=== PATIENT | male | born 1955 | race Caucasian/White ===

== ENCOUNTER → 2016-12-06 | Outpatient (CLI) | payer OTHER ==
[~2016-12-06] MED LIST: ALBUAER2 INH; ATV/1 PO; CALC-20 PO; DIPH-416 PO; FLUD0.1T10 PO; FLUO40CA8 PO; FOLI1TAB7 PO; HYD10 PO; HYDR-5688 PO; HYDR2TAB48 PO; LBT/300 PO; LEFL10TA PO; LEFL20TA PO; LEVO300T2 PO; MELO15TA3 PO; MELO15TA4 PO; MTHI50 INJ; MULT-506 PO; OMEG-112 PO; ONDA4TAB46 PO; PANT40TA PO; TERA5CAP PO; TIZA4CAP PO; VNTHFA/IN INH; [UNRECOGNIZED DRUG - CODE] IM
--- NOTE | 2016-12-07 06:42 | PAP/PSG TECHNICIAN REPORT ---
[facility] Wash Plant Operator Polysomnogram Report Study name: None Report date: 12/07/2016 Study date: 12/06/2016 Referring Physician: Ozzy DOWNS M.D. Name: ANGEL EASON Interpreting Physician: Praful Downs M.D. Date of : 1955 Wash Plant Operator: Ayush Acosta RPSGT. Sex: Male Age: 61 StudyType: PSG Weight: 229 lbs 19.25 inches Height: 61 years, Height 5' 8" Neck Circum: BMI: 34.82 Medications: LABETALOL HCL 300 MG, ZANAFLEX 4 MG, FLUOXETINE HCL 40 MG, ATIVAN 1 MG, VENTOLIN HFA 108 (90 BASE), PROTONIX 40 MG, CORTEF 10 MG, HYTRIN 5 MG, LEVOTHYROXINE SODIUM 300 MCG, MELOXICAM 15 MG, FLORINEF 100 MCG, DEXAMETHASONE SODIUM PHOSPHATE Patient History PATIENT HAS HISTORY OF WITNESSED APNEAS, NOCTURIA, LOUD SNORING AND EXCESSIVE DAYTIME SLEEPINESS. HE GENERALLY FEELS TIRED UPON WAKING UP IN THE MORNING. HE IS HERE TODAY FOR AN EVALUATION OF THIERRY. ESS = 13 RM 3 Parameters Monitored NPSG: E1-M2, E2-M1, Fp1-M2, Fp2-M1, F3-M2, F4-M2, F4-M1, C3-M2, C4-M2, C4-M1, O1-M2, O2-M2, O2-M1, T3-M2, T4-M1, P3-M2, P4-M1, CHIN1, CHIN2, HR, EKG, Legs, PFLOW, SNOR, FLOW, CFLOW, Tidal Volume, THOR, ABDO, SpO2, PLTH, CPRESS, ETCO2 Wave, ETCO2, pH Sleep Architecture Sleep Stages Time at Lights Off 10:27:10 PM STAGES Time (min.) TST (%) Time at Lights On 5:43:40 AM Wake 68.5 -- Total Recording Time (TRT) 437.00 min. N1 31.0 8 Total Sleep Period (TSP) 393.5 min. N2 245.0 67 Total Sleep Time (TST) 368.0min. N3 52.0 14 Awake Time 68.5 min. REM 40.0 11 Wake after Sleep Onset 25.5 min. Sleep Efficiency (SE) 84 % Sleep Onset Latency (KARINA) 43.0 min. Number of Stage 1 Shifts None Awakenings 31 Stage Changes 118 Number of REM periods 2 REM 40.0 11 REM Latency 210.5 min. NREM 328.0 89 Body Position Analysis Supine Right Left Side Prone Vertical Total Sleep Time (min.) 296.4 0.0 135.3 135.31 0.0 0.0 Total Sleep Time (%) 63% 0% 37% 37 0% N/A% Total Sleep Time REM (min.) 0.0 0.0 40.0 None 0.0 0.0 Total Sleep Time NREM (min.) 232.7 0.0 95.3 None 0.0 0.0 Intermittent Wake (min.) 63.7 0.0 4.8 None 0.0 0.0 Total Sleep Period (%) 64% None None None None None Arousals Myoclonus (PLM) * Events Count Index Events Count Index Spontaneous 33 5 Events Awake (PLMW) 146 127.9 Respiratory 14 2.3 Events Asleep w/ Arousal (PLMA) 17 2.8 PLM 15 3 Events Asleep w/o Arousal (PLMS) 112 18.3 Snoring 12 2 Total Asleep 129 21.0 Total 74 12 Total 275 38 Respiratory Analysis * CA OA MA CH H RERA Total Count 0 0 0 0 90 3 90 Index 0.0 0.0 0.0 0 14.7 0 15.2 Mean Duration 0.0 0.0 0.0 0.00 19.6 16.6 19.5 Longest Duration 0.0 0.0 0.0 0.00 0.0 16.9 39.6 Respiratory Event Summary Total Supine ~Supine Right Left Prone REM NREM Apneas Count 0 0 0 N/A 0 N/A 0 0 Index 0.0 0 0 N/A 0.0 N/A 0 0 Hypopneas (4% Desat) Count 90 75 15 N/A 15 N/A 4 86 Index 14.7 19.3 7 N/A 6.7 N/A 6.0 15.7 Apneas & All Hypopneas Count 90 75 15 N/A 15 N/A 4 86 Index 14.7 19 7 N/A 7 N/A 6.0 15.7 Respiratory Events (Air Purifier Servicer+All Hyp+RERA) Count 90 77 16 N/A 16 N/A 4 86 Index 15.2 20 7 N/A 7.1 N/A 6.0 16.3 Respiratory Related Arousal Count 14 77 1 N/A 1 N/A 1 13 Index 2.3 3 0 N/A 0 N/A 2 2 Snoring Analysis Supine Right Left Prone REM NREM Total Snore duration 28.6 min Snores count 1,354 N/A 181 N/A 37 1,498 1,535 Snore mean duration 1.1 Sec Snores index 349 N/A 80 N/A 55.5 274.0 250.3 TST with snoring (%) 7.8% Desaturation Event Summary: Minimum %SpO2 Event Count Mean/Min/Max Duration(sec.) Desaturation Index % Time In Bed > 90 104 24.4 / 10.8 / 58.5 17.1 83.5 86 - 90 18 22.7 / 13.0 / 34.8 15.1 16.4 81 - 85 0 N/A 0.0 0.2 76 - 80 0 N/A 0.0 0.0 71 - 75 0 N/A 0.0 0.0 66 - 70 0 N/A 0.0 0.0 61 - 65 0 N/A 0.0 0.0 56 - 60 0 N/A 0.0 0.0 51 - 55 0 N/A 0.0 0.0 < 50 0 N/A 0.0 0.0 Total REM NREM Awake <50% 0.0 min. 0.0 min. 0.0 min. 0.0 min. 51 - 60% 0.0 min. 0.0 min. 0.0 min. 0.0 min. 61 - 70% 0.0 min. 0.0 min. 0.0 min. 0.0 min. 71 - 80% 0.0 min. 0.0 min. 0.0 min. 0.0 min. 81 - 90% 72.2 min. 1.4 min. 61.3 min. 9.5 min. 91 - 100% 364.3 min. 38.6 min. 266.7 min. 59.0 min. Average 92 92 92 92 Minimum SpO2 85 88 85 85 Desaturation Event Index 14.7 6.0 17.4 7.0 # Desat. Events below 89% 60 1 56 3 Time(%) with Saturation below 89% 4.6 0.0 4.1 0.5 Time(min.) with Saturation below 89% 20.1 0.1 17.8 2.2 Time (mins) REM (mins) NREM (mins) % of TST SpO2 Below 90% 95 3 N92 10.1 SpO2 Below 88% 21 0 0 2 Heart Rate Analysis Min (bpm) Max (bpm) Average (bpm) Awake 48 72 58 NREM 47 68 54 REM 47 71 58 Overall 47 71 54 Supplemental O2 Values Minimum O2 level: None Value Start Time End Time Wash Plant Operator Comments Mr. Eason slept in the supine and left positions. No cardiac arrhythmia noted. Leg movements noted. No bruxism noted. Snoring was noted and scored as a 4 on a scale of 1 through 5. (0=no snoring, 5=snoring loud enough to be heard through a closed door or down the conde way) Mr. Eason awoke to use the restroom 0 times during the night. Mr. Eason stated I slept as well as I do when I am in my own bed. The final report will be interpreted and signed by a sleep physician. The completed physician report will then be placed in the patient medical record. Therapy (cm H2O) 0 TIB (min.) 436.5 TST (min.) 368.0 Sleep Onset (min.) 43.0 REM Onset From Sleep (min.) 210.5 Sleep Efficiency % 84 Wakefulness (%) 16 Wakefulness (min.) 68.5 NREM 1 (%) 8 NREM 1 (min.) 31.0 NREM 2 (%) 67 NREM 2 (min.) 245.0 NREM 3 (%) 14 NREM 3 (min.) 52.0 REM (%) 11 REM (min.) 40.0 # Arousals 74 Arousal Index 12 # Snore 1,535 Snore Index 250.3 AHI 14.7 AHI Supine 19 AHI Non-Supine 7 NREM AHI 15.7 REM AHI 6.0 RDI 15.2 # Obstructive Apnea 0 # Central Apnea 0 # Mixed Apnea 0 # Hypopneas 90 RERAs 3 Total Respiratory Events 97 Time Below SpO2 89% (min.) 17.9 Mean NREM SpO2 (%) 92 Mean REM SpO2 (%) 92 Mean Sleep SpO2 (%) 92 Min NREM SpO2 (%) 85 Min REM SpO2 (%) 88 Position Supine (min.) 296.4 Position Non-supine (min.) 135.3 LM Index Sleep 21.0 LM Index NREM 20.1 LM Index REM 28.5 Mean Heart Rate (bpm) 54 Min Heart Rate (bpm) 47
--- NOTE | 2016-12-11 11:25 | POLYSOMNOGRAPH REPORT ---
REFERRING PERSON: Dr. Dianne Downs. LEGAL RESEARCHER: Ayush Acosta. Mr. Eason is a 61-year-old male sent for possible split night sleep study. He has witnessed apneas, nocturia, loud snoring and excessive daytime sleepiness. His [place] sleepiness scale score on the evening of this study is 13. BMI is 34.82. Following the technical and digital specifications of the [employer] (AASM) a standard diagnostic polysomnogram was performed monitoring EEG, EOG, EMG (chin and leg deviations), oxygen saturation, body position, digital video, respiratory effort and airflow. The sleep Stage and event scoring was based on the AASM Manual for the Scoring of Sleep and Associated Events 2007 edition. Apneas are defined as a drop in the peak thermal sensor excursion by >90% of baseline for at least 10 seconds. Hypopneas were scored using the 4% oxygen desaturation rule (4A-[employer]) and a decrease in the nasal pressure excursions by >30% of baseline for at least 10 seconds. Respiratory effort-related arousal (RERA's) is defined as a sequence of breaths lasting at least 10 seconds characterized by increasing respiratory effort or flattening of the nasal pressure waveform leading to an arousal from sleep when the sequence of breaths does not meet criteria for an apnea or hypopnea. Apnea Hypopnea index (AHI) is defined as the number of apneas and hypopneas occurring in an hour of sleep. Respiratory disturbance index (RDI) is defined as the number of apneas, hypopneas, and RERA's occurring in an hour of sleep. Mr. Eason's total sleep period time was 393.5 minutes. Total sleep time was 368 minutes. Sleep efficiency was 84%. Latency to sleep onset was 43 minutes with wake after sleep onset of 25.5 minutes. Total non-REM sleep time was 328 minutes. He spent 8% of that time in N1 sleep, 67% in N2 sleep and 14% in N3 sleep. REM latency was 210.5 minutes. Total REM sleep time was 40 minutes or 11% of total sleep time. There were 74 cortical arousals from sleep. 14 of these arousals were due to respiratory events, 15 due to periodic limb movements of sleep, and 12 were due to snoring. The remaining 33 arousals were spontaneous. There were 129 periodic limb movements. Limb movement index was 21. Limb movement with arousal index was 2.8. There were no obstructive, central or mixed apneas on this test. There were 90 hypopnea and 3 RERA. Apnea-hypopnea index was 14.7 with an RDI of 15.2. Supine AHI was 19, REM AHI 6, non-REM AHI 15.7. This is consistent with mild to moderate sleep apnea. 1535 snoring events were recorded. Total sleep time with snoring was 7.8%. Mean saturations 92% with desaturations to 85%. Saturations were less than 89% for 20.1 minutes of total sleep time. This is significant nocturnal hypoxemia. There was no cardiac ectopy noted on this test. Heart rates ranged from a low of 47 beats per minute to a high of 71 beats per minute during sleep. IMPRESSION AND PLAN: 61-year-old male with mild to moderate sleep apnea and significant nocturnal hypoxemia on this study. 1. This patient would likely benefit from positive airway pressure therapy. He should return to the sleep lab for a full night titration and then based on those results be started on equipment at home. A download from his machine should be reviewed in 1 month both to check compliance as well as AHI and further pressure adjustments can occur at that time. 2. Alternatively, this patient could be started on auto titrating CPAP at home. The device can be set to pressures of 5-15 cm. A download from his machine can be reviewed in 1 month and the patient will be set on optimal pressure at that time. 3. Should this patient be unwilling or unable to tolerate CPAP therapy, he should be referred to ear, nose and throat or oral surgery/dental medicine (if appropriate) to discuss alternative treatments for sleep disordered breathing.
== END | disposition home or self-care (01) ==
LOC: C.NEUR 21:00
PROVIDERS: ATTEND Family Medicine
DX: G47.33 Obstructive sleep apnea (adult) (pediatric) (principal)

== ENCOUNTER 2017-07-28 10:42 | Emergency (ER) | payer OTHER ==
[~2017-07-28] VITALS: Ht 175.3 cm; Wt 99.9 kg
[~2017-07-28 10:42] MED LIST changes: -HYDR2TAB48 PO; -LEFL10TA PO; -LEFL20TA PO; -MELO15TA4 PO; -VNTHFA/IN INH
[2017-07-28] MEDS ORDERED: SODIUM CHLORIDE 0.9% 1000ML 1,000 ML IV STA (11:02)
[2017-07-28] MEDS ORDERED: ONDANSETRON INJ 2 MG/ML 2 ML VIAL IV STA (11:04)
[2017-07-28] MEDS ORDERED: HYDROmorphone INJ 1 MG/ML SYR IV STA ×2 (11:04→13:23)
[2017-07-28] MEDS ORDERED: DiphenhydrAMINE HCL 50 MG/ML VIAL IV STA (11:07)
--- NOTE | 2017-07-28 11:09 | EMERGENCY ROOM VISIT NOTE ---
History Report prepared by Brenna: Gwendolyn Roe Under the Supervision of: Dr. Shorty Barillas M.D. First contact with patient: 10:59 Chief Complaint: FALL Stated Complaint: FELL OUT OF A TREE-12 FEET, RIB PAIN History of Present Illness The patient is a 62 year old male who presents to the Emergency Room with complaints of a fall that occurred prior to arrival. He reports he was in a tree cutting pines to make wreathes when it collapsed and he fell approximately 12 feet, landing on his ribs, and hitting the area with a rock during the fall. He did not hit his head or lose consciousness. He currently complains of pain in his rib area, rating his discomfort as a 10/10 in severity. Breathing worsens his discomfort. He denies any back pain or chest pain. 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 A total of 10 systems reviewed and were otherwise negative. Past Medical & Surgical Medical Problems: (1) Lehr's disease Social History Smoking Status: Never Smoker Alcohol Use: none Drug Use: none Marital Status: Housing Status: lives with family Occupation Status: employed Current/Historical Medications Scheduled Calcium Carbonate-Vitamin D (Calcium 600 + D), 1 TAB PO QAM Fludrocortisone Acetate (Florinef), 0.1 MG PO HS Fluoxetine (Prozac), 40 MG PO QAM Folic Acid (Folvite), 1 MG PO QAM Hydrocortisone (Cortef), 20 MG PO QAM Hydrocortisone (Cortef), 10 MG PO QPM Labetalol Hcl (Normodyne), 300 MG PO BID Leflunomide (Arava), 10 MG PO DAILY Levothyroxine Sodium (Synthroid), 300 MCG PO 4XWK Lorazepam (Ativan), 1 MG PO HS Meloxicam (Mobic), 15 MG PO DAILY Methotrexate (Methotrexate Sodium), 0.6 ML INJ WK Multivitamin (Multivitamin), 1 TAB PO QAM [id number] Ethyl Esters (Reno-3), 1 CAP PO BID Pantoprazole (Protonix), 40 MG PO QAM Terazosin (Hytrin), 5 MG PO HS Scheduled PRN Albuterol Hfa (Ventolin Hfa), 2 PUFFS INH Q6H PRN for Shortness of Breath Diphenoxylate/Atropine (Lomotil), 1 DOSE PO QID PRN for Diarrhea Hydrocodone/Acetaminophen 5MG/325MG (Metter 5MG/325MG), 2 TABLET PO HS PRN for Mild Pain Ondansetron Hcl (Zofran), 4 MG PO TID PRN for N Tizanidine (Zanaflex), 4-8 MG PO HS PRN for PRN Allergies Coded Allergies: Morphine (Verified Allergy, Unknown, ITCHING, N&V, 02/08/16) 05/25/09: FROM PHYSICIAN ORDER FORM: CLARIFICATION--PT DOESN'T HAVE ALLERGY TO APAP, OPIATE AGONIST, OR OXYCODONE. ALLEGY ONLY TO MORPHINE/PROTONIX VORB FROM DR CALDWELL Physical Exam Vital Signs Date Time Temp Pulse Resp B/P (MAP) Pulse Ox O2 Delivery O2 Flow Rate FiO2 07/28/17 14:31 180/106 07/28/17 14:21 58 13 95 07/28/17 14:20 169/104 07/28/17 14:01 176/108 07/28/17 13:51 59 19 07/28/17 13:46 163/98 07/28/17 13:42 61 18 97 07/28/17 13:31 152/99 07/28/17 13:16 156/93 07/28/17 13:12 63 13 07/28/17 13:11 60 20 156/93 97 Room Air 07/28/17 13:01 167/109 07/28/17 12:57 173/97 07/28/17 12:42 61 16 95 07/28/17 12:12 56 15 94 07/28/17 12:11 60 07/28/17 12:10 96 Room Air 07/28/17 12:10 96 Room Air 07/28/17 12:08 64 20 161/99 95 Room Air 07/28/17 12:07 161/99 07/28/17 10:47 36.7 74 18 131/77 96 Room Air Physical Exam GENERAL: Patient is a healthy-appearing well-nourished 62 year old male HEAD: Normocephalic atraumatic EYES: Ocular movements intact pupils equal and react to light OROPHARYNX mucous membranes are moist no exudates present no erythema or edema present NECK: Supple no nuchal rigidity CHEST: Good equal expansion. Patient is exquisitely tender in the right side of the chest wall. LUNGS: Clear and equal to auscultation CARDIAC: Normal S1 and S2 ABDOMEN: Soft nontender no guarding BACK: No CVA tenderness EXTREMITIES: No pain upon palpation normal muscle strength in all groups no clubbing cyanosis or edema NEURO: Patient is following commands and answering questions appropriately. Alert and oriented x3 Cranial Nerves 2-12 grossly intact Medical Decision & Procedures ER Provider Diagnostic Interpretation: FAST Exam at the bedside is negative for free fluid in the abdomen. Radiology results as stated below per my review and radiologist interpretation: CT OF THE CERVICAL SPINE WITHOUT CONTRAST CLINICAL HISTORY: Fall. COMPARISON STUDY: Cervical spine radiograph February 03, 2016. TECHNIQUE: Helical axial images of the cervical spine were obtained without IV contrast. Sagittal and coronal reconstructions were viewed. A dose lowering technique was utilized adhering to the principles of ALARA. FINDINGS: There are postsurgical findings consistent with a C6-C7 anterior discectomy and fusion. Craniocervical junction is intact. No acute cervical spine fracture is present. There is reversal of the normal cervical lordosis. Moderate multilevel degenerative disc disease and facet arthrosis is present. IMPRESSION: 1. No acute cervical spine fracture or subluxation. 2. Status post C6-C7 anterior discectomy and fusion. Hardware intact. Electronically signed by: Stan Gaspar M.D. 07/28/2017 12:24 PM ADDENDUM Addendum: A few locules of pleural gas are noted at the level of the right-sided rib fractures. No additional sites of pleural gas are noted. Electronically signed by: Stan Gaspar M.D. 07/28/2017 12:[address] OF THE CHEST WITH IV CONTRAST CLINICAL HISTORY: Fall. COMPARISON STUDY: Chest radiograph October 29, 2012 and July 28, 2017. TECHNIQUE: Following IV administration of 93 mL of Optiray-320, helical axial images of the chest were obtained. Sagittal and coronal reconstructions were viewed as well as maximal intensity projections on an independent 3-D workstation. A dose lowering technique was utilized adhering to the principles of ALARA. FINDINGS: There is no evidence of traumatic injury to the thoracic aorta. The size the heart is at the upper limits of normal. There is no thoracic lymphadenopathy. A small hiatal hernia is present. No pneumothorax is present. Scattered mild tree-in-bud nodules within the lungs are noted. Central airways are patent. Note is made of an acute nondisplaced fracture of the lateral right sixth rib. There are nondisplaced acute fractures of the anterior right third, fourth and fifth ribs with nondisplaced fractures of the lateral right fourth and seventh ribs. IMPRESSION: 1. Acute minimally displaced fracture of the lateral right sixth rib and acute nondisplaced fractures of the right third, fourth, fifth and seventh ribs. No pneumothorax. 2. No evidence of traumatic injury to the thoracic aorta. Electronically signed by: Stan Gaspar M.D. 07/28/2017 12:[address] OF THE HEAD WITHOUT CONTRAST CLINICAL HISTORY: Fall with head injury. COMPARISON STUDY: Head CT February 01, 2016. TECHNIQUE: Helical axial images of the head were obtained without IV contrast. Automated exposure control was utilized for the study. A dose lowering technique was utilized adhering to the principles of ALARA. FINDINGS: No acute intracranial hemorrhage, midline shift or mass effect is present. Ventricular system is normal. Basilar cisterns are patent. There are no extra-axial collections. Mild white matter hypodensity suggests small vessel disease. There is no calvarial fracture. IMPRESSION: 1. No acute intracranial findings. 2. No calvarial fracture. Electronically signed by: Stan Gaspar M.D. 07/28/2017 12:21 PM THORACIC SPINE WITHOUT CLINICAL HISTORY: Fall. COMPARISON STUDY: No previous studies for comparison. FINDINGS: Alignment of the thoracic spine is anatomic. No acute fracture is identified. There is moderate anterior osteophytosis. C6-C7 anterior cervical spine fusion is noted. Hardware is intact. The chest CT will be reported separately. Central canal and neural foramen are suboptimally assessed by CT. IMPRESSION: No acute thoracic spine fracture or subluxation. Electronically signed by: Stan Gaspar M.D. 07/28/2017 12:36 PM CHEST ONE VIEW PORTABLE CLINICAL HISTORY: Right-sided chest pain following fall. COMPARISON STUDY: Chest radiograph October 29, 2012. FINDINGS: There is no pneumothorax or pleural effusion. Lung volumes are diminished. Anterior cervical spine fusion is noted. Cardiomediastinal silhouette is unremarkable. There may be mild left basilar opacity. IMPRESSION: 1. No pneumothorax. 2. Mild left basilar opacity. Electronically signed by: Stan Gaspar M.D. 07/28/2017 11:[address] OF THE ABDOMEN AND PELVIS WITH CONTRAST CLINICAL HISTORY: Fall. COMPARISON STUDY: Renal ultrasound May 27, 2009. TECHNIQUE: Following IV administration of 93 mL of Optiray-320, axial images of the abdomen and pelvis were obtained from the lung bases to the proximal femurs. Images were reviewed in the axial, sagittal, and coronal planes. IV contrast was administered without complication. A dose lowering technique was utilized adhering to the principles of ALARA. CT DOSE: 3502.98 mGy.cm FINDINGS: There is no evidence of traumatic injury to the liver, spleen, adrenal glands, kidneys or pancreas. 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 There are multiple bilateral renal calculi. Note is made of a 3.5 cm cyst arising from the lower pole of the right kidney. Caliber and wall thickness of small and large bowel are normal. There is no biliary ductal dilatation status post cholecystectomy. No acute lumbar spine or pelvic fracture is identified. Images of the pelvis are degraded by streak artifact from bilateral hip hardware. IMPRESSION: 1. No acute traumatic finding within the abdomen or pelvis. 2. Bilateral nephrolithiasis. 3. Sigmoid diverticulosis without evidence for acute diverticulitis. Electronically signed by: Stan Gaspar M.D. 07/28/2017 12:[address] OF THE ABDOMEN AND PELVIS WITH CONTRAST CLINICAL HISTORY: Fall. COMPARISON STUDY: Renal ultrasound May 27, 2009. TECHNIQUE: Following IV administration of 93 mL of Optiray-320, axial images of the abdomen and pelvis were obtained from the lung bases to the proximal femurs. Images were reviewed in the axial, sagittal, and coronal planes. IV contrast was administered without complication. A dose lowering technique was utilized adhering to the principles of ALARA. CT DOSE: 3502.98 mGy.cm FINDINGS: There is no evidence of traumatic injury to the liver, spleen, adrenal glands, kidneys or pancreas. 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 There are multiple bilateral renal calculi. Note is made of a 3.5 cm cyst arising from the lower pole of the right kidney. Caliber and wall thickness of small and large bowel are normal. There is no biliary ductal dilatation status post cholecystectomy. No acute lumbar spine or pelvic fracture is identified. Images of the pelvis are degraded by streak artifact from bilateral hip hardware. IMPRESSION: 1. No acute traumatic finding within the abdomen or pelvis. 2. Bilateral nephrolithiasis. 3. Sigmoid diverticulosis without evidence for acute diverticulitis. Electronically signed by: Stan Gaspar M.D. 07/28/2017 12:46 PM Laboratory Results 07/28/17 11:23 Red Blood Count 3.82, Mean Corpuscular Volume 91.6, Mean Corpuscular Hemoglobin 32.2, Mean Corpuscular Hemoglobin Concent 35.1, Mean Platelet Volume 9.6, Neutrophils (%) (Auto) 76.9, Lymphocytes (%) (Auto) 15.8, Monocytes (%) (Auto) 5.7, Eosinophils (%) (Auto) 0.9, Basophils (%) (Auto) 0.2, Neutrophils # (Auto) 4.42, Lymphocytes # (Auto) 0.91, Monocytes # (Auto) 0.33, Eosinophils # (Auto) 0.05, Basophils # (Auto) 0.01 07/28/17 11:23 Test 07/28/17 11:23 07/28/17 11:31 07/28/17 12:12 07/28/17 12:41 White Blood Count 5.75 K/uL (4.8-10.8) Red Blood Count 3.82 M/uL (4.7-6.1) Hemoglobin 12.3 g/dL (14.0-18.0) Hematocrit 35.0 % (42-52) Mean Corpuscular Volume 91.6 fL (80-100) Mean Corpuscular Hemoglobin 32.2 pg (25-34) Mean Corpuscular Hemoglobin Concent 35.1 g/dl (32-36) Platelet Count 205 K/uL (130-400) Mean Platelet Volume 9.6 fL (7.4-10.4) Neutrophils (%) (Auto) 76.9 % Lymphocytes (%) (Auto) 15.8 % Monocytes (%) (Auto) 5.7 % Eosinophils (%) (Auto) 0.9 % Basophils (%) (Auto) 0.2 % Neutrophils # (Auto) 4.42 K/uL (1.4-6.5) Lymphocytes # (Auto) 0.91 K/uL (1.2-3.4) Monocytes # (Auto) 0.33 K/uL (0.11-0.59) Eosinophils # (Auto) 0.05 K/uL (0-0.5) Basophils # (Auto) 0.01 K/uL (0-0.2) RDW Standard Deviation 45.1 fL (36.4-46.3) RDW Coefficient of Variation 13.8 % (11.5-14.5) Immature Granulocyte % (Auto) 0.5 % Immature Granulocyte # (Auto) 0.03 K/uL (0.00-0.02) Est Creatinine Clear Calc Drug Dose 77.6 ml/min Estimated GFR () 78.6 Estimated GFR (Non- 67.8 BUN/Creatinine Ratio 23.0 (10-20) Calcium Level 8.8 mg/dl (8.5-10.1) Total Bilirubin 0.6 mg/dl (0.2-1) Direct Bilirubin 0.1 mg/dl (0-0.2) Aspartate Amino Transf (AST/SGOT) 34 U/L (15-37) Alanine Aminotransferase (ALT/SGPT) 37 U/L (12-78) Alkaline Phosphatase 64 U/L (45-117) Total Creatine Kinase 176 U/L (39-308) Creatine Kinase MB 2.4 ng/ml (0.5-3.6) Creatine Kinase MB Ratio 1.4 (0-3.0) Troponin I < 0.015 ng/ml (0-0.045) Total Protein 7.5 gm/dl (6.4-8.2) Albumin 3.9 gm/dl (3.4-5.0) Bedside Hemoglobin 12.2 g/dl (14.0-18.0) Bedside Hematocrit 36 % (42-52) Bedside Sodium 143 mEq/L (135-144) Bedside Potassium 4.4 mEq/L (3.3-5.0) Bedside Chloride 108 mEq/L (101-112) Bedside Total CO2 25 mEq/l (24-31) Anion Gap 15.0 mmol/L (16-25) Bedside Blood Urea Nitrogen 27 mg/dl (7-18) Bedside Creatinine 1.1 mg/dl (0.6-1.3) Bedside Glucose (other) 90 mg/dl (70-99) Bedside Ionized Calcium ([place]) 1.08 mmol/l (1.12-1.32) Bedside Glucose 88 mg/dl (70-99) Urine Color YELLOW Urine Appearance CLEAR (CLEAR) Urine pH 6.0 (4.5-7.5) Urine Specific [place] 1.040 (1.000-1.030) Urine Protein NEG (NEG) Urine Glucose (UA) NEG (NEG) Urine Ketones NEG (NEG) Urine Occult Blood NEG (NEG) Urine Nitrite NEG (NEG) Urine Bilirubin NEG (NEG) Urine Urobilinogen NEG (NEG) Urine Leukocyte Esterase NEG (NEG) Labs reviewed by ED physician. Medications Administered Medications (Trade) Dose Ordered Sig/Magda Route Start Time Stop Time Status Last Admin Dose Admin Sodium Chloride 1,000 ml @ 999 mls/hr Q1H1M STAT IV 07/28/17 11:02 07/28/17 12:02 DC 07/28/17 11:27 999 MLS/HR Hydromorphone HCl (Dilaudid Inj) 1 mg NOW STAT IV 07/28/17 11:04 07/28/17 11:05 DC 07/28/17 11:27 1 MG Ondansetron HCl (Zofran Inj) 4 mg NOW STAT IV 07/28/17 11:04 07/28/17 11:05 DC 07/28/17 11:27 4 MG Diphenhydramine HCl (Benadryl Inj) 25 mg NOW STAT IV 07/28/17 11:07 07/28/17 11:08 DC 07/28/17 11:27 25 MG Hydrocortisone Sodium Succinate (Solu-Cortef IV) 100 mg NOW STAT IV 07/28/17 12:06 07/28/17 12:08 DC 07/28/17 12:53 100 MG Lidocaine (Lidoderm Patch 5%) 1 patch NOW STAT TD 07/28/17 12:42 07/28/17 12:43 DC 07/28/17 13:01 1 PATCH Hydromorphone HCl (Dilaudid Inj) 1 mg NOW STAT IV 07/28/17 13:23 07/28/17 13:25 DC 07/28/17 13:29 1 MG Ketorolac Tromethamine (Toradol Inj) 30 mg NOW STAT IV 07/28/17 13:23 07/28/17 13:25 DC 07/28/17 13:29 30 MG ECG Indication: SOB/dyspnea Rate (beats per minute): 62 Rhythm: normal sinus Findings: no acute ischemic change, no ectopy ED Course 1100: Past medical records reviewed. The patient was evaluated in room C2. A complete history and physical examination was performed. 1102: NSS 1000 ml @ 999 mls/hr IV. 1104: Zofran 4 mg IV, Dilaudid 1 mg IV. 1107: Benadryl 25 mg IV. 1206: Solu-Cortef 100 mg IV. 1242: Lidocaine 5% 1 patch TD 1323: Toradol 30 mg IV, Dilaudid 1 mg IV. 1324: I discussed the patients case with Regla Soares. The patient will be further evaluated. Medical Decision Prior records/ancillary studies reviewed. Triage Nursing notes reviewed. The patient's history was concerning for traumatic injury Differential diagnosis: Etiologies such as fracture, dislocation, intra-abdominal, pneumothorax, intrathoracic , intracranial, neurologic, as well as other traumatic pathologies were entertained. This is a 62-year-old male who presents emergency department after 12 foot fall. The patient landed on his right side of his chest. He is complaining of pain with respiration. He was sent for a immediate x-ray to ensure that he does not have a pneumothorax. After the x-ray an IV was established, the patient was given Dilaudid to help control his pain. He was sent for CAT scan of the head chest abdomen and pelvis. This was concerning for multiple rib fractures however the patient does not appear to have a pulmonary contusion or effusion. The patient was given an incentive spirometer as well as pain medications to keep his pain under control. I did discuss the case with the hospitalist service who agreed to admit the patient. Medication Reconcilliation Current Medication List: was personally reviewed by me Blood Pressure Screening Patient's blood pressure: Elevated blood pressure Blood pressure disposition: Elevated BP felt to be situational Consults Time Called: 1320 Consulting Physician: Regla oSares Returned Call: 1324 I discussed the patients case with Regla Soares. The patient will be further evaluated. Impression Primary Impression: Fall Additional Impression: Rib fractures Scribe Attestation The scribe's documentation has been prepared under my direction and personally reviewed by me in its entirety. I confirm that the note above accurately reflects all work, treatment, procedures, and medical decision making performed by me. Departure Information Dispostion Being Evaluated By Hospitalist Referrals Ethan Bridges D.O. (PCP) Patient Instructions My [facility] Problem Qualifiers Primary Impression: Fall Encounter type: initial encounter Qualified Codes: W19.XXXA - Unspecified fall, initial encounter Additional Impression: Rib fractures Encounter type: initial encounter Rib fracture type: multiple ribs Fracture type: closed Laterality: right Qualified Codes: S22.41XA - Multiple fractures of ribs, right side, initial encounter for closed fracture
[2017-07-28] MEDS ORDERED: OPTIRAY 320 IV PRN (11:15)
[2017-07-28 11:41] LABS: BASO % 0.2 %; BASO ABS # 0.01 K/uL (0-0.2); COMPLETE YES; EOS % 0.9 %; IG% 0.5 %; LYMPH % 15.8 %; LYMPH ABS # 0.91 K/uL (1.2-3.4); MEAN CELL VOLUME 91.6 fL (80-100); MEAN CORPUSCULAR HEMOGLOBIN 32.2 pg (25-34); MEAN CORPUSCULAR HGB CONC 35.1 g/dl (32-36); MEAN PLATELET VOLUME 9.6 fL (7.4-10.4); MONO % 5.7 %; NEUT % 76.9 %; PLATELET COUNT 205 K/uL (130-400); RED BLOOD COUNT 3.82 M/uL (4.7-6.1); WHITE BLOOD COUNT 5.75 K/uL (4.8-10.8)
[2017-07-28 11:43] LABS: ISTAT CREATININE 1.1 mg/dl (0.6-1.3); ISTAT HEMOGLOBIN 12.2 g/dl (14.0-18.0); ISTAT IONIZED CALCIUM 1.08 mmol/l (1.12-1.32)
[2017-07-28] MEDS ORDERED: LEFL20TA PO (11:48)
[2017-07-28] MEDS ORDERED: VNTHFA/IN INH (11:48)
--- NOTE | 2017-07-28 11:56 | DIAGNOSTIC IMAGING REPORT ---
CHEST ONE VIEW PORTABLE CLINICAL HISTORY: Right-sided chest pain following fall. COMPARISON STUDY: Chest radiograph October 29, 2012. FINDINGS: There is no pneumothorax or pleural effusion. Lung volumes are diminished. Anterior cervical spine fusion is noted. Cardiomediastinal silhouette is unremarkable. There may be mild left basilar opacity. IMPRESSION: 1. No pneumothorax. 2. Mild left basilar opacity. Electronically signed by: Stan Gaspar M.D. 07/28/2017 11:55 AM Dictated Date/Time: 07/28/2017 11:53 AM
[2017-07-28] MEDS ORDERED: HYDROCORTISONE SOD SUCCINATE 100 MG/2 ML VIAL IV STA (12:06)
[2017-07-28 12:13] LABS: CALCIUM 8.8 mg/dl (8.5-10.1); CREATININE 1.15 mg/dl (0.60-1.40); POTASSIUM 4.2 mmol/L (3.5-5.1)
--- NOTE | 2017-07-28 12:22 | DIAGNOSTIC IMAGING REPORT ---
CT OF THE HEAD WITHOUT CONTRAST CLINICAL HISTORY: Fall with head injury. COMPARISON STUDY: Head CT February 01, 2016. TECHNIQUE: Helical axial images of the head were obtained without IV contrast. Automated exposure control was utilized for the study. A dose lowering technique was utilized adhering to the principles of ALARA. FINDINGS: No acute intracranial hemorrhage, midline shift or mass effect is present. Ventricular system is normal. Basilar cisterns are patent. There are no extra-axial collections. Mild white matter hypodensity suggests small vessel disease. There is no calvarial fracture. IMPRESSION: 1. No acute intracranial findings. 2. No calvarial fracture. Electronically signed by: Stan Gaspar M.D. 07/28/2017 12:21 PM Dictated Date/Time: 07/28/2017 12:18 PM
--- NOTE | 2017-07-28 12:25 | DIAGNOSTIC IMAGING REPORT ---
CT OF THE CERVICAL SPINE WITHOUT CONTRAST CLINICAL HISTORY: Fall. COMPARISON STUDY: Cervical spine radiograph February 03, 2016. TECHNIQUE: Helical axial images of the cervical spine were obtained without IV contrast. Sagittal and coronal reconstructions were viewed. A dose lowering technique was utilized adhering to the principles of ALARA. FINDINGS: There are postsurgical findings consistent with a C6-C7 anterior discectomy and fusion. Craniocervical junction is intact. No acute cervical spine fracture is present. There is reversal of the normal cervical lordosis. Moderate multilevel degenerative disc disease and facet arthrosis is present. IMPRESSION: 1. No acute cervical spine fracture or subluxation. 2. Status post C6-C7 anterior discectomy and fusion. Hardware intact. Electronically signed by: Stan Gaspar M.D. 07/28/2017 12:24 PM Dictated Date/Time: 07/28/2017 12:21 PM
--- NOTE | 2017-07-28 12:35 | DIAGNOSTIC IMAGING REPORT ---
ADDENDUM Addendum: A few locules of pleural gas are noted at the level of the right-sided rib fractures. No additional sites of pleural gas are noted. Electronically signed by: Stan Gaspar M.D. 07/28/2017 12:40 PM Dictated Date/Time: 07/28/2017 12:[address] OF THE CHEST WITH IV CONTRAST CLINICAL HISTORY: Fall. COMPARISON STUDY: Chest radiograph October 29, 2012 and July 28, 2017. TECHNIQUE: Following IV administration of 93 mL of Optiray-320, helical axial images of the chest were obtained. Sagittal and coronal reconstructions were viewed as well as maximal intensity projections on an independent 3-D workstation. A dose lowering technique was utilized adhering to the principles of ALARA. FINDINGS: There is no evidence of traumatic injury to the thoracic aorta. The size the heart is at the upper limits of normal. There is no thoracic lymphadenopathy. A small hiatal hernia is present. No pneumothorax is present. Scattered mild tree-in-bud nodules within the lungs are noted. Central airways are patent. Note is made of an acute nondisplaced fracture of the lateral right sixth rib. There are nondisplaced acute fractures of the anterior right third, fourth and fifth ribs with nondisplaced fractures of the lateral right fourth and seventh ribs. IMPRESSION: 1. Acute minimally displaced fracture of the lateral right sixth rib and acute nondisplaced fractures of the right third, fourth, fifth and seventh ribs. No pneumothorax. 2. No evidence of traumatic injury to the thoracic aorta. Electronically signed by: Stan Gaspar M.D. 07/28/2017 12:34 PM Dictated Date/Time: 07/28/2017 12:24 PM
--- NOTE | 2017-07-28 12:37 | DIAGNOSTIC IMAGING REPORT ---
THORACIC SPINE WITHOUT CLINICAL HISTORY: Fall. COMPARISON STUDY: No previous studies for comparison. FINDINGS: Alignment of the thoracic spine is anatomic. No acute fracture is identified. There is moderate anterior osteophytosis. C6-C7 anterior cervical spine fusion is noted. Hardware is intact. The chest CT will be reported separately. Central canal and neural foramen are suboptimally assessed by CT. IMPRESSION: No acute thoracic spine fracture or subluxation. Electronically signed by: Stan Gaspar M.D. 07/28/2017 12:36 PM Dictated Date/Time: 07/28/2017 12:34 PM
[2017-07-28] MEDS ORDERED: LIDODERM (LIDOCAINE) PATCH 5% TD STA (12:42)
--- NOTE | 2017-07-28 12:48 | DIAGNOSTIC IMAGING REPORT ---
CT OF THE ABDOMEN AND PELVIS WITH CONTRAST CLINICAL HISTORY: Fall. COMPARISON STUDY: Renal ultrasound May 27, 2009. TECHNIQUE: Following IV administration of 93 mL of Optiray-320, axial images of the abdomen and pelvis were obtained from the lung bases to the proximal femurs. Images were reviewed in the axial, sagittal, and coronal planes. IV contrast was administered without complication. A dose lowering technique was utilized adhering to the principles of ALARA. CT DOSE: 3502.98 mGy.cm FINDINGS: There is no evidence of traumatic injury to the liver, spleen, adrenal glands, kidneys or pancreas. 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 There are multiple bilateral renal calculi. Note is made of a 3.5 cm cyst arising from the lower pole of the right kidney. Caliber and wall thickness of small and large bowel are normal. There is no biliary ductal dilatation status post cholecystectomy. No acute lumbar spine or pelvic fracture is identified. Images of the pelvis are degraded by streak artifact from bilateral hip hardware. IMPRESSION: 1. No acute traumatic finding within the abdomen or pelvis. 2. Bilateral nephrolithiasis. 3. Sigmoid diverticulosis without evidence for acute diverticulitis. Electronically signed by: Stan Gaspar M.D. 07/28/2017 12:46 PM Dictated Date/Time: 07/28/2017 12:37 PM
--- NOTE | 2017-07-28 12:50 | DIAGNOSTIC IMAGING REPORT ---
LUMBAR SPINE CT CLINICAL HISTORY: Fall. COMPARISON STUDY: Lumbar spine MRI February 26, 2008. FINDINGS: Alignment of the lumbar spine is anatomic. Vertebral body heights are maintained. There is no acute lumbar spine fracture. There is mild disc space narrowing with moderate osteophytosis and vacuum disc phenomenon at T12-L1 and L5-S1. There is moderate multilevel facet arthrosis. Central canal and neural foramen are suboptimally assessed by CT. The abdomen and pelvis will be reported separately. Sacroiliac joints are intact. IMPRESSION: No acute lumbar spine fracture or subluxation. Electronically signed by: Stan Gaspar M.D. 07/28/2017 12:49 PM Dictated Date/Time: 07/28/2017 12:46 PM
[2017-07-28 12:57] LABS: URINE APPEARANCE CLEAR (CLEAR); URINE BILIRUBIN NEG (NEG); URINE COLOR YELLOW; URINE NITRITE NEG (NEG); UROBILINOGEN NEG (NEG)
[2017-07-28 13:03] LABS: MANUAL MICROSCOPIC REQUIRED? NO; REVIEW REQ? NO
[2017-07-28] MEDS ORDERED: KETOROLAC TROMETHAMINE 30 MG/ML VIAL IV STA (13:23)
[2017-07-28 13:53] LABS: CKMB/CK RATIO 1.4 (0-3.0)
[2017-07-28] MEDS ORDERED: ONDANSETRON INJ 2 MG/ML 2 ML VIAL IV PRN (14:30)
[2017-07-28] MEDS ORDERED: IV FLUIDS COMPLETED PRN (14:30)
[2017-07-28] MEDS ORDERED: HYDROmorphone HCL 0.5MG/ML 50 ML CASSETTE IV PRN (14:30)
[2017-07-28] MEDS ORDERED: NALOXONE HCL 0.4 MG/1 ML VIAL/CARP IV PRN (14:30)
[2017-07-28] MEDS ORDERED: TRAMADOL HCL 50 MG TAB PO PRN (14:30)
[2017-07-28] MEDS ORDERED: MELO15TA4 PO (14:40)
[2017-07-28] MEDS ORDERED: LEFL10TA PO (14:40)
[2017-07-28 14:55] VITALS: O2SAT 95; Ht 175.3 cm; Wt 99.9 kg
[2017-07-28] MEDS ORDERED: ALBUTEROL HFA 8 GM INHALER INH PRN (15:00)
[2017-07-28] MEDS ORDERED: DIPHENOXYLATE/ATROPINE 2.5/0.025MG TAB PO PRN (15:00)
[2017-07-28 15:13] VITALS: O2SAT 95
--- NOTE | 2017-07-28 15:35 | History and Physical ---
History & Physical Date & Time of Service: Jul 28, 2017 at ~ 13:45 . Chief Complaint: fall, rib pain . Primary Care Physician: Ethan Bridges D.O. . History of Present Illness Source: patient, family, clinic records, hospital records 62 [address]O male followed by Dr. Bridges for Internal Medicine. History of hypertension, RA, Haris's disease, and other problems as noted below. Fell from tree that he was working on this morning around 10:30. No associated loss of consciousness, lightheadedness, palpitations before the fall. Fell about 12 feet and landed on his right chest. Also struck his head. No loss of consciousness. Severe right chest wall pain and dyspnea after the fall. . Past Medical/Surgical History Chronic and Resolved Medical Problems: (1) Albia's disease Status: Chronic (2) Antiphospholipid syndrome Status: Chronic (3) Depression Status: Chronic (4) GERD (gastroesophageal reflux disease) Status: Chronic (5) History of DVT of lower extremity Permanent Comment: provoked, associated with hip replacement Status: Chronic (6) Hypertension Status: Chronic (7) Hypogonadism Status: Chronic (8) Hypothyroidism Status: Chronic (9) Rheumatoid arthritis Status: Chronic (10) Sleep apnea Permanent Comment: intolerant of CPAP Status: Chronic Surgical Problems: (1) Status post carpal tunnel release Status: Chronic (2) Status post cholecystectomy Status: Chronic (3) Status post hip replacement Permanent Comment: bilat Status: Chronic . Family History FATHER Aortic aneurysm BROTHER Brain cancer SISTER Breast cancer Diabetes mellitus Social History Smoking Status: Former Smoker Alcohol Use: occasionally Drug Use: none Marital Status: Housing status: lives with family Occupational Status: employed Immunizations History of Influenza Vaccine: Yes Influenza Vaccine Date: May 15, 2017 History of Tetanus Vaccine?: Yes History of Pneumococcal: Yes Pneumococcal Date: Aug 17, 2000 History of Hepatitis B Vaccine: No Multi-Drug Resistant Organisms History of MDRO: No Allergies Coded Allergies: Morphine (Verified Allergy, Unknown, ITCHING, N&V, 02/08/16) 05/25/09: FROM PHYSICIAN ORDER FORM: CLARIFICATION--PT DOESN'T HAVE ALLERGY TO APAP, OPIATE AGONIST, OR OXYCODONE. ALLEGY ONLY TO MORPHINE/PROTONIX VORB FROM DR CALDWELL Home Medications Scheduled Calcium Carbonate-Vitamin D (Calcium 600 + D), 1 TAB PO QAM Fludrocortisone Acetate (Florinef), 0.1 MG PO HS Fluoxetine (Prozac), 40 MG PO QAM Folic Acid (Folvite), 1 MG PO QAM Hydrocortisone (Cortef), 20 MG PO QAM Hydrocortisone (Cortef), 10 MG PO QPM Labetalol Hcl (Normodyne), 300 MG PO BID Leflunomide (Arava), 10 MG PO DAILY Levothyroxine Sodium (Synthroid), 300 MCG PO 4XWK Lorazepam (Ativan), 1 MG PO HS Meloxicam (Mobic), 15 MG PO DAILY Methotrexate (Methotrexate Sodium), 0.6 ML INJ WK Multivitamin (Multivitamin), 1 TAB PO QAM Fquwq-0-Greg Ethyl Esters (Zearing-3), 1 CAP PO BID Pantoprazole (Protonix), 40 MG PO QAM Terazosin (Hytrin), 5 MG PO HS Scheduled PRN Albuterol Hfa (Ventolin Hfa), 2 PUFFS INH Q6H PRN for Shortness of Breath Diphenoxylate/Atropine (Lomotil), 1 DOSE PO QID PRN for Diarrhea Hydrocodone/Acetaminophen 5MG/325MG ([place] 5MG/325MG), 2 TABLET PO HS PRN for Mild Pain Ondansetron Hcl (Zofran), 4 MG PO TID PRN for N Tizanidine (Zanaflex), 4-8 MG PO HS PRN for PRN Review of Systems Constitutional: + weight loss (intentional 20 lb loss), No fever Eyes: No worsening of vision, No diplopia ENT: No hearing loss, No nasal symptoms, No sore throat Respiratory: + shortness of breath, No cough Cardiovascular: No chest pain, No edema, No palpitations Abdomen: + diarrhea (chronic), No pain, No nausea, No vomiting, No GI bleeding Musculoskeletal: + joint pain (RA, neck pain) Genitourinary - Male: No hematuria, No dysuria Neurologic: + problem reported (occasional headaches) Endocrine: No excessive thirst, No excessive urination Hematologic / Lymphatic: No abnormal bleeding/bruising Integumentary: No rash, No itch, No new/changing skin lesions Physical Exam Vital Signs Date Time Temp Pulse Resp B/P (MAP) Pulse Ox O2 Delivery O2 Flow Rate FiO2 07/28/17 15:06 63 21 95 07/28/17 15:01 169/104 07/28/17 14:46 185/117 07/28/17 14:36 72 29 93 07/28/17 14:31 180/106 07/28/17 14:21 58 13 95 07/28/17 14:20 169/104 07/28/17 14:01 176/108 07/28/17 13:51 59 19 07/28/17 13:46 163/98 07/28/17 13:42 61 18 97 07/28/17 13:31 152/99 07/28/17 13:16 156/93 07/28/17 13:12 63 13 07/28/17 13:11 60 20 156/93 97 Room Air 07/28/17 13:01 167/109 07/28/17 12:57 173/97 07/28/17 12:42 61 16 95 07/28/17 12:12 56 15 94 07/28/17 12:11 60 07/28/17 12:10 96 Room Air 07/28/17 12:10 96 Room Air 07/28/17 12:08 64 20 161/99 95 Room Air 07/28/17 12:07 161/99 07/28/17 10:47 36.7 74 18 131/77 96 Room Air General Appearance: WD/WN, + moderate distress Head: normocephalic, + pertinent finding (abrasion forehead) Eyes: normal inspection, PERRL, EOMI, sclerae normal ENT: normal ENT inspection, pharynx normal Neck: supple, no adenopathy, thyroid normal, no JVD, trachea midline Respiratory/Chest: lungs clear, no respiratory distress, + pertinent finding ( right chest wall tenderness; no crepitus) Cardiovascular: regular rate, rhythm, no edema, no gallop, no JVD, no murmur, normal peripheral pulses Abdomen/GI: normal bowel sounds, non tender, soft, no organomegaly Extremities/Musculoskelatal: normal inspection, no calf tenderness Neurologic/Psych: brake lining maker II-XII nml as tested (PERRL, EOMI, no facial palsy, no dysarthria), no motor/sensory deficits, alert, normal mood/affect, oriented x 3 Skin: normal color, warm/dry, no rash Lymphatic: no adenopathy (cervical) Diagnostics Laboratory Results Results Past 24 Hours Test 07/28/17 11:23 07/28/17 11:31 07/28/17 12:12 07/28/17 12:41 Range/Units White Blood Count 5.75 4.8-10.8 K/uL Red Blood Count 3.82 4.7-6.1 M/uL Hemoglobin 12.3 14.0-18.0 g/dL Hematocrit 35.0 42-52 % Mean Corpuscular Volume 91.6 80-100 fL Mean Corpuscular Hemoglobin 32.2 25-34 pg Mean Corpuscular Hemoglobin Concent 35.1 32-36 g/dl Platelet Count 205 130-400 K/uL Mean Platelet Volume 9.6 7.4-10.4 fL Neutrophils (%) (Auto) 76.9 % Lymphocytes (%) (Auto) 15.8 % Monocytes (%) (Auto) 5.7 % Eosinophils (%) (Auto) 0.9 % Basophils (%) (Auto) 0.2 % Neutrophils # (Auto) 4.42 1.4-6.5 K/uL Lymphocytes # (Auto) 0.91 1.2-3.4 K/uL Monocytes # (Auto) 0.33 0.11-0.59 K/uL Eosinophils # (Auto) 0.05 0-0.5 K/uL Basophils # (Auto) 0.01 0-0.2 K/uL RDW Standard Deviation 45.1 36.4-46.3 fL RDW Coefficient of Variation 13.8 11.5-14.5 % Immature Granulocyte % (Auto) 0.5 % Immature Granulocyte # (Auto) 0.03 0.00-0.02 K/uL Sodium Level 142 136-145 mmol/L Potassium Level 4.2 3.5-5.1 mmol/L Chloride Level 109 98-107 mmol/L Carbon Dioxide Level 27 21-32 mmol/L Anion Gap 6.0 15.0 16-25 mmol/L Blood Urea Nitrogen 26 7-18 mg/dl Creatinine 1.15 0.60-1.40 mg/dl Est Creatinine Clear Calc Drug Dose 77.6 ml/min Estimated GFR () 78.6 Estimated GFR (Non- 67.8 BUN/Creatinine Ratio 23.0 10-20 Random Glucose 90 70-99 mg/dl Calcium Level 8.8 8.5-10.1 mg/dl Total Bilirubin 0.6 0.2-1 mg/dl Direct Bilirubin 0.1 0-0.2 mg/dl Aspartate Amino Transf (AST/SGOT) 34 15-37 U/L Alanine Aminotransferase (ALT/SGPT) 37 12-78 U/L Alkaline Phosphatase 64 45-117 U/L Total Creatine Kinase 176 39-308 U/L Creatine Kinase MB 2.4 0.5-3.6 ng/ml Creatine Kinase MB Ratio 1.4 0-3.0 Troponin I < 0.015 0-0.045 ng/ml Total Protein 7.5 6.4-8.2 gm/dl Albumin 3.9 3.4-5.0 gm/dl Bedside Hemoglobin 12.2 14.0-18.0 g/dl Bedside Hematocrit 36 42-52 % Bedside Sodium 143 135-144 mEq/L Bedside Potassium 4.4 3.3-5.0 mEq/L Bedside Chloride 108 101-112 mEq/L Bedside Total CO2 25 24-31 mEq/l Bedside Blood Urea Nitrogen 27 7-18 mg/dl Bedside Creatinine 1.1 0.6-1.3 mg/dl Bedside Glucose (other) 90 70-99 mg/dl Bedside Ionized Calcium ([place]) 1.08 1.12-1.32 mmol/l Bedside Glucose 88 70-99 mg/dl Urine Color YELLOW Urine Appearance CLEAR CLEAR Urine pH 6.0 4.5-7.5 Urine Specific [place] 1.040 1.000-1.030 Urine Protein NEG NEG Urine Glucose (UA) NEG NEG Urine Ketones NEG NEG Urine Occult Blood NEG NEG Urine Nitrite NEG NEG Urine Bilirubin NEG NEG Urine Urobilinogen NEG NEG Urine Leukocyte Esterase NEG NEG Diagnostic Radiology CHEST ONE VIEW PORTABLE FINDINGS: There is no pneumothorax or pleural effusion. Lung volumes are diminished. Anterior cervical spine fusion is noted. Cardiomediastinal silhouette is unremarkable. There may be mild left basilar opacity. IMPRESSION: 1. No pneumothorax. 2. Mild left basilar opacity. Electronically signed by: Stan Gaspar M.D. 07/28/2017 11:55 AM Dictated Date/Time: 07/28/2017 11:[address] OF THE HEAD WITHOUT CONTRAST FINDINGS: No acute intracranial hemorrhage, midline shift or mass effect is present. Ventricular system is normal. Basilar cisterns are patent. There are no extra-axial collections. Mild white matter hypodensity suggests small vessel disease. There is no calvarial fracture. IMPRESSION: 1. No acute intracranial findings. 2. No calvarial fracture. Electronically signed by: Stan Gaspar M.D. 07/28/2017 12:21 PM Dictated Date/Time: 07/28/2017 12:[address] OF THE CERVICAL SPINE WITHOUT CONTRAST FINDINGS: here are postsurgical findings consistent with a C6-C7 anterior discectomy and fusion. Craniocervical junction is intact. No acute cervical spine fracture is present. There is reversal of the normal cervical lordosis. Moderate multilevel degenerative disc disease and facet arthrosis is present. IMPRESSION: 1. No acute cervical spine fracture or subluxation. 2. Status post C6-C7 anterior discectomy and fusion. Hardware intact. Electronically signed by: Stan Gaspar M.D. 07/28/2017 12:24 PM Dictated Date/Time: 07/28/2017 12:21 PM THORACIC SPINE WITHOUT FINDINGS: Alignment of the thoracic spine is anatomic. No acute fracture is identified. There is moderate anterior osteophytosis. C6-C7 anterior cervical spine fusion is noted. Hardware is intact. The chest CT will be reported separately. Central canal and neural foramen are suboptimally assessed by CT. IMPRESSION: No acute thoracic spine fracture or subluxation. Electronically signed by: Satn Gaspar M.D. 07/28/2017 12:36 PM Dictated Date/Time: 07/28/2017 12:[address] FINDINGS: Alignment of the lumbar spine is anatomic. Vertebral body heights are maintained. There is no acute lumbar spine fracture. There is mild disc space narrowing with moderate osteophytosis and vacuum disc phenomenon at T12-L1 and L5-S1. There is moderate multilevel facet arthrosis. Central canal and neural foramen are suboptimally assessed by CT. The abdomen and pelvis will be reported separately. Sacroiliac joints are intact. IMPRESSION: No acute lumbar spine fracture or subluxation. Electronically signed by: Stan Gaspar M.D. 07/28/2017 12:49 PM Dictated Date/Time: 07/28/2017 12:[address] OF THE CHEST WITH IV CONTRAST Addendum: A few locules of pleural gas are noted at the level of the right-sided rib fractures. No additional sites of pleural gas are noted. Electronically signed by: Stan Gaspar M.D. 07/28/2017 12:40 PM Dictated Date/Time: 07/28/2017 12:39 PM ORIGINAL REPORT FINDINGS: There is no evidence of traumatic injury to the thoracic aorta. The size the heart is at the upper limits of normal. There is no thoracic lymphadenopathy. A small hiatal hernia is present. No pneumothorax is present. Scattered mild tree-in-bud nodules within the lungs are noted. Central airways are patent. Note is made of an acute nondisplaced fracture of the lateral right sixth rib. There are nondisplaced acute fractures of the anterior right third, fourth and fifth ribs with nondisplaced fractures of the lateral right fourth and seventh ribs. IMPRESSION: 1. Acute minimally displaced fracture of the lateral right sixth rib and acute nondisplaced fractures of the right third, fourth, fifth and seventh ribs. No pneumothorax. 2. No evidence of traumatic injury to the thoracic aorta. Electronically signed by: Stan Gaspar M.D. 07/28/2017 12:34 PM Dictated Date/Time: 07/28/2017 12:[address] OF THE ABDOMEN AND PELVIS WITH CONTRAST FINDINGS: There is no evidence of traumatic injury to the liver, spleen, adrenal glands, kidneys or pancreas. 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 There are multiple bilateral renal calculi. Note is made of a 3.5 cm cyst arising from the lower pole of the right kidney. Caliber and wall thickness of small and large bowel are normal. There is no biliary ductal dilatation status post cholecystectomy. No acute lumbar spine or pelvic fracture is identified. Images of the pelvis are degraded by streak artifact from bilateral hip hardware. IMPRESSION: 1. No acute traumatic finding within the abdomen or pelvis. 2. Bilateral nephrolithiasis. 3. Sigmoid diverticulosis without evidence for acute diverticulitis. Electronically signed by: Stan Gaspar M.D. 07/28/2017 12:46 PM Dictated Date/Time: 07/28/2017 12:37 PM . EKG EKG performed at 13:15 reviewed and demonstrated NSR at 62 / minute, no acute ST or T-wave abnormalities. . Impression Assessment and Plan MULTIPLE TRAUMATIC RIGHT RIB FRACTURES 5 right rib fractures after 12 ft fall from tree. 1 fracture slightly displaced, others nondisplaced. No pneumothorax (although "few locules of pleural gas" noted). Experiencing severe pain. Utilize hydromorphone WINDING DEPARTMENT SUPERVISOR for initial pain control. Incentive spirometry. Check f/u chest x-ray in a.m. HYPERTENSION Continue labetalol. SLEEP APNEA Intolerant of CPAP. O2 as necessary when sleeping. ADRENAL INSUFFICIENCY Continue hydrocortisone and fludrocortisone. HYPOTHYROIDISM Continue levothyroxine. RHEUMATOID ARTHRITIS Continue meloxicam, leflunomide, methotrexate. VTE PROPHYLAXIS No anticoagulants due to fall with head injury. SCD's. Ambulate. RESUSCITATION STATUS Discussed with patient and his spouse. He has a living will. He would like resuscitation attempted in the event of a cardiopulmonary arrest if there is a reasonable chance of a meaningful recovery, but does not want prolonged extraordinary measures if prognosis is poor. Therefore, code status = "Level 1" (full resuscitation). DISPOSITION Observation status per Case Management. Monitor on Telemetry Unit. Expected discharge to home. Internal Medicine follow-up with Dr. Bridegs. . VTE Prophylaxis VTE Risk Assessment Done? Y/N: Yes Risk Level: Moderate Given or contraindicated: SCD's
[2017-07-28 16:15] VITALS: BP 167/93; PULSE 58; TEMP 36.8; O2SAT 93
[2017-07-28] MEDS: SODIUM CHLORIDE 0.9% 1000ML 1,000 ML IV SCH (17:44)
[2017-07-28 19:09] VITALS: BP 147/84; PULSE 75; TEMP 37; O2SAT 92
[2017-07-28] MEDS ORDERED: HYDROCORTISONE 10 MG TAB PO SCH (21:00)
[2017-07-28] MEDS ORDERED: FLUDROCORTISONE ACETATE 0.1 MG TAB PO SCH (21:00)
[2017-07-28] MEDS: LORAZEPAM 1 MG TAB PO SCH (21:05)
[2017-07-28] MEDS: ACETAMINOPHEN 500 MG TAB PO SCH (21:06)
[2017-07-28] MEDS: LABETALOL HCL 300 MG TAB PO SCH (21:06)
[2017-07-28 23:50] VITALS: BP 141/84; PULSE 67; TEMP 36.7; O2SAT 92
[2017-07-29] VITALS (10 sets, daily range): BP systolic 159–225; BP diastolic 72–130; PULSE 59–70; TEMP 36.4–37; O2SAT 92–96
[2017-07-29] MEDS: ACETAMINOPHEN 500 MG TAB PO SCH ×3 (06:04→21:10)
[2017-07-29] MEDS ORDERED: LEVOTHYROXINE 150 MCG TAB PO SCH (07:00)
[2017-07-29] MEDS: HYDROCORTISONE 10 MG TAB PO SCH (08:01)
[2017-07-29] MEDS: MELOXICAM 7.5 MG TAB PO SCH (08:01)
[2017-07-29] MEDS: FLUOXETINE HCL 20 MG CAP PO SCH (08:02)
[2017-07-29] MEDS: LABETALOL HCL 300 MG TAB PO SCH ×2 (08:02→21:08)
[2017-07-29] MEDS: MULTIVITAMIN TAB PO SCH (08:02)
[2017-07-29] MEDS: PANTOprazole SOD 40 MG TAB PO SCH (08:02)
--- NOTE | 2017-07-29 09:50 | DIAGNOSTIC IMAGING REPORT ---
CHEST 2 VIEWS ROUTINE HISTORY: fall, right rib fractures COMPARISON: Chest CT 07/28/2017. FINDINGS: Nondisplaced right lateral rib fractures are again noted. No pneumothorax. No pleural effusions. Cervical spinal fusion hardware. The lungs are clear. The heart is normal in size. IMPRESSION: Nondisplaced right lateral rib fractures are again noted. No pneumothorax. Electronically signed by: Harpreet Schaefer M.D. 07/29/2017 9:49 AM Dictated Date/Time: 07/29/2017 9:47 AM
[2017-07-29] MEDS ORDERED: FLUDROCORTISONE ACETATE 0.1 MG TAB PO SCH (15:00)
[2017-07-29] MEDS ORDERED: HYDROCORTISONE 10 MG TAB PO SCH (15:00)
[2017-07-29] MEDS ORDERED: HYDROmorphone HCL 2 MG TAB PO STA (16:07)
[2017-07-29] MEDS: LORAZEPAM 1 MG TAB PO SCH (21:07)
[2017-07-29] MEDS: HYDROmorphone HCL 2 MG TAB PO PRN (21:13)
[2017-07-29] MEDS ORDERED: HydrALAZINE HCL 20 MG/ML VIAL IV. PRN (21:15)
[2017-07-29] MEDS ORDERED: CLONIDINE HCL 0.1 MG TAB PO PRN ×2 (21:15→22:45)
--- NOTE | 2017-07-29 21:24 | Progress Note ---
Medicine Progress Note Date & Time of Visit: Jul 29, 2017 at 16:00 . Subjective Severe right chest wall pain with movement. Hydromorphone TESTER VIBRATOR EQUIPMENT offer some relief. No cough or shortness of breath. No anginal symptoms. No nausea or vomiting. . Objective Last 8 Hrs Date Time Temp Pulse Resp B/P (MAP) Pulse Ox O2 Delivery O2 Flow Rate FiO2 07/29/17 21:05 66 225/130 (161) 07/29/17 20:41 204/113 (143) 07/29/17 20:15 36.5 59 20 206/109 (141) 96 Room Air 07/29/17 17:40 36.7 70 18 94 07/29/17 17:30 36.7 70 18 178/96 (123) 94 Room Air 07/29/17 16:00 Room Air 07/29/17 15:56 36.5 59 20 165/93 (117) 96 Room Air Physical Exam: General- lying in bed, severe pain when he tries to sit up Neck- no JVD; trachea midline Lungs- clear to auscultation Heart- regular, no murmur or gallop appreciated Thorax- no crepitus Abdomen- normal bowel sounds, soft, nontender Extremities- no pretibial edema or calf tenderness Neuro- alert, oriented Skin- warm and dry . Diagnostic Imaging: CHEST 2 VIEWS ROUTINE FINDINGS: Nondisplaced right lateral rib fractures are again noted. No pneumothorax. No pleural effusions. Cervical spinal fusion hardware. The lungs are clear. The heart is normal in size. IMPRESSION: Nondisplaced right lateral rib fractures are again noted. No pneumothorax. Electronically signed by: Harpreet Schaefer M.D. 07/29/2017 9:49 AM Dictated Date/Time: 07/29/2017 9:47 AM . Assessment & Plan MULTIPLE TRAUMATIC RIGHT RIB FRACTURES 5 right rib fractures after 12 ft fall from tree. 1 fracture slightly displaced, others nondisplaced. No pneumothorax per CT in ED (although "few locules of pleural gas" noted) or f/ u chest x-ray today. Still experiencing severe pain. Continue hydromorphone TESTER VIBRATOR EQUIPMENT for pain control. Add oral hydromorphone, then wean TESTER VIBRATOR EQUIPMENT. Incentive spirometry. Check f/u chest x-ray in a.m. HYPERTENSION Continue labetalol. SLEEP APNEA Intolerant of CPAP. O2 as necessary when sleeping. ADRENAL INSUFFICIENCY Continue hydrocortisone and fludrocortisone. HYPOTHYROIDISM Continue levothyroxine. RHEUMATOID ARTHRITIS Continue meloxicam, leflunomide, methotrexate. VTE PROPHYLAXIS No anticoagulants due to fall with head injury. SCD's. Ambulate. DISPOSITION Observation status per Case Management. Expected discharge to home. Internal Medicine follow-up with Dr. Bridges. . Current Inpatient Medications: Current Inpatient Medications Medications (Trade) Dose Ordered Sig/Magda Route Start Time Stop Time Status Last Admin Dose Admin Ioversol (Optiray 320) 111 ml UD PRN IV 07/28/17 11:15 08/01/17 11:14 Ondansetron HCl (Zofran Inj) 4 mg Q6H PRN IV 07/28/17 14:30 08/27/17 14:29 Miscellaneous (Iv Fluids Completed) 1 ea PRN PRN N/A 07/28/17 14:30 07/28/18 14:29 Naloxone HCl (Narcan Inj) 0.1 mg Q5M PRN IV 07/28/17 14:30 08/27/17 14:29 Hydromorphone HCl (Dilaudid Cable Reeler) 25 mg PRN PRN IV 07/28/17 14:30 08/11/17 14:29 07/28/17 17:44 25 MG Sodium Chloride 1,000 ml @ 15 mls/hr Q24H IV 07/28/17 14:26 08/27/17 14:25 07/28/17 17:44 15 MLS/HR Acetaminophen (Tylenol Tab) 1,000 mg Q8 PO 07/28/17 22:00 08/27/17 21:59 07/29/17 21:10 1,000 MG Tramadol HCl (Ultram Tab) 50 mg Q6H PRN PO 07/28/17 14:30 08/27/17 14:29 Albuterol (Ventolin Hfa Inhaler) 2 puffs Q6H PRN INH 07/28/17 15:00 08/27/17 14:59 Diphenoxylate HCl/ Atropine (Lomotil Tab) 1 tab QID PRN PO 07/28/17 15:00 08/27/17 14:59 Fluoxetine HCl (Prozac Cap) 40 mg QAM PO 07/29/17 09:00 08/28/17 08:59 07/29/17 08:02 40 MG Folic Acid (Folvite Tab) 1 mg QAM PO 07/29/17 09:00 08/28/17 08:59 07/29/17 08:02 1 MG Hydrocortisone (Cortef Tab) 20 mg QAM PO 07/29/17 09:00 08/28/17 08:59 07/29/17 08:01 20 MG Labetalol HCl (Normodyne Tab) 300 mg BID PO 07/28/17 21:00 08/27/17 20:59 07/29/17 21:08 300 MG Levothyroxine Sodium (Synthroid Tab) 300 mcg SuTuThSa@0700 PO 07/29/17 07:00 08/28/17 06:59 07/29/17 06:04 300 MCG Lorazepam (Ativan Tab) 1 mg HS PO 07/28/17 21:00 08/27/17 20:59 07/29/17 21:07 1 MG Meloxicam (Mobic Tab) 15 mg DAILY PO 07/29/17 09:00 08/28/17 08:59 07/29/17 08:01 15 MG Multivitamins (Multivitamin Tab) 1 tab QAM PO 07/29/17 09:00 08/28/17 08:59 07/29/17 08:02 1 TAB Pantoprazole Sodium (Protonix Tab) 40 mg QAM PO 07/29/17 09:00 08/28/17 08:59 07/29/17 08:02 40 MG Terazosin HCl (Hytrin Cap) 5 mg HS PO 07/28/17 21:00 08/27/17 20:59 07/29/17 21:08 5 MG Miscellaneous Information (Order Awaiting Action) 1 ea QS N/A 07/29/17 17:30 08/28/17 17:29 Tizanidine HCl (Zanaflex Tab) 4 mg HS PRN PO 07/28/17 15:00 08/27/17 14:59 Fludrocortisone Acetate (Florinef Tab) 0.1 mg DAILY@1500 PO 07/29/17 15:00 08/28/17 14:59 07/29/17 16:16 0.1 MG Hydrocortisone (Cortef Tab) 10 mg DAILY@1500 PO 07/29/17 15:00 08/28/17 14:59 07/29/17 16:15 10 MG Hydromorphone HCl (Dilaudid Tab) 2 mg Q4H PRN PO 07/29/17 16:15 08/12/17 16:14 07/29/17 21:13 2 MG Diphenhydramine HCl (Benadryl Cap) 25 mg Q6H PRN PO 07/29/17 19:30 08/28/17 19:29 07/29/17 21:13 25 MG Clonidine HCl (Catapres Tab) 0.1 mg Q4H PRN PO 07/29/17 21:15 08/28/17 21:14 UNV Hydralazine HCl (HydrALAZINE INJ) 10 mg Q6H PRN IV. 07/29/17 21:15 08/28/17 21:14 UNV
[2017-07-29] MEDS: SODIUM CHLORIDE 0.9% 1000ML 1,000 ML IV SCH (23:34)
[2017-07-30] MEDS: HYDROmorphone HCL 2 MG TAB PO PRN ×3 (01:06→11:39)
[2017-07-30 03:05] VITALS: BP 169/90; PULSE 66; TEMP 36.8; O2SAT 96
[2017-07-30] MEDS: ACETAMINOPHEN 500 MG TAB PO SCH (06:16)
[2017-07-30 06:51] LABS: HEMATOCRIT 34.6 % (42-52); MEAN CELL VOLUME 91.5 fL (80-100); MEAN CORPUSCULAR HEMOGLOBIN 31.7 pg (25-34); MEAN CORPUSCULAR HGB CONC 34.7 g/dl (32-36); MEAN PLATELET VOLUME 9.4 fL (7.4-10.4); PLATELET COUNT 189 K/uL (130-400); RED BLOOD COUNT 3.78 M/uL (4.7-6.1); WHITE BLOOD COUNT 6.59 K/uL (4.8-10.8)
[2017-07-30 07:30] LABS: BUN/CREATININE RATIO 17.4 (10-20); CALCIUM 8.8 mg/dl (8.5-10.1); CREATININE 0.96 mg/dl (0.60-1.40); POTASSIUM 3.6 mmol/L (3.5-5.1)
[2017-07-30 08:14] VITALS: BP 96/60; PULSE 56; TEMP 36.4; O2SAT 94
[2017-07-30] MEDS: PANTOprazole SOD 40 MG TAB PO SCH (08:20)
[2017-07-30] MEDS: LABETALOL HCL 300 MG TAB PO SCH (08:20)
[2017-07-30] MEDS: HYDROCORTISONE 10 MG TAB PO SCH (08:20)
[2017-07-30] MEDS: MELOXICAM 7.5 MG TAB PO SCH (08:20)
[2017-07-30] MEDS: MULTIVITAMIN TAB PO SCH (08:20)
[2017-07-30] MEDS: FLUOXETINE HCL 20 MG CAP PO SCH (08:21)
[2017-07-30 08:23] VITALS: BP 119/72; PULSE 60
--- NOTE | 2017-07-30 10:33 | Progress Note ---
Medicine Progress Note Date & Time of Visit: Jul 30, 2017 at 10:32 . Subjective Right chest wall pain under better control since starting oral hydromorphone. No SOB. Performing incentive spirometry. Ambulating. . Objective Last 8 Hrs Date Time Temp Pulse Resp B/P (MAP) Pulse Ox O2 Delivery O2 Flow Rate FiO2 07/30/17 08:23 60 119/72 (88) 07/30/17 08:14 36.4 56 16 96/60 (72) 94 07/30/17 03:05 36.8 66 169/90 (116) 96 Room Air Physical Exam: General- no acute distress Neck- no JVD; trachea midline Lungs- clear to auscultation Heart- regular, no murmur or gallop appreciated Thorax- no crepitus Abdomen- normal bowel sounds, soft, nontender Extremities- no pretibial edema or calf tenderness Neuro- alert, oriented Skin- warm and dry . Laboratory Results: Last 24 Hours Test 07/30/17 06:09 White Blood Count 6.59 K/uL Red Blood Count 3.78 M/uL Hemoglobin 12.0 g/dL Hematocrit 34.6 % Mean Corpuscular Volume 91.5 fL Mean Corpuscular Hemoglobin 31.7 pg Mean Corpuscular Hemoglobin Concent 34.7 g/dl RDW Standard Deviation 45.2 fL RDW Coefficient of Variation 13.7 % Platelet Count 189 K/uL Mean Platelet Volume 9.4 fL Sodium Level 138 mmol/L Potassium Level 3.6 mmol/L Chloride Level 103 mmol/L Carbon Dioxide Level 25 mmol/L Anion Gap 10.0 mmol/L Blood Urea Nitrogen 17 mg/dl Creatinine 0.96 mg/dl Est Creatinine Clear Calc Drug Dose 93.0 ml/min Estimated GFR () 97.8 Estimated GFR (Non- 84.4 BUN/Creatinine Ratio 17.4 Random Glucose 93 mg/dl Calcium Level 8.8 mg/dl Assessment & Plan MULTIPLE TRAUMATIC RIGHT RIB FRACTURES 5 right rib fractures after 12 ft fall from tree. 1 fracture slightly displaced, others nondisplaced. No pneumothorax per CT in ED (although "few locules of pleural gas" noted) or f/ u chest x-ray today. Initially utilized hydromorphone FELT HAT MELLOWING MACHINE OPERATOR for pain control. Transitioned to oral hydromorphone, then weaned off FELT HAT MELLOWING MACHINE OPERATOR. Continue incentive spirometry. HYPERTENSION Continue labetalol. SLEEP APNEA Intolerant of CPAP. O2 as necessary when sleeping. ADRENAL INSUFFICIENCY Continue hydrocortisone and fludrocortisone. HYPOTHYROIDISM Continue levothyroxine. RHEUMATOID ARTHRITIS Continue meloxicam, leflunomide, methotrexate. VTE PROPHYLAXIS No anticoagulants due to fall with head injury. SCD's. Ambulating. DISPOSITION Discharge to home. Internal Medicine follow-up with Dr. Bridges. . Current Inpatient Medications: Current Inpatient Medications Medications (Trade) Dose Ordered Sig/Magda Route Start Time Stop Time Status Last Admin Dose Admin Ioversol (Optiray 320) 111 ml UD PRN IV 07/28/17 11:15 08/01/17 11:14 Ondansetron HCl (Zofran Inj) 4 mg Q6H PRN IV 07/28/17 14:30 08/27/17 14:29 07/30/17 06:21 4 MG Miscellaneous (Iv Fluids Completed) 1 ea PRN PRN N/A 07/28/17 14:30 07/28/18 14:29 Naloxone HCl (Narcan Inj) 0.1 mg Q5M PRN IV 07/28/17 14:30 08/27/17 14:29 Hydromorphone HCl (Dilaudid Cable Hooker) 25 mg PRN PRN IV 07/28/17 14:30 08/11/17 14:29 07/28/17 17:44 25 MG Sodium Chloride 1,000 ml @ 15 mls/hr Q24H IV 07/28/17 14:26 08/27/17 14:25 07/29/17 23:34 15 MLS/HR Acetaminophen (Tylenol Tab) 1,000 mg Q8 PO 07/28/17 22:00 08/27/17 21:59 07/30/17 06:16 1,000 MG Tramadol HCl (Ultram Tab) 50 mg Q6H PRN PO 07/28/17 14:30 08/27/17 14:29 07/30/17 03:03 50 MG Albuterol (Ventolin Hfa Inhaler) 2 puffs Q6H PRN INH 07/28/17 15:00 08/27/17 14:59 Diphenoxylate HCl/ Atropine (Lomotil Tab) 1 tab QID PRN PO 07/28/17 15:00 08/27/17 14:59 Fluoxetine HCl (Prozac Cap) 40 mg QAM PO 07/29/17 09:00 08/28/17 08:59 07/30/17 08:21 40 MG Folic Acid (Folvite Tab) 1 mg QAM PO 07/29/17 09:00 08/28/17 08:59 07/30/17 08:21 1 MG Hydrocortisone (Cortef Tab) 20 mg QAM PO 07/29/17 09:00 08/28/17 08:59 07/30/17 08:20 20 MG Labetalol HCl (Normodyne Tab) 300 mg BID PO 07/28/17 21:00 08/27/17 20:59 07/30/17 08:20 300 MG Levothyroxine Sodium (Synthroid Tab) 300 mcg SuTuThSa@0700 PO 07/29/17 07:00 08/28/17 06:59 07/29/17 06:04 300 MCG Lorazepam (Ativan Tab) 1 mg HS PO 07/28/17 21:00 08/27/17 20:59 07/29/17 21:07 1 MG Meloxicam (Mobic Tab) 15 mg DAILY PO 07/29/17 09:00 08/28/17 08:59 07/30/17 08:20 15 MG Multivitamins (Multivitamin Tab) 1 tab QAM PO 07/29/17 09:00 08/28/17 08:59 07/30/17 08:20 1 TAB Pantoprazole Sodium (Protonix Tab) 40 mg QAM PO 07/29/17 09:00 08/28/17 08:59 07/30/17 08:20 40 MG Terazosin HCl (Hytrin Cap) 5 mg HS PO 07/28/17 21:00 08/27/17 20:59 07/29/17 21:08 5 MG Miscellaneous Information (Order Awaiting Action) 1 ea QS N/A 07/29/17 17:30 08/28/17 17:29 Tizanidine HCl (Zanaflex Tab) 4 mg HS PRN PO 07/28/17 15:00 08/27/17 14:59 Fludrocortisone Acetate (Florinef Tab) 0.1 mg DAILY@1500 PO 07/29/17 15:00 08/28/17 14:59 07/29/17 16:16 0.1 MG Hydrocortisone (Cortef Tab) 10 mg DAILY@1500 PO 07/29/17 15:00 08/28/17 14:59 07/29/17 16:15 10 MG Hydromorphone HCl (Dilaudid Tab) 2 mg Q4H PRN PO 07/29/17 16:15 08/12/17 16:14 07/30/17 06:18 2 MG Diphenhydramine HCl (Benadryl Cap) 25 mg Q6H PRN PO 07/29/17 19:30 08/28/17 19:29 07/29/17 21:13 25 MG Hydralazine HCl (HydrALAZINE INJ) 10 mg Q6H PRN IV. 07/29/17 21:15 08/28/17 21:14 07/30/17 01:14 10 MG Clonidine HCl (Catapres Tab) 0.1 mg Q4H PRN PO 07/29/17 22:45 08/28/17 21:14 07/30/17 01:06 0.1 MG
[2017-07-30] MEDS ORDERED: HYDR2TAB48 PO (10:44)
--- NOTE | 2017-07-30 10:52 | Discharge Instructions ---
Discharge Instructions Date of Service Jul 30, 2017. Admission Reason for Admission: chest pain . Discharge Discharge Diagnosis / Problem: 5 rib fractures on right side Discharge Goals Goal(s): Decrease discomfort, Improve disease control Activity Recommendations Activity Limitations: as noted below Lifting Limitations: no more than 10 pounds, gradually increase as tolerated Driving or Machine Use: don't drive until pain better and no longer requiring hydromorphone (Dilaudid) . Instructions / Follow-Up Instructions / Follow-Up APPOINTMENTS: INTERNAL MEDICINE 08/03/2017 11:40 AM Rand Arellano MD (covering for Dr. Bridges) OTHER INSTRUCTIONS: You broke 5 ribs on your right side. Do breathing exercises (incentive spirometry) every 2 hours while awake. Take deep breaths to expand your lungs in between incentive spirometry reps. Take hydromorphone (Dilaudid) 2 mg every 3 hours as needed for severe pain. Seek medical attention if you have: * temperature above 101 * worsening chest pain or trouble breathing * abdominal pain, nausea, vomiting * diarrhea, dark stools or bloody stools * any unanswered questions or concerns Call 911 if symptoms are severe. Call if you have any questions or problems. My cell # is [phone]. You can also reach a [facility] hospitalist on duty at [facility] 24 hours a day by calling [phone]. Please take good care of yourself. Zacarias Yates . Current Hospital Diet Patient's current hospital diet: AHA Diet (Heart Healthy) Discharge Diet Recommended Diet: AHA Diet (Heart Healthy) Pending Studies Studies pending at discharge: no Medical Emergencies . Who to Call and When: Medical Emergencies: If at any time you feel your situation is an emergency, please call 911 immediately. . Non-Emergent Contact Non-Emergency issues call your: Primary Care Provider, Hospital Doctor . . "Provider Documentation" section prepared by Zacarias Yates. . VTE Core Measure Inpt VTE Proph given/why not?: SCD's
[2017-07-30 11:11] VITALS: BP 119/72; PULSE 60; TEMP 36.4; O2SAT 94
--- NOTE | 2017-07-31 19:25 | Discharge Summary ---
Discharge Summary Date of Service Jul 31, 2017. Discharge Summary Admission Date: Jul 28, 2017 at 14:25 Discharge Date: Jul 30, 2017 Discharge Disposition: Home Principal Diagnosis: traumatic right rib fractures (5 rib fractures, 1 slightly displaced) . Secondary Diagnoses/Problems: Chronic and Medical Problems: (1) Natrona's disease Status: Chronic (2) Antiphospholipid syndrome Status: Chronic (3) Depression Status: Chronic (4) GERD (gastroesophageal reflux disease) Status: Chronic (5) History of DVT of lower extremity Permanent Comment: provoked, associated with hip replacement Status: Chronic (6) Hypertension Status: Chronic (7) Hypogonadism Status: Chronic (8) Hypothyroidism Status: Chronic (9) Rheumatoid arthritis Status: Chronic (10) Sleep apnea Permanent Comment: intolerant of CPAP Status: Chronic Surgical Problems: (1) Status post carpal tunnel release Status: Chronic (2) Status post cholecystectomy Status: Chronic (3) Status post hip replacement Permanent Comment: bilat Status: Chronic . Procedures: CT head CT cervical spine, thoracic spine, lumbar spine CT chest CT abdomen and pelvis cardiac monitoring IV meds . Medication Reconciliation New Medications: Hydromorphone Hcl (Dilaudid) 2 Mg Tab 2 MG PO every 3 hours PRN for severe pain, #40 TAB Continued Medications: Albuterol Hfa (Ventolin Hfa) 200 Puffs/50014 Mcg Aers 2 PUFFS INH Q6H PRN for Shortness of Breath Calcium Carbonate-Vitamin D (Calcium 600 + D) 1 Tab Tab 1 TAB PO QAM Diphenoxylate/Atropine (Lomotil) Tab 1 DOSE PO QID PRN for Diarrhea Fludrocortisone Acetate (Florinef) 0.1 Mg Tab 0.1 MG PO HS, TAB Fluoxetine (Prozac) 40 Mg Cap 40 MG PO QAM Folic Acid (Folvite) 1 Mg Tab 1 MG PO QAM, TAB Hydrocodone/Acetaminophen 5MG/325MG (Lottie 5MG/325MG) Tab 2 TABLET PO HS PRN for Mild Pain, TAB Hydrocortisone (Cortef) 10 Mg Tab 20 MG PO QAM, TAB Hydrocortisone (Cortef) 10 Mg Tab 10 MG PO QPM, TAB ADDITIONAL 10 MG NEEDED FOR STRESS Labetalol Hcl (Normodyne) 300 Mg Tab 300 MG PO BID, TAB Leflunomide (Arava) 10 Mg Tab 10 MG PO DAILY Levothyroxine Sodium (Synthroid) 300 Mcg Tab 300 MCG PO 4XWK, TAB Sun, Tue, Perla, Sat Lorazepam (Ativan) 1 Mg Tab 1 MG PO HS, TAB Meloxicam (Mobic) 15 Mg Tab 15 MG PO DAILY, TAB Methotrexate (Methotrexate Sodium) 50 Mg/2 Ml Inj 0.6 ML INJ WK INJECT UNDER THE SKIN ONCE WEEKLY ON SUNDAY Multivitamin (Multivitamin) Tab 1 TAB PO QAM [id number] Ethyl Esters ([place]-3) 1 Cap Cap 1 CAP PO BID, CAP Ondansetron Hcl (Zofran) 4 Mg Tab 4 MG PO TID PRN for N, TAB Pantoprazole (Protonix) 40 Mg Tab 40 MG PO QAM, TAB TAKE THIS MEDICATION ONCE DAILY 30 MINUTES BEFORE FIRST MEAL OF THE DAY. Terazosin (Hytrin) 5 Mg Cap 5 MG PO HS Tizanidine (Zanaflex) 4 Mg Cap 4-8 MG PO HS PRN for PRN, CAP Admission Information HPI (per Admitting provider): 62 YO male followed by Dr. Bridges for Internal Medicine. History of hypertension, RA, Haris's disease, and other problems as noted below. Fell from tree that he was working on this morning around 10:30. No associated loss of consciousness, lightheadedness, palpitations before the fall. Fell about 12 feet and landed on his right chest. Also struck his head. No loss of consciousness. Severe right chest wall pain and dyspnea after the fall. . Physical Exam (per Admitting): General Appearance: WD/WN, + moderate distress Head: normocephalic, + pertinent finding (abrasion forehead) Eyes: normal inspection, PERRL, EOMI, sclerae normal ENT: normal ENT inspection, pharynx normal Neck: supple, no adenopathy, thyroid normal, no JVD, trachea midline Respiratory/Chest: lungs clear, no respiratory distress, + pertinent finding (right chest wall tenderness; no crepitus) Cardiovascular: regular rate, rhythm, no edema, no gallop, no JVD, no murmur , normal peripheral pulses Abdomen/GI: normal bowel sounds, non tender, soft, no organomegaly Extremities/Musculoskelatal: normal inspection, no calf tenderness Neurologic/Psych: timber setter II-XII nml as tested (PERRL, EOMI, no facial palsy, no dysarthria), no motor/sensory deficits, alert, normal mood/affect, oriented x 3 Skin: normal color, warm/dry, no rash Lymphatic: no adenopathy (cervical) Hospital Course MULTIPLE TRAUMATIC RIGHT RIB FRACTURES 5 right rib fractures after 12 ft fall from tree. 1 fracture slightly displaced, others nondisplaced. No pneumothorax per CT in ED (although "few locules of pleural gas" noted) or f/ u chest x-ray today. Initially utilized hydromorphone RUBBER AND POUNDER for pain control. Transitioned to oral hydromorphone, then weaned off RUBBER AND POUNDER. Continue incentive spirometry. HYPERTENSION Continue labetalol. SLEEP APNEA Intolerant of CPAP. O2 as necessary when sleeping. ADRENAL INSUFFICIENCY Continue hydrocortisone and fludrocortisone. HYPOTHYROIDISM Continue levothyroxine. RHEUMATOID ARTHRITIS Continue meloxicam, leflunomide, methotrexate. VTE PROPHYLAXIS No anticoagulants due to fall with head injury. SCD's. Ambulating. DISPOSITION Discharge to home. Internal Medicine follow-up with Dr. Bridges. . Discharge Instructions Date of Service Jul 30, 2017. Admission Reason for Admission: chest pain . Discharge Discharge Diagnosis / Problem: 5 rib fractures on right side Discharge Goals Goal(s): Decrease discomfort, Improve disease control Activity Recommendations Activity Limitations: as noted below Lifting Limitations: no more than 10 pounds, gradually increase as tolerated Driving or Machine Use: don't drive until pain better and no longer requiring hydromorphone (Dilaudid) . Instructions / Follow-Up Instructions / Follow-Up APPOINTMENTS: INTERNAL MEDICINE 08/03/2017 11:40 AM Rand Arellano MD (covering for Dr. Bridges) OTHER INSTRUCTIONS: You broke 5 ribs on your right side. Do breathing exercises (incentive spirometry) every 2 hours while awake. Take deep breaths to expand your lungs in between incentive spirometry reps. Take hydromorphone (Dilaudid) 2 mg every 3 hours as needed for severe pain. Seek medical attention if you have: * temperature above 101 * worsening chest pain or trouble breathing * abdominal pain, nausea, vomiting * diarrhea, dark stools or bloody stools * any unanswered questions or concerns Call 911 if symptoms are severe. Call if you have any questions or problems. My cell # is [phone]. You can also reach a [facility] hospitalist on duty at [facility] 24 hours a day by calling [phone]. Please take good care of yourself. Zacarias Yates . Current Hospital Diet Patient's current hospital diet: AHA Diet (Heart Healthy) Discharge Diet Recommended Diet: AHA Diet (Heart Healthy) Pending Studies Studies pending at discharge: no Medical Emergencies . Who to Call and When: Medical Emergencies: If at any time you feel your situation is an emergency, please call 911 immediately. . Non-Emergent Contact Non-Emergency issues call your: Primary Care Provider, Hospital Doctor . . "Provider Documentation" section prepared by Zacarias Yates. . VTE Core Measure Inpt VTE Proph given/why not?: SCD's . Additional Copies To Ethan Bridges D.O.
[2017-08-13] MEDS ORDERED: FEXO1TAB58 PO (09:20)
[2017-08-13] MEDS ORDERED: CALC600T9 PO (09:20)
[2017-08-13] MEDS ORDERED: PSEU12TA PO (09:21)
[2017-08-13] MEDS ORDERED: VICODIN PO (09:26)
[2017-08-13] MEDS ORDERED: FEXO1TAB49 PO (09:50)
[2017-08-13] MEDS ORDERED: PRVHFAIN INH (12:14)
== END 2017-07-30 11:50 | disposition home or self-care (01) ==
LOC: C.EDB 10:43 → C.2T 14:25 → ENRESERV 14:48 → C.4E 07-29 17:27
PROVIDERS: ADMIT Hospitalist; ATTEND Hospitalist
DX: S22.41XA Multiple fractures of ribs, right side, initial encounter for closed fracture (principal); E27.1 Primary adrenocortical insufficiency; D68.61 Antiphospholipid syndrome; F32.9 Major depressive disorder, single episode, unspecified; K21.9 Gastro-esophageal reflux disease without esophagitis; I10 Essential (primary) hypertension; E03.9 Hypothyroidism, unspecified; G47.30 Sleep apnea, unspecified; Z98.890 Other specified postprocedural states; Z86.718 Personal history of other venous thrombosis and embolism; Z90.49 Acquired absence of other specified parts of digestive tract; Z79.899 Other long term (current) drug therapy; Z88.5 Allergy status to narcotic agent; Z83.3 Family history of diabetes mellitus

== ENCOUNTER 2017-08-31 05:59 | Inpatient (IN) | payer OTHER ==
[2017-08-13 09:28] VITALS: BMI 31.0
--- NOTE | 2017-08-13 10:09 | PAT Medication Instructions ---
Service Date Aug 13, 2017. Current Home Medication List Albuterol Hfa (Ventolin Hfa), 2 PUFFS INH Q6H PRN for Shortness of Breath Calcium Carbonate-Vitamin D (Calcium + D), 1 TAB PO QPM Diphenoxylate/Atropine (Lomotil), 1 DOSE PO QID PRN for Diarrhea Fexofenadine Hcl (Kenisha Allergy), 1 TAB PO QAM Fludrocortisone Acetate (Florinef), 0.5 TAB PO HS Fluoxetine (Prozac), 40 MG PO QAM Folic Acid (Folvite), 1 MG PO QAM Hydrocortisone (Cortef), 20 MG PO QAM Hydrocortisone (Cortef), 10 MG PO QPM Labetalol Hcl (Normodyne), 300 MG PO BID Leflunomide (Arava), 10 MG PO QAM Levothyroxine Sodium (Synthroid), 300 MCG PO 4XWK Lorazepam (Ativan), 1 MG PO HS Meloxicam (Mobic), 15 MG PO QAM Methotrexate (Methotrexate Sodium), 0.6 ML INJ WK Multivitamin (Multivitamin), 1 TAB PO QPM Aqxlu-3-Uymv Ethyl Esters ([place]-3), 1 CAP PO HS Ondansetron Hcl (Zofran), 4 MG PO TID PRN for N Pantoprazole (Protonix), 40 MG PO QAM Pseudoephedrine Hcl (Decongestant 12HOUR Maxim), 1 TAB PO QAM Terazosin (Hytrin), 5 MG PO HS Tizanidine (Zanaflex), 4 MG PO HS [Vicodin], 1 TAB PO BID PRN for technical recruiter Instructions For Your Scheduled Surgery - Check with information resource consultant for instructions: Methotrexate (Methotrexate Sodium), 0.6 ML INJ WK Leflunomide (Arava), 10 MG PO QAM - Check with surgeon for instructions: Meloxicam (Mobic), 15 MG PO QAM - Hold the following medications 2 weeks prior to surgery: [id number]-[id number] Ethyl Esters ([place]-3), 1 CAP PO HS - Continue as directed: Levothyroxine Sodium (Synthroid), 300 MCG PO 4XWK - Hold the following medications the morning of surgery: Diphenoxylate/Atropine (Lomotil), 1 DOSE PO QID PRN for Diarrhea Fexofenadine Hcl (Kenisha Allergy), 1 TAB PO QAM Folic Acid (Folvite), 1 MG PO QAM Pseudoephedrine Hcl (Decongestant 12HOUR Maxim), 1 TAB PO QAM - Take the following medications the morning of surgery with a sip of water: [Vicodin], 1 TAB PO BID PRN for RN (okay to take up to 4 hours prior to surgery if needed) Pantoprazole (Protonix), 40 MG PO QAM Ondansetron Hcl (Zofran), 4 MG PO TID PRN for N Fluoxetine (Prozac), 40 MG PO QAM Albuterol Hfa (Ventolin Hfa), 2 PUFFS INH Q6H PRN for Shortness of Breath ( if needed) Labetalol Hcl (Normodyne), 300 MG PO BID Hydrocortisone (Cortef), 20 MG PO QAM - Take the following medications as scheduled the night before surgery: [Vicodin], 1 TAB PO BID PRN for RN(if needed) Tizanidine (Zanaflex), 4 MG PO HS Terazosin (Hytrin), 5 MG PO HS Ondansetron Hcl (Zofran), 4 MG PO TID PRN for N (if needed) Multivitamin (Multivitamin), 1 TAB PO QPM Lorazepam (Ativan), 1 MG PO HS Fludrocortisone Acetate (Florinef), 0.5 TAB PO HS Diphenoxylate/Atropine (Lomotil), 1 DOSE PO QID PRN for Diarrhea (if needed) Calcium Carbonate-Vitamin D (Calcium + D), 1 TAB PO QPM Albuterol Hfa (Ventolin Hfa), 2 PUFFS INH Q6H PRN for Shortness of Breath ( if needed) Labetalol Hcl (Normodyne), 300 MG PO BID Hydrocortisone (Cortef), 10 MG PO QPM If you have any questions please call us at [phone] or [phone] or [phone]
[~2017-08-31] VITALS: Ht 175.3 cm; Wt 96.4 kg
[2017-08-31] VITALS (16 sets, daily range): BP systolic 133–186; BP diastolic 85–109; PULSE 58–92; TEMP 36.5–37.1; O2SAT 94–99; Ht 175.3 cm; Wt 96.4 kg
[~2017-08-31 05:59] MED LIST changes: -ALBUAER2 INH; -CALC-20 PO; +CALC600T9 PO; +FEXO1TAB49 PO; -FOLI1TAB7 PO; +FOLI1TAB8 PO; -HYDR-5688 PO; +LEFL10TA PO; +MELO-84 PO; -MELO15TA3 PO; +PSEU12TA PO; +VICODIN PO; +VNTHFA/IN INH; -[UNRECOGNIZED DRUG - CODE] IM
[2017-08-31] MEDS ORDERED: CEFAZOLIN IV 2,000 MG in SYRINGE 0 ML IV SCH (06:00)
[2017-08-31] MEDS ORDERED: LACTATED RINGER'S 1000ML 1,000 ML IV SCH (06:00)
[2017-08-31] MEDS ORDERED: CEFAZOLIN 2000MG IV PUSH 10 ML IV SCH (06:00)
[2017-08-31] MEDS ORDERED: FENTANYL CITRATE INJ 50 MCG/1 ML 2 ML VIAL ONE ×2 (06:30→08:04)
[2017-08-31] MEDS ORDERED: MIDAZOLAM HCL 1 MG/ML 2ML VIAL ONE (06:30)
[2017-08-31] MEDS ORDERED: HYDROCORTISONE SOD SUCCINATE 100 MG/2 ML VIAL ONE (07:05)
[2017-08-31] MEDS ORDERED: BACITRACIN 50000 UNIT VIAL ONE (07:18)
--- NOTE | 2017-08-31 07:37 | History & Physical Bridge Note ---
H&P Re-Evaluation Bridge Note: I have examined the patient, reviewed the History & Physical and in the interval since the performance of the History & Physical I have noted the following changes of clinical significance: No changes noted
--- NOTE | 2017-08-31 07:40 | History and Physical ---
History & Physical Date Aug 31, 2017. Chief Complaint Neck and arm pain History of Present Illness The patient is a 62 year old male with complaints of Past Medical/Surgical History Medical Problems: (1) Denali's disease (2) Antiphospholipid syndrome (3) Depression (4) GERD (gastroesophageal reflux disease) (5) History of DVT of lower extremity (6) Hypertension (7) Hypogonadism (8) Hypothyroidism (9) Rheumatoid arthritis (10) Sleep apnea Surgical Problems: (1) Status post carpal tunnel release (2) Status post cholecystectomy (3) Status post hip replacement Additional History Hepatic Disease: No Endocrine Disorder: No Kidney Disease: No Hypertension: No Heart Disease: No Bleeding Tendencies: No Infectious Diseases: No Allergies Coded Allergies: Morphine (Verified Allergy, Unknown, ITCHING,HIVES,SOB, 08/31/17) 05/25/09: FROM PHYSICIAN ORDER FORM: CLARIFICATION--PT DOESN'T HAVE ALLERGY TO APAP, OPIATE AGONIST, OR OXYCODONE. ALLEGY ONLY TO MORPHINE/PROTONIX VORB FROM DR CALDWELL Home Medications Scheduled Calcium Carbonate-Vitamin D (Calcium + D), 1 TAB PO QPM Fexofenadine Hcl (Kenisha Allergy), 1 TAB PO QAM Fludrocortisone Acetate (Florinef), 0.5 TAB PO HS Fluoxetine (Prozac), 40 MG PO QAM Folic Acid (Folvite), 1 MG PO QAM Hydrocortisone (Cortef), 20 MG PO QAM Hydrocortisone (Cortef), 10 MG PO QPM Labetalol Hcl (Normodyne), 300 MG PO BID Leflunomide (Arava), 10 MG PO QAM Levothyroxine Sodium (Synthroid), 300 MCG PO 4XWK Lorazepam (Ativan), 1 MG PO HS Meloxicam (Mobic), 15 MG PO QAM Methotrexate (Methotrexate Sodium), 0.6 ML INJ WK Multivitamin (Multivitamin), 1 TAB PO QPM Hxlqe-8-Oien Ethyl Esters ([place]-3), 1 CAP PO HS Pantoprazole (Protonix), 40 MG PO QAM Pseudoephedrine Hcl (Decongestant 12HOUR Maxim), 1 TAB PO QAM Terazosin (Hytrin), 5 MG PO HS Tizanidine (Zanaflex), 4 MG PO HS Scheduled PRN Albuterol Hfa (Ventolin Hfa), 2 PUFFS INH Q6H PRN for Shortness of Breath Diphenoxylate/Atropine (Lomotil), 1 DOSE PO QID PRN for Diarrhea Ondansetron Hcl (Zofran), 4 MG PO TID PRN for N [Vicodin], 1 TAB PO BID PRN for RN Diagnosis Cervical spinal stenosis Plan of Treatment C5 corpectomy removal of plate and screws C6 7
[2017-08-31] MEDS ORDERED: HYDROmorphone INJ 2 MG/ML SYR/VIAL ONE ×2 (08:14→09:20)
[2017-08-31] MEDS ORDERED: ONDANSETRON INJ 2 MG/ML 2 ML VIAL IV PRN ×2 (09:00→09:30)
[2017-08-31] MEDS ORDERED: HYDROmorphone INJ 1 MG/ML SYR IV PRN ×3 (09:00→11:45)
[2017-08-31] MEDS ORDERED: ATROPINE SULFATE 0.1 MG/ML 5ML SYR IV PRN (09:00)
[2017-08-31] MEDS ORDERED: EpHEDrine SULFATE INJ 50 MG/ML AMP IV PRN (09:00)
[2017-08-31] MEDS ORDERED: FLOSEAL HEMOSTATIC MATRIX 5ML TOP ONE (09:16)
[2017-08-31] MEDS ORDERED: LIDOCAINE HCL 2% 2 ML VIAL (20MG/ML) ONE (09:21)
[2017-08-31] MEDS ORDERED: EpHEDrine SULFATE 50MG/5ML SYR ONE (09:21)
[2017-08-31] MEDS ORDERED: NEOSTIGMINE METHYLSULFATE 1 MG/ML 10ML VIAL ONE (09:21)
[2017-08-31] MEDS ORDERED: ROCURONIUM BROMIDE 10 MG/ML 5 ML VIAL IV ONE (09:21)
[2017-08-31] MEDS ORDERED: DEXAMETHASONE SOD INJ 4 MG/ML VIAL ONE (09:21)
[2017-08-31] MEDS ORDERED: ONDANSETRON INJ 2 MG/ML 2 ML VIAL ONE (09:21)
[2017-08-31] MEDS ORDERED: PROPOFOL IV EMULSION 10 MG/ML 20 ML VIAL IV ONE (09:21)
[2017-08-31] MEDS ORDERED: GLYCOPYRROLATE INJ 0.2 MG/ML VIAL ONE (09:21)
[2017-08-31] MEDS ORDERED: DiphenhydrAMINE HCL 50 MG/ML VIAL IV PRN (09:30)
[2017-08-31] MEDS ORDERED: DIPHENOXYLATE/ATROPINE 2.5/0.025MG TAB PO PRN (09:30)
[2017-08-31] MEDS ORDERED: RACEPINEPHRINE 2.25% NEBU SOLN 0.5 ML VIAL INH PRN (09:30)
[2017-08-31] MEDS ORDERED: ACETAMINOPHEN IV 1,000 MG in EMPTY BAG 0 ML IV PRN (09:30)
[2017-08-31] MEDS ORDERED: LORAZEPAM 0.5 MG TAB PO PRN (09:30)
[2017-08-31] MEDS ORDERED: LORAZEPAM INJ 0.5 MG in SYRINGE 0.75 ML IV PRN (09:30)
[2017-08-31] MEDS ORDERED: HYDROmorphone INJ 0.5 MG/0.5 ML SYR IV PRN (09:30)
[2017-08-31] MEDS ORDERED: NALOXONE HCL 0.4 MG/1 ML VIAL/CARP IV PRN (09:30)
[2017-08-31] MEDS ORDERED: ALBUTEROL HFA 8 GM INHALER INH PRN (09:30)
[2017-08-31] MEDS ORDERED: DO NOT ADMINISTER FLU VACCINE PRN (09:30)
[2017-08-31] MEDS ORDERED: MAGNESIUM HYDROXIDE SUSP 30 ML UDC PO PRN (09:30)
[2017-08-31] MEDS ORDERED: DO NOT ADMINISTER PNEUMOCOCCAL VACCINE PRN (09:30)
[2017-08-31] MEDS ORDERED: DEXAMETHASONE INJ 8 MG in SYRINGE 0 ML IV PRN (09:30)
--- NOTE | 2017-08-31 09:34 | [facility] Operative Report ---
Operative Report Operative Date Aug 31, 2017. Pre-Operative Diagnosis Cervical Spine Stenosis Post-Operative Diagnosis Cervical Spine Stenosis Procedure(s) Performed #1 removal of instrumentation see 67. #2 expiration of fusion C6 7. #3 anterior cervical corpectomy C5. #4 cervical arthrodesis C4 to C6. #5 placement peek cage 25 mm in height C4 to C6. #6 placement locally harvested morcellized autograft combined with ostial amp bone graft in the interbody cage. #7 application of gordon plate and screws from C4 to C6. Surgeon Dr. Jazz Mota Marine Mammal Trainer Surgeon(s) Vivek Hoskins PA-C Estimated Blood Loss 10 mL Findings Cervical spinal stenosis Specimens A: Explanted Hardware Description of Procedure Patient was met with preoperatively case discussed all questions addressed. After informed consent was obtained patient was taken to the operative suite underwent intubation placed in a supine position the Zack table head in Ira headholder. All bony prominences well-padded eyes inspected to ensure no external pressure placed upon them. This point the anterior cervical spine was prepped draped nostril fashion. The assistance of fluoroscopy verified the C5 6 disc space and a longitudinal incision was placed on the right anterior aspect of the cervical spine. Sharp dissection with the assistance of bipolar cautery was performed onto an exposing the anterior cervical spine from C4 to C7. Then proceeded to remove the anterior cervical plate at C6 7. Explored the fusion mass noting it to be intact. Then performed a complete discectomy of C45 out to the uncovertebral joints bilaterally followed by C6 7. [place] distracting pins were placed in C3 4 and C6 to distract across the C5 vertebral body. A complete C5 corpectomy was performed including removal of all posterior annular fibers and longitudinal ligament and bony spurs including bilateral foraminotomies. After complete decompression endplates were burred to subcortical bleeding bone and a 25 mm peek cage filled with locally harvested morcellized autograft and ostial amp bone graft tapped in position. Distracting apparatus was removed and a gordon plate and screws applied with the assistance of fluoroscopy. Incision was in copious irrigated explored to ensure there is no damage turning structures remaining bleeding 10 round JACOB drain inserted. Incision then closed with 2 Vicryl fascia for Monocryl for final skin closure Steri-Strips sterile dressings placed. Patient we can take PACU stable condition. Please note Ken santos was present throughout the entire procedure involved in patient positioning complex portions of the surgery and final skin closure. I attest to the content of the Intraoperative Record and any orders documented therein. Any exceptions are noted below.
[2017-08-31] MEDS: FENTANYL CITRATE INJ 50 MCG/1 ML 2 ML VIAL IV PRN ×3 (10:00→10:10)
--- NOTE | 2017-08-31 10:02 | DIAGNOSTIC IMAGING REPORT ---
Cervical SPINE, INTRAOPERATIVE FLUOROSCOPY HISTORY: C5 corpectomy.. FLUOROSCOPY TIME: 9.8 seconds.. FINDINGS: Intraoperative fluoroscopy was provided for the cervical spine. 2 fluoroscopic spot images were obtained. Anterior cervical discectomy and fusion from C4 through C6 with C5 corpectomy. Endotracheal tube and surgical drain are noted. The hardware is intact. IMPRESSION: Fluoroscopy provided for a C4-C6 ACDF with C5 corpectomy.. Electronically signed by: Harpreet Schaefer M.D. 08/31/2017 10:01 AM Dictated Date/Time: 08/31/2017 9:52 AM
--- NOTE | 2017-08-31 10:51 | Anesthesiology Progress Note ---
Anesthesia Post Op Note Date & Time Aug 31, 2017 at 10:43 Vital Signs Pain Intensity: 4 Vital Signs Past 12 Hours Date Time Temp Pulse Resp B/P (MAP) Pulse Ox O2 Delivery O2 Flow Rate FiO2 08/31/17 10:30 63 16 172/85 99 Nasal Cannula 3 08/31/17 10:20 63 16 146/91 96 Nasal Cannula 3 08/31/17 10:10 76 16 142/85 98 Nasal Cannula 3 08/31/17 10:00 74 16 163/86 100 Oxymask 3 08/31/17 09:50 75 16 156/84 100 Oxymask 3 08/31/17 09:40 36.2 84 16 132/65 98 Oxymask 5 08/31/17 06:45 36.7 73 18 133/99 (110) 94 Room Air Notes Mental Status: alert / awake / arousable, participated in evaluation Pt Amnestic to Procedure: Yes Nausea / Vomiting: adequately controlled Pain: adequately controlled Airway Patency, RR, SpO2: stable & adequate BP & HR: stable & adequate Hydration State: stable & adequate Anesthetic Complications: no major complications apparent The patient is doing well with no complaints. He has a history of Coffee's disease and received hydrocortisone 100mg IV preoperatively. The medicine team was consulted to manage the patient's steroid on the floor. I have informed the Regla BREAUX of the patient's PCPs recommendations regarding perioperative steroid management of his Coffee's disease. She will ensure all necessary orders are placed.
[2017-08-31] MEDS ORDERED: COUGH DROP (SUGAR FREE) LOZ 24 LOZ/1 BOX ONE (11:44)
[2017-08-31] MEDS: OXYCODONE HCL IR 5 MG TAB (IMMEDIATE RELEASE) PO PRN ×3 (11:45→23:17)
[2017-08-31] MEDS ORDERED: SCOPOLAMINE 1.5 MG TDSY TD SCH (12:00)
[2017-08-31] MEDS ORDERED: NURSING DECISION MEDICATION ORDER SCH (12:00)
[2017-08-31] MEDS ORDERED: HYDR-5688 PO (12:06)
[2017-08-31] MEDS ORDERED: COUGH DROP (SUGAR FREE) LOZ 24 LOZ/1 BOX PO PRN (12:30)
[2017-08-31] MEDS: SODIUM CHLORIDE 0.9% 1000ML 1,000 ML IV SCH ×2 (12:49→23:17)
--- NOTE | 2017-08-31 13:49 | NUR ---
Case Management: Met with pt and his and son at bedside. Pt gave me permission to speak with family present. Pt states he lives with his . His son is in town visiting. He lives in a one story home with basement and four steps with railing to enter. Pt reports being independent with ADLs and ambulation. He has a walker, cane, and raised toilet seat. Pt plans to return home and denies needs. Case Management to follow.
--- NOTE | 2017-08-31 14:46 | Medical Consult ---
Consultation Date of Consultation: Aug 31, 2017. Attending Physician: Tristan Mota D.O. Reason for Consultation: Post Op Medical Management History of Present Illness 62 year old male who is s/p C5 corpectomy and removal of plate and screws C6/7. Patient reports increasing neck pain with right > left arm numbness. He failed outpatient conservative measures and therefore presented for the planned procedure today. Post operatively the patient is doing well. He reports his pain is well controlled. He denies chest pain, shortness of breath, and difficulty swallowing. He denies abdominal pain and nausea. No lightheadedness or dizziness. He has not voided since surgery. Past Medical/Surgical History Medical Problems: (1) Chouteau's disease Status: Chronic (2) Antiphospholipid syndrome Status: Chronic (3) BPH (benign prostatic hyperplasia) Status: Chronic (4) Depression Status: Chronic (5) GERD (gastroesophageal reflux disease) Status: Chronic (6) History of DVT of lower extremity Permanent Comment: provoked, associated with hip replacement Status: Chronic (7) Hypertension Status: Chronic (8) Hypogonadism Status: Chronic (9) Hypothyroidism Status: Chronic (10) Rheumatoid arthritis Status: Chronic (11) Sleep apnea Permanent Comment: intolerant of CPAP Status: Chronic (12) 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 Status: Chronic Surgical Problems: (1) History of repair of right rotator cuff Status: Chronic (2) S/P cervical spinal fusion Status: Chronic (3) Status post carpal tunnel release Status: Chronic (4) Status post cholecystectomy Status: Chronic (5) Status post hip replacement Permanent Comment: bilat Status: Chronic Family History Aortic aneurysm FATHER Brain cancer BROTHER Breast cancer SISTER Diabetes mellitus SISTER Social History Smoking Status: Former Smoker Alcohol Use: occasionally Allergies Coded Allergies: Morphine (Verified Allergy, Unknown, ITCHING,HIVES,SOB, 08/31/17) 05/25/09: FROM PHYSICIAN ORDER FORM: CLARIFICATION--PT DOESN'T HAVE ALLERGY TO APAP, OPIATE AGONIST, OR OXYCODONE. ALLEGY ONLY TO MORPHINE/PROTONIX VORB FROM DR CALDWELL Home Medications [place] 5MG/325MG (Acetaminophen/Hydrocodone Bitart) Tab 1 Tablet PO BID PRN Kenisha Allergy (Fexofenadine Hcl) 180 Mg Tab 1 Tab PO QAM 14 Days Decongestant 12HOUR Maxim (Pseudoephedrine Hcl) 120 Mg Tab 1 Tab PO QAM Calcium + D (Calcium Carbonate-Vitamin D) 1 Tab Tab 1 Tab PO QPM Mobic (Meloxicam) 15 Mg Tab 15 Mg PO QAM Arava (Leflunomide) 10 Mg Tab 10 Mg PO QAM Ventolin Hfa (Albuterol) 200 Puffs/31395 Mcg Aers 2 Puffs INH Q6H PRN Cortef (Hydrocortisone) 10 Mg Tab 10 Mg PO QPM Zofran (Ondansetron HCl) 4 Mg Tab 4 Mg PO TID PRN Zanaflex (Tizanidine HCl) 4 Mg Cap 4 Mg PO HS Florinef (Fludrocortisone Acetate) 0.1 Mg Tab 0.5 Tab PO HS Protonix (Pantoprazole Sodium) 40 Mg Tab 40 Mg PO QAM TAKE THIS MEDICATION ONCE DAILY 30 MINUTES BEFORE FIRST MEAL OF THE DAY. Ativan (Lorazepam) 1 Mg Tab 1 Mg PO BID PRN Methotrexate Sodium (Methotrexate) 50 Mg/2 Ml Inj 0.6 Ml INJ WK INJECT UNDER THE SKIN ONCE WEEKLY ON SUNDAY Folvite (Folic Acid) 1 Mg Tab 1 Mg PO QAM [place]-3 (Xaexx-3-Cvst Ethyl Esters) 1 Cap Cap 1 Cap PO HS Synthroid (Levothyroxine Sodium) 300 Mcg Tab 300 Mcg PO 4XWK Sun, Tue, Perla, Sat Normodyne (Labetalol Hcl) 300 Mg Tab 300 Mg PO BID Cortef (Hydrocortisone) 10 Mg Tab 20 Mg PO QAM Multivitamin (Multivitamins) Tab 1 Tab PO QPM Lomotil (Diphenoxylate HCl/Atropine) Tab 1 Dose PO QID PRN Prozac (Fluoxetine HCl) 40 Mg Cap 40 Mg PO QAM Hytrin (Terazosin HCl) 5 Mg Cap 5 Mg PO HS Current Inpatient Medications Current Inpatient Medications Medications (Trade) Dose Ordered Sig/Magda Route Start Time Stop Time Status Last Admin Dose Admin Lactated Ringer's 1,000 ml @ 15 mls/hr Q24H IV 08/31/17 06:00 09/01/17 05:59 08/31/17 06:46 15 MLS/HR Cefazolin Sodium 10 ml @ 2.5 mls/min PREOP IV 08/31/17 06:00 09/01/17 05:59 08/31/17 07:45 2.5 MLS/MIN Racepinephrine (Raccemic Epinephrine 2.25% 0.5ML Neb) 0.5 ml ONE PRN INH 08/31/17 09:30 Acetaminophen 1000 mg/Empty Bag 100 ml @ 400 mls/hr Q8H PRN IV 08/31/17 09:30 09/30/17 09:29 Hydromorphone HCl (Dilaudid Inj) 0.5 mg Q3H PRN IV 08/31/17 09:30 09/14/17 09:29 Magnesium Hydroxide (Milk Of Magnesia Susp) 30 ml DAILY PRN PO 08/31/17 09:30 09/30/17 09:29 Docusate Sodium (coLACE CAP) 100 mg BID PO 08/31/17 21:00 09/30/17 20:59 Ondansetron HCl (Zofran Inj) 4 mg Q6 PRN IV 08/31/17 09:30 09/30/17 09:29 Scopolamine (Transderm-Scop Patch) 1.5 mg Q72H TD 08/31/17 12:00 09/30/17 11:59 08/31/17 12:48 1.5 MG Cefazolin Sodium 2000 mg/Syringe 10 ml @ 2.5 mls/min Q8H IV 08/31/17 16:00 09/01/17 15:59 Lorazepam (Ativan Tab) 0.5 mg Q8H PRN PO 08/31/17 09:30 09/30/17 09:29 Lorazepam 0.5 mg/ Syringe 1 ml @ 1 mls/min Q8H PRN IV 08/31/17 09:30 09/30/17 09:29 Diphenhydramine HCl (Benadryl Inj) 25 mg Q6H PRN IV 08/31/17 09:30 09/30/17 09:29 Pneumococcal Polysaccharide Vaccine 1 ea PRN PRN N/A 08/31/17 09:30 09/30/17 09:29 Influenza Virus Vacc Triv Types A&B 1 ea PRN PRN N/A 08/31/17 09:30 09/30/17 09:29 Sodium Chloride 1,000 ml @ 80 mls/hr [id number] IV 08/31/17 12:00 09/01/17 11:59 08/31/17 12:49 80 MLS/HR Oxycodone HCl (Roxicodone Immediate Rel Tab) 5mg for pain scale 4-6 1... Q4H PRN PO 08/31/17 09:30 09/14/17 09:29 08/31/17 11:45 10 MG Polyethylene (Miralax Powder Packet) 17 gm DAILY PO 09/02/17 09:00 10/02/17 08:59 Bisacodyl (Dulcolax Tab) 5 mg DAILY PRN PO 09/02/17 06:00 10/02/17 05:59 Bisacodyl (Dulcolax Supp) 10 mg DAILY PRN NE 09/02/17 06:00 10/02/17 05:59 Dexamethasone Sodium Phosphate 8 mg/Syringe 2 ml @ 1 mls/min ONE PRN IV 08/31/17 09:30 Naloxone HCl (Narcan Inj) 0.1 mg Q5M PRN IV 08/31/17 09:30 09/30/17 09:29 Miscellaneous (Remove Transderm-Scop Patch) 1 ea Q72H N/A 09/03/17 11:59 10/03/17 11:58 Miscellaneous Information (Check Scopolamine Patch Placement) 1 ea QS N/A 08/31/17 16:00 09/30/17 15:59 Albuterol (Ventolin Hfa Inhaler) 2 puffs Q6H PRN INH 08/31/17 09:30 09/30/17 09:29 Diphenoxylate HCl/ Atropine (Lomotil Tab) 1 tab QID PRN PO 08/31/17 09:30 09/30/17 09:29 Fexofenadine HCl (Kenisha Tab) 180 mg QAM PO 09/01/17 09:00 10/01/17 08:59 Fludrocortisone Acetate (Florinef Tab) 0.05 mg HS PO 08/31/17 21:00 09/30/17 20:59 Fluoxetine HCl (Prozac Cap) 40 mg QAM PO 09/01/17 09:00 10/01/17 08:59 Labetalol HCl (Normodyne Tab) 300 mg BID PO 08/31/17 21:00 09/30/17 20:59 Levothyroxine Sodium (Synthroid Tab) 300 mcg [id number] PO 09/02/17 06:45 10/02/17 06:44 Pantoprazole Sodium (Protonix Tab) 40 mg QAM PO 09/01/17 09:00 10/01/17 08:59 Terazosin HCl (Hytrin Cap) 5 mg HS PO 08/31/17 21:00 09/30/17 20:59 Hydromorphone HCl (Dilaudid Inj) 1 mg Q3H PRN IV 08/31/17 11:45 09/14/17 11:44 Folic Acid (Folvite Tab) 1 mg QAM PO 09/01/17 09:00 10/01/17 08:59 Menthol (Nice Ramo) 1 ramo PRN PRN PO 08/31/17 12:30 09/30/17 12:29 Hydrocortisone Sodium Succinate 50 mg/Syringe 1 ml @ 4 mls/min Q8H IV 08/31/17 15:00 09/01/17 07:01 Review of Systems ROS per HPI, all other systems reviewed and negative Physical Exam Date Time Temp Pulse Resp B/P (MAP) Pulse Ox O2 Delivery O2 Flow Rate FiO2 08/31/17 14:00 36.8 85 16 170/85 97 Nasal Cannula 2.0 Humidified Oxygen 08/31/17 12:54 37.1 86 16 165/90 99 Nasal Cannula 2.0 Humidified Oxygen 08/31/17 12:06 36.8 75 16 186/92 98 Nasal Cannula 2.0 Humidified Oxygen 08/31/17 11:34 85 12 98 Nasal Cannula 2.0 08/31/17 11:30 36.5 69 16 160/92 97 Nasal Cannula 2.0 Humidified Oxygen 08/31/17 11:00 36.7 78 16 162/90 99 Nasal Cannula 2.0 08/31/17 11:00 99 Nasal Cannula 2.0 Humidified Oxygen 08/31/17 11:00 99 Nasal Cannula 2.0 08/31/17 10:50 63 16 141/88 99 Nasal Cannula 3 08/31/17 10:40 36.4 64 16 168/89 99 Nasal Cannula 3 08/31/17 10:30 63 16 172/85 99 Nasal Cannula 3 08/31/17 10:20 63 16 146/91 96 Nasal Cannula 3 08/31/17 10:10 76 16 142/85 98 Nasal Cannula 3 08/31/17 10:00 74 16 163/86 100 Oxymask 3 08/31/17 09:50 75 16 156/84 100 Oxymask 3 08/31/17 09:40 36.2 84 16 132/65 98 Oxymask 5 08/31/17 06:45 36.7 73 18 133/99 (110) 94 Room Air General Appearance: WD/WN, no apparent distress Head: normocephalic, atraumatic Eyes: normal inspection, EOMI, sclerae normal ENT: hearing grossly normal, + pertinent finding (mucous membranes moist) Neck: + pertinent finding (s/p cervical surgery, cervical collar in place, drain in place draining bloody drainage) Respiratory/Chest: lungs clear, normal breath sounds, no respiratory distress Cardiovascular: regular rate, rhythm, no edema, normal peripheral pulses Abdomen/GI: normal bowel sounds, non tender, soft, no organomegaly Extremities/Musculoskelatal: normal inspection, no calf tenderness, normal capillary refill Neurologic/Psych: no motor/sensory deficits, alert, normal mood/affect, oriented x 3 Skin: normal color, warm/dry Assessment & Plan S/P C5 CORPECTOMY AND HARDWARE REMOVAL - POD#0 - activity and wound care orders as per ortho - pain control with bowel regimen - PT/OT - monitor H/H for acute blood loss anemia and transfuse blood products PRN HEATH'S DISEASE - patient managed on hydrocortisone 20mg in the AM and 10mg in the evening plus fludrocortisone 50mcg HS at home - patient received 100mg hydrocortisone IV pre op; will give hydrocortisone 50mg IV q8h x 3 doses, then patient can resume home oral dosing of hydrocortisone - continue fludrocortisone HX RA - per outpatient rheumatology recommendations - hold leflunomide 2 weeks post op - ok to continue methotrexate HTN - BPs intermittently elevated, possibly due to pain - continue labetalol, make adjustments as needed BPH - continue terazosin HYPOTHYROIDISM - continue levothyroxine DVT PROPHYLAXIS - TEDs/SCSs per surgery - noted history of antiphospholipid syndrome and DVT in the setting of hip replacement Attending Addendum: The patient was seen and examined S/P C5 Corpectomy with significant PMH of RA-on immunodepressant,Adrenal insufficiency and others Denies any symptoms following surgery O/E No distress at rest NECK-in collar Chest-clear to ausucltate bilaterally Heart-regular Abdomen-benign Labs and imaging studies were reviewed Agree with the assessment and plan Dr Keny garcia Thank you for this consultation. We will follow the patient with you during their hospital stay. You can reach a [facility] via pager @ [phone].
[2017-08-31] MEDS: HYDROCORTISONE IV 50 MG in SYRINGE 0 ML IV SCH ×2 (15:16→23:00)
[2017-08-31] MEDS: CHECK SCOPOLAMINE PATCH PLACEMENT SCH ×2 (16:09→23:16)
[2017-08-31] MEDS: CEFAZOLIN IV 2,000 MG in SYRINGE 0 ML IV SCH ×2 (16:09→23:16)
[2017-08-31] MEDS ORDERED: DEXAMETHASONE INJ 6 MG in SYRINGE 0 ML IV SCH (18:00)
[2017-08-31] MEDS: LABETALOL HCL 300 MG TAB PO SCH (18:23)
[2017-08-31] MEDS ORDERED: LORAZEPAM 1 MG TAB PO SCH (21:00)
[2017-08-31] MEDS ORDERED: FLUDROCORTISONE ACETATE 0.1 MG TAB PO SCH (21:00)
[2017-08-31] MEDS: DOCUSATE SODIUM 100 MG CAP PO SCH (21:13)
[2017-09-01] VITALS (12 sets, daily range): BP systolic 137–183; BP diastolic 82–105; PULSE 55–78; TEMP 36.5–36.9; O2SAT 91–96
--- NOTE | 2017-09-01 01:19 | NUR ---
ID: Patient alert and oriented x4. IVF infusing per MD orders. Pain managed with PO medications. Tolerating a clear liquid diet. Voiding without difficulty. OOB with supervision. Discharge plans to return home when stable.
[2017-09-01] MEDS: OXYCODONE HCL IR 5 MG TAB (IMMEDIATE RELEASE) PO PRN ×2 (05:40→11:55)
[2017-09-01] MEDS: LABETALOL HCL 300 MG TAB PO SCH (05:41)
[2017-09-01] MEDS: HYDROCORTISONE IV 50 MG in SYRINGE 0 ML IV SCH (06:28)
[2017-09-01 06:31] LABS: HEMOGLOBIN 10.6 g/dL (14.0-18.0); MEAN CELL VOLUME 89.3 fL (80-100); MEAN CORPUSCULAR HEMOGLOBIN 31.5 pg (25-34); MEAN CORPUSCULAR HGB CONC 35.3 g/dl (32-36); PLATELET COUNT 181 K/uL (130-400); RED CELL DISTRIBUTION WIDTH CV 13.5 % (11.5-14.5); WHITE BLOOD COUNT 8.34 K/uL (4.8-10.8)
[2017-09-01] MEDS ORDERED: LEVOTHYROXINE 100 MCG TAB PO SCH (06:45)
[2017-09-01] MEDS ORDERED: CLONIDINE HCL 0.1 MG TAB PO PRN (06:45)
[2017-09-01 07:00] LABS: CALCIUM 8.6 mg/dl (8.5-10.1); CREATININE 0.86 mg/dl (0.60-1.40); POTASSIUM 3.4 mmol/L (3.5-5.1)
[2017-09-01] MEDS: CEFAZOLIN IV 2,000 MG in SYRINGE 0 ML IV SCH (08:27)
[2017-09-01] MEDS: DOCUSATE SODIUM 100 MG CAP PO SCH (08:28)
[2017-09-01] MEDS: CHECK SCOPOLAMINE PATCH PLACEMENT SCH (08:28)
[2017-09-01] MEDS ORDERED: FEXOFENADINE HCL 180 MG TAB PO SCH (09:00)
[2017-09-01] MEDS ORDERED: PANTOprazole SOD 40 MG TAB PO SCH (09:00)
[2017-09-01] MEDS ORDERED: FLUOXETINE HCL 20 MG CAP PO SCH (09:00)
[2017-09-01] MEDS ORDERED: RXC5 PO (09:58)
--- NOTE | 2017-09-01 09:58 | Discharge Instructions ---
Discharge Instructions Date of Service Sep 01, 2017. Admission Reason for Admission: Cervical Spine Pain Discharge Discharge Diagnosis / Problem: cervical stenosis Discharge Goals Goal(s): Improve function Activity Recommendations Activity Limitations: per Instructions/Follow-up section . Instructions / Follow-Up Instructions / Follow-Up ACTIVITY RECOMMENDATIONS: SELF CARE INSTRUCTIONS AFTER CERVICAL FUSIONS 1. No smoking. Smoking drastically decreases the chance of a solid fusion. 2. No bending, lifting more than 5 pounds, or twisting (roll like a log when turning in bed). 3. You may shower 3 days after surgery. Thoroughly dry wound. Do not soak in the tub. 4. Cervical collar: Must be worn at all times including sleeping. You may remove the brace only to bath, eat and if you are sitting in a recliner. 5. Please walk as much as you can for exercise. Gradually increase the distance that you walk as your endurance increases. SPECIAL CARE INSTRUCTIONS: VERY IMPORTANT TO READ AND REVIEW A. Do not take any anti-inflammatory medications (i.e. Indocin, Advil, Aspirin, Naprosyn, Aleve, Motrin, etc.) as these may inhibit the chance of a solid fusion. Tylenol is okay to take. B. Your surgical incision has been closed with a cosmetic suture under the skin that will dissolve in about 6 weeks. In 14 days, you can use a pair of clean scissors and cut the suture that is left outside of the skin at the ends of your incision. C. Complications are uncommon, but please contact us if you have any signs or symptoms of: 1. wound infection (fever higher than 102.5 degrees F, redness, separation of wound, drainage, or increasing pain from the incision) 2. blood clots in legs (pain, swelling, redness and warmth in legs) 3. urinary tract infection (fever higher than 102.5 degrees, burning upon urination or increased frequency of urination) 4. nerve problems (inability to walk on your toes or heels, numbness, loss of bowel or bladder control) 5. any other symptoms that concern you. D. Please call the office at if you have any concerns or questions about your operation or recovery. MANAGING PAIN AFTER SPINAL SURGERY 1. Narcotic medication is intended for short-term use and will be provided for surgical pain. Surgical pain usually lasts for a period of 4-6 weeks. Narcotic medication includes Percocet, Vicodin, Darvocet, Tylenol #3 or Lortab. 2. Longer-term pain is more appropriately treated with non-narcotic medication such as Tylenol ES. 3. Muscle spasm is not appropriately treated with narcotics. Muscle relaxers such as Soma, Flexeril or Skelaxin can be used along with Tylenol ES. 4. Remember that we all live with some "aches and pains". This is not unusual or uncommon after an injury or as we get older. 5. We will provide appropriate medication within the normal guidelines of their prescribed use. We will also be very cautious and aware of potential abuse and extended duration of patients' medication needs. 6. Please allow 2-3 days to process refills. Prescriptions will not be mailed but must be picked up at the office. FOLLOW UP VISIT: Keep your scheduled follow-up appointment. Any questions, please call the office at . Current Hospital Diet Patient's current hospital diet: Clear Liquid Diet Discharge Diet Recommended Diet: Regular Diet Procedures Procedures Performed: #1 removal of instrumentation see 67. #2 expiration of fusion C6 7. #3 anterior cervical corpectomy C5. #4 cervical arthrodesis C4 to C6. #5 placement peek cage 25 mm in height C4 to C6. #6 placement locally harvested morcellized autograft combined with ostial amp bone graft in the interbody cage. #7 application of gordon plate and screws from C4 to C6. Pending Studies Studies pending at discharge: no Medical Emergencies . Who to Call and When: Medical Emergencies: If at any time you feel your situation is an emergency, please call 911 immediately. . Non-Emergent Contact Non-Emergency issues call your: Primary Care Provider . "Provider Documentation" section prepared by Tristan Mota. . VTE Core Measure Inpt VTE Proph given/why not?: Myra Garcia, SCD's
--- NOTE | 2017-09-01 10:15 | Discharge Summary ---
Orthopedic Discharge Summary Admission Date/Reason Aug 31, 2017 at 11:24 Cervical Spine Pain. Discharge Date/Disposition Sep 01, 2017 Home Diagnosis Principal Diagnosis: Cervical spinal stenosis Admission Physical Exam As per Admitting History & Physical. Hospital Course Patient underwent anterior cervical corpectomy tolerated as well as taken to the orthopedic floor postoperatively. Postoperative day #1 he was up and ambulatory, swallowing well no hoarseness. He feels his arm symptoms are markedly improved. JACOB drain decreased improperly. Substernally was discharged home. Discharge orders and instructions found on the chart for further review. Discharge Instructions Please refer to the electronic Patient Visit Report (Discharge Instructions) for additional information.
[2017-09-02] MEDS ORDERED: BISACODYL 5 MG TABEC PO PRN (06:00)
[2017-09-02] MEDS ORDERED: BISACODYL 10 MG SUPP PR PRN (06:00)
[2017-09-02] MEDS ORDERED: LEVOTHYROXINE 100 MCG TAB PO SCH (06:45)
[2017-09-02] MEDS ORDERED: POLYETHYLENE (MIRALAX) 17 GM PACK PO SCH (09:00)
== END 2017-09-01 12:35 | disposition home or self-care (01) | DRG 472 ==
LOC: C.ACU 05:59 → ENRESERV 10:36 → C.3E 11:24
PROVIDERS: ADMIT Orthopaedic Surgery Orthopaedic Surgery of the Spine; ATTEND Orthopaedic Surgery Orthopaedic Surgery of the Spine
PROC: 0RP104Z Removal of Internal Fixation Device from Cervical Vertebral Joint, Open Approach (ICD-10-PCS; principal; 2017-08-31 07:45)
PROC: 0RG20Z0 (ICD-10-PCS; principal; 2017-08-31 07:45)
PROC: 0RG10A0 Fusion of Cervical Vertebral Joint with Interbody Fusion Device, Anterior Approach, Anterior Column, Open Approach (ICD-10-PCS; principal; 2017-08-31 07:45)
PROC: 0RT30ZZ Resection of Cervical Vertebral Disc, Open Approach (ICD-10-PCS; principal; 2017-08-31 07:45)
DX: M48.02 Spinal stenosis, cervical region (principal); E27.1 Primary adrenocortical insufficiency; I10 Essential (primary) hypertension; K21.9 Gastro-esophageal reflux disease without esophagitis; M06.9 Rheumatoid arthritis, unspecified; E03.9 Hypothyroidism, unspecified; F32.9 Major depressive disorder, single episode, unspecified; Z79.899 Other long term (current) drug therapy; Z79.52 Long term (current) use of systemic steroids; Z86.718 Personal history of other venous thrombosis and embolism; Z87.891 Personal history of nicotine dependence; Z83.3 Family history of diabetes mellitus; Z82.49 Family history of ischemic heart disease and other diseases of the circulatory system; Z80.3 Family history of malignant neoplasm of breast; Z80.8 Family history of malignant neoplasm of other organs or systems

== ENCOUNTER 2020-02-04 09:53 | Inpatient (IN) ==
[2020-02-04] MEDS ORDERED: ACETAMINOPHEN 325 MG TAB PO PRN (09:54)
[2020-02-04] MEDS ORDERED: NITROGLYCERIN SL 0.4 MG/TAB TAB SL PRN (09:54)
[2020-02-04] MEDS ORDERED: PATIENT'S HEIGHT AND/OR WEIGHT NEEDED SCH (10:15)
--- NOTE | 2020-02-04 10:27 | XRay Report ---
XR chest 1V portable CLINICAL HISTORY: Atypical chest pain COMPARISON STUDY: 07/28/2017 FINDINGS: The cardiac and mediastinal contours are normal. There is no evidence of focal pulmonary co nsolidation. There is no evidence of failure. No pleural effusions are visualized.[Postsurgical martinez es are present within the cervical spine. A small hiatal hernia is suspected. IMPRESSION: No active disease in the chest. ACT 112: Negative or not required by law. Electronically signed by: Jese Dozier M.D. 02/04/2020 10:25 AM
--- NOTE | 2020-02-04 11:03 | History & Physical Report ---
Date of Service February 04, 2020 Assessment & Plan (1) Angina pectoris: Pt is 64 y/o M with PMH HTN, RA, antiphospholipid antibody syndrome, h/o DVT after ortho surgery, adrenal insufficiency, THIERRY, depression, anxiety, GERD, hypothyroidism presented as direct admission from cardiology office for angina symptoms and abnormal EKG and echo. Outpatient EKG with T wave inversions V1-V6 which is new compared to EKG from 07/2019. Today outpatient resting echo with moderate to large size wall motion abnormality with severe hypokinesis to akinesis of anteroseptal, anterior, atpical inferior field. Pt without any current CP, SOB, N/V, diaphoresis, palpitations. Vitals stable Risk factors: HTN, obesity, prior tobacco use -Obtain EKG now -Troponin negative -Continue aspirin, atorvastatin, labetalol -Lipid panel in am -Nitro prn CP and repeat EKG for CP -NPO for now in case of cardiac cath -Cardiology consult, Dr Estrada aware (2) Rheumatoid arthritis: -Hold Humira, methotrexate -Continue hydrocodone -Hold meloxicam for now in case of cardiac cath (3) Ponderay's disease: -Continue Florinef, hydrocortisone (4) Hypertension: BP Stable -Continue labetalol, terazosin (5) Antiphospholipid syndrome: H/O DVT after hip replacement in 1999. No further DVT (6) Hypothyroidism: TSH: 0.84 on 01/28/2020 -Continue levothyroxine (7) Depression: Stable -Continue fluoxetine, lorazepam prn (8) GERD (gastroesophageal reflux disease): -Continue PPI, H2 yamile (9) Sleep apnea: Intolerant to CPAP DVT Prophylaxis -SCDs for now Full Code as per discussion with pt Follows with Dr Bridges for routine care Pt was seen and care coordinated with Dr Luna. See addendum Admission and Anticipated Discharge Date Admission Date: February 04, 2020 History of Present Illness Chief Complaint: CP Primary Care Provider: Ethan Bridges, Pt is 64 y/o M with PMH HTN, RA, antiphospholipid antibody syndrome, h/o DVT after ortho surgery, adrenal insufficiency, THIERRY, depression, anxiety, GERD, hypothyroidism presented as direct admission from cardiology office for angina symptoms and abnormal EKG and echo. Pt reports several weeks ago was moving furniture and developed CP with radiation to bilateral arms with vomiting with resolution of symptoms with rest. Pt was seen in cardiology clinic on 02/02/[address] Pitt and was noted to have EKG with T wave inversions V1-V6 which is new compared to EKG from 07/2019. He was started on aspirin 81mg daily and atorvastatin 10mg daily. He was originally going to be scheduled for outpatient cath however today 02/04/2020 he had outpatient resting echo with moderate to large size wall motion abnormality with severe hypokinesis to akinesis of anteroseptal, anterior, atpical inferior field. Is referred for further inpatient evaluation. Pt denies any CP currently. Reports feels tired. Reports that has been having SOB with walking approx 1/2 mile for past 4 months. History intermittent diarrhea and uses Lomotil as needed, no diarrhea for past 1-2 weeks. Last ate around 6pm on 02/03/2020. Denies fever/chills, diaphoresis, other N/V/C, MERINO, dizziness, syncope, vision changes, neck pain, orthopnea, palpitations, cough, sore throat, choking, otalgia, rhinorrhea, abdominal pain, paresthesias, weakness, extremity weakness, extremity edema, rashes, urinary symptoms. Former smoker for 26 years, quit in 1995. Reported cardiac cath approx. 20 years ago. Normal stress test in 2003. Allergies Allergy/AdvReac Type Severity Reaction Status Date / Time morphine Allergy Unknown ITCHING,HIV Verified 08/31/17 06:38 ES,SOB sulfasalazine AdvReac abdominal Verified 02/04/20 10:23 pain, fever Home Medications Home Medications Medication Instructions Recorded Confirmed Type adalimumab [Humira Pen] 40 mg SUBCUT UD 02/04/20 02/04/20 History albuterol sulfate 2 puff INHALATION QID PRN 02/04/20 02/04/20 History aspirin 81 mg PO DAILY 02/04/20 02/04/20 History atorvastatin 10 mg PO PM 02/04/20 02/04/20 History calcium carbonate-vitamin D3 1 tab PO PM 02/04/20 02/04/20 History [Caltrate 600 plus D] diphenoxylate-atropine [Lomotil] 1 tab PO QID PRN 02/04/20 02/04/20 History famotidine [Pepcid] 20 mg PO DAILY 02/04/20 02/04/20 History fludrocortisone 0.05 mg PO DAILY 02/04/20 02/04/20 History fluoxetine 40 mg PO DAILY 02/04/20 02/04/20 History folic acid 1 mg PO DAILY 02/04/20 02/04/20 History hydrocodone-acetaminophen 1 tab PO BID PRN 02/04/20 02/04/20 History hydrocortisone [Cortef] 10 mg PO QPM 02/04/20 02/04/20 History hydrocortisone [Cortef] 10 mg PO UD PRN 02/04/20 02/04/20 History hydrocortisone [Cortef] 20 mg PO QAM 02/04/20 02/04/20 History labetalol 300 mg PO BID 02/04/20 02/04/20 History levothyroxine 300 mcg PO UD 02/04/20 02/04/20 History lorazepam 1 mg PO BID PRN 02/04/20 02/04/20 History meloxicam 15 mg PO DAILY 02/04/20 02/04/20 History methotrexate sodium 25 mg SUBCUT WK 02/04/20 02/04/20 History nitroglycerin 0.4 mg SUBLINGUAL UD 02/04/20 02/04/20 History pantoprazole 40 mg PO DAILY 02/04/20 02/04/20 History terazosin 5 mg PO PM 02/04/20 02/04/20 History Past Med/Surg History Medical History Ponderay's disease (Chronic) Antiphospholipid syndrome (Chronic) BPH (benign prostatic hyperplasia) (Chronic) Depression (Chronic) GERD (gastroesophageal reflux disease) (Chronic) History of DVT of lower extremity (Chronic) "provoked, associated with hip replacement" Hypertension (Chronic) Hypothyroidism (Chronic) Rheumatoid arthritis (Chronic) Sleep apnea (Chronic) "intolerant of CPAP" Surgical History History of repair of right rotator cuff (Chronic) S/P cervical spinal fusion (Chronic) Status post carpal tunnel release (Chronic) Status post cholecystectomy (Chronic) Status post hip replacement (Chronic) "bilat" Family History Sister Diabetes Thyroid disease Graves Son Thyroid disease hypothyroidism Brother Cancer brain CA Father FH: abdominal aortic aneurysm Social History Preferred Language: Setswana Communication Ability: Effective Communication Ability Comment: Deaf right ear Armed Security Professional Required: No Beliefs That Will Affect Care: None Current Living Situation: Spouse Other Information That Helps Us Care for You: No Feels Safe at Home: Yes Safety Concerns: Feels Safe At This Time Smoking Status: Former smoker Tobacco Type: cigarettes ; Smoking End Date: 1995 ; Hx Alcohol Use: Yes Alcohol Intake Frequency: Rarely Hx Substance Use: No Review of Systems Review of Systems: All systems reviewed & are unremarkable except as noted in HPI & below Physical Exam Physical Exam: General: no distress, obese Head: normocephalic, atraumatic Eyes: PERRL, EOM's intact, conjunctiva non-injected, anicteric ENT: normal inspection external ears, nose, mucous membranes moist Neck: supple, trachea midline Lungs: clear, no respiratory distress, no wheezing/rhonchi/rales CV: RRR, no murmur, no pretibial edema Abd: healed surgical scars, normal BS, soft, protuberant, non-tender Ext: no cyanosis, no calf tenderness Neuro: A&O x 3, no focal deficits noted, normal affect Skin: warm, dry Results & Data Results & Data ([facility]) Vital Signs (Past 12 Hours) Vital Signs Temp Pulse Resp BP Pulse Ox 02/04/20 10:26 37 C 61 16 134/74 99 Laboratory Results Short CBC 02/04/20 Range/Units 10:32 WBC 6.02 (4.8-10.8) K/uL Hgb 12.6 L (14.0-18.0) g/dL Hct 35.8 L (42-52) % Plt Count 265 (130-400) K/uL BMP 02/04/20 10:32 Sodium 140 Potassium 3.8 Chloride 110 H Carbon Dioxide 25 BUN 25 H Creatinine 1.21 Glucose 88 Calcium 9.2 Cardiac Enzymes 02/04/20 Range/Units 10:32 Troponin I < 0.015 (0-0.045) ng/ml Liver Function 02/04/20 Range/Units 10:32 Total Bilirubin 0.6 (0.2-1) mg/dl AST 17 (15-37) U/L ALT 25 (12-78) U/L Alkaline Phosphatase 81 (45-117) U/L Albumin 4.1 (3.4-5.0) gm/dl Diagnostic Findings CXR: IMPRESSION: No active disease in the chest. Code Status & VTE Plan VTE Prophylaxis Plan VTE Prophylaxis will be ordered: Yes Supervising Physician Co-Signing Physician Notes Attending Addendum: care coordinated with SAEID Rodriguez please refer to her notes for full details, I agree with her notes patient seen and examined, records reviewed by myself as well on exam, patient resting in bed, comfortable, not in distress Denies active chest pain, shortness of breath, palpitations, dizziness Ports chest pain occurs with heavy exertion no other symptoms VS noted and reviewed oriented x 3 , not in distress, speaks in sentences with no effort nor accessory muscle use normal rate, regular rhythm, no murmurs clear breath sounds bilaterally non distended, soft, nontender no bipedal edema, erythema, warmth no neuro deficits WBC 6.02 Hg 12.6 Crea 1.21 Troponin less than 0.015 ASSESSMENT AND PLAN Chest pain possible unstable angina No active chest pain or cardiac symptoms on my exam Troponins negative EKG pending Plan for cardiac cath Rheumatoid arthritis Quiescent Continue usual Humira, methotrexate Ponderay's disease Continue usual Melba Aguila other diagnoses and plan of care as per SAEID Rodriguez. notes Feliciano Luna MD
[2020-02-04 11:04] LABS: Basophils # (auto) 0.03 K/uL (0-0.2); Basophils % (auto) 0.5 %; Eosinophils # (auto) 0.08 K/uL (0-0.5); Eosinophils % (auto) 1.3 %; Hematocrit (blood only) 35.8 % (42-52); Hemoglobin 12.6 g/dL (14.0-18.0); Immature Granulocytes # (auto) 0.02 K/uL (0.00-0.02); Immature Granulocytes % (auto) 0.3 %; Lymphocytes # (auto) 1.38 K/uL (1.2-3.4); Lymphocytes % (auto) 22.9 %; Mean Corpuscular Hemoglobin 32.4 pg (25-34); Mean Corpuscular Hgb Conc 35.2 g/dL (32-36); Mean Platelet Volume 9.5 fL (7.4-10.4); Monocytes # (auto) 0.54 K/uL (0.11-0.59); Neutrophils # (auto) 3.97 K/uL (1.4-6.5); Platelet Count 265 K/uL (130-400); RDW Coefficient of Variation 13.9 % (11.5-14.5); RDW Standard Deviation 46.2 fL (36.4-46.3); Red Blood Count 3.89 M/uL (4.7-6.1); White Blood Count 6.02 K/uL (4.8-10.8)
[2020-02-04] MEDS ORDERED: ALBUTEROL HFA 8 GM INHALER INH PRN (11:16)
[2020-02-04 11:20] LABS: INR 1.1 (0.9-1.1); Partial Thromboplastin Ratio 1.2; Partial Thromboplastin Time 32.2 Seconds (21.0-31.0); Prothrombin Time 11.3 Seconds (9.0-12.0)
[2020-02-04 11:22] LABS: Alanine Aminotransferase 25 U/L (12-78); Albumin Level 4.1 gm/dl (3.4-5.0); Aspartate Aminotransferase 17 U/L (15-37); BUN Creatinine Ratio 20.3 (10-20); Blood Urea Nitrogen 25 mg/dl (7-18); Calcium 9.2 mg/dl (8.5-10.1); Carbon Dioxide 25 mmol/L (21-32); Chloride 110 mmol/L (98-107); Est GFR (African American) 72.9; Est GFR (Non-African American) 62.9; Glucose 88 mg/dl (70-99); Magnesium 1.9 mg/dl (1.8-2.4); Potassium 3.8 mmol/L (3.5-5.1); Sodium 140 mmol/L (136-145)
[2020-02-04 11:27] LABS: Albumin Globulin Ratio 1.2 (0.9-2); Alkaline Phosphatase 81 U/L (45-117); Bilirubin,Total 0.6 mg/dl (0.2-1); Globulin 3.4 gm/dl (2.5-4.0); Total Protein 7.5 gm/dl (6.4-8.2); Troponin I < 0.015 ng/ml (0-0.045)
[2020-02-04] MEDS ORDERED: LORazepam 1 MG TAB PO PRN (11:37)
[2020-02-04] MEDS ORDERED: HYDROCODONE/ACETAMOPHEN 5/325MG TAB PO PRN (11:39)
[2020-02-04] MEDS ORDERED: D5W AND NSS 1,000 ML IV SCH (12:00)
--- NOTE | 2020-02-04 12:38 | Cardiology Consultation ---
Date of Consultation February 04, 2020 Assessment & Plan (1) Angina pectoris: (2) Ischemic cardiomyopathy: Recommend further ischemic evaluation. Risks, benefits, alternatives to cardiac catheterization discussed at length. Patient agreeable. He will remain n.p.o. at this time. Continue aspirin and statin therapy as previously ordered. Consider titration of atorvastatin pending review of coronary angiography. Usual host of Plavix screening questions were addressed. Patient is a drug- eluting stent candidate. History of Present Illness Reason for Consultation: Abnormal echocardiogram suggesting ischemic cardi omyopathy, chest pain Requesting Physician: Dr. Brumfield Attending Physician: Leander Brumfield MD History of Present Illness 64-year-old patient initially evaluated by cardiology 02/02/2020 due to chest discomfort. At that time patient reported chest pain, shortness of breath, and associated nausea with vomiting on nearly a weekly basis since October 2019. Most recent episode occurred during mid January. He presented to the cardiology clinic today for resting 2D transthoracic echocardiogram. Echo demonstrates apical wall motion abnormality with mildly reduced LV systolic function. Patient denies active chest discomfort today. Due to risk factors, echocardiogram results, and recent anginal symptoms, inpatient evaluation recommended. Complex medical history listed below including antiphospholipid syndrome, rheumatoid arthritis, Finney's disease requiring chronic steroid supplementation. Patient reports dyspnea on exertion over the past few weeks. No recent chest discomfort, however, he has been avoiding strenuous activity. Repeat ECG today demonstrates resolution of previously noted T wave inversions. Cardiac enzymes are undetectable. Denies any lightheadedness, dizziness, syncope, or near syncope. No orthopnea, PND, or lower extremity edema. Denies palpitations Allergies Allergy/AdvReac Type Severity Reaction Status Date / Time morphine Allergy Unknown ITCHING,HIV Verified 08/31/17 06:38 ES,SOB sulfasalazine AdvReac abdominal Verified 02/04/20 10:23 pain, fever Home Medications Home Medications Medication Instructions Recorded Confirmed Type adalimumab [Humira Pen] 40 mg SUBCUT UD 02/04/20 02/04/20 History albuterol sulfate 2 puff INHALATION QID PRN 02/04/20 02/04/20 History aspirin 81 mg PO DAILY 02/04/20 02/04/20 History atorvastatin 10 mg PO PM 02/04/20 02/04/20 History calcium carbonate-vitamin D3 1 tab PO PM 02/04/20 02/04/20 History [Caltrate 600 plus D] diphenoxylate-atropine [Lomotil] 1 tab PO QID PRN 02/04/20 02/04/20 History famotidine [Pepcid] 20 mg PO DAILY 02/04/20 02/04/20 History fludrocortisone 0.05 mg PO DAILY 02/04/20 02/04/20 History fluoxetine 40 mg PO DAILY 02/04/20 02/04/20 History folic acid 1 mg PO DAILY 02/04/20 02/04/20 History hydrocodone-acetaminophen 1 tab PO BID PRN 02/04/20 02/04/20 History hydrocortisone [Cortef] 10 mg PO QPM 02/04/20 02/04/20 History hydrocortisone [Cortef] 10 mg PO UD PRN 02/04/20 02/04/20 History hydrocortisone [Cortef] 20 mg PO QAM 02/04/20 02/04/20 History labetalol 300 mg PO BID 02/04/20 02/04/20 History levothyroxine 300 mcg PO UD 02/04/20 02/04/20 History lorazepam 1 mg PO BID PRN 02/04/20 02/04/20 History meloxicam 15 mg PO DAILY 02/04/20 02/04/20 History methotrexate sodium 25 mg SUBCUT WK 02/04/20 02/04/20 History nitroglycerin 0.4 mg SUBLINGUAL UD 02/04/20 02/04/20 History pantoprazole 40 mg PO DAILY 02/04/20 02/04/20 History terazosin 5 mg PO PM 02/04/20 02/04/20 History Patient History Medical History Finney's disease (Chronic) Antiphospholipid syndrome (Chronic) BPH (benign prostatic hyperplasia) (Chronic) Depression (Chronic) GERD (gastroesophageal reflux disease) (Chronic) History of DVT of lower extremity (Chronic) "provoked, associated with hip replacement" Hypertension (Chronic) Hypothyroidism (Chronic) Rheumatoid arthritis (Chronic) Sleep apnea (Chronic) "intolerant of CPAP" Surgical History History of repair of right rotator cuff (Chronic) S/P cervical spinal fusion (Chronic) Status post carpal tunnel release (Chronic) Status post cholecystectomy (Chronic) Status post hip replacement (Chronic) "bilat" Family History Sister Diabetes Thyroid disease Graves Son Thyroid disease hypothyroidism Brother Cancer brain CA Father FH: abdominal aortic aneurysm Social History Preferred Language: Citizen Of [place] Communication Ability: Effective Communication Ability Comment: Deaf right ear Payroll Accountant Required: No Beliefs That Will Affect Care: None Current Living Situation: Spouse Other Information That Helps Us Care for You: No Feels Safe at Home: Yes Safety Concerns: Feels Safe At This Time Smoking Status: Former smoker Tobacco Type: cigarettes ; Smoking End Date: 1995 ; Hx Alcohol Use: Yes Alcohol Intake Frequency: Rarely Hx Substance Use: No Review of Systems Review of Systems: All systems reviewed & are unremarkable except as noted in HPI & below Physical Exam Constitutional: well developed, well nourished and + obese; no acute distress Respiratory: normal respiratory effort, lungs clear to auscultation Auscultation: no crackles, no rales, no rhonchi and no wheezes Cardiovascular: Rate/Rhythm: regular rate and regular rhythm Heart Sounds: normal S1 and normal S2; no gallop, no murmur and no cardiac rub Palpation: normal PMI Vessels: no JVD and no carotid bruit Extremities: no edema Gastrointestinal (Abdomen): Inspection/Auscultation: abdomen normal to inspection and normal bowel sounds; abdomen not distended Percussion/Palpation: abdomen soft; abdomen nontender, no guarding and abdomen not rigid Musculoskeletal: Extremities: strength 5/5 throughout Skin: no rashes, warm and dry Neurologic: moves all extremities; no focal motor deficits Speech / Cognition: normal speech Motor/Sensory: no tremor Psychiatric: A+Ox3, euthymic affect Results & Data ([facility]) Vital Signs (Past 12 Hours) Vital Signs Temp Pulse Resp BP Pulse Ox 02/04/20 10:26 37 C 61 16 134/74 99
[2020-02-04] MEDS ORDERED: NiCARDipine HCL INJ 2.5 MG/ML 10 ML AMP ONE (13:41)
[2020-02-04] MEDS ORDERED: fentaNYL citrate 100 MCG/2 ML VIAL ONE (13:41)
[2020-02-04] MEDS ORDERED: HEPARIN (PORCINE) 1000 UNIT/ML 10 ML (CATH LAB USE ONLY) ONE ×2 (13:41→15:57)
[2020-02-04] MEDS ORDERED: NITROGLYCERIN/D5W 100MCG/ML 20ML SYR ONE (13:42)
[2020-02-04] MEDS ORDERED: MIDAZOLAM HCL 1 MG/ML 2ML VIAL ONE ×3 (13:42→16:13)
--- NOTE | 2020-02-04 14:03 | Pre Anesthesia Assessment ---
Date of Service February 04, 2020 Pre Sedation Assessment Vital Signs Temp Pulse Resp BP BP Pulse Ox 02/05/20 07:45 36.4 C L 60 18 147/78 H 96 02/05/20 03:56 36.3 C L 60 18 163/83 H 97 02/04/20 23:42 36.4 C L 59 L 16 143/78 H 96 02/04/20 21:20 64 149/89 H 02/04/20 19:45 36.5 C 64 20 157/86 H 98 02/04/20 19:14 37.0 C 66 20 162/99 H 99 02/04/20 18:30 60 154/78 H 02/04/20 18:00 62 16 162/88 H 97 02/04/20 17:45 61 16 161/94 H 96 02/04/20 17:30 60 16 162/104 H 99 02/04/20 17:15 36.9 C 63 16 165/104 H 96 Cardiovascular RRR, no murmur, no edema Respiratory normal respiratory effort, lungs clear to auscultation Pre-Sedation Airway Assessment Smoking Status: Former smoker Hx Sleep Apnea: Yes Mallampati Class: III ASA: ASA3 NPO Status Date of Last Intake of Fluids: 02/03/20 Time of Last Intake of Fluids: 19:02 Date of Last Intake of Solid Food: 02/03/20 Time of Last Intake of Solid Foods: 19:03 Procedure Planning Contraindications for Sedation: none Current Medications Reviewed: Yes Notes The planned sedation has been discussed with the patient. Informed Consent was obtained. I have identified the patient, determined the appropriateness of sedation and have assessed the patient immediately prior to the procedure. All medicine(s) and interventions are by my order.
--- NOTE | 2020-02-04 15:19 | Post Anesthesia Assessment ---
Date of Service February 04, 2020 Post Sedation Assessment Vital Signs Temp Pulse Resp BP BP Pulse Ox 02/05/20 07:45 36.4 C L 60 18 147/78 H 96 02/05/20 03:56 36.3 C L 60 18 163/83 H 97 02/04/20 23:42 36.4 C L 59 L 16 143/78 H 96 02/04/20 21:20 64 149/89 H 02/04/20 19:45 36.5 C 64 20 157/86 H 98 02/04/20 19:14 37.0 C 66 20 162/99 H 99 02/04/20 18:30 60 154/78 H 02/04/20 18:00 62 16 162/88 H 97 02/04/20 17:45 61 16 161/94 H 96 02/04/20 17:30 60 16 162/104 H 99 02/04/20 17:15 36.9 C 63 16 165/104 H 96 Recovery Score Activity: Moves 4 extremities Respiration: Deep Breath/Cough Circulation: +/-20% PreAnes Value Consciousness: Fully Awake Oxygen Saturation: > 92% On Room Air Discharge Sedation Level of Care: Phase I Post Sedation Plan On clinical assessment, the patient appears to have tolerated the sedation without complications. Patient is recovering as anticipated. Patient will continue to be monitored by nursing and may be discharged when sedation discharge criteria are met per below protocol. Upon Completions of procedure up to 15 minutes continue every 5 minute vital signs and the P.A.R. score; then discharge to a Phase I or Fast Track to Phase II per the following guidelines: * Discharge Patient to appropriate Phase II area if PAR is 8 or greater or return to pre- procedure baseline. The post - procedure orders will be as directed. * If PAR score is less than 8 or not return to pre-procedure baseline then patient will follow Phase I monitoring till PAR is reached for Phase II. The Phase I may be done in procedure room or may call to secure a Phase I area. * If naloxone or flumazenil are used for reversal, hold in Phase I for continued monitoring from when last reversal dose was given for a minimum of 60 minutes or longer pending the nurse and/or physician discretion of patient condition before discharge to Phase II. Please call the Sedation Physician to re-evaluate and complete post-note for discharge to Phase II area. Do NOT discharge from procedure sedation or Phase 1 until post- sedation evaluation note is complete by procedure /sedation MD Sedation Discharge Instructions to be given to the patient at discharge to home.
--- NOTE | 2020-02-04 15:28 | Cardiac Catheterization ---
Cardiac Cath Procedure Full Procedure Date February 04, 2020 Pre-Procedure Diagnosis Pre-Procedure Diagnosis: Angina, CAD and Cardiomyopathy AUC Score AUC Score: 7 Post-Procedure Diagnosis Post-Procedure Diagnosis: Severe CAD Procedure(s) Performed Procedure(s) Performed: Coronary Angiography Overedger Zoltan Estrada DO Telecommunications Field Technician(s) Ja JOB ESTIMATOR Estimated Blood Loss Estimated Blood Loss: 10cc Medication(s) Medication(s): Fentanyl, Heparin, Lidocaine 1%, Nicardipine, Nitroglycerin and Versed Summary of Findings The left main is a large vessel which demonstrates a mild, 20% ostial/proximal taper. Left main bifurcates into left anterior descending, and left circumflex arteries. The LAD is a large vessel giving rise to 2 visible diagonal branch vessels. The LAD demonstrates a 40% ostial stenosis followed by 100% occlusion proximally. The first diagonal branch vessel is moderate caliber free of significant obstructive disease. The second diagonal branch vessel appears to be of small caliber with mild luminal irregularities. The left circumflex is a large nondominant vessel giving rise to 1obtuse marginal and 2 large posterior lateral branch vessels. The left circumflex demonstrates mild luminal irregularities without significant obstructive disease. The obtuse marginal br anch vessel is of moderate caliber demonstrating mild luminal irregularities. The first posterior lateral artery is is a large vessel bifurcating in its midsegment. Mild luminal irregularities are noted. The second posterior lateral branch vessel is small demonstrating mild luminal irregularities. Left to left collaterals filling the apical LAD visualized. The right coronary artery is a large vessel free of obstructive disease. It gives rise to an acute marginal, posterior lateral and posterior descending artery who are also free of significant obstructive disease. Hemodynamics Rest Ao:: 119/72/93 Final Ao: 156/70/107 LV: N/A Recommendations Recommendations: Medical Therapy and/or Counseling and PCI without planned CABG Specimens Specimens: None Radiation Exposure (mGy) 1905 Contrast (mls) 80 Fluids (cc crystalloids) Fluids (cc crystalloids): 120 Nss Drains Drains: N/a Anesthesia Moderate sedation. Start 1411. End 1503. Sedation monitor: Roxann FREITAS Procedural Complication(s) None Disposition Patient remained in Clothing Consultant for LAD intervention I attest to the content of the Intraoperative Record and any orders documented therein. Any exceptions are noted below. ACC Data: Clothing Consultant Cardiac Status Clinical evaluation leading to the procedure CAD Presenation: Unstable angina Anginal Classification: CCS II Heart Failure: No Cardiogenic Shock within 24 Hours: No Cardiac Arrest within 24 Hours: No Imaging Studies Past 6 Months: Yes Stress Studies Past 6 Months: No Coronary Anatomy Dominant: Right Left Main (% Stenosis): Normal LAD (% Stenosis): Ostial (40%) and Proximal (100%) D1 (% Stenosis): Mid (10%) D2 (% Stenosis): Mid (10%) Circumflex (% Stenosis): Proximal (10%) and Mid (10%) OM1 (% Stenosis): Mid (10%) L PL1 (% Stenosis): Proximal (10%) and Mid (10%) L PL2 (% Stenosis): Mid (10%) RCA (% Stenosis): Normal R PDA (% Stenosis): Normal R PL1 (% Stenosis): Normal AM (% Stenosis): Normal Diagnostic Physicians Name: Zoltan Estrada DO Status: Urgent Closure Device Percutaneous Entry Location: Radial Closure Device: Radial Band Recommendations: Medical Therapy and/or Counseling and PCI without planned CABG Intraprocedure Events Significant Disection: No Perforation: No
[2020-02-04] MEDS ORDERED: EPTIFIBATIDE 2 MG/ML 10 ML VIAL (CATH LAB USE ONLY) IV ONE (16:42)
[2020-02-04] MEDS ORDERED: TICAGRELOR 90 MG TAB PO ONE (16:45)
--- NOTE | 2020-02-04 16:52 | Post Anesthesia Assessment ---
Date of Service February 04, 2020 Post Sedation Assessment Vital Signs Temp Pulse Resp BP Pulse Ox 02/04/20 10:26 98.6 F 61 16 134/74 99 Recovery Score Activity: Moves 4 extremities Respiration: Deep Breath/Cough Circulation: +/-20% PreAnes Value Consciousness: Fully Awake Oxygen Saturation: > 92% On Room Air Discharge Sedation Level of Care: Fast Track Phase II Post Sedation Plan On clinical assessment, the patient appears to have tolerated the sedation without complications. Patient is recovering as anticipated. Patient will continue to be monitored by nursing and may be discharged when sedation discharge criteria are met per below protocol. Upon Completions of procedure up to 15 minutes continue every 5 minute vital signs and the P.A.R. score; then discharge to a Phase I or Fast Track to Phase II per the following guidelines: * Discharge Patient to appropriate Phase II area if PAR is 8 or greater or return to pre- procedure baseline. The post - procedure orders will be as directed. * If PAR score is less than 8 or not return to pre-procedure baseline then patient will follow Phase I monitoring till PAR is reached for Phase II. The Phase I may be done in procedure room or may call to secure a Phase I area. * If naloxone or flumazenil are used for reversal, hold in Phase I for continued monitoring from when last reversal dose was given for a minimum of 60 minutes or longer pending the nurse and/or physician discretion of patient condition before discharge to Phase II. Please call the Sedation Physician to re-evaluate and complete post-note for discharge to Phase II area. Do NOT discharge from procedure sedation or Phase 1 until post- sedation evaluation note is complete by procedure /sedation MD Sedation Discharge Instructions to be given to the patient at discharge to home.
--- NOTE | 2020-02-04 16:54 | Cardiac Catheterization ---
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 Cardiac Status Clinical evaluation leading to the procedure CAD Presenation: Unstable angina Anginal Classification: CCS III Heart Failure: No Cardiogenic Shock within 24 Hours: No Cardiac Arrest within 24 Hours: No Imaging Studies Past 6 Months: Yes Stress Studies Past 6 Months: No Diagnostic Physicians Name: Yair Tom MD Status: Elective Closure Device Percutaneous Entry Location: Radial Closure Device: Radial Band Recommendations: PCI without planned CABG PCI Indication: Unstable Angina Lesion Segment Name: mid LAD Culprit Artery: Yes Stenosis Prior to Rx (%): 100 Chronic Total Occlusion: Yes IVUS: Yes FFR: No Pre-Procedure TIMMY Flow: 0 Previously Treated Lesion: No Lesion Complexity: High/C Lesion Length (mm): 60 Thrombus Present: Yes Bifurcation Lesion: Yes Guidewire Across Lesion: Stenosis Post-Procedure (%): 0 Post-Procedure TIMMY Flow: 3 Devices(s) Deployed: Yes Yes Intraprocedure Events Significant Disection: No Perforation: No Cardiac Cath Procedure Full Procedure Date February 04, 2020 Pre-Procedure Diagnosis Pre-Procedure Diagnosis: Angina, CAD and Cardiomyopathy AUC Score AUC Score: 7 Post-Procedure Diagnosis Post-Procedure Diagnosis: Severe CAD, Successful PCI and Normal Intracardiac Pressures Procedure(s) Performed Procedure(s) Performed: Coronary Angiography, Left Heart Cath and Drug Eluting Stent Huc Yair Tom MD Production Director(s) Ja RYAN Estimated Blood Loss Estimated Blood Loss: 20 Medication(s) Medication(s): Fentanyl, Heparin, Integrilin, Nicardipine, Nitroglycerin and Versed Medication(s): Ticagrelor Summary of Findings Indication: Angina, new cardiomyopathy Access: 6 Fr right radial artery Catheters: EBU 3.5 guide Findings: For full details of patient's coronary angiography please see cath report dictated by Dr. Estrada. Briefly, patient found to have severe single vessel disease involving a acute on chronic chronic totally occluded mid LAD. LVEDP 11 Decision to attempt PCI. -- PCI -- Antithrombotic therapy: Heparin, IC Integrilin, ticagrelor Procedure: Left main cannulated with EBU 3.5 guide Long whisper wire passed across lesion into distal vessel Injection through [id number] balloon confirmed intraluminal position Long mid LAD lesion predilated with 2.0 and 2.5 compliant balloons IVUS used to assess length of disease segment, extent of calcification and for vessel sizing. Latemid LAD stented with 2.5 x 30 mm Nahid GEOVANNI Proximal to mid LAD stented with 4.0 x 30 mm [place] GEOVANNI overlapping with proximal aspect of initial Stent post-dilated with 4.5 noncompliant balloon IC vasodilators administered for spasm Post procedure TIMMY 3 flow, stent well expanded with minimal residual stenosis. No apparent edge dissection. Small distal first diagonal with apparent occlusive thrombus. IC, IV Integrilin bolus administered. Arterial Closure: TR band Summary: 1. Successful PCI of proximal to mid acute on chronic LAD occlusion with 2 overlapping drug-eluting stents (4.0 x 30, 2.5 x 30 Nahid). 2. Normal intracardiac filling pressure Recommendations: To PCU for continued monitoring Loaded with ticagrelor 180 mg in minilab operator Continue dual-antiplatelet therapy for at least 1 year Continue statin, and ASCVD risk factor modification Consult cardiac Rehab Hemodynamics Rest Ao:: 158/73/99 Final Ao: 161/88/114 LV: 138/11 Recommendations Recommendations: PCI without planned CABG Specimens Specimens: None Radiation Exposure (mGy) 6191 Contrast (mls) 170 Fluids (cc crystalloids) Fluids (cc crystalloids): 170 Drains Drains: N/a Anesthesia Moderate sedation Procedural Complication(s) None Disposition PCU I attest to the content of the Intraoperative Record and any orders documented therein. Any exceptions are noted below. [facility] Card Cath Procedure Codes Cardiac Catheterization Procedure 1: Cardiovascular Cath Procedures: 45753 Left Heart Cath (+/-LV) Therapeutic Services & Ancillary Proc Procedure 1: Cardiovascular Tx and Anc Procedures: 18842 IV Ultrasound (Coronary or Graft) Moderate Sedation Procedure 1: Sedation/Anesthesia: 13083 Mod Sedation by a different physician ;Init15 Min Child Age 5&Up Procedure 2: Sedation/Anesthesia: 14022 Mod Sedation by a different physician;Ea Additional 15 Minutes Stenting Procedure 1: Cardiovascular Stent Procedures: 59375 Perc transluminal revascularization of chronic total occlusion, PG Care Time/CCT Total # of Minutes Spent Total Time Spent with Patient: Total time spent is greater than 50% in coordination of care (as documented) at patient's floor/unit and/or counseling patient:
[2020-02-04] MEDS: FLUDROCORTISONE ACETATE 0.1 MG TAB PO SCH (17:57)
[2020-02-04] MEDS: LABETALOL HCL 300 MG TAB PO SCH (19:22)
[2020-02-04] MEDS ORDERED: HYDROCORTISONE 10 MG TAB PO SCH (21:00)
[2020-02-04] MEDS ORDERED: TERAZOSIN HCL 5 MG CAP PO SCH (21:00)
[2020-02-04] MEDS ORDERED: CALCIUM 600MG + VIT D 400 IU TAB PO SCH (21:00)
[2020-02-04] MEDS ORDERED: ATORVASTATIN 10 MG TAB PO SCH (21:00)
[2020-02-05] MEDS ORDERED: LEVOTHYROXINE SODIUM 150 MCG TABLET PO SCH (06:30)
[2020-02-05] MEDS ORDERED: TICAGRELOR 90 MG TAB PO SCH (07:00)
[2020-02-05 07:06] LABS: Hematocrit (blood only) 35.5 % (42-52); Hemoglobin 12.4 g/dL (14.0-18.0); Mean Corpuscular Hemoglobin 31.6 pg (25-34); Mean Corpuscular Hgb Conc 34.9 g/dL (32-36); Mean Corpuscular Volume 90.6 fL (80-100); Mean Platelet Volume 9.7 fL (7.4-10.4); Platelet Count 245 K/uL (130-400); RDW Coefficient of Variation 13.9 % (11.5-14.5); RDW Standard Deviation 45.2 fL (36.4-46.3); Red Blood Count 3.92 M/uL (4.7-6.1); White Blood Count 8.91 K/uL (4.8-10.8)
[2020-02-05 07:46] LABS: BUN Creatinine Ratio 18.8 (10-20); Calcium 9.3 mg/dl (8.5-10.1); Creatinine Clr Calc Pharmacy 87.3 ml/min; Est GFR (African American) 91.8; Est GFR (Non-African American) 79.2; Potassium 3.3 mmol/L (3.5-5.1)
[2020-02-05] MEDS ORDERED: POTASSIUM CHLORIDE 20 MEQ TABCR PO ONE ×2 (08:30→11:45)
[2020-02-05] MEDS: LABETALOL HCL 300 MG TAB PO SCH (08:56)
[2020-02-05] MEDS ORDERED: ASPIRIN 81 MG ECTAB PO SCH (09:00)
[2020-02-05] MEDS ORDERED: HYDROCORTISONE 10 MG TAB PO SCH (09:00)
[2020-02-05] MEDS ORDERED: FLUOXETINE HCL 20 MG CAP PO SCH (09:00)
[2020-02-05] MEDS ORDERED: PANTOprazole 40 MG TAB PO SCH (09:00)
[2020-02-05] MEDS ORDERED: FOLIC ACID 1 MG TAB PO SCH (09:00)
[2020-02-05] MEDS ORDERED: FAMOTIDINE 20 MG TAB PO SCH (09:00)
[2020-02-05] MEDS ORDERED: Nursing to Pharmacy Communication ONE ×2 (09:42→11:35)
--- NOTE | 2020-02-05 11:16 | Cardiology Progress Note ---
Date of Service February 05, 2020 Assessment & Plan (1) Status post insertion of drug-eluting stent into left anterior descending (LAD) artery: (2) Angina pectoris: (3) Dyslipidemia, goal LDL below 70: (4) Hypokalemia: (5) Ischemic cardiomyopathy: Discussed importance of continuing dual antiplatelet therapy for a minimum of 6 months post drug-eluting stent implantation. Titrate atorvastatin to 40 mg daily. Continue labetalol as previously ordered. Add lisinopril 5 mg daily. Repeat basic metabolic panel in 1 week. Supplement potassium today. 40 mEq KCl ordered. Post cardiac catheterization/intervention restrictions listed below: ACTIVITY RECOMMENDATIONS: It is common to feel weak and fatigue for a few days. * Do not drive or operate any motorized equipment for the next three days. * Limit stair usage (2 or 3 trips a day only) for the next three days. * Do not lift anything heavier than 10 pounds for the next three days. * Do not engage in vigorous exercise or any sports for the next five days. * You may shower the day after your procedure, but do not immerse the area for three days. Cleanse the site gently with soap and water. SPECIAL CARE INSTRUCTIONS: * You may replace the pressure dressing or band-aid the morning after the procedure. * After your procedure, it is normal to have a small bruise or small lump at the site. Examine your site daily for any change in the bruise or lump, redness, swelling, drainage or numbness. Notify your doctor if any change. BLEEDING: * If there is a small amount of bleeding at the site, lie down and apply firm pressure with a clean cloth for ten minutes. When the bleeding stops, lie quietly keeping the procedure limb straight for six hours. Notify your doctor as soon as possible. * If the bleeding does not stop after ten minutes or if there is a large amount of bleeding or spurting, call 911 immediately. Continue to lie down and hold firm pressure until help arrives. SKIN IRRITATION: * You may experience some redness and/or swelling in the area where radiation was administered. If any skin irritation occurs, please contact your family physician. Subjective Patient seen and examined at the bedside. Denies chest pain or shortness of breath overnight. No sustained dysrhythmias on telemetry. Tolerating current medications. Mild anterior wrist discomfort noticed. There is mild ecchymosis without hematoma. Chronic pain controlled. Anxious for discharge. Review of Systems Review of Systems: All systems reviewed & are unremarkable except as noted in HPI & below Physical Exam Constitutional: well developed, well nourished and + obese; no acute distress ENMT: Mallampati Class: III Respiratory: normal respiratory effort, lungs clear to auscultation Auscultation: no crackles, no rales, no rhonchi and no wheezes Cardiovascular: RRR, no murmur, no edema Rate/Rhythm: regular rate and regular rhythm Heart Sounds: normal S1 and normal S2; no gallop, no murmur and no cardiac rub Palpation: normal PMI Vessels: no JVD and no carotid bruit Extremities: no edema Gastrointestinal (Abdomen): Inspection/Auscultation: abdomen normal to inspection and normal bowel sounds; abdomen not distended Percussion/Palpation: abdomen soft; abdomen nontender, no guarding and abdomen not rigid Musculoskeletal: Extremities: strength 5/5 throughout Right anterior wrist ecchymosis without hematoma. Right radial artery pulse palpable. Skin: no rashes, warm and dry Neurologic: moves all extremities; no focal motor deficits Speech / Cognition: normal speech Motor/Sensory: no tremor Psychiatric: A+Ox3, euthymic affect Results & Data Vital Signs (Past 12 Hours) Vital Signs Temp Pulse Resp BP BP Pulse Ox 02/05/20 07:45 36.4 C L 60 18 147/78 H 96 02/05/20 03:56 36.3 C L 60 18 163/83 H 97 02/04/20 23:42 36.4 C L 59 L 16 143/78 H 96
[2020-02-05] MEDS ORDERED: lisinopriL 5 MG TAB PO SCH (11:45)
[2020-02-05] MEDS: FLUDROCORTISONE ACETATE 0.1 MG TAB PO SCH (12:04)
--- NOTE | 2020-02-05 13:07 | Hospitalist Progress Note ---
Date of Service February 05, 2020 Assessment & Plan (1) Angina pectoris: Angina Pectoris S/P PCI--GEOVANNI to LAD Negative Troponin ECHO: Done as outpatient. Moderate to large size wall motion abnormality -Troponin negative --Continue aspirin, Brilinta, lisinopril --Lipitor increased to 40 mg daily --Needs follow-up with cardiology upon discharge (2) Rheumatoid arthritis: Hold Humira, methotrexate while hospitalized Continue hydrocodone (3) Haris's disease: Continue Florinef, hydrocortisone (4) Hypertension: Continue labetalol, terazosin, Lisinopril (5) Antiphospholipid syndrome: H/O DVT after hip replacement in 1999. No further DVT (6) Hypothyroidism: TSH: 0.84 on 01/28/2020 Continue levothyroxine (7) Depression: Continue fluoxetine, lorazepam prn (8) GERD (gastroesophageal reflux disease): Continue PPI, H2 yamile (9) Sleep apnea: Intolerant to CPAP DVT Px SCDs Code Status Full Code Disposition Plan to discharge home today Admission and Anticipated Discharge Date Admission Date: February 04, 2020 Subjective Patient is seen and examined at bedside Denies any chest pain, shortness of breath, dizziness, nausea, abdominal pain Eager to get discharged Discussed with cardiology today Review of Systems Review of Systems: All systems reviewed & are unremarkable except as noted in HPI & below Physical Exam Physical Exam: Physical Exam: Vitals signs as noted above General Appearance:Obese, no apparent distress Head: normocephalic, Atraumatic Eyes: normal inspection, EOMI Neck: supple, Trachea midline Respiratory/Chest: Normal breath sounds, CTA, No accessory muscle use Cardiovascular: S1, S2, No murmur Abdomen/GI:Soft, Non tender, Bowel sounds present Extremities/Musculoskelatal:normal inspection, no edema Neurologic/Psych:AAOX3, grossly no focal neurological deficits Skin: normal color, warm Results & Data Results & Data ([facility]) Vital Signs (Past 12 Hours) Vital Signs Temp Pulse Resp BP BP Pulse Ox 02/05/20 11:12 36.8 C 61 18 145/79 H 97 02/05/20 07:45 36.4 C L 60 18 147/78 H 96 02/05/20 03:56 36.3 C L 60 18 163/83 H 97 Laboratory Results Short CBC 02/05/20 Range/Units 06:35 WBC 8.91 (4.8-10.8) K/uL Hgb 12.4 L (14.0-18.0) g/dL Hct 35.5 L (42-52) % Plt Count 245 (130-400) K/uL [facility] 02/05/20 06:35 Sodium 136 Potassium 3.3 L Chloride 106 Carbon Dioxide 22 BUN 19 H Creatinine 1.00 Glucose 90 Calcium 9.3
--- NOTE | 2020-02-05 13:16 | Discharge Summary ---
Date of Service February 05, 2020 Admission HPI Per Admitting Provider Pt is 64 y/o M with PMH HTN, RA, antiphospholipid antibody syndrome, h/o DVT after ortho surgery, adrenal insufficiency, THIERRY, depression, anxiety, GERD, hypothyroidism presented as direct admission from cardiology office for angina symptoms and abnormal EKG and echo. Pt reports several weeks ago was moving furniture and developed CP with radiation to bilateral arms with vomiting with resolution of symptoms with rest. Pt was seen in cardiology clinic on 02/02/[address] Pitt and was noted to have EKG with T wave inversions V1-V6 which is new compared to EKG from 07/2019. He was started on aspirin 81mg daily and a torvastatin 10mg daily. He was originally going to be scheduled for outpatient cath however today 02/04/2020 he had outpatient resting echo with moderate to large size wall motion abnormality with severe hypokinesis to akinesis of anteroseptal, anterior, atpical inferior field. Is referred for further inpatient evaluation. Pt denies any CP currently. Reports feels tired. Reports that has been having SOB with walking approx 1/2 mile for past 4 months. History intermittent diarrhea and uses Lomotil as needed, no diarrhea for past 1-2 weeks. Last ate around 6pm on 02/03/2020. Denies fever/chills, diaphoresis, other N/V/C, MERINO, dizziness, syncope, vision changes, neck pain, orthopnea, palpitations, cough, sore throat, choking, otalgia, rhinorrhea, abdominal pain, paresthesias, weakness, extremity weakness, extremity edema, rashes, urinary symptoms. Former smoker for 26 years, quit in 1995. Reported cardiac cath approx. 20 years ago. Normal stress test in 2003. Admission Exam Per Admitting Provider Physical Exam Physical Exam: General: no distress, obese Head: normocephalic, atraumatic Eyes: PERRL, EOM's intact, conjunctiva non-injected, anicteric ENT: normal inspection external ears, nose, mucous membranes moist Neck: supple, trachea midline Lungs: clear, no respiratory distress, no wheezing/rhonchi/rales CV: RRR, no murmur, no pretibial edema Abd: healed surgical scars, normal BS, soft, protuberant, non-tender Ext: no cyanosis, no calf tenderness Neuro: A&O x 3, no focal deficits noted, normal affect Skin: warm, dry Principal Diagnosis Angina Discharge Data Allergies Allergy/AdvReac Type Severity Reaction Status Date / Time morphine Allergy Unknown ITCHING,HIV Verified 08/31/17 06:38 ES,SOB sulfasalazine AdvReac abdominal Verified 02/04/20 10:23 pain, fever Consultations 02/04/20 09:54 Consult Cardiology Routine 02/04/20 17:09 Consult Cardiac Rehabilitation Routine Procedures Performed Operation Date: 02/04/20 13:30 Actual Procedures p Cath, Left with Cors and Vent - Ruddy Tom MD s Cineradiography w/Routine Exam - DO emigdio Rand IVUS Coronary Single Vessel - Ruddy Tom MD s Drug Eluting Stent SGl Vessel - Ruddy Tom MD Cardiac Cath: -- PCI -- Antithrombotic therapy: Heparin, IC Integrilin, ticagrelor Procedure: Left main cannulated with EBU 3.5 guide Long whisper wire passed across lesion into distal vessel Injection through [id number] balloon confirmed intraluminal position Long mid LAD lesion predilated with 2.0 and 2.5 compliant balloons IVUS used to assess length of disease segment, extent of calcification and for vessel sizing. Latemid LAD stented with 2.5 x 30 mm Foster GEOVANNI Proximal to mid LAD stented with 4.0 x 30 mm Foster GEOVANNI overlapping with proximal aspect of initial Stent post-dilated with 4.5 noncompliant balloon IC vasodilators administered for spasm Post procedure TIMMY 3 flow, stent well expanded with minimal residual stenosis. No apparent edge dissection. Small distal first diagonal with apparent occlusive thrombus. IC, IV Integrilin bolus administered. Arterial Closure: TR band Summary: 1. Successful PCI of proximal to mid acute on chronic LAD occlusion with 2 overl apping drug-eluting stents (4.0 x 30, 2.5 x 30 Foster). 2. Normal intracardiac filling pressure Recommendations: To PCU for continued monitoring Loaded with ticagrelor 180 mg in engineer geophysical laboratory Continue dual-antiplatelet therapy for at least 1 year Continue statin, and ASCVD risk factor modification Consult cardiac Rehab Ordered Studies 02/04/20 13:33 CL Cath Imgs for PACS use only Routine 02/04/20 16:50 CL IVUS Coronary Single Vessel Routine Hospital Course (1) Angina pectoris: Angina Pectoris S/P PCI--GEOVANNI to LAD Negative Troponin ECHO: Done as outpatient. Moderate to large size wall motion abnormality -Troponin negative --Continue aspirin, Brilinta, lisinopril --Lipitor increased to 40 mg daily --Needs follow-up with cardiology upon discharge (2) Rheumatoid arthritis: Hold Humira, methotrexate while hospitalized Continue hydrocodone (3) [place]'s disease: Continue Florinef, hydrocortisone (4) Hypertension: Continue labetalol, terazosin, Lisinopril (5) Antiphospholipid syndrome: H/O DVT after hip replacement in 1999. No further DVT (6) Hypothyroidism: TSH: 0.84 on 01/28/2020 Continue levothyroxine (7) Depression: Continue fluoxetine, lorazepam prn (8) GERD (gastroesophageal reflux disease): Continue PPI, H2 yamile (9) Sleep apnea: Intolerant to CPAP DVT Px SCDs Code Status Full Code Disposition Plan to discharge home today Total Time Total Time Spent Total Time Spent (In Minutes): 42 minutes Total Time Includes: Examination of the Patient, Discharge Planning, Medication Reconciliation, Communication With Other Providers and Other Discharge Plan Discharge Items Patient Disposition: Home - Self-Care Reason For Visit: ANGINA Discharge Diagnosis: Angina Activity: Per Instructions section Non-emergency contact: Primary Care Provider and Import Manager Call non-emergency contact if: you have any medication questions, your symptoms worsen, your pain is not controlled, your pain is worsening, your pain is unusual for you, your pain is concerning for you, you have a fever, your wound h as increased redness, your wound has increased drainage and your wound pain has increased Follow-up/Referrals: Ethan Bridges, [Primary Care Provider] - 02/09/20 12:00 pm (02/09/2020 12:00 PM Provider Yuliet Jara MD Department General Internal Medicine [facility] ) Diet: Heart Healthy Addtl Attending Provider Instructions: Follow-up with your primary care physician Dr. Ethan Bridges on February 09, 2020 at 12 PM Follow-up with your billet shearer Dr. Estrada in 2-3 weeks as advised Take medications regularly as advised. Seek immediate medical attention if your symptoms reoccur or worsen Home Care: * Take your medications exactly as directed. Don't skip doses. * Remember that recovery after a heart attack takes time. Plan to rest for at lease 4-8 weeks while you recover. Then return to normal activity when your doctor says it's okay. * Ask your doctor about joining a heart rehabilitation program. * Tell your doctor if you are feeling depressed. Feelings of sadness are common after a heart attack, but it is important that you speak to someone if you are feeling overwhelmed by these feelings. * If you are having chest pain, call 911 for an ambulance. Do NOT drive yourself to the hospital. * Ask your family members to learn CPR. * Learn to take your own blood pressure and pulse. Keep a record of your results. Ask your doctor when you should seek emergency medical attention. He or she will tell you which blood pressure reading is dangerous. Lifestyle Changes: * Maintain a healthy weight. Get help to lose any extra pounds. * Cut back on salt. * Limit canned, dried, packaged, and fast foods. * Don't add salt to your food. * Season foods with herbs instead of salt when you cook. * Break the smoking habit. Enroll in a stop-smoking program to improve your chances of success. * Limit fatty foods. * Ask your doctor about having your lipid levels checked regularly. * Build up your activity according to your doctor's recommendation. * Ask your doctor when it's okay to resume sexual activity. * Tell your doctor about any erectile dysfunction (ED) medication you are taking. Some ED medications are not safe if you take certain heart medications. * Try to manage stress. Follow Up: It is important for you to keep your follow up appointments with your medical provider. Addtl Multimedia Manager Provider Instructions: ACTIVITY RECOMMENDATIONS: It is common to feel weak and fatigue for a few days. * Do not drive or operate any motorized equipment for the next three days. * Limit stair usage (2 or 3 trips a day only) for the next three days. * Do not lift anything heavier than 10 pounds for the next three days. * Do not engage in vigorous exercise or any sports for the next five days. * You may shower the day after your procedure, but do not immerse the area for three days. Cleanse the site gently with soap and water. SPECIAL CARE INSTRUCTIONS: * You may replace the pressure dressing or band-aid the morning after the procedure. * After your procedure, it is normal to have a small bruise or small lump at the site. Examine your site daily for any change in the bruise or lump, redness, swelling, drainage or numbness. Notify your doctor if any change. BLEEDING: * If there is a small amount of bleeding at the site, lie down and apply firm pressure with a clean cloth for ten minutes. When the bleeding stops, lie quietly keeping the procedure limb straight for six hours. Notify your doctor as soon as possible. * If the bleeding does not stop after ten minutes or if there is a large amount of bleeding or spurting, call 911 immediately. Continue to lie down and hold firm pressure until help arrives. SKIN IRRITATION: * You may experience some redness and/or swelling in the area where radiation was administered. If any skin irritation occurs, please contact your family physician. Pending Studies at Discharge: No Stand-Alone Forms: My [facility] [employer], Smoking Cessation Medications and DC Order Prescriptions: New atorvastatin 40 mg Tablet 40 mg PO PM 30 Days Qty: 30 RF: 1 lisinopril [Zestril] 5 mg Tablet 5 mg PO QAM 30 Days Qty: 30 RF: 1 Brilinta 90 mg Tablet 90 mg PO BID 30 Days Qty: 60 RF: 1 Continued Humira Pen 40 mg/0.8 mL Pen Injector Kit 40 mg SUBCUT UD RF: 0 fluoxetine 40 mg Capsule 40 mg PO DAILY RF: 0 levothyroxine 300 mcg tablet 300 mcg PO UD RF: 0 hydrocodone-acetaminophen 5-325 mg Tablet 1 tab PO BID PRN (Reason: Pain) RF: 0 meloxicam 15 mg tablet 15 mg PO DAILY RF: 0 diphenoxylate-atropine [Lomotil] 2.5-0.025 mg Tablet 1 tab PO QID PRN (Reason: Diarrhea) RF: 0 aspirin 81 mg Tablet,Delayed Release (Dr/Ec) 81 mg PO DAILY RF: 0 famotidine [Pepcid] 20 mg Tablet 20 mg PO DAILY RF: 0 folic acid 1 mg Tablet 1 mg PO DAILY RF: 0 hydrocortisone [Cortef] 10 mg Tablet 20 mg PO QAM RF: 0 hydrocortisone [Cortef] 10 mg Tablet 10 mg PO QPM RF: 0 hydrocortisone [Cortef] 10 mg Tablet 10 mg PO UD PRN (Reason: illness) RF: 0 lorazepam 1 mg tablet 1 mg PO BID PRN (Reason: Anxiety) RF: 0 labetalol 300 mg tablet 300 mg PO BID RF: 0 albuterol sulfate 90 mcg/actuation Hfa Aerosol Inhaler 2 puff INHALATION QID PRN (Reason: Shortness Of Breath Or Wheezing) RF: 0 fludrocortisone 0.1 mg Tablet 0.05 mg PO DAILY RF: 0 Caltrate 600 plus D 600 mg (1,500 mg)-800 unit Tablet,Chewable 1 tab PO PM RF: 0 terazosin 5 mg capsule 5 mg PO PM RF: 0 methotrexate sodium 25 mg/mL solution 25 mg subcut WK RF: 0 pantoprazole 40 mg tablet,delayed release (DR/EC) 40 mg PO DAILY RF: 0 nitroglycerin 0.4 mg tablet, sublingual 0.4 mg sublingual UD RF: 0 Discontinued atorvastatin 10 mg Tablet 10 mg PO PM RF: 0 Discharge Orders: Discharge Order (Routine); Ordered 02/05/20 Ordered By: Leander Correa/Other Patient Handouts: Ticagrelor oral tablet, Lisinopril tablets Admission Data Admit Date/Time: 02/04/20 10:04 Attending Provider: Leander Brumfield Admit Provider: Leander Brumfield Primary Care Provider: Ethan Bridges Other Providers: Zoltan Estrada Other Interventions: Discharge Summary Assessment (RN) Last Done: 02/05/20 15:27 DC Date/Time DO NOT enter until pt leaves facility: 02/05/20 16:36
[2020-02-05] MEDS ORDERED: ATORVASTATIN 40 MG TAB PO SCH (21:00)
--- NOTE | 2020-02-07 06:42 | Electrocardiogram Report ---
Test Reason : Blood Pressure : / mmHG Vent. Rate : 057 BPM Atrial Rate : 057 BPM P-R Int : 184 ms QRS Dur : 102 ms QT Int : 508 ms P-R-T Axes : 026 -34 066 degrees QTc Int : 494 ms Sinus bradycardia with occasional Premature ventricular complexes Left axis deviation Anteroseptal infarct , age undetermined T wave abnormality, consider lateral ischemia Abnormal ECG When compared with ECG of 11-JUL-2019 13:34, Premature ventricular complexes are now Present QRS axis Shifted left Anteroseptal infarct is now Present T wave inversion now evident in Anterolateral leads Confirmed by Jagjit Potter ([id number]) on 02/07/2020 6:42:17 AM Referred By: Zoltan Estrada Confirmed By:Jagjit Potter
== END 2020-02-05 16:36 | disposition home or self-care (01) | DRG 247 ==
LOC: 2S 10:04

== ENCOUNTER 2020-03-22 19:09 | Inpatient (IN) ==
[2020-03-22] MEDS ORDERED: ACETAMINOPHEN 500 MG TAB PO STA (19:28)
[2020-03-22] MEDS ORDERED: SODIUM CHLORIDE 0.9% 1000ML 1,000 ML IV SCH (19:30)
[2020-03-22] MEDS ORDERED: HYDROCORTISONE SOD SUCCINATE 100 MG/2 ML VIAL IV STA (19:30)
--- NOTE | 2020-03-22 19:51 | Emergency Department Note ---
History of Present Illness General Chief Complaint: Cough Stated Complaint: CHILLS,COUGH,ACHES-WAS HERE SUNDAY FOR SAME THING Time Seen by Provider: 03/22/20 19:25 Source: patient Mode of arrival: ambulatory Limitations: physical limitation History of Present Illness Provider complaint: fever, malaise and weakness Maximum Pain Intensity: 8 This is a 65-year-old male who presents to the ED with a chief complaint of fever, headache, diarrhea, loss of taste as well as generalized weakness. The patient was seen here 3 days ago for the same symptoms. His symptoms continue. He did feel a little better for a couple of days and then got worse yesterday. He had severe watery diarrhea yesterday and today but it seem to be lessening today. Today he had some Tylenol around 2:30 PM. About 30 minutes prior to that he had Reiger's and body aches. The patient denies any recent antibiotics or camping. He states that he has not been around anyone ill as far as he knows. The , who lives with him has no symptoms. He did have Lyme test and COVID test 3 days ago that were negative. Blood cultures were also negative. The patient denies any chest pains or shortness of breath. He does have a slight dry cough. Denies abdominal pains. No rashes. 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 The patient was so weak today that he was unable to get into the car himself. Home Medications Home Medications Medication Instructions Recorded Confirmed Type Caltrate 600 plus D 1 tab PO PM 02/04/20 03/22/20 History Humira Pen 40 mg SUBCUT UD 02/04/20 03/22/20 History albuterol sulfate 2 puff INHALATION QID PRN 02/04/20 03/22/20 History aspirin 81 mg PO DAILY 02/04/20 03/22/20 History diphenoxylate-atropine [Lomotil] 1 tab PO QID PRN 02/04/20 03/22/20 History fludrocortisone 0.05 mg PO DAILY 02/04/20 03/22/20 History fluoxetine 40 mg PO DAILY 02/04/20 03/22/20 History folic acid 1 mg PO DAILY 02/04/20 03/22/20 History hydrocodone-acetaminophen 1 tab PO BID PRN 02/04/20 03/22/20 History hydrocortisone [Cortef] 10 mg PO QPM 02/04/20 03/22/20 History hydrocortisone [Cortef] 10 mg PO UD PRN 02/04/20 03/22/20 History hydrocortisone [Cortef] 20 mg PO QAM 02/04/20 03/22/20 History labetalol 300 mg PO BID 02/04/20 03/22/20 History levothyroxine 300 mcg PO UD 02/04/20 03/22/20 History methotrexate sodium 0 mg SUBCUT WK 02/04/20 03/22/20 History nitroglycerin 0.4 mg SUBLINGUAL UD 02/04/20 03/22/20 History terazosin 5 mg PO PM 02/04/20 03/22/20 History atorvastatin 40 mg PO PM 30 Days #30 tab 02/05/20 03/22/20 Rx lisinopril [Zestril] 5 mg PO QAM 30 Days #30 tab 02/05/20 03/22/20 Rx fluticasone propionate [Flonase 2 spray INTRANASAL DAILY 03/22/20 03/22/20 History Allergy Relief] lorazepam 1 mg PO BID PRN 03/22/20 03/22/20 History methylprednisolone sod suc(PF) 125 mg IM UD PRN 03/22/20 03/22/20 History [Solu-Medrol (PF)] metoprolol succinate [Toprol XL] 25 mg PO DAILY 03/22/20 03/22/20 History pantoprazole [Protonix] 40 mg PO DAILY 03/22/20 03/22/20 History ticagrelor [Brilinta] 90 mg PO BID 03/22/20 03/22/20 History Allergies Allergy/AdvReac Type Severity Reaction Status Date / Time morphine Allergy Unknown ITCHING,HIV Verified 03/19/20 20:55 ES,SOB sulfasalazine AdvReac abdominal Verified 03/19/20 20:55 pain, fever Past Med/Surg History Medical History Haris's disease (Chronic) Antiphospholipid syndrome (Chronic) BPH (benign prostatic hyperplasia) (Chronic) Depression (Chronic) GERD (gastroesophageal reflux disease) (Chronic) History of DVT of lower extremity (Chronic) "provoked, associated with hip replacement" Hypertension (Chronic) Hypothyroidism (Chronic) Rheumatoid arthritis (Chronic) Sleep apnea (Chronic) "intolerant of CPAP" Surgical History History of repair of right rotator cuff (Chronic) S/P cervical spinal fusion (Chronic) Status post carpal tunnel release (Chronic) Status post cholecystectomy (Chronic) Status post hip replacement (Chronic) "bilat" Family History Sister Diabetes Thyroid disease Graves Son Thyroid disease hypothyroidism Brother Cancer brain CA Father FH: abdominal aortic aneurysm Social History Smoking Status: Former smoker Hx Alcohol Use: Yes Hx Substance Use: No Preferred Language: Northern Irish Communication Ability: Effective Veneer Sander Required: No Beliefs That Will Affect Care: None Current Living Situation: Spouse Feels Safe at Home: Yes Review of Systems A total of 10 systems reviewed and were otherwise negative Physical Exam Vital Signs Vital Signs - 24 hr 03/22/20 19:15 03/22/20 19:36 03/22/20 20:44 Temperature 39.3 C H 38.2 C H Temperature Source Oral Oral Pulse Rate 95 H Pulse Rate [Apical] 88 87 Pulse Rhythm Regular Pulse Strength Normal Respiratory Rate 20 18 20 Respiratory Effort / Characteristics Non-Labored Spontaneous Respiratory Depth Normal Respiratory Pattern Regular Blood Pressure 154/90 H Blood Pressure [Right Arm] 170/98 H 148/94 H Blood Pressure Mean 111 Blood Pressure Mean [Right Arm] 122 112 Pulse Oximetry 97 98 98 Oxygen Delivery Method Room Air Room Air Room Air Sepsis Recent Fever Within 48 Hours Yes Sepsis New/Unexplained Change in Mental Status No Sepsis Action Taken by Nursing No Action Required CONSTITUTIONAL/VITAL SIGNS: Reviewed / noted above. GENERAL: Non-toxic in appearance. The patient does have some rigors on exam. INTEGUMENTARY: Warm, dry, and [place]. HEAD: Normocephalic. EYES: without scleral icterus or trauma. ENT/OROPHARYNX: clear and moist. LYMPHADENOPATHY/NECK: Is supple without lymphadenopathy or meningismus. RESPIRATORY: Lungs clear and equal. CARDIOVASCULAR: Regular rate and rhythm. GI/ABDOMEN: Soft and nontender. No organomegaly or pulsatile mass. No rebound or guarding. Normal bowel sounds. EXTREMITIES: Warm and well perfused. BACK: No CVA tenderness. NEUROLOGICAL: Intact without focal deficits. PSYCHIATRIC: normal affect. MUSCULOSKELETAL: Normally developed with good muscle tone. Generalized weakness. TRIAGE NURSING DOCUMENTATION REVIEWED. Course Administered Medications Levofloxacin/Dextrose (Levaquin/D5w) 750 mg in 150 mls @ 100 mls/hr IV Q24H MORE Stop: 03/24/20 20:59 Last Admin: 03/22/20 21:00 Dose: 100 mls/hr Documented by: [id number] Discontinued Medications Acetaminophen (Tylenol) 500 mg PO NOW STA Stop: 03/22/20 19:29 Last Admin: 03/22/20 19:38 Dose: 500 mg Documented by: [id number] Hydrocortisone Sodium Succinate (Solu-Cortef) 100 mg IV NOW STA Stop: 03/22/20 19:31 Last Admin: 03/22/20 20:15 Dose: 100 mg Documented by: [id number] Sodium Chloride (Nss 1000ml) 1,000 mls @ 999 mls/hr IV .Q1H1M MORE Stop: 03/22/20 20:30 Last Infusion: 03/22/20 20:42 Dose: 0 mls/hr Documented by: [id number] Admin: 03/22/20 19:38 Dose: 999 mls/hr Documented by: [id number] Ketorolac Tromethamine (Toradol) 30 mg IV NOW STA Stop: 03/22/20 20:58 Last Admin: 03/22/20 21:00 Dose: 30 mg Documented by: [id number] Medical Decision Making Differential Diagnosis Differential includes viral illness, influenza, streptococcal pharyngitis, meningitis, pneumonia, sinusitis, UTI, pyelonephritis, otitis media, adrenal insufficiency. Medical Records Attestation: I reviewed the patient's medical records. Home Medications Current Medication List: was personally reviewed by me Laboratory Data Attestation: I reviewed the patient's lab results. Result diagrams: 03/22/20 20:00 03/22/20 20:00 Lab Results 03/22/20 03/22/20 03/22/20 Range/Units 19:41 19:41 20:00 WBC 9.60 (4.8-10.8) K/uL RBC 3.18 L (4.7-6.1) M/uL Hgb 9.9 L (14.0-18.0) g/dL Hct 28.1 L (42-52) % MCV 88.4 (80-100) fL MCH 31.1 (25-34) pg MCHC 35.2 (32-36) g/dL RDW Std Deviation 44.4 (36.4-46.3) fL RDW Coeff of Deven 13.6 (11.5-14.5) % Plt Count 211 (130-400) K/uL MPV 9.0 (7.4-10.4) fL Immature Gran % (Auto) 0.3 % Neut % (Auto) 82.6 % Lymph % (Auto) 6.0 % [place] % (Auto) 10.9 % Eos % (Auto) 0.1 % Baso % (Auto) 0.1 % Neut # (Auto) 7.92 H (1.4-6.5) K/uL Lymph # (Auto) 0.58 L (1.2-3.4) K/uL Bremer # (Auto) 1.05 H (0.11-0.59) K/uL Eos # (Auto) 0.01 (0-0.5) K/uL Baso # (Auto) 0.01 (0-0.2) K/uL Immature Gran # (Auto) 0.03 H (0.00-0.02) K/uL Sodium (136-145) mmol/L Potassium (3.5-5.1) mmol/L Chloride (98-107) mmol/L Carbon Dioxide (21-32) mmol/L Anion Gap (3-11) BUN (7-18) mg/dl Creatinine (0.6-1.4) mg/dl Est Cr Clr Drug Dosing Est GFR ( Amer) Est GFR (Non-Af Amer) BUN/Creatinine Ratio (10-20) Glucose (70-99) mg/dl Lactate (0.4-2.0) mmol/L Calcium (8.5-10.1) mg/dl Total Bilirubin (0.2-1) mg/dl AST (15-37) U/L ALT (12-78) U/L Alkaline Phosphatase (45-117) U/L Troponin I (0-0.045) ng/ml Total Protein (6.4-8.2) gm/dl Albumin (3.4-5.0) gm/dl Globulin (2.5-4.0) gm/dl Albumin/Globulin Ratio (0.9-2) Urine Color Dark Yellow Urine Appearance Clear (Clear) Urine pH 5.0 (4.5-7.5) Ur Specific [place] 1.023 (1.000-1.030) Urine Protein Trace H (Negative) Urine Glucose (UA) Negative (Negative) Urine Ketones Trace H (Negative) Urine Blood 1+ H (Negative) Urine Nitrite Negative (Negative) Urine Bilirubin Negative (Negative) Urine Urobilinogen Negative (Negative) Ur Leukocyte Esterase Negative (Negative) Urine WBC (Auto) 1-5 (0-5) /hpf Urine RBC (Auto) 5-10 H (0-4) /hpf U Hyaline Cast (Auto) 1-5 (0-5) /lpf U Epithel Cells (Auto) 5-10 H (0-5) /lpf Urine Bacteria (Auto) Negative (Negative) Anaplasma Smear See Comment Influenza Type A (PCR) Neg for Influ A (Neg) Influenza Type B (PCR) Neg for Influ B (Neg) 03/22/20 03/22/20 Range/Units 20:00 20:00 WBC (4.8-10.8) K/uL RBC (4.7-6.1) M/uL Hgb (14.0-18.0) g/dL Hct (42-52) % MCV (80-100) fL MCH (25-34) pg MCHC (32-36) g/dL RDW Std Deviation (36.4-46.3) fL RDW Coeff of Deven (11.5-14.5) % Plt Count (130-400) K/uL MPV (7.4-10.4) fL Immature Gran % (Auto) % Neut % (Auto) % Lymph % (Auto) % Bre[place] % (Auto) % Eos % (Auto) % Baso % (Auto) % Neut # (Auto) (1.4-6.5) K/uL Lymph # (Auto) (1.2-3.4) K/uL [place] # (Auto) (0.11-0.59) K/uL Eos # (Auto) (0-0.5) K/uL Baso # (Auto) (0-0.2) K/uL Immature Gran # (Auto) (0.00-0.02) K/uL Sodium 138 (136-145) mmol/L Potassium 3.0 L (3.5-5.1) mmol/L Chloride 105 (98-107) mmol/L Carbon Dioxide 23 (21-32) mmol/L Anion Gap 10.0 (3-11) BUN 18 (7-18) mg/dl Creatinine 1.27 (0.6-1.4) mg/dl Est Cr Clr Drug Dosing Not Reportable Est GFR ( Amer) 68.3 Est GFR (Non-Af Amer) 58.9 BUN/Creatinine Ratio 14.3 (10-20) Glucose 86 (70-99) mg/dl Lactate 1.9 (0.4-2.0) mmol/L Calcium 8.4 L (8.5-10.1) mg/dl Total Bilirubin 0.5 (0.2-1) mg/dl AST 18 (15-37) U/L ALT 27 (12-78) U/L Alkaline Phosphatase 75 (45-117) U/L Troponin I < 0.015 (0-0.045) ng/ml Total Protein 7.1 (6.4-8.2) gm/dl Albumin 3.3 L (3.4-5.0) gm/dl Globulin 3.8 (2.5-4.0) gm/dl Albumin/Globulin Ratio 0.9 (0.9-2) Urine Color Urine Appearance (Clear) Urine pH (4.5-7.5) Ur Specific [place] (1.000-1.030) Urine Protein (Negative) Urine Glucose (UA) (Negative) Urine Ketones (Negative) Urine Blood (Negative) Urine Nitrite (Negative) Urine Bilirubin (Negative) Urine Urobilinogen (Negative) Ur Leukocyte Esterase (Negative) Urine WBC (Auto) (0-5) /hpf Urine RBC (Auto) (0-4) /hpf U Hyaline Cast (Auto) (0-5) /lpf U Epithel Cells (Auto) (0-5) /lpf Urine Bacteria (Auto) (Negative) Anaplasma Smear Influenza Type A (PCR) (Neg) Influenza Type B (PCR) (Neg) Imaging Data Radiologist's Impression: SINGLE VIEW CHEST CLINICAL HISTORY: Fever. FINDINGS: An AP, portable, upright chest radiograph is compared to study dated 03/19/2020 and correlated with chest CT dated 07/28/2017. The heart is enlarged. The pulmonary vasculature is noncongested. Chronic interstitial thickening is similar to previous. Patchy airspace consolidation is seen in the right lower lobe. No large pleural effusion or pneumothorax is seen. The skeletal structures are osteopenic. The bony thorax is grossly intact. Fusion hardware is noted in the lower cervical spine. IMPRESSION: 1. There is patchy airspace consolidation in the right lower lobe typical in appearance for pneumonia. Clinical correlation will be required and radiographic follow-up to resolution is recommended. 2. Cardiomegaly without radiographic evidence of congestive failure. ECG Data Attestation: I personally reviewed and interpreted this ECG as follows: Indication: chest pain Rate (beats per minute): 90 Rhythm: normal sinus Findings: no PVC, no ST elevation and no prolonged QT MDM Narrative This is a 65-year-old male who presents to the ED with a chief complaint of fever, headache, diarrhea, loss of taste as well as generalized weakness. The patient was seen here 3 days ago for the same symptoms. His symptoms continue. He did feel a little better for a couple of days and then got worse yesterday. He had severe watery diarrhea yesterday and today but it seem to be lessening today. Today he had some Tylenol around 2:30 PM. About 30 minutes prior to that he had Reiger's and body aches. The patient denies any recent antibiotics or camping. He states that he has not been around anyone ill as far as he knows. The , who lives with him has no symptoms. He did have Lyme test and COVID test 3 days ago that were negative. Blood cultures were also negative. The patient denies any chest pains or shortness of breath. He does have a slight dry cough. Denies abdominal pains. No rashes. 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 The patient was so weak today that he was unable to get into the car himself. The patient's vital signs reveal a fever of 39.3. His blood pressure is elevated at 170/98. Pulse ox is 98% on room air. The patient's exam reveals that he is weak. He is having rigors during the exam. The patient's chest x-ray shows a right lower lobe pneumonia. CBC is unremarkable. Troponin was negative. Complete metabolic panel was unremarkable. EKG showed a normal sinus rhythm at a rate of 90 without ischemic changes. A second EKG was performed as the patient was having right-sided chest pain. This did not show any concerning changes. The patient was treated with IV fluids, p.o. Tylenol, IV hydrocortisone 100 mg, IV Levaquin as well as some IV Toradol and IV Dilaudid for his chest pain which seems pleuritic in nature. He will be seen by the hospitalist for further evaluation and care. Impression & Plan RLL pneumonia, Fever Discharge Plan Visit Data Chief Complaint: Cough Stated Complaint: CHILLS,COUGH,ACHES-WAS HERE SUNDAY FOR SAME THING ED Provider: Shorty Elias Discharge Problem: RLL pneumonia, Fever Patient Disposition: Being Evaluated by Hospitalist Forms Stand Alone Forms: [facility] Prescriptions Prescriptions: No Action Humira Pen 40 mg/0.8 mL Pen Injector Kit 40 mg SUBCUT UD RF: 0 fluoxetine 40 mg Capsule 40 mg PO DAILY RF: 0 levothyroxine 300 mcg tablet 300 mcg PO UD RF: 0 hydrocodone-acetaminophen 5-325 mg Tablet 1 tab PO BID PRN (Reason: Pain) RF: 0 diphenoxylate-atropine [Lomotil] 2.5-0.025 mg Tablet 1 tab PO QID PRN (Reason: Diarrhea) RF: 0 aspirin 81 mg Tablet,Delayed Release (Dr/Ec) 81 mg PO DAILY RF: 0 folic acid 1 mg Tablet 1 mg PO DAILY RF: 0 hydrocortisone [Cortef] 10 mg Tablet 20 mg PO QAM RF: 0 hydrocortisone [Cortef] 10 mg Tablet 10 mg PO QPM RF: 0 hydrocortisone [Cortef] 10 mg Tablet 10 mg PO UD PRN (Reason: illness) RF: 0 labetalol 300 mg tablet 300 mg PO BID RF: 0 albuterol sulfate 90 mcg/actuation Hfa Aerosol Inhaler 2 puff INHALATION QID PRN (Reason: Shortness Of Breath Or Wheezing) RF: 0 fludrocortisone 0.1 mg Tablet 0.05 mg PO DAILY RF: 0 Caltrate 600 plus D 600 mg (1,500 mg)-800 unit Tablet,Chewable 1 tab PO PM RF: 0 terazosin 5 mg capsule 5 mg PO PM RF: 0 methotrexate sodium 25 mg/mL solution 0 mg subcut WK RF: 0 nitroglycerin 0.4 mg tablet, sublingual 0.4 mg sublingual UD RF: 0 atorvastatin 40 mg Tablet 40 mg PO PM 30 Days Qty: 30 RF: 1 lisinopril [Zestril] 5 mg Tablet 5 mg PO QAM 30 Days Qty: 30 RF: 1 pantoprazole [Protonix] 40 mg tablet,delayed release (DR/EC) 40 mg PO DAILY RF: 0 metoprolol succinate [Toprol XL] 25 mg tablet extended release 24 hr 25 mg PO DAILY RF: 0 lorazepam 1 mg Tablet 1 mg PO BID PRN (Reason: Anxiety) RF: 0 fluticasone propionate [Flonase Allergy Relief] 50 mcg/actuation [place],Suspension 2 spray INTRANASAL DAILY RF: 0 Solu-Medrol (PF) 125 mg/2 mL recon soln 125 mg IM UD PRN (Reason: ADRENAL INSUFFICENCY) RF: 0 Brilinta 90 mg tablet 90 mg PO BID RF: 0 Referrals Referrals: Ethan Bridges DO [Primary Care Provider] - Discharge Problem: RLL pneumonia Qualifiers: Pneumonia type: due to unspecified organism Qualified Code(s): J18.9 - Pneumonia, unspecified organism Fever Qualifiers: Fever type: unspecified Qualified Code(s): R50.9 - Fever, unspecified
[2020-03-22 20:17] LABS: Basophils # (auto) 0.01 K/uL (0-0.2); Basophils % (auto) 0.1 %; Eosinophils # (auto) 0.01 K/uL (0-0.5); Eosinophils % (auto) 0.1 %; Hematocrit (blood only) 28.1 % (42-52); Hemoglobin 9.9 g/dL (14.0-18.0); Immature Granulocytes # (auto) 0.03 K/uL (0.00-0.02); Immature Granulocytes % (auto) 0.3 %; Lymphocytes # (auto) 0.58 K/uL (1.2-3.4); Mean Corpuscular Hemoglobin 31.1 pg (25-34); Mean Corpuscular Hgb Conc 35.2 g/dL (32-36); Mean Corpuscular Volume 88.4 fL (80-100); Monocytes # (auto) 1.05 K/uL (0.11-0.59); Monocytes % (auto) 10.9 %; Neutrophils # (auto) 7.92 K/uL (1.4-6.5); Neutrophils % (auto) 82.6 %; Platelet Count 211 K/uL (130-400); RDW Coefficient of Variation 13.6 % (11.5-14.5); RDW Standard Deviation 44.4 fL (36.4-46.3); Red Blood Count 3.18 M/uL (4.7-6.1)
[2020-03-22 20:30] LABS: Appearance Urine Clear (Clear); Bacteria Urine Automated Negative (Negative); Bilirubin Urine Negative (Negative); Blood Urine 1+ (Negative); Color Urine Dark Yellow; Glucose Urine UA Negative (Negative); Ketones Urine Trace (Negative); Leukocyte Esterase Urine Negative (Negative); Nitrite Urine Negative (Negative); Protein Urine Trace (Negative); Specific Gravity Urine 1.023 (1.000-1.030); Urobilinogen Urine Negative (Negative)
[2020-03-22 20:42] LABS: Alanine Aminotransferase 27 U/L (12-78); Albumin Level 3.3 gm/dl (3.4-5.0); Aspartate Aminotransferase 18 U/L (15-37); BUN Creatinine Ratio 14.3 (10-20); Blood Urea Nitrogen 18 mg/dl (7-18); Calcium 8.4 mg/dl (8.5-10.1); Carbon Dioxide 23 mmol/L (21-32); Chloride 105 mmol/L (98-107); Est GFR (African American) 68.3; Est GFR (Non-African American) 58.9; Glucose 86 mg/dl (70-99); Sodium 138 mmol/L (136-145)
[2020-03-22 20:46] LABS: Albumin Globulin Ratio 0.9 (0.9-2); Alkaline Phosphatase 75 U/L (45-117); Bilirubin,Total 0.5 mg/dl (0.2-1); Globulin 3.8 gm/dl (2.5-4.0); Total Protein 7.1 gm/dl (6.4-8.2); Troponin I < 0.015 ng/ml (0-0.045)
--- NOTE | 2020-03-22 20:47 | XRay Report ---
SINGLE VIEW CHEST CLINICAL HISTORY: Fever. FINDINGS: An AP, portable, upright chest radiograph is compared to study dated 03/19/2020 and correlat ed with chest CT dated 07/28/2017. The heart is enlarged. The pulmonary vasculature is noncongested. Chronic interstitial thickening is similar to previous. Patchy airspace consolidation is seen in the right lower lobe. No large pleural effusion or pneumothorax is seen. The skeletal structures are oste openic. The bony thorax is grossly intact. Fusion hardware is noted in the lower cervical spine. IMPRESSION: 1. There is patchy airspace consolidation in the right lower lobe typical in appearance for pneumonia . Clinical correlation will be required and radiographic follow-up to resolution is recommended. 2. Cardiomegaly without radiographic evidence of congestive failure. ACT 112: Negative or not required by law. Electronically signed by: Olman Sumner M.D. 03/22/2020 8:45 PM
[2020-03-22] MEDS ORDERED: KETOROLAC 30 MG/ML VIAL IV STA (20:57)
[2020-03-22 20:58] LABS: Influenza A virus by PCR Neg for Influ A (Neg); Influenza B virus by PCR Neg for Influ B (Neg)
[2020-03-22] MEDS ORDERED: LEVOFLOXACIN/D5W 750 MG/150 ML BAG IV SCH (21:00)
[2020-03-22] MEDS ORDERED: HYDROmorphone INJ 1 MG/ML SYRINGE IV STA (21:03)
[2020-03-22] MEDS ORDERED: HYDROmorphone INJ 1 MG/ML SYRINGE ONE (21:03)
[2020-03-22] MEDS ORDERED: POTASSIUM CHLORIDE 20 MEQ TABCR PO STA (21:24)
--- NOTE | 2020-03-22 21:39 | History & Physical Report ---
Date of Service March 22, 2020 Assessment & Plan (1) RLL pneumonia: (2) Person under investigation for COVID-19: (3) Fever: Possible Sepsis Community Acquired Pneumonia Pt is 64 y/o M with PMH HTN, RA, antiphospholipid antibody syndrome, h/o DVT after ortho surgery, adrenal insufficiency, THIERRY, depression, anxiety, GERD, hypothyroidism, CAD s/p GEOVANNI to LAD in 02/2020 C/O fever, chill, loss of smell, myalgias, lethargy, cough, diarrhea Negative Covid-19 and negative CXR on 03/19/2020 ER visit Today in ER T: 39.3C, P: 95, R: 20, BP: 154/90, Pulse ox: 97% on RA. WBC: 9.6, Lactate: 1.9, negative influenza PCR -In ER given Levothyroxine, 1L NSS -pending blood cultures -Pending procalcitonin, MRSA swab -Pending Covid 19 -Isolation precautions for now -Zosyn and vancomycin -IVF -Obtain stool studies -IVF -Albuterol inhaler -Supplemental oxygen prn -CBC, BMP in am (4) Chest pain: Right sided CP Initial troponin negative May be secondary to pneumonia -Pending D-Dimer -Trend troponin -Dilaudid prn pain (5) Hypokalemia: Hypomagnesemia K: 3.0. 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 No further DVT (12) Depression: Anxiety -Continue fluoxetine, lorazepam prn (13) GERD (gastroesophageal reflux disease): -Continue PPI (14) Sleep apnea: Intolerant to CPAP (15) BPH (benign prostatic hyperplasia): -Continue terazosin DVT Prophylaxis -Lovenox SQ Full Code Follows with Dr Bridges for routine care Pt was seen and examined by Dr Brumfield and HPI, ROS, PE per Dr Brumfield. Care coordinated with Dr Brumfield. Chart review, [facility] rec reviewed with pt and pt's , PMH and chart dictated by Audra Elias PA-C. See addendum for further assessment and plan. History of Present Illness Chief Complaint: Fever, SOB Primary Care Provider: Ethan Bridges, DO Patient is a 64-year-old male with history of antiphospholipid antibody syndrome, rheumatoid arthritis, optic neuritis, DVT, hypothyroidism, adrenal insufficiency, migraine, GERD, obstructive sleep apnea, generalized anxiety disorder, CAD S/P stent, HLP, HTN and other medical problems presents with history of fever, diarrhea, dry cough, right-sided pleuritic chest pain, headache, nasal congestion, loss of taste and smell, generalized body ache since 3 to 4 days duration. His chest pain is right-sided, nonradiating,6/10, worsens with deep breathing. He admits to having right-sided rib fractures in the past from trauma which he believes is contributing to the pain. He states having diffuse multiple episodes of loose watery diarrhea which is nonbloody. Reports nausea but no vomiting or abdominal pain. Denies any recent antibiotic use, sick contact, travel. Cough is dry and is associated with minimal dyspnea on exertion. He visited ED 3 days ago with similar complaints and chest x-ray at that time showed no acute process. Chest x-ray today showed patchy airspace consolidation in the right lower lobe. He developed fever today which did not improve with Tylenol. He received stress dose of hydrocortisone while in ED. He was noted to be febrile, hypokalemic, hypomagnesemia, elevated d-dimer and with normal lactate and procalcitonin levels noted. CT for PE is ordered. Denies any history of dizziness, pedal edema, wheezing, hemoptysis, recent fall, head trauma, LOC, numbness, change in vision, double/blurry vision, slurred speech, facial deformity, bowel/bladder incontinence, vomiting, abdominal pain, blood in stools, dysuria, hematuria, recent travel, sick contact, recent change in medications. Allergies Allergy/AdvReac Type Severity Reaction Status Date / Time morphine Allergy Unknown ITCHING,HIV Verified 03/19/20 20:55 ES,SOB sulfasalazine AdvReac abdominal Verified 03/19/20 20:55 pain, fever Home Medications Home Medications Medication Instructions Recorded Confirmed Type Caltrate 600 plus D 1 tab PO PM 02/04/20 03/22/20 History Humira Pen 40 mg SUBCUT UD 02/04/20 03/22/20 History albuterol sulfate 2 puff INHALATION QID PRN 02/04/20 03/22/20 History aspirin 81 mg PO DAILY 02/04/20 03/22/20 History diphenoxylate-atropine [Lomotil] 1 tab PO QID PRN 02/04/20 03/22/20 History fludrocortisone 0.05 mg PO DAILY 02/04/20 03/22/20 History fluoxetine 40 mg PO DAILY 02/04/20 03/22/20 History folic acid 1 mg PO DAILY 02/04/20 03/22/20 History hydrocodone-acetaminophen 1 tab PO BID PRN 02/04/20 03/22/20 History hydrocortisone [Cortef] 10 mg PO QPM 02/04/20 03/22/20 History hydrocortisone [Cortef] 10 mg PO UD PRN 02/04/20 03/22/20 History hydrocortisone [Cortef] 20 mg PO QAM 02/04/20 03/22/20 History levothyroxine 300 mcg PO UD 02/04/20 03/22/20 History methotrexate sodium 0 mg SUBCUT WK 02/04/20 03/22/20 History nitroglycerin 0.4 mg SUBLINGUAL UD 02/04/20 03/22/20 History terazosin 5 mg PO PM 02/04/20 03/22/20 History atorvastatin 40 mg PO PM 30 Days #30 tab 02/05/20 03/22/20 Rx lisinopril [Zestril] 5 mg PO QAM 30 Days #30 tab 02/05/20 03/22/20 Rx fluticasone propionate [Flonase 2 spray INTRANASAL DAILY 03/22/20 03/22/20 History Allergy Relief] lorazepam 1 mg PO BID PRN 03/22/20 03/22/20 History methylprednisolone sod suc(PF) 125 mg IM UD PRN 03/22/20 03/22/20 History [Solu-Medrol (PF)] metoprolol succinate [Toprol XL] 25 mg PO DAILY 03/22/20 03/22/20 History pantoprazole [Protonix] 40 mg PO DAILY 03/22/20 03/22/20 History ticagrelor [Brilinta] 90 mg PO BID 03/22/20 03/22/20 History Past Med/Surg History Medical History Haris's disease (Chronic) Antiphospholipid syndrome (Chronic) BPH (benign prostatic hyperplasia) (Chronic) Depression (Chronic) GERD (gastroesophageal reflux disease) (Chronic) History of DVT of lower extremity (Chronic) "provoked, associated with hip replacement" Hypertension (Chronic) Hypothyroidism (Chronic) Rheumatoid arthritis (Chronic) Sleep apnea (Chronic) "intolerant of CPAP" Surgical History History of repair of right rotator cuff (Chronic) S/P cervical spinal fusion (Chronic) Status post carpal tunnel release (Chronic) Status post cholecystectomy (Chronic) Status post hip replacement (Chronic) "bilat" Family History Sister Diabetes Thyroid disease Graves Son Thyroid disease hypothyroidism Brother Cancer brain CA Father FH: abdominal aortic aneurysm Social History Smoking Status: Former smoker Hx Alcohol Use: Yes Hx Substance Use: No Preferred Language: Belgian Communication Ability: Effective Manager Stone Required: No Beliefs That Will Affect Care: None Current Living Situation: Spouse Feels Safe at Home: Yes Review of Systems Review of Systems: All systems reviewed & are unremarkable except as noted in HPI & below Physical Exam Physical Exam: Physical Exam: Vitals signs as noted above General Appearance:Moderately built and nourished, mild distress, diaphoresis Head: normocephalic, Atraumatic, no neck stiffness Eyes: normal inspection, EOMI, PERRL Neck: supple, Trachea midline Respiratory/Chest: Normal breath sounds, CTA, No accessory muscle use, +Right sided chest tenderness Cardiovascular: S1, S2, No murmur Abdomen/GI:Soft, Non tender, distended(unchanged as per patient) Bowel sounds present Extremities/Musculoskelatal:normal inspection, no edema Neurologic/Psych:AAOX3, grossly no focal neurological deficits Skin: normal color, warm Results & Data Results & Data ([facility]) Vital Signs (Past 12 Hours) Vital Signs Temp Pulse Pulse Resp BP BP Pulse Ox 03/22/20 21:04 83 22 134/82 98 03/22/20 20:44 38.2 C H 87 20 148/94 H 98 03/22/20 19:36 88 18 170/98 H 98 03/22/20 19:15 39.3 C H 95 H 20 154/90 H 97 Laboratory Results Short CBC 03/22/20 Range/Units 20:00 WBC 9.60 (4.8-10.8) K/uL Hgb 9.9 L (14.0-18.0) g/dL Hct 28.1 L (42-52) % Plt Count 211 (130-400) K/uL BMP 03/22/20 20:00 Sodium 138 Potassium 3.0 L Chloride 105 Carbon Dioxide 23 BUN 18 Creatinine 1.27 Glucose 86 Calcium 8.4 L Cardiac Enzymes 03/22/20 Range/Units 20:00 Troponin I < 0.015 (0-0.045) ng/ml Liver Function 03/22/20 Range/Units 20:00 Total Bilirubin 0.5 (0.2-1) mg/dl AST 18 (15-37) U/L ALT 27 (12-78) U/L Alkaline Phosphatase 75 (45-117) U/L Albumin 3.3 L (3.4-5.0) gm/dl Urine 03/22/20 Range/Units 19:41 Urine Color Dark Yellow Urine Appearance Clear (Clear) Urine pH 5.0 (4.5-7.5) Ur Specific [place] 1.023 (1.000-1.030) Urine Protein Trace H (Negative) Urine Glucose (UA) Negative (Negative) Diagnostic Findings CXR: IMPRESSION: 1. There is patchy airspace consolidation in the right lower lobe typical in appearance for pneumonia. Clinical correlation will be required and radiographic follow-up to resolution is recommended. 2. Cardiomegaly without radiographic evidence of congestive failure. Code Status & VTE Plan VTE Prophylaxis Plan VTE Prophylaxis will be ordered: Yes Supervising Physician Co-Signing Physician Notes Patient is a 64-year-old male with multiple medical problems as above presents with history of fever, diarrhea, dry cough, right-sided pleuritic chest pain, headache, nasal congestion, loss of taste and smell, generalized body ache since 3 to 4 days duration. He visited ED 3 days ago with similar complaints and chest x-ray at that time showed no acute process. Chest x-ray today showed patchy airspace consolidation in the right lower lobe. He received stress dose of hydrocortisone while in ED. He was noted to be febrile, hypokalemic, hypomagnesemia, elevated d-dimer and with normal lactate and procalcitonin levels noted. CT for PE is ordered. Examination as documented. Patient is admitted for management of Possible sepsis secondary to community-acquired pneumonia; chest pain, Ongoing diarrhea, hypokalemia, hypomagnesemia. Agree with broad-spectrum antibiotics Vanco, Zosyn, IV fluids, blood and sputum cultures. Stool studies including culture to rule out C. difficile. Replete electrolytes as needed. Will trend cardiac enzymes, check resting echo, repeat EKG in the morning. D-dimer is elevated. Will get CT for PE to rule out. Also to rule out COVID. Given history of adrenal insufficiency, patient received stress dose of hydrocortisone and while in ED, will check a.m. cortisol. Continue home Florinef, hydrocortisone. Consider IV hydrocortisone if needed. I personally reviewed the record. Patient is interviewed and examined at bedside. Patient's care is coordinated with Audra Elias PA-C. Edited the H&P as needed. Please refer to the documentation above for details of patient's presentation and for discussion of other issues. (1) Fever Fever type: unspecified Qualified Code(s): R50.9 - Fever, unspecified (2) RLL pneumonia Pneumonia type: due to unspecified organism Qualified Code(s): J18.9 - Pneumonia, unspecified organism
[2020-03-22] MEDS ORDERED: HYDROmorphone INJ 0.5 MG/0.5 ML SYR IV PRN ×2 (21:45→22:24)
[2020-03-22 22:17] LABS: D Dimer 1130 ug/L FEU (0-500)
[2020-03-22] MEDS ORDERED: OPTIRAY 320 125ml IV PRN (23:07)
[2020-03-22] MEDS: MAGNESIUM SULFATE / D5W 1 GM/100 ML BAG IV SCH (23:22)
[2020-03-23] MEDS ORDERED: ONDANSETRON INJ 2 MG/ML 2 ML VIAL IV PRN (00:24)
[2020-03-23] MEDS ORDERED: NSS + 20MEQ KCL 20 MEQ/1,000 ML BAG IV SCH (00:24)
[2020-03-23] MEDS ORDERED: ACETAMINOPHEN 1000 MG/100 ML IV IV PRN (00:24)
[2020-03-23] MEDS ORDERED: POLYETHYLENE (MIRALAX) 17 GM PACK PO PRN (00:24)
[2020-03-23] MEDS ORDERED: DIPHENOXYLATE/ATROPINE 2.5/0.025MG TAB PO PRN (00:24)
[2020-03-23] MEDS ORDERED: NITROGLYCERIN SL 0.4 MG/TAB TAB SL SCH (00:24)
[2020-03-23] MEDS ORDERED: ALBUTEROL HFA 8 GM INHALER INH PRN (00:24)
[2020-03-23] MEDS ORDERED: PATIENT'S HEIGHT AND/OR WEIGHT NEEDED SCH (00:45)
[2020-03-23] MEDS ORDERED: LORazepam 1 MG TAB PO PRN (00:52)
[2020-03-23] MEDS ORDERED: HYDROCODONE/ACETAMOPHEN 5/325MG TAB PO PRN (00:53)
[2020-03-23] MEDS ORDERED: VANCOMYCIN CONSULT ACTIVE PRN (01:00)
[2020-03-23] MEDS ORDERED: PIPERACILL/TAZOBAC CONSULT ACTIVE PRN (02:06)
[2020-03-23] MEDS ORDERED: PIPERACILLIN/TAZOBACTAM 3.375 GM in DEXTROSE 5% 100 ML IV ONE (02:15)
[2020-03-23] MEDS ORDERED: VANCOMYCIN HCL 2,500 MG in SODIUM CHLORIDE 0.9% 500 ML IV SCH (02:15)
[2020-03-23] MEDS: MAGNESIUM SULFATE / D5W 1 GM/100 ML BAG IV SCH ×3 (02:37→12:00)
[2020-03-23 03:27] LABS: Hematocrit (blood only) 28.1 % (42-52); Hemoglobin 9.9 g/dL (14.0-18.0); Immature Granulocytes # (auto) 0.03 K/uL (0.00-0.02); Immature Granulocytes % (auto) 0.3 %; Lymphocytes # (auto) 0.37 K/uL (1.2-3.4); Lymphocytes % (auto) 3.6 %; Mean Corpuscular Hgb Conc 35.2 g/dL (32-36); Mean Corpuscular Volume 88.1 fL (80-100); Mean Platelet Volume 8.9 fL (7.4-10.4); Monocytes % (auto) 12.6 %; Neutrophils # (auto) 8.59 K/uL (1.4-6.5); Neutrophils % (auto) 83.5 %; Platelet Count 198 K/uL (130-400); RDW Coefficient of Variation 13.8 % (11.5-14.5); RDW Standard Deviation 44.7 fL (36.4-46.3); Red Blood Count 3.19 M/uL (4.7-6.1); White Blood Count 10.29 K/uL (4.8-10.8)
[2020-03-23 03:51] LABS: BUN Creatinine Ratio 14.4 (10-20); Calcium 7.9 mg/dl (8.5-10.1); Creatinine Clr Calc Pharmacy 63.7 ml/min; Est GFR (African American) 62.3; Est GFR (Non-African American) 53.7; Magnesium 1.5 mg/dl (1.8-2.4); Potassium 3.9 mmol/L (3.5-5.1)
[2020-03-23] MEDS ORDERED: OXYCODONE HCL IR 5 MG TAB (IMMEDIATE RELEASE) PO PRN (05:12)
[2020-03-23] MEDS ORDERED: XOPENEX/ATROVENT 1.25mg/0.5MG NEB COMBO NEB STA (05:13)
[2020-03-23] MEDS ORDERED: XOPENEX/ATROVENT 1.25mg/0.5MG NEB COMBO NEB PRN (05:16)
[2020-03-23] MEDS ORDERED: OXYCODONE HCL IR 5 MG TAB (IMMEDIATE RELEASE) ONE (05:19)
[2020-03-23] MEDS ORDERED: IPRATROPIUM BROMIDE NEB SOLN 0.02% 2.5 ML VIAL INH STA (05:24)
[2020-03-23] MEDS ORDERED: LEVALBUTEROL 1.25MG/0.5ML NEB INH STA (05:25)
[2020-03-23] MEDS ORDERED: HYDROCORTISONE 10 MG TAB PO SCH ×3 (05:30→21:00)
[2020-03-23] MEDS ORDERED: IPRATROPIUM BROMIDE NEB SOLN 0.02% 2.5 ML VIAL INH PRN (05:30)
[2020-03-23] MEDS ORDERED: LEVALBUTEROL 1.25MG/0.5ML NEB INH PRN (05:30)
[2020-03-23] MEDS ORDERED: NSS + 20MEQ KCL 20 MEQ/1,000 ML BAG IV ONE (05:46)
[2020-03-23] MEDS: HYDROmorphone INJ 0.5 MG/0.5 ML SYR IV PRN (05:52)
[2020-03-23] MEDS: METOPROLOL SUCC 25MG EXT REL TAB PO SCH (05:56)
[2020-03-23] MEDS: LEVOTHYROXINE SODIUM 150 MCG TABLET PO SCH (05:56)
[2020-03-23] MEDS: LIDOCAINE 5% 1 PATCH TD SCH (06:16)
[2020-03-23] MEDS ORDERED: lisinopriL 5 MG TAB PO SCH ×2 (06:45→09:00)
--- NOTE | 2020-03-23 06:45 | XRay Report ---
XR chest 1V portable CLINICAL HISTORY: tachypnea COMPARISON STUDY: Chest radiograph and chest CT March 22, 2020. FINDINGS: Incidental note is made of an anterior cervical spine fusion. No pneumothorax or pleural ef fusion is noted. Mild right lower lung airspace opacity is unchanged since prior exam. Left lung is c lear. Cardiac size is normal. There is no evidence for pulmonary edema. IMPRESSION: No change in mild right lower lung opacity which favors pneumonia. ACT 112: Negative or not required by law. Electronically signed by: Stan Gaspar M.D. 03/23/2020 6:44 AM
--- NOTE | 2020-03-23 07:24 | CT Scan Report ---
CT angio chest PE protocol CT DOSE: 559.76 mGycm HISTORY: 65 years-old Male with PE. Acute cough TECHNIQUE: Multiple CTA images of the chest were obtained after the intravenous administration of 115 ml Optiray 320. Coronal and sagittal MIPS were obtained from the axial data set and were submitted for review. All measurements were obtained according to NASCET criteria. A dose lowering technique w as utilized adhering to the principles of ALARA. COMPARISON: Chest radiograph of same day, chest CT 07/28/2017 FINDINGS: CTA: Mild cardiomegaly. Trace pericardial effusion. Coronary artery calcifications. No thoracic aortic ane urysm or dissection. The opacified pulmonary artery is unremarkable without evidence of thromboemboli c disease. CT CHEST: Unremarkable thyroid. No adenopathy. Trace right pleural effusion. No pneumothorax. Consolidative and groundglass opacities of the right middle lobe, probably within the lateral segment. 3 mm subpleural nodule of the lingula, image 134 series 4 is unchanged and likely benign. 4 mm solid nodule of the b more left lower lobe on image 79 series 4 is also unchanged and likely benign. The central airways ar e patent. Small hiatal hernia. Probable mild hepatic steatosis. Colonic diverticulosis. Unremarkable soft tissu es. Degenerative changes of the shoulders and spine. IMPRESSION: 1. Cardiomegaly without acute aortic pathology or evidence of pulmonary thromboembolic disease. 2. Right middle lobe pneumonia. 3. Trace right parapneumonic effusion. 4. No adenopathy. ACT 112: Negative or not required by law. The above report was generated using voice recognition software. It may contain grammatical, syntax o r spelling errors. Electronically signed by: Eliazar Lr M.D. 03/23/2020 7:22 AM
[2020-03-23] MEDS: ASPIRIN 81 MG ECTAB PO SCH (07:43)
[2020-03-23] MEDS: TICAGRELOR 90 MG TAB PO SCH ×2 (07:43→21:12)
[2020-03-23] MEDS: PIPERACILLIN/TAZOBACTAM 3.375 GM in DEXTROSE 5% 100 ML IV SCH ×2 (07:43→18:17)
[2020-03-23] MEDS: ENOXAPARIN INJ 40 MG/0.4 ML SYR SQ SCH (07:44)
[2020-03-23] MEDS: PANTOprazole 40 MG TAB PO SCH (07:44)
[2020-03-23] MEDS: FLUOXETINE HCL 20 MG CAP PO SCH (07:44)
[2020-03-23] MEDS: ACETAMINOPHEN 325 MG TAB PO PRN ×2 (07:44→16:01)
[2020-03-23] MEDS: FOLIC ACID 1 MG TAB PO SCH (07:44)
[2020-03-23] MEDS ORDERED: Nursing to Pharmacy Communication SCH (07:45)
[2020-03-23] MEDS ORDERED: FLUTICASONE PROPIONATE NA SPR 16 GM BTL NAE SCH (09:00)
[2020-03-23] MEDS ORDERED: FLUDROCORTISONE ACETATE 0.1 MG TAB PO SCH ×2 (09:00→13:00)
[2020-03-23] MEDS ORDERED: METOPROLOL SUCC 25MG EXT REL TAB PO SCH (09:00)
[2020-03-23] MEDS ORDERED: LOPERAMIDE HCL 2 MG CAP PO STA (12:51)
--- NOTE | 2020-03-23 12:52 | Hospitalist Progress Note ---
Date of Service March 23, 2020 Assessment & Plan (1) Adrenal crisis syndrome: He has been ill for one week with excessive diarrhea and a pneumonia. Likely in adrenal crisis causing fever, weakness, malaise. Cont stress dose hydrocortisone and monitor for improvement. (2) RLL pneumonia: Cont broad spectrum Zosyn for now pending clinical improvement and blood cultures. Vanc can be stopped with normal LP and negative MRSA screening. Oxygenating well on room air. (3) Pleurisy: Cont supportive care with narcotics as needed. (4) Hypomagnesemia: 2/2 excessive diarrhea. replace and repeat in AM. Stool studies pending. C-diff negative. Lomotil or Imodium PRN. (5) Fever: Etiology likely but not limited to adrenal insufficiency vs pneumonia vs gastroenteric process (feel this is less likely). Cont stress dose steroids and broad spectrum antibiotics for now. If persistent diarrhea, would consider CT abd/pel with IV contrast in am to screen for GI process that may be contributing. Currently watery diarrhea and no h/o ?food-borne illness. LFTs and bili are WNL. Cont supportive care for now. This would also allow time for prior IV contrast to run through system without giving another back to back dose. (6) Hypokalemia: 2/2 excessive diarrhea. replace and repeat in AM. Stool studies pending. C-diff negative. Lomotil or Imodium PRN. (7) CAD (coronary artery disease): S/P GEOVANNI to LAD on 02/04/2020 -Continue aspirin, Brilinta, atorvastatin, metoprolol Echo and EKG are WNL. Chest pain likely related to pleurisy. Cont medical management of CAD. (8) Rheumatoid arthritis: -Hold Humira, hold methotrexate as Zosyn interacts with this, also. 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 (10) Hypertension: held lisinopril out of concern for rising creatine, possible developing critical illness, and dehydration. Cont metop and terazosin per home regimen. (11) Hypothyroidism: TSH: 0.84 on 01/28/2020 -Continue levothyroxine (12) Antiphospholipid syndrome: H/O DVT after hip replacement in 1999. No further DVT (13) Depression: Anxiety -Continue fluoxetine, lorazepam prn per home regimen. Avoid Lorazepam with narcotics. (14) Sleep apnea: Intolerant to CPAP (15) DVT prophylaxis: Lovenox Full Transfer to PCU for closer monitoring DO [facility] Admission and Anticipated Discharge Date Admission Date: March 22, 2020 Subjective 65 yo M on chronic steroids for Haris's disease presents with excessive diarrhea (3x more than normal) and multiple concerning symptoms. He reports feeling fevers, headache, myalgias, neck stiffness on Thurs pm (6 days ago). This progressed into a nonproductive cough, persistent fevers and myalgias, and severe right sided chest pain that developed later and was worth with deep inspiration (pleurisy). He reports generalized weakness and no stroke symptoms are apparent. He reports the dilaudid and [place] have helped the pain in his chest somewhat but he still feels it. He has had multiple BMs today, and last temp was 38C at 0700. He denies abdominal pain, and epipgastric tenderness elicited on exam was connected to his right sided chest pain per his report. He does have chest wall tenderness to palpation. He reports vomiting once in the last couple of days but denies aspiration. His does report some shortness of breath. No recent travel, no sick contacts. Hasn't eaten any concerning foods. COVID-19 is negative. C-diff is negative. Review of Systems Review of Systems: All systems reviewed & are unremarkable except as noted in Subjective Physical Exam Physical Exam: CONSTITUTIONAL: WNWD, vitals as above, generally ill- appearing. Appears to be uncomfortable and restless. EYES: EOMI bilaterally, pupils are equal and round bilaterally, normal conjunctivae, no scleral icterus ENT: external ear and nose normal, oropharynx clear, mucous membranes are dry NECK: trachea midline, no lymphadenopathy RESPIRATORY: coarse rhonchi on right posterior lung field, otherwise clear without crackles wheezes or rales. normal respiratory effort CARDIOVASCULAR: regular rate and rhythm, S1 and 2 heard without murmurs, gallops or rubs, no JVD, no peripheral edema GASTROINTESTINAL: soft, slight TTP in epigastric area. No guarding. MUSCULOSKELETAL: TTP in R anterior chest wall. strength 5/5 throughout, head is normocephalic and atraumatic, neck supple SKIN: warm and dry NEUROLOGIC: patellar DTRs 3+ bilat. BR reflex 2+ bilaterally. No facial palsy, no dysarthria. CN 2-12 grossly intact, normal cognition, normal speech, no tremor PSYCHIATRIC: alert cooperative and oriented to person, place and time. Results & Data Results & Data ([facility]) Vital Signs (Past 12 Hours) Vital Signs Temp Pulse Pulse Resp BP Pulse Ox 03/23/20 11:42 36.6 C 77 18 115/68 93 03/23/20 09:23 36.9 C 03/23/20 07:25 106 H 03/23/20 07:07 38 C H 108 H 20 153/88 H 91 03/23/20 05:33 94 H 24 95 03/23/20 05:07 37.2 C 99 H 30 H 174/70 H 94 03/23/20 00:56 67 Laboratory Results Short CBC 03/22/20 03/23/20 Range/Units 20:00 03:00 WBC 9.60 10.29 (4.8-10.8) K/uL Hgb 9.9 L 9.9 L (14.0-18.0) g/dL Hct 28.1 L 28.1 L (42-52) % Plt Count 211 198 (130-400) K/uL BMP 03/22/20 03/23/20 20:00 03:00 Sodium 138 141 Potassium 3.0 L 3.9 D Chloride 105 110 H Carbon Dioxide 23 21 BUN 18 20 H Creatinine 1.27 1.37 Glucose 86 117 H Calcium 8.4 L 7.9 L Cardiac Enzymes 03/22/20 03/23/20 03/23/20 Range/Units 20:00 03:00 07:59 Troponin I < 0.015 0.017 0.090 H* (0-0.045) ng/ml Liver Function 03/22/20 Range/Units 20:00 Total Bilirubin 0.5 (0.2-1) mg/dl AST 18 (15-37) U/L ALT 27 (12-78) U/L Alkaline Phosphatase 75 (45-117) U/L Albumin 3.3 L (3.4-5.0) gm/dl Urine 03/22/20 Range/Units 19:41 Urine Color Dark Yellow Urine Appearance Clear (Clear) Urine pH 5.0 (4.5-7.5) Ur Specific [place] 1.023 (1.000-1.030) Urine Protein Trace H (Negative) Urine Glucose (UA) Negative (Negative) (1) Fever Fever type: unspecified Qualified Code(s): R50.9 - Fever, unspecified (2) RLL pneumonia Pneumonia type: due to unspecified organism Qualified Code(s): J18.9 - Pneumonia, unspecified organism
--- NOTE | 2020-03-23 13:31 | Electrocardiogram Report ---
Test Reason : Blood Pressure : / mmHG Vent. Rate : 090 BPM Atrial Rate : 090 BPM P-R Int : 138 ms QRS Dur : 092 ms QT Int : 392 ms P-R-T Axes : 034 -28 041 degrees QTc Int : 479 ms Normal sinus rhythm Nonspecific ST abnormality Abnormal ECG When compared with ECG of 05-FEB-2020 06:20, Premature ventricular complexes are no longer Present Vent. rate has increased BY 33 BPM Criteria for Anteroseptal infarct are no longer Present T wave inversion no longer evident in Anterolateral leads Confirmed by Bijan Maddox ([id number]) on 03/23/2020 1:31:07 PM Referred By: REFERRED SELF Confirmed By:Bijan Maddox
--- NOTE | 2020-03-23 13:32 | Electrocardiogram Report ---
Test Reason : Blood Pressure : / mmHG Vent. Rate : 082 BPM Atrial Rate : 082 BPM P-R Int : 156 ms QRS Dur : 092 ms QT Int : 384 ms P-R-T Axes : 036 -33 048 degrees QTc Int : 448 ms Normal sinus rhythm Left axis deviation Nonspecific ST and T wave abnormality Abnormal ECG When compared with ECG of 22-MAR-2020 19:45, (unconfirmed) No significant change was found Confirmed by Bijan Maddox ([id number]) on 03/23/2020 1:32:16 PM Referred By: REFERRED SELF Confirmed By:Bijan Maddox
--- NOTE | 2020-03-23 13:38 | Electrocardiogram Report ---
Test Reason : Blood Pressure : / mmHG Vent. Rate : 108 BPM Atrial Rate : 108 BPM P-R Int : 120 ms QRS Dur : 094 ms QT Int : 320 ms P-R-T Axes : 025 -39 047 degrees QTc Int : 428 ms Sinus tachycardia Left axis deviation Abnormal ECG When compared with ECG of 22-MAR-2020 21:08, (unconfirmed) No significant change was found Confirmed by Bijan Maddox ([id number]) on 03/23/2020 1:37:36 PM Referred By: REFERRED SELF Confirmed By:Bijan Maddox
[2020-03-23] MEDS ORDERED: SODIUM CHLORIDE 0.9% 1000ML 1,000 ML IV ONE (14:09)
[2020-03-23] MEDS ORDERED: HYDROmorphone INJ 0.5 MG/0.5 ML SYR IV STA (14:12)
--- NOTE | 2020-03-23 14:26 | Pharmacy Report ---
Pharmacy Abx Dose Short Note - Date of Service March 23, 2020 - Assessment & Plan Assessment 65 year old M receiving vancomycin/Zosyn for treatment of pneumonia and possible meningitis Day # 1 of antimicrobial therapy. Plan Vancomycin * vancomycin loading dose of vancomycin 2500 mg IV x 1 given (25 mg/kg) * population kinetics suggest half-life of 12.1 hours with elimination constant of 0.057 hr-1...patient's kidney function is slightly elevated so baseline kid carmenza function suggests half-life of 9.9 hours with elimination constant of 0.07 hr-1 * start vancomycin 1500 mg (15 mg/kg) IV q12 hours * Trough for pneumonia or meningitis is 15-20 mcg/mL * Trough ordered for 03/24 @1430 Pharmacy will continue to follow and will adjust dose/frequency as necessary. Thank you.
[2020-03-23] MEDS: HYDROCORTISONE SOD 50 MG in SYRINGE 0 ML IV SCH (14:30)
[2020-03-23] MEDS ORDERED: VANCOMYCIN HCL 1,500 MG in SODIUM CHLORIDE 0.9% 500 ML IV SCH (15:00)
--- NOTE | 2020-03-23 16:02 | Fluoroscopy Report ---
FL lumbar puncture diagnostic CLINICAL HISTORY: 65 years-old Male with rule out meningitis. Acute headache with fever PROCEDURE: The risks, benefits, and alternatives to the procedure is discussed with the patient who v oiced understanding. Written informed consent was obtained. The patient was placed prone on the fluor oscopy table. The lower back was prepped and draped in the usual sterile fashion. 1% lidocaine was us ed for local anesthesia. A 20-gauge spinal needle was inserted into the L2-L3 interlaminar space, and approximately 6 mL of clear colorless cerebrospinal fluid was removed and sent to lab for analysis. The patient did experience difficulty breathing with tachypnea and restlessness prior to and during t he procedure. CSF flow through the needle into the collection vials took a longer time interval then usual. The patient was restless, therefore collection of the samples was terminated after approximate ly 10 minutes of collection. There were no immediate complications. The patient was then transported back to the floor for further observation. Fluoroscopy time: 0.7 minutes. IMPRESSION: Successful fluoroscopic guided lumbar puncture. There were no immediate complications. ACT 112: Negative or not required by law. The above report was generated using voice recognition software. It may contain grammatical, syntax o r spelling errors. Electronically signed by: Eliazar Lr M.D. 03/23/2020 4:00 PM
[2020-03-23 16:05] LABS: Appearance CSF Clear; CSF Count Tube # 3; CSF Xanthrochromic No xanthochromia; Color CSF Colorless; Red Blood Cell CSF (A) 7 /uL (0-); Red Blood Cell CSF (B) 9 /uL (0-); White Blood Cell CSF (A) 1 /uL (0-5); White Blood Cell CSF (B) 1 /uL (0-5)
[2020-03-23 16:09] LABS: Total Protein CSF 32.9 mg/dl (15-45)
[2020-03-23] MEDS: TERAZOSIN HCL 5 MG CAP PO SCH (21:13)
[2020-03-23] MEDS: ATORVASTATIN 40 MG TAB PO SCH (21:13)
[2020-03-23] MEDS: CALCIUM 600MG + VIT D 400 IU TAB PO SCH (21:13)
[2020-03-23] MEDS: PATIENT'S HEIGHT AND/OR WEIGHT NEEDED SCH ×3 (23:54→23:57)
[2020-03-24] MEDS: HYDROCORTISONE SOD 50 MG in SYRINGE 0 ML IV SCH ×5 (00:57→23:57)
[2020-03-24] MEDS: PIPERACILLIN/TAZOBACTAM 3.375 GM in DEXTROSE 5% 100 ML IV SCH ×4 (00:58→23:57)
[2020-03-24] MEDS: HYDROmorphone INJ 0.5 MG/0.5 ML SYR IV PRN (03:54)
[2020-03-24 07:00] LABS: Hematocrit (blood only) 24.4 % (42-52); Hemoglobin 8.8 g/dL (14.0-18.0); Mean Corpuscular Hemoglobin 31.7 pg (25-34); Mean Corpuscular Hgb Conc 36.1 g/dL (32-36); Mean Corpuscular Volume 87.8 fL (80-100); Mean Platelet Volume 8.6 fL (7.4-10.4); Platelet Count 180 K/uL (130-400); RDW Coefficient of Variation 13.9 % (11.5-14.5); RDW Standard Deviation 44.6 fL (36.4-46.3); Red Blood Count 2.78 M/uL (4.7-6.1); White Blood Count 7.82 K/uL (4.8-10.8)
[2020-03-24 07:37] LABS: BUN Creatinine Ratio 11.1 (10-20); Calcium 7.8 mg/dl (8.5-10.1); Creatinine Clr Calc Pharmacy 79.9 ml/min; Est GFR (African American) 82.1; Est GFR (Non-African American) 70.9; Potassium 3.6 mmol/L (3.5-5.1)
[2020-03-24] MEDS: FOLIC ACID 1 MG TAB PO SCH (08:21)
[2020-03-24] MEDS: LIDOCAINE 5% 1 PATCH TD SCH (08:22)
[2020-03-24] MEDS: TICAGRELOR 90 MG TAB PO SCH ×2 (08:22→20:30)
[2020-03-24] MEDS: FLUOXETINE HCL 20 MG CAP PO SCH (08:22)
[2020-03-24] MEDS: ASPIRIN 81 MG ECTAB PO SCH (08:22)
[2020-03-24] MEDS: METOPROLOL SUCC 25MG EXT REL TAB PO SCH (08:22)
[2020-03-24] MEDS: ENOXAPARIN INJ 40 MG/0.4 ML SYR SQ SCH (08:23)
[2020-03-24] MEDS: PANTOprazole 40 MG TAB PO SCH (08:23)
--- NOTE | 2020-03-24 09:01 | Hospitalist Progress Note ---
Date of Service March 24, 2020 Assessment & Plan (1) Adrenal crisis syndrome: He has been ill for one week with excessive diarrhea and a pneumonia. Likely in adrenal crisis causing fever, weakness, malaise. Cont stress dose hydrocortisone and monitor for improvement. (2) RLL pneumonia: Cont broad spectrum Zosyn for now pending clinical improvement and blood cultures. Vanc can be stopped with normal LP and negative MRSA screening. Oxygenating well on room air. (3) Pleurisy: Cont supportive care with narcotics as needed. (4) Hypomagnesemia: 2/2 excessive diarrhea. Stool studies pending. C-diff negative. Lomotil or Imodium PRN. (5) Fever: Etiology likely but not limited to adrenal insufficiency vs pneumonia. Cont stress dose steroids and broad spectrum antibiotics for now. (6) Hypokalemia: 2/2 excessive diarrhea. Stool studies pending. C-diff negative. Lomotil or Imodium PRN. Cholestyramine, possibly 2/2 abx (7) CAD (coronary artery disease): S/P GEOAVNNI to LAD on 02/04/2020 -Continue aspirin, Brilinta, atorvastatin, metoprolol Echo and EKG are WNL. Chest pain related to pleurisy. Cont medical management of CAD. (8) Rheumatoid arthritis: -Hold Humira, hold methotrexate as Zosyn interacts with this, also. 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 (10) Hypertension: Held lisinopril out of concern for rising Cr, possible developing critical illness, and dehydration. Cont metop and terazosin per home regimen. (11) Hypothyroidism: TSH: 0.84 on 01/28/2020 -Continue levothyroxine (12) Antiphospholipid syndrome: H/O DVT after hip replacement in 1999. No further DVT (13) Depression: Anxiety -Continue fluoxetine, lorazepam prn per home regimen. Avoid Lorazepam with narcotics. (14) Sleep apnea: Intolerant to CPAP (15) DVT prophylaxis: Lovenox Full In PCU ROS-No Headache, No Visual Changes, No Nausea, No Vomiting, No Fever, No Chills, No Neck Pain or Stiffness, No Chest Pain, No Palpitations, No SOB, No COLE, No Cough, No Sputum, No Wheezing, No Abdominal Pain, + Diarrhea, No Hematemesis, No Hemoptysis, No Unexpected Weight Loss, No Flank pain, No Melena, No Hematochezia, No Frequency, No Urgency, No Burning, No Hematuria, No Rashes, No Diaphoresis. Appetite is Normal Physical Exam Gen-AAO x 3, NAD, Afebrile Head-NCAT, EOMI, PERRLA, Anicteric Sclera, No Posterior Pharyngeal Erythema Neck-Supple, No JVD, No Thyromegaly, No Masses, No LAD, No Bruits Lungs-Clear to Auscultation Bilaterally, No Rales, No Rhonchi, No Wheezing, No Crepitus Chest-No S4, +S1, +S2, No S3, No Murmurs, No Rubs, No Gallops, No Ectopy Abdomen-Soft, Bowel Sounds Present, Non Tender, Non Distended, No Hepatomegaly, No Splenomegaly, No Palpable Masses, No Rebound, No Rigidity, No Guarding Musculoskeletal-Full Range of Motion Bilaterally, No CVAT Extremities-No Cyanosis, No Clubbing, No Edema Nuero-Cranial Nerves II-XII grossly intact, Motor WNL, DTRs WNL, Strength WNL, Non Focal Psych-Normal Mood Admission and Anticipated Discharge Date Admission Date: March 22, 2020 Results & Data Results & Data ([facility]) Vital Signs (Past 12 Hours) Vital Signs Temp Pulse Resp BP Pulse Ox Pulse Ox 03/24/20 07:25 37.2 C 72 20 134/85 94 03/24/20 04:29 36.8 C 81 22 122/68 92 03/24/20 00:09 37.4 C 93 H 24 156/85 H 96 03/24/20 00:00 98 (1) RLL pneumonia Pneumonia type: due to unspecified organism Qualified Code(s): J18.9 - Pneumonia, unspecified organism (2) Fever Fever type: unspecified Qualified Code(s): R50.9 - Fever, unspecified
--- NOTE | 2020-03-24 09:32 | Ultrasound Report ---
BILATERAL LOWER EXTREMITY VENOUS DOPPLER HISTORY: elevated D-dimer, +fever, +h/o DVT COMPARISON STUDY: None. FINDINGS: There is normal compressibility, flow, and augmentation within the bilateral lower extremit y deep venous systems. Slow venous flow is noted bilaterally. IMPRESSION: No DVT within the right or left lower extremity. ACT 112: Negative or not required by law. Electronically signed by: Eliazar Lr M.D. 03/24/2020 9:30 AM
[2020-03-24] MEDS: CHOLESTYRAMINE LIGHT 4 GM PKT PO SCH ×2 (11:48→16:25)
[2020-03-24] MEDS ORDERED: VANCOMYCIN TROUGH ONE (14:30)
[2020-03-24] MEDS: ATORVASTATIN 40 MG TAB PO SCH (20:30)
[2020-03-24] MEDS: CALCIUM 600MG + VIT D 400 IU TAB PO SCH (20:30)
[2020-03-24] MEDS: TERAZOSIN HCL 5 MG CAP PO SCH (20:30)
[2020-03-25] MEDS: LEVOTHYROXINE SODIUM 150 MCG TABLET PO SCH (06:07)
[2020-03-25] MEDS: HYDROCORTISONE SOD 50 MG in SYRINGE 0 ML IV SCH ×4 (06:07→23:52)
[2020-03-25 06:40] LABS: Hematocrit (blood only) 25.6 % (42-52); Immature Granulocytes # (auto) 0.04 K/uL (0.00-0.02); Immature Granulocytes % (auto) 0.6 %; Lymphocytes # (auto) 0.79 K/uL (1.2-3.4); Lymphocytes % (auto) 11.8 %; Mean Corpuscular Hemoglobin 30.6 pg (25-34); Mean Corpuscular Hgb Conc 35.2 g/dL (32-36); Mean Corpuscular Volume 87.1 fL (80-100); Mean Platelet Volume 8.8 fL (7.4-10.4); Monocytes # (auto) 0.61 K/uL (0.11-0.59); Monocytes % (auto) 9.1 %; Neutrophils # (auto) 5.26 K/uL (1.4-6.5); Neutrophils % (auto) 78.5 %; Platelet Count 233 K/uL (130-400); RDW Coefficient of Variation 13.9 % (11.5-14.5); RDW Standard Deviation 43.9 fL (36.4-46.3); Red Blood Count 2.94 M/uL (4.7-6.1)
--- NOTE | 2020-03-25 07:09 | Hospitalist Progress Note ---
Date of Service March 25, 2020 Assessment & Plan (1) Adrenal crisis syndrome: He has been ill for one week with excessive diarrhea/fever/N/V and a pneumonia. Likely in adrenal crisis causing fever, weakness, malaise, diarrhea. Cont stress dose hydrocortisone 50 q6 +improvement. (2) RLL pneumonia: Zosyn (3) Pleurisy: Cont supportive care with narcotics as needed. (4) Hypomagnesemia: 2/2 excessive diarrhea. Stool studies pending. C-diff negative. Lomotil or Imodium PRN. (5) Fever: Etiology likely but not limited to adrenal insufficiency vs pneumonia. Cont stress dose steroids and broad spectrum antibiotics for now. (6) Hypokalemia: 2/2 excessive diarrhea. Stool studies pending. C-diff negative. Lomotil or Imodium PRN. Cholestyramine, possibly 2/2 abx (7) CAD (coronary artery disease): S/P GEOVANNI to LAD on 02/04/2020 -Continue aspirin, Brilinta, atorvastatin, metoprolol Echo and EKG are WNL. Chest pain related to pleurisy. Cont medical management of CAD. (8) Rheumatoid arthritis: -Hold Humira, hold methotrexate as Zosyn interacts with this, also. -Continue hydrocodone (9) [place]'s disease: stress dose hydrocortisone as above. (10) Hypertension: Held lisinopril out of concern for rising Cr, possible developing critical illness, and dehydration. Cont metop and terazosin per home regimen. (11) Hypothyroidism: TSH: 0.84 on 01/28/2020 -Continue levothyroxine (12) Antiphospholipid syndrome: H/O DVT after hip replacement in 1999. No further DVT, no PE (13) Depression: Anxiety -Continue fluoxetine, lorazepam prn per home regimen. Avoid Lorazepam with narcotics. (14) Sleep apnea: Intolerant to CPAP (15) DVT prophylaxis: Lovenox Full In PCU Check CT A&P sec to Adrenal Crisis and HTN labs checked ROS-No Headache, No Visual Changes, less Nausea, less Vomiting, No Fever, No Chills, No Neck Pain or Stiffness, No Chest Pain, No Palpitations, No SOB, No COLE, No Cough, No Sputum, No Wheezing, No Abdominal Pain, +Diarrhea, but improved, No Hematemesis, No Hemoptysis, No Unexpected Weight Loss, No Flank pain, No Melena, No Hematochezia, No Frequency, No Urgency, No Burning, No Hematuria, No Rashes, No Diaphoresis. Appetite is Normal Physical Exam Gen-AAO x 3, NAD, Afebrile Head-NCAT, EOMI, PERRLA, Anicteric Sclera, No Posterior Pharyngeal Erythema Neck-Supple, No JVD, No Thyromegaly, No Masses, No LAD, No Bruits Lungs-Clear to Auscultation Bilaterally, No Rales, No Rhonchi, No Wheezing, No Crepitus Chest-No S4, +S1, +S2, No S3, No Murmurs, No Rubs, No Gallops, No Ectopy Abdomen-Soft, Bowel Sounds Present, Non Tender, Non Distended, No Hepatomegaly, No Splenomegaly, No Palpable Masses, No Rebound, No Rigidity, No Guarding Musculoskeletal-Full Range of Motion Bilaterally, No CVAT Extremities-No Cyanosis, No Clubbing, No Edema Nuero-Cranial Nerves II-XII grossly intact, Motor WNL, DTRs WNL, Strength WNL, Non Focal Psych-Normal Mood Admission and Anticipated Discharge Date Admission Date: March 22, 2020 Results & Data Results & Data ([facility]) Vital Signs (Past 12 Hours) Vital Signs Temp Pulse Resp BP BP Pulse Ox 03/25/20 03:40 36.7 C 72 18 150/78 H 97 03/24/20 23:35 36.4 C L 57 L 16 150/74 H 97 (1) RLL pneumonia Pneumonia type: due to unspecified organism Qualified Code(s): J18.9 - Pneumonia, unspecified organism (2) Fever Fever type: unspecified Qualified Code(s): R50.9 - Fever, unspecified
[2020-03-25 07:11] LABS: Albumin Globulin Ratio 0.7 (0.9-2); Albumin Level 2.7 gm/dl (3.4-5.0); BUN Creatinine Ratio 12.6 (10-20); Bilirubin,Total 0.7 mg/dl (0.2-1); Calcium 8.7 mg/dl (8.5-10.1); Creatinine Clr Calc Pharmacy 91.8 ml/min; Est GFR (Non-African American) 83.7; Globulin 3.8 gm/dl (2.5-4.0); Total Protein 6.5 gm/dl (6.4-8.2)
[2020-03-25] MEDS: PANTOprazole 40 MG TAB PO SCH (07:36)
[2020-03-25] MEDS: METOPROLOL SUCC 25MG EXT REL TAB PO SCH (07:36)
[2020-03-25] MEDS: TICAGRELOR 90 MG TAB PO SCH ×2 (07:36→21:04)
[2020-03-25] MEDS: FLUOXETINE HCL 20 MG CAP PO SCH (07:36)
[2020-03-25] MEDS: ASPIRIN 81 MG ECTAB PO SCH (07:37)
[2020-03-25] MEDS: FOLIC ACID 1 MG TAB PO SCH (07:37)
[2020-03-25] MEDS: ENOXAPARIN INJ 40 MG/0.4 ML SYR SQ SCH (07:38)
[2020-03-25] MEDS: LIDOCAINE 5% 1 PATCH TD SCH (07:38)
[2020-03-25] MEDS: PIPERACILLIN/TAZOBACTAM 3.375 GM in DEXTROSE 5% 100 ML IV SCH ×3 (07:46→23:55)
[2020-03-25] MEDS ORDERED: IOVERSOL 100ml IV PRN (10:07)
[2020-03-25] MEDS: CHOLESTYRAMINE LIGHT 4 GM PKT PO SCH ×3 (10:33→15:55)
--- NOTE | 2020-03-25 10:44 | CT Scan Report ---
CT SCAN OF THE ABDOMEN AND PELVIS WITH IV CONTRAST CLINICAL HISTORY: Adrenal insufficiency. Nausea and vomiting. Diarrhea. COMPARISON STUDY: Abdominal CT dated 07/28/2017. TECHNIQUE: Following the IV administration of 94 cc of Optiray 320, CT scan of the abdomen and pelvi s is performed from the lung bases to the proximal femora. Images are reviewed in the axial, sagittal , and coronal planes. IV contrast was administered without complication. A dose lowering technique wa s utilized adhering to the principles of ALARA. CT DOSE: 937.50 mGycm FINDINGS: Lung bases: The heart is top normal in size and without pericardial effusion. There are trace pleural effusions, right larger than left with bibasilar atelectasis. Groundglass consolidation is partially visualized in the right middle lobe. There is a small hiatal hernia. Liver: The contrast-enhanced liver is top normal in size. The liver demonstrates diffusely diminished attenuation consistent with hepatic steatosis. There is no intrahepatic biliary ductal dilatation. T he hepatic veins and portal veins are patent. Gallbladder: Surgically absent noting clips in the gallbladder fossa. Spleen: Normal in size and attenuation. Pancreas: Unremarkable. Adrenal glands: The adrenal glands are atrophic. Kidneys: The contrast enhanced kidneys demonstrate cortical atrophy and are without hydronephrosis. T he kidneys enhance symmetrically. A 4.4 cm cyst is noted in the right lower pole. There are least 2 n onobstructing right renal calculi which measure up to 8 mm. A 4 mm nonobstructing calculus is noted i n the left kidney. Abdominal vasculature: The abdominal aorta is normal in course and caliber. Bowel: There is mild to moderate colonic diverticulosis without CT evidence of acute diverticulitis. The appendix is normal as imaged. Peritoneum: There is a small volume of free fluid in the pelvis. No intraperitoneal free air is ident ified. There is a fat-containing umbilical hernia. Foci of soft tissue gas within the right abdominal wall are likely related to subcutaneous injections. Lymphadenopathy: None. Pelvic viscera: Evaluation of the pelvis is degraded by streak artifact from bilateral hip arthroplas ties. The bladder is decompressed and grossly unremarkable. The prostate gland and seminal vesicles a re normal as imaged but not well assessed. Skeletal structures: There is mild lumbosacral spondylosis. No lytic or blastic lesions are seen. Jori ateral hip arthroplasties are in place. IMPRESSION: 1. Ground glass consolidation is partially visualized in the right middle lobe. The appearance is typ ical for an infectious/inflammatory pneumonitis. Clinical correlation will be required and radiograph ic follow-up to resolution is recommended. Follow-up x-ray should include both PA and lateral views. 2. There are trace pleural effusions, right larger than left. 3. There is a small volume of pelvic ascites. 4. Hepatic steatosis. 5. Mild to moderate colonic diverticulosis without CT evidence of acute diverticulitis. 6. The adrenal glands are atrophic. 7. Bilateral nephrolithiasis. 8. Additional findings as above. ACT 112: Negative or not required by law. Electronically signed by: Olman Sumner M.D. 03/25/2020 10:43 AM
[2020-03-25] MEDS: TERAZOSIN HCL 5 MG CAP PO SCH (21:03)
[2020-03-25] MEDS: CALCIUM 600MG + VIT D 400 IU TAB PO SCH (21:03)
[2020-03-25] MEDS: ATORVASTATIN 40 MG TAB PO SCH (21:04)
[2020-03-26 02:41] LABS: HSV Type 1 DNA Not Detected (Not Detected); HSV Type 1&2 DNA Source CSF; HSV Type 2 DNA Not Detected (Not Detected)
[2020-03-26] MEDS: HYDROCORTISONE SOD 50 MG in SYRINGE 0 ML IV SCH (05:48)
[2020-03-26 06:18] LABS: Basophils # (auto) 0.01 K/uL (0-0.2); Basophils % (auto) 0.1 %; Eosinophils # (auto) 0.01 K/uL (0-0.5); Eosinophils % (auto) 0.1 %; Hematocrit (blood only) 25.5 % (42-52); Hemoglobin 9.2 g/dL (14.0-18.0); Immature Granulocytes # (auto) 0.11 K/uL (0.00-0.02); Immature Granulocytes % (auto) 1.2 %; Lymphocytes # (auto) 1.13 K/uL (1.2-3.4); Lymphocytes % (auto) 12.1 %; Mean Corpuscular Hemoglobin 31.7 pg (25-34); Mean Corpuscular Hgb Conc 36.1 g/dL (32-36); Mean Corpuscular Volume 87.9 fL (80-100); Mean Platelet Volume 8.8 fL (7.4-10.4); Monocytes # (auto) 0.73 K/uL (0.11-0.59); Monocytes % (auto) 7.8 %; Neutrophils # (auto) 7.33 K/uL (1.4-6.5); Neutrophils % (auto) 78.7 %; Platelet Count 279 K/uL (130-400); RDW Coefficient of Variation 13.8 % (11.5-14.5); RDW Standard Deviation 44.4 fL (36.4-46.3); White Blood Count 9.32 K/uL (4.8-10.8)
[2020-03-26 06:52] LABS: Albumin Globulin Ratio 0.7 (0.9-2); Albumin Level 2.6 gm/dl (3.4-5.0); Bilirubin,Total 0.5 mg/dl (0.2-1); Calcium 8.4 mg/dl (8.5-10.1); Creatinine Clr Calc Pharmacy 81.7 ml/min; Est GFR (African American) 84.9; Est GFR (Non-African American) 73.3; Globulin 3.7 gm/dl (2.5-4.0); Magnesium 1.7 mg/dl (1.8-2.4); Potassium 2.9 mmol/L (3.5-5.1); Total Protein 6.3 gm/dl (6.4-8.2)
[2020-03-26 06:53] LABS: Phosphorus 4.2 mg/dl (2.5-4.9)
--- NOTE | 2020-03-26 07:03 | Discharge Summary ---
Date of Service March 26, 2020 Admission HPI Per Admitting Provider Patient is a 64-year-old male with history of antiphospholipid antibody syndrome, rheumatoid arthritis, optic neuritis, DVT, hypothyroidism, adrenal insufficiency, migraine, GERD, obstructive sleep apnea, generalized anxiety disorder, CAD S/P stent, HLP, HTN and other medical problems presents with history of fever, diarrhea, dry cough, right-sided pleuritic chest pain, headache, nasal congestion, loss of taste and smell, generalized body ache since 3 to 4 days duration. His chest pain is right-sided, nonradiating,6/10, worsens with deep breathing. He admits to having right-sided rib fractures in the past from trauma which he believes is contributing to the pain. He states having diffuse multiple episodes of loose watery diarrhea which is nonbloody. Reports nausea but no vomiting or abdominal pain. Denies any recent antibiotic use, sick contact, travel. Cough is dry and is associated with minimal dyspnea on exertion. He visited ED 3 days ago with similar complaints and chest x-ray at that time showed no acute process. Chest x-ray today showed patchy airspace consolidation in the right lower lobe. He developed fever today which did not improve with Tylenol. He received stress dose of hydrocortisone while in ED. He was noted to be febrile, hypokalemic, hypomagnesemia, elevated d-dimer and with normal lactate and procalcitonin levels noted. CT for PE is ordered. Denies any history of dizziness, pedal edema, wheezing, hemoptysis, recent fall, head trauma, LOC, numbness, change in vision, double/blurry vision, slurred speech, facial deformity, bowel/bladder incontinence, vomiting, abdominal pain, blood in stools, dysuria, hematuria, recent travel, sick contact, recent change in medications. Admission Exam Per Admitting Provider Physical Exam: Vitals signs as noted above General Appearance:Moderately built and nourished, mild distress, diaphoresis Head: normocephalic, Atraumatic, no neck stiffness Eyes: normal inspection, EOMI, PERRL Neck: supple, Trachea midline Respiratory/Chest: Normal breath sounds, CTA, No accessory muscle use, +Right sided chest tenderness Cardiovascular: S1, S2, No murmur Abdomen/GI:Soft, Non tender, distended(unchanged as per patient) Bowel sounds present Extremities/Musculoskelatal:normal inspection, no edema Neurologic/Psych:AAOX3, grossly no focal neurological deficits Skin: normal color, warm Principal Diagnosis (1) Adrenal crisis syndrome: (2) RLL/RML pneumonia: (3) Pleurisy: (4) Hypomagnesemia: (5) Fever: (6) Hypokalemia: (7) CAD (coronary artery disease): (8) Rheumatoid arthritis: (9) [place]ing's disease: (10) Hypertension: (11) Hypothyroidism: (12) Antiphospholipid syndrome: (13) Depression: (14) Sleep apnea: Discharge Exam See below Discharge Data Allergies Allergy/AdvReac Type Severity Reaction Status Date / Time morphine Allergy Unknown ITCHING,HIV Verified 03/19/20 20:55 ES,SOB sulfasalazine AdvReac abdominal Verified 03/19/20 20:55 pain, fever Consultations 03/22/20 21:10 ED Decision to Admit Stat Ordered Studies 03/22/20 22:21 CT angio chest PE protocol Urgent 03/23/20 14:23 FL lumbar puncture diagnostic Routine 03/24/20 09:00 US venous doppler LE BI Routine 03/25/20 10:00 CT abd pelvis IV con only Routine Current Diagnoses Antiphospholipid syndrome (03/22/20) Hypothyroidism, unspecified (03/22/20) Primary adrenocortical insufficiency (03/22/20) Addisonian crisis (03/22/20) Hypomagnesemia (03/22/20) Hypokalemia (03/22/20) Major depressive disorder, single episode, unspecified (03/22/20) Sleep apnea, unspecified (03/22/20) Essential (primary) hypertension (03/22/20) Atherosclerotic heart disease of [place] coronary artery without angina pectoris (03/22/20) Pneumonia, unspecified organism (03/22/20) Gastro-esophageal reflux disease without esophagitis (03/22/20) Rheumatoid arthritis, unspecified (03/22/20) Benign prostatic hyperplasia without lower urinary tract symptoms (03/22/20) Chest pain, unspecified (03/22/20) Pleurisy (03/22/20) Fever, unspecified (03/22/20) Contact with and (suspected) exposure to other viral communicable diseases (03/22/20) Encounter for prophylactic measures, unspecified (03/22/20) Allergies morphine Allergy (Unknown, Verified 03/19/20 20:55) ITCHING,HIVES,SOB sulfasalazine Adverse Reaction (Verified 03/19/20 20:55) abdominal pain, fever Height/Weight/Isolation Height 5 ft 10 in Weight 98.3 kg Isolation Type Removed Precautions Chemistry 03/24/20 03/25/20 03/26/20 06:08 06:10 05:50 Sodium 137 143 144 Potassium 3.6 3.0 L D 2.9 L Chloride 107 112 H 112 H Carbon Dioxide 22 23 24 Anion Gap 7.0 8.0 8.0 BUN 12 12 15 Creatinine 1.09 0.95 1.06 Glucose 93 124 H 121 H Microbiology 03/23/20 15:20 Cerebral Spinal Fluid Gram Stain - Final 03/23/20 15:20 Cerebral Spinal Fluid CSF Culture - Final No growth 03/22/20 20:00 Blood Aerobic Blood Culture - Preliminary No growth in Aerobic bottle after 48 hours. 03/22/20 20:00 Blood Anaerobic Blood Culture - Preliminary No growth in Anaerobic bottle after 48 hours. 03/22/20 19:53 Blood Aerobic Blood Culture - Preliminary No growth in Aerobic bottle after 48 hours. 03/22/20 19:53 Blood Anaerobic Blood Culture - Preliminary No growth in Anaerobic bottle after 48 hours. 03/23/20 02:24 Stool Escherichia coli Shiga Toxins Test - Preliminary 03/23/20 02:24 Stool Stool Culture - Preliminary No Salmonella isolated to date, No Shigella isolated to date, No Campylobacter jejuni isolated to date. Hospital Course (1) Adrenal crisis syndrome: Was ill for one week with excessive diarrhea/fever/N/V and a pneumonia. In adrenal crisis causing fever, weakness, malaise, diarrhea. DC on 40 mg TID of HCT x 7 days, 30 mg TID x 7 days, 20 mg TID x 7 days, then as previously prescribed. (2) RLL pneumonia: DC on 5 days ZMax and 10 days Cefdidir (3) Pleurisy: PRN NSAIDS (4) Hypomagnesemia: 2/2 excessive diarrhea. Resolved. C-diff negative. Lomotil or Imodium PRN OTC. (5) Fever: Adrenal insufficiency + pneumonia. (6) Hypokalemia: Resolved (7) CAD (coronary artery disease): S/P GEOVANNI to LAD on 02/04/2020 -Continue aspirin, Brilinta, atorvastatin, metoprolol Echo and EKG are WNL. Chest pain related to pleurisy. Cont medical management of CAD. (8) Rheumatoid arthritis: -Resume methotrexate (9) Gooding's disease: Stress dose hydrocortisone as above. (10) Hypertension: Cont home regimen. (11) Hypothyroidism: TSH: 0.84 on 01/28/2020 -Continue levothyroxine (12) Antiphospholipid syndrome: H/O DVT after hip replacement in 1999. No further DVT, no PE (13) Depression: Anxiety -Continue fluoxetine, lorazepam prn per home regimen. Avoid Lorazepam with narcotics. (14) Sleep apnea: Intolerant to CPAP (15) DVT prophylaxis: Lovenox Full In PCU CT A&P neg for adrenal mass labs checked ROS-No Headache, No Visual Changes, less Nausea, less Vomiting, No Fever, No Chills, No Neck Pain or Stiffness, No Chest Pain, No Palpitations, No SOB, No COLE, No Cough, No Sputum, No Wheezing, No Abdominal Pain, no Diarrhea, No Hematemesis, No Hemoptysis, No Unexpected Weight Loss, No Flank pain, No Melena, No Hematochezia, No Frequency, No Urgency, No Burning, No Hematuria, No Rashes, No Diaphoresis. Appetite is Normal Physical Exam Gen-AAO x 3, NAD, Afebrile, feels great Head-NCAT, EOMI, PERRLA, Anicteric Sclera, No Posterior Pharyngeal Erythema Neck-Supple, No JVD, No Thyromegaly, No Masses, No LAD, No Bruits Lungs-Clear to Auscultation Bilaterally, No Rales, No Rhonchi, No Wheezing, No Crepitus Chest-No S4, +S1, +S2, No S3, No Murmurs, No Rubs, No Gallops, No Ectopy Abdomen-Soft, Bowel Sounds Present, Non Tender, Non Distended, No Hepatomegaly, No Splenomegaly, No Palpable Masses, No Rebound, No Rigidity, No Guarding Musculoskeletal-Full Range of Motion Bilaterally, No CVAT Extremities-No Cyanosis, No Clubbing, No Edema Nuero-Cranial Nerves II-XII grossly intact, Motor WNL, DTRs WNL, Strength WNL, Non Focal Psych-Normal Mood Total Time Total Time Spent Total Time Spent (In Minutes): 45 mins Total Time Includes: Examination of the Patient, Discharge Planning, Medication Reconciliation and Communication With Other Providers Discharge Plan Discharge Items Patient Disposition: Home - Self-Care Reason For Visit: FEVER, PNA Discharge Diagnosis: (1) Adrenal crisis syndrome: (2) RLL/RML pneumonia: (3) Pleurisy: (4) Hypomagnesemia: (5) Fever: (6) Hypokalemia: (7) CAD (coronary artery disease): (8) Rheumatoid arthritis: (9) Haris's disease: (10) Hypertension: (11) Hypothyroidism: (12) Antiphospholipid syndrome: (13) Depression: (14) Sleep apnea: Condition on Discharge: Good Activity: Resume your previous activity Lifting: Gradually increase as tolerated Bathing: No limitations Sexual Activity: When tolerated Exercise/Sports: Gradually increase as tolerated Driving/Machine Use: No limitations Weightbearing: Full weightbearing Non-emergency contact: Primary Care Provider Call non-emergency contact if: you have any medication questions Follow-up/Referrals: Ethan Bridges DO [Primary Care Provider] - Diet: Heart Healthy Addtl Attending Provider Instructions: None Pending Studies at Discharge: Yes Studies:: Urine Metanephrines finish at 8 am Stand-Alone Forms: My [employer], Smoking Cessation Medications and DC Order Prescriptions: New hydrocortisone 10 mg tablet 10 mg PO TID Qty: 90 RF: 0 cefdinir 300 mg capsule 300 mg PO Q12H 10 Days Qty: 20 RF: 0 azithromycin 500 mg tablet 500 mg PO DAILY 5 Days Qty: 5 RF: 0 Continued Humira Pen 40 mg/0.8 mL Pen Injector Kit 40 mg SUBCUT UD RF: 0 fluoxetine 40 mg Capsule 40 mg PO DAILY RF: 0 levothyroxine 300 mcg tablet 300 mcg PO UD RF: 0 hydrocodone-acetaminophen 5-325 mg Tablet 1 tab PO BID PRN (Reason: Pain) RF: 0 diphenoxylate-atropine [Lomotil] 2.5-0.025 mg Tablet 1 tab PO QID PRN (Reason: Diarrhea) RF: 0 aspirin 81 mg Tablet,Delayed Release (Dr/Ec) 81 mg PO DAILY RF: 0 folic acid 1 mg Tablet 1 mg PO DAILY RF: 0 hydrocortisone [Cortef] 10 mg Tablet 20 mg PO QAM RF: 0 hydrocortisone [Cortef] 10 mg Tablet 10 mg PO QPM RF: 0 hydrocortisone [Cortef] 10 mg Tablet 10 mg PO UD PRN (Reason: illness) RF: 0 albuterol sulfate 90 mcg/actuation Hfa Aerosol Inhaler 2 puff INHALATION QID PRN (Reason: Shortness Of Breath Or Wheezing) RF: 0 fludrocortisone 0.1 mg Tablet 0.05 mg PO DAILY RF: 0 Caltrate 600 plus D 600 mg (1,500 mg)-800 unit Tablet,Chewable 1 tab PO PM RF: 0 terazosin 5 mg capsule 5 mg PO PM RF: 0 methotrexate sodium 25 mg/mL solution 0 mg subcut WK RF: 0 nitroglycerin 0.4 mg tablet, sublingual 0.4 mg sublingual UD RF: 0 atorvastatin 40 mg Tablet 40 mg PO PM 30 Days Qty: 30 RF: 1 lisinopril [Zestril] 5 mg Tablet 5 mg PO QAM 30 Days Qty: 30 RF: 1 pantoprazole [Protonix] 40 mg tablet,delayed release (DR/EC) 40 mg PO DAILY RF: 0 metoprolol succinate [Toprol XL] 25 mg tablet extended release 24 hr 25 mg PO DAILY RF: 0 lorazepam 1 mg Tablet 1 mg PO BID PRN (Reason: Anxiety) RF: 0 fluticasone propionate [Flonase Allergy Relief] 50 mcg/actuation [place],Suspension 2 spray INTRANASAL DAILY RF: 0 Solu-Medrol (PF) 125 mg/2 mL recon soln 125 mg IM UD PRN (Reason: ADRENAL INSUFFICENCY) RF: 0 Brilinta 90 mg tablet 90 mg PO BID RF: 0 Discharge Orders: Discharge Order (Routine); Ordered 03/26/20 Ordered By: Romero Palm Admission Data Admit Date/Time: 03/22/20 21:30 Attending Provider: Romero Palm Admit Provider: Leander Brumfield Primary Care Provider: Ethan Bridges Other Providers: Lorenzo Campuzano
[2020-03-26] MEDS: PIPERACILLIN/TAZOBACTAM 3.375 GM in DEXTROSE 5% 100 ML IV SCH (07:56)
[2020-03-26] MEDS: FLUOXETINE HCL 20 MG CAP PO SCH (09:03)
[2020-03-26] MEDS: TICAGRELOR 90 MG TAB PO SCH (09:03)
[2020-03-26] MEDS: CHOLESTYRAMINE LIGHT 4 GM PKT PO SCH (09:03)
[2020-03-26] MEDS: METOPROLOL SUCC 25MG EXT REL TAB PO SCH (09:03)
[2020-03-26] MEDS: PANTOprazole 40 MG TAB PO SCH (09:03)
[2020-03-26] MEDS: LIDOCAINE 5% 1 PATCH TD SCH (09:04)
[2020-03-26] MEDS: ASPIRIN 81 MG ECTAB PO SCH (09:04)
[2020-03-26] MEDS: FOLIC ACID 1 MG TAB PO SCH (09:04)
[2020-03-26] MEDS: ENOXAPARIN INJ 40 MG/0.4 ML SYR SQ SCH (09:04)
[2020-03-27 18:48] LABS: Enterovirus RNA by PCR Not Detected (Not Detected); Lyme DNA PCR CSF or Synovial Not detected (Not Detected); Lyme DNA Source CSF
[2020-04-03 03:03] LABS: Normetanephrine, Ur 132 mcg/24 h (122-676); Total Metanephrine 132 mcg/24 h (224-832)
== END 2020-03-26 11:22 | disposition home or self-care (01) | DRG 643 ==
LOC: ED 19:09 → 2N 21:30 → SUATTDRO 21:30 → 2N 03-23 00:44 → 2S 03-23 14:26

== ENCOUNTER 2024-12-03 10:39 | Observation (INO) ==
--- NOTE | 2024-11-10 14:21 | PAT Medication Instructions ---
Medication Instructions Date of Service November 10, 2024 Home Medications adalimumab 40 mg/0.8 mL subcutaneous pen kit (Humira Pen) 40 mg subcut .Q2WK albuterol sulfate 90 mcg/actuation aerosol inhaler 2 puff inhalation QID PRN Shortness Of Breath Or Wheezing aspirin 81 mg tablet,delayed release 81 mg PO DAILY calcium 600 mg (as carbonate)-vit D3 20 mcg (800 unit) chewable tablet (Caltrate plus D) 1 tab PO QAM diphenoxylate-atropine 2.5 mg-0.025 mg tablet (Lomotil) 1 tab PO BID PRN Diarrhea fludrocortisone 0.1 mg tablet 0.1 mg PO QAM fluoxetine 40 mg capsule 40 mg PO QAM folic acid 1 mg tablet 1 mg PO DAILY hydrocodone 5 mg-acetaminophen 325 mg tablet 1 tab PO BID PRN Pain hydrocortisone 10 mg tablet (Cortef) 5 - 20 mg PO BID HIGH STRESS methotrexate sodium 25 mg/mL injection solution 17.5 mg subcut WK nitroglycerin 0.4 mg sublingual tablet 0.4 mg sublingual DIRECTED PRN Chest Pain terazosin 5 mg capsule 5 mg PO HS fluticasone propionate 50 mcg/actuation nasal spray,suspension (Flonase Allergy Relief) 2 spray intranasal HS methylprednisolone sod suc(PF) 125 mg/2 mL solution for injection (Solu-Medrol (PF)) 125 mg IM UD PRN ADRENAL INSUFFICENCY metoprolol succinate 25 mg tablet,extended release 24 hr (Toprol XL) 25 mg PO HS pantoprazole 40 mg tablet,delayed release (Protonix) 40 mg PO QAM atorvastatin 40 mg tablet 40 mg PO QAM diphenhydramine HCl 25 mg capsule (Benadryl) 50 mg PO HS PRN Itching levothyroxine 125 mcg tablet 125 mcg PO 6XWK lisinopril 10 mg tablet 20 mg PO QAM multivitamin 1 tab PO DAILY potassium chloride 20 mEq tablet,extended release(part/cryst) 20 meq PO QAM adalimumab-atto 40 mg/0.4 mL subcutaneous syringe (Amjevita(CF)) 40 mg subcut UD zoledronic acid 5 mg/100 mL in mannitol 5 %-water intravenous piggybck (Reclast) 1 ea IV YEARLY Continue as directed nitroglycerin 0.4 mg sublingual tablet 0.4 mg sublingual DIRECTED PRN Chest Pain (if needed) levothyroxine ASK your prescriber and surgeon aspirin 81 mg tablet,delayed release 81 mg PO DAILY adalimumab 40 mg/0.8 mL subcutaneous pen kit (Humira Pen) 40 mg subcut .Q2WK adalimumab-atto 40 mg/0.4 mL subcutaneous syringe (Amjevita(CF)) 40 mg subcut UD zoledronic acid 5 mg/100 mL in mannitol 5 %-water intravenous piggybck (Reclast) 1 ea IV YEARLY STOP 7 days prior to surgery methotrexate sodium 25 mg/mL injection solution 17.5 mg subcut WK DO NOT take the morning of surgery calcium 600 mg (as carbonate)-vit D3 20 mcg (800 unit) chewable tablet (Caltrate plus D) 1 tab PO QAM diphenoxylate-atropine 2.5 mg-0.025 mg tablet (Lomotil) 1 tab PO BID PRN Diarrhea folic acid 1 mg tablet 1 mg PO DAILY lisinopril 10 mg tablet 20 mg PO QAM multivitamin 1 tab PO DAILY potassium chloride 20 mEq tablet,extended release(part/cryst) 20 meq PO QAM Take morning of surgery With a small sip of water, OTHERWISE NOTHING TO EAT OR DRINK AFTER MIDNIGHT: albuterol sulfate 90 mcg/actuation aerosol inhaler 2 puff inhalation QID PRN Shortness Of Breath Or Wheezing (use if needed; please bring rescue inhaler with you to hospital day of surgery if possible) fludrocortisone 0.1 mg tablet 0.1 mg PO QAM fluoxetine 40 mg capsule 40 mg PO QAM hydrocodone 5 mg-acetaminophen 325 mg tablet 1 tab PO BID PRN Pain (if needed) hydrocortisone 10 mg tablet (Cortef) 5 - 20 mg PO BID HIGH STRESS methylprednisolone sod suc(PF) 125 mg/2 mL solution for injection (Solu-Medrol (PF)) 125 mg IM UD PRN ADRENAL INSUFFICENCY (if needed) pantoprazole 40 mg tablet,delayed release (Protonix) 40 mg PO QAM atorvastatin 40 mg tablet 40 mg PO QAM Take evening before surgery albuterol sulfate 90 mcg/actuation aerosol inhaler 2 puff inhalation QID PRN Shortness Of Breath Or Wheezing (if needed) diphenoxylate-atropine 2.5 mg-0.025 mg tablet (Lomotil) 1 tab PO BID PRN Diarrhea (if needed) hydrocodone 5 mg-acetaminophen 325 mg tablet 1 tab PO BID PRN Pain (if needed) hydrocortisone 10 mg tablet (Cortef) 5 - 20 mg PO BID HIGH STRESS terazosin 5 mg capsule 5 mg PO HS fluticasone propionate 50 mcg/actuation nasal spray,suspension (Flonase Allergy Relief) 2 spray intranasal HS methylprednisolone sod suc(PF) 125 mg/2 mL solution for injection (Solu-Medrol (PF)) 125 mg IM UD PRN ADRENAL INSUFFICENCY (if needed) metoprolol succinate 25 mg tablet,extended release 24 hr (Toprol XL) 25 mg PO HS diphenhydramine HCl 25 mg capsule (Benadryl) 50 mg PO HS PRN Itching (if needed) Other Notes If you have any questions please call us at [phone] or [phone] or [phone] or [phone]
--- NOTE | 2024-11-12 11:30 | Anesthesiology Consultation ---
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 Will leave to surgeon's discretion if preop Covid testing needed Seen by cardio 11/03/24= seen for cardiology follow up and preop evaluation. Feels well from cardiac standpoint. No symptoms. No decline in functional status outside of knee slowing him down. BP controlled. EKG done in office today. Compliant with meds. Doing well from cardiac perspective, no acute changes on exam. No acute EKG changes. Plan is for nuclear stress test to exclude ischemia and proceed with preop clearance. Will recheck ECHO due to ischemic CM (does NOT have to be done prior to clearance as he had an ECHO within the past year). HTN- BP controlled. Continue meds HLD- on statin. THIERRY- on CPAP. Addendum 11/12/24= Patient underwent nuclear stress testing as required for preoperative clearance. Test results have been received and reviewed and are negative for inducible ischemia. Per Frank criteria patient was counseled that he would be placed at moderate risk for any adverse perioperative cardiovascular events associated with orthopedic surgery. Patient is on a good medication regimen and no other cardiac testing or interventions would further lower that risk. Patient states he understands and is accepting of that risk and wishes to proceed with surgery. Patient should take metoprolol the morning of surgery with sip of water. Follow-up in 1 year. Per rheum phone note 10/16/24= Patient has not been on biologic currentlyHumira no longer covered. Awaiting assistance for AmBiomass [facility]. Will need to contact pharmacy to find out what is going on. If patient does get approval for assistance for Amjevita and restarts before surgerywould hold 2 weeks prior to surgery. Would be able to resume 2 weeks after surgery. Does not need to stop methotrexate for surgery. Teaching & Discussion Pre-Anesthesia Teaching/Discussion Notes: Instructed NPO after midnight before surgery,except medications with 15 cc of water. Medication instructions provided according to the PAT guidelines. History Surgery Operation Date: 12/03/24 12:35 Proposed Procedures p Left Total Knee Arthroplasty - Cal Dubon MD Height/Weight Height: 5 ft 9 in Weight: 107.6 kg Allergies Allergy/AdvReac Type Severity Reaction Status Date / Time morphine Allergy Severe ITCHING,HIV Verified 11/06/24 13:13 ES,SOB sulfasalazine AdvReac Intermediate abdominal Verified 11/06/24 13:13 pain, fever Medications Home Medications Medication Instructions Recorded Confirmed Last Taken albuterol sulfate 90 mcg/actuation 2 puff inhalation QID PRN 02/04/20 11/06/24 02/04/20 aerosol inhaler Shortness Of Breath Or Wheezing aspirin 81 mg tablet,delayed 81 mg PO DAILY 02/04/20 11/06/24 02/17/23 release calcium 600 mg (as carbonate)-vit 1 tab PO QAM 02/04/20 11/06/24 02/17/23 D3 20 mcg (800 unit) chewable tablet (Caltrate plus D) diphenoxylate-atropine 2.5 1 tab PO BID PRN Diarrhea 02/04/20 11/06/24 03/22/20 mg-0.025 mg tablet (Lomotil) fludrocortisone 0.1 mg tablet 0.1 mg PO QAM 02/04/20 11/06/24 02/17/23 fluoxetine 40 mg capsule 40 mg PO QAM 02/04/20 11/06/24 02/17/23 folic acid 1 mg tablet 1 mg PO DAILY 02/04/20 11/06/24 02/17/23 hydrocodone 5 mg-acetaminophen 325 1 tab PO BID PRN Pain 02/04/20 11/06/24 02/03/20 mg tablet hydrocortisone 10 mg tablet 5 - 20 mg PO BID HIGH STRESS 02/04/20 11/06/24 Unknown (Cortef) methotrexate sodium 25 mg/mL 17.5 mg subcut WK 02/04/20 11/06/2423 injection solution nitroglycerin 0.4 mg sublingual 0.4 mg sublingual DIRECTED PRN 02/04/20 11/06/24 Unknown tablet Chest Pain terazosin 5 mg capsule 5 mg PO HS 02/04/20 11/06/24 02/17/23 fluticasone propionate 50 2 spray intranasal HS 03/22/20 11/06/24 02/17/23 mcg/actuation nasal spray,suspension (Flonase Allergy Relief) methylprednisolone sod suc(PF) 125 125 mg IM UD PRN ADRENAL 03/22/20 11/06/24 Unknown mg/2 mL solution for injection INSUFFICENCY (Solu-Medrol (PF)) metoprolol succinate 25 mg 25 mg PO HS 03/22/20 11/06/24 02/17/23 tablet,extended release 24 hr 2 DOSES TODAY (Toprol XL) pantoprazole 40 mg tablet,delayed 40 mg PO QAM 03/22/20 11/06/24 02/17/23 release (Protonix) atorvastatin 40 mg tablet 40 mg PO QAM 02/17/23 11/06/24 02/17/23 diphenhydramine HCl 25 mg capsule 50 mg PO HS PRN Itching 02/17/23 11/06/24 Unknown (Benadryl) levothyroxine 125 mcg tablet 125 mcg PO 6XWK 02/17/23 11/06/24 02/17/23 lisinopril 10 mg tablet 20 mg PO QAM 02/17/23 11/06/24 02/17/23 multivitamin 1 tab PO DAILY 02/17/23 11/06/24 02/17/23 potassium chloride 20 mEq 20 meq PO QAM 02/17/23 11/06/24 02/17/23 tablet,extended release(part/cryst) adalimumab-atto 40 mg/0.4 mL 40 mg subcut UD 11/06/24 11/06/24 Unknown subcutaneous syringe (Amjevita(CF)) zoledronic acid 5 mg/100 mL in 1 ea IV YEARLY 11/06/24 11/06/24 Unknown mannitol 5 %-water intravenous piggybck (Reclast) Past Medical History Medical History (Updated 11/12/24 @ 13:01 by Zaina Pulido PA-C) 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 Antiphospholipid antibody syndrome - dx in 1999, has not had any further treatment, had dvt in 1999 (provoked)- none since - no current AC BPH (benign prostatic hyperplasia) CAD (coronary artery disease) - s/p GEOVANNI overlapping x 2 to mLAD 02/04/2020 Cervical stenosis of spine full rom Depression with anxiety Dyslipidemia GERD (gastroesophageal reflux disease) well controlled and stable Hx of deep venous thrombosis (1999) "provoked, associated with hip replacement"-- lovenox, coumadin post-op, no clots since Hx of fracture of ankle left x 2 (most recent 2007) Hx of fracture of rib (07/2016) "fell out of a tree and broke 6 ribs on my right side" - inpatient at [facility] in ICU Hx of myocardial infarction (2019) [facility], [place], 2 stents, follows with [facility] (11/03/24- ordered a nuc stress test for 11/10/24 at [facility]) Hypertension Hypothyroid Ischemic cardiomyopathy Mild- EF initially 40-44%- improved to 55/59% on 09/2023 ECHO Lung nodule feels this is a rheumatoid nodule- monitored- had cxr/ CT 10/2024 at [facility] 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"- follows with Rheum Oberman's office Sleep apnea unable to tolerate cpap Exercise / Class Metabolic Activity II 4-5 Yardwork/Stairs/Walk up hill (one flight of stairs - no chest pain or SOB - goes slower due to knee pain ) Past Family History Family History Sister Diabetes Thyroid disease Graves Son Thyroid disease hypothyroidism Brother Cancer brain CA Father FH: abdominal aortic aneurysm Past Surgical History Surgical History History of carpal tunnel release of both wrists History of esophagogastroduodenoscopy (EGD) History of heart artery stent (2019) [place], [place], 2 stents, follows with [facility] (11/03/24- ordered a nuc stress test for 11/10/24 at [facility]) History of surgery on left wrist "artifical joint" Hx of bilateral hip replacements (1999) Hx of cardiac catheterization (02/04/20) [facility], [place], 2 stents, follows with [facility] (11/03/24- ordered a nuc stress test for 11/10/24 at [facility]) Hx of cholecystectomy Hx of colonoscopy Hx of decompression of ulnar nerve left Hx of repair of right rotator cuff + collar bone S/P cervical spinal fusion (2020) full ROM- ?C4-C5-C6 Dr. Mota Past Anesthesia History No Hx of Anesthesia Complications and No Family Hx of Anesthesia Complications History of PONV No Hx of PONV and No Hx of Motion Sickness Social History Smoking Status: Former smoker tobacco type: cigarettes Do You Dip or Chew Tobacco: No Smoking End Date: quit 1989 Hx Alcohol Use: Yes Alcohol type: hard liquor alcohol intake frequency: a few times a month Alcohol Intake Frequency Comment: gin and tonic every once in awhile Hx Substance Use: No substance use type: does not use Review of Systems - Hx of blood transfusion post op from [facility] ( donated blood) Patient denies chest pain, shortness of breath, dyspnea on exertion, cough, wheezing, palpitations. No hx of seizures, stroke, [place]. Physical Exam Vital Signs VITALS BP 116/74 P 67 TEMP 97.6 SP02 95% RESP 16 Constitutional no acute distress ENMT Mouth: no TMJ clicking Thyromental Distance: > or= 3.5 Finger Breadths (3.5) Mallampati Class: I Partial denture on top and bottom Neck + short neck, + thick neck and + limited neck extension (mild) Respiratory normal respiratory effort; no respiratory distress Auscultation: lungs clear to auscultation bilaterally; no wheezes Cardiovascular Rate/Rhythm: regular rate and regular rhythm Heart Sounds: no murmur Vessels: no carotid bruit Musculoskeletal Spine: no pain with cervical ROM Extremities: extremities normal to inspection Psychiatric Orientation: alert Lab Results Anesthesia Preop Results Results Anesthesia Widget: PT 10.7 Seconds (9.0-12.0) 11/12/24 PTT 30 Seconds (21-31) 11/12/24 INR 1.0 (0.9-1.1) 11/12/24 Urine Color Dark Yellow 11/12/24 Urine Appearance Clear (Clear) 11/12/24 Urine pH 5.5 (4.5-7.5) 11/12/24 Urine Specific Ragland 1.032 (1.000-1.030) H 11/12/24 Urine Protein Trace (Negative) H 11/12/24 Urine Glucose (UA) Negative (Negative) 11/12/24 Urine Ketones Trace (Negative) H 11/12/24 Urine Blood Negative (Negative) 11/12/24 Urine Nitrite Negative (Negative) 11/12/24 Urine Bilirubin 1+ (Negative) H 11/12/24 Urine Urobilinogen Negative (Negative) 11/12/24 Urine Leukocyte Esterase Trace (Negative) H 11/12/24 Urine WBC (Auto) 0-5 /hpf (0-5) 11/12/24 Urine RBC (Auto) 3-5 /hpf (0-2) H 11/12/24 Urine Hyaline Casts (Auto) 0-2 /lpf (0-2) 11/12/24 Urine Epithelial Cells (Auto) 0-2 /hpf (0-2) 11/12/24 Urine Bacteria (Auto) None Seen (None Seen) 11/12/24 Blood Type O Positive 11/12/24 Antibody Screen NEGATIVE 11/12/24 Testing Laboratory Results 11/06/24= WBC: 8.10 H/H: 13.1/39.0 PLATELETS: 217 SODIUM: 144 POTASSIUM: 4.1 CHLORIDE: 106 CO2: 26 BUN: 16 CREATININE: 1.0 GLUCOSE: 108 TSH: 2.30 Electrocardiogram Date: 11/03/24 Findings: + SB @ (57bpm) Otherwise normal EKG per cardio Echocardiogram Date: 09/12/23 EF: 55-59% LV Function: normal Other Findings: + LVH (moderate/concentric) and + diastolic dysfunction (Grade I ) LV cavity size is normal Mild MR and TR Stress Test Date: 11/10/24 Type: nuclear Pharmacologic myocardial perfusion imaging study is normal without evidence of scar or inducible ischemia. Gated SPECT images reveal normal myocardial thickening and wall motion. Calculated LVEF = 60% (normal). Cardiac Catheterization Date: 02/04/20 Coronary Anatomy Dominant: Right Left Main (% Stenosis): Normal LAD (% Stenosis): Ostial (40%) and Proximal (100%) D1 (% Stenosis): Mid (10%) D2 (% Stenosis): Mid (10%) Circumflex (% Stenosis): Proximal (10%) and Mid (10%) OM1 (% Stenosis): Mid (10%) L PL1 (% Stenosis): Proximal (10%) and Mid (10%) L PL2 (% Stenosis): Mid (10%) RCA (% Stenosis): Normal R PDA (% Stenosis): Normal R PL1 (% Stenosis): Normal AM (% Stenosis): Normal Summary: 1. Successful PCI of proximal to mid acute on chronic LAD occlusion with 2 overlapping drug-eluting stents (4.0 x 30, 2.5 x 30 [place]). 2. Normal intracardiac filling pressure Cervical Spine Date: 11/12/24 IMPRESSION: 1. Marked straightening of the cervical spine secondary to muscular spasm. 2. Limited range of motion on flexion/extension cervical spine series likely secondary to fusion. 3. Minimal grade 1 anterolisthesis of C3 over C4 in flexion view only. 4. Anterior spinal fusion C4-6 vertebral bodies with anterior discectomy and intact hardware association. 4. Moderate to severe cervical spondylosis at lower cervical levels. 5. Moderate degenerative changes with facet joint arthropathy at lower cervical levels. Other Testing Chest CT 09/29/24= Stable pulmonary nodules, unchanged since 08/20/2012, consistent with benign etiology. Mild prominence of the ascending aorta, 40mm. Marked bilateral adrenal atrophy.
--- NOTE | 2024-11-29 11:00 | History & Physical Report ---
Date of Service November 29, 2024 Assessment & Plan (1) Rheumatoid arthritis involving left knee: Plan: Advanced left knee rheumatoid arthritis failed conservative management including maximal medical management by rheumatology and injections. Proceed with left knee replacement. May need electrocautery synovectomy. Rheumatoid factor presence: unspecified presence Qualified Code (s): M06.9 - Rheumatoid arthritis, unspecified History of Present Illness Chief Complaint: Chronic left knee pain Primary Care Provider: Ethan Queen DO 69-year-old male with chronic left knee pain has rheumatoid arthritis has had injections without the nonprogressive radiographs on x-rays presents for knee replacement Patient denies headaches, sweats, fevers, chills, double vision, blurred vision, cough, sore throat, dysphagia, chest pain (recently but has had in past), sob at rest (but does if runs), wheezing, n/v/d/c, numbness, tingling, fatigue, urinary symptoms, mood disorders. ROS positive for Kory thyroiditis previous heart attack previous blood clot arthritis multiple joints acid reflux. Allergies Allergy/AdvReac Type Severity Reaction Status Date / Time morphine Allergy Severe ITCHING,HIV Verified 11/06/24 13:13 ES,SOB sulfasalazine AdvReac Intermediate abdominal Verified 11/06/24 13:13 pain, fever Home Medications Medication Instructions Recorded Confirmed Type albuterol sulfate 90 mcg/actuation 2 puff inhalation QID PRN 02/04/20 11/06/24 History aerosol inhaler Shortness Of Breath Or Wheezing aspirin 81 mg tablet,delayed 81 mg PO DAILY 02/04/20 11/06/24 History release calcium 600 mg (as carbonate)-vit 1 tab PO QAM 02/04/20 11/06/24 History D3 20 mcg (800 unit) chewable tablet (Caltrate plus D) diphenoxylate-atropine 2.5 1 tab PO BID PRN Diarrhea 02/04/20 11/06/24 History mg-0.025 mg tablet (Lomotil) fludrocortisone 0.1 mg tablet 0.1 mg PO QAM 02/04/20 11/06/24 History fluoxetine 40 mg capsule 40 mg PO QAM 02/04/20 11/06/24 History folic acid 1 mg tablet 1 mg PO DAILY 02/04/20 11/06/24 History hydrocodone 5 mg-acetaminophen 325 1 tab PO BID PRN Pain 02/04/20 11/06/24 History mg tablet hydrocortisone 10 mg tablet 5 - 20 mg PO BID HIGH STRESS 02/04/20 11/06/24 History (Cortef) methotrexate sodium 25 mg/mL 17.5 mg subcut WK 02/04/20 11/06/24 History injection solution nitroglycerin 0.4 mg sublingual 0.4 mg sublingual DIRECTED PRN 02/04/20 11/06/24 History tablet Chest Pain terazosin 5 mg capsule 5 mg PO HS 02/04/20 11/06/24 History fluticasone propionate 50 2 spray intranasal HS 03/22/20 11/06/24 History mcg/actuation nasal spray,suspension (Flonase Allergy Relief) methylprednisolone sod suc(PF) 125 125 mg IM UD PRN ADRENAL 03/22/20 11/06/24 History mg/2 mL solution for injection INSUFFICENCY (Solu-Medrol (PF)) metoprolol succinate 25 mg 25 mg PO HS 03/22/20 11/06/24 History tablet,extended release 24 hr (Toprol XL) pantoprazole 40 mg tablet,delayed 40 mg PO QAM 03/22/20 11/06/24 History release (Protonix) atorvastatin 40 mg tablet 40 mg PO QAM 02/17/23 11/06/24 History diphenhydramine HCl 25 mg capsule 50 mg PO HS PRN Itching 02/17/23 11/06/24 History (Benadryl) levothyroxine 125 mcg tablet 125 mcg PO 6XWK 02/17/23 11/06/24 History lisinopril 10 mg tablet 20 mg PO QAM 02/17/23 11/06/24 History multivitamin 1 tab PO DAILY 02/17/23 11/06/24 History potassium chloride 20 mEq 20 meq PO QAM 02/17/23 11/06/24 History tablet,extended release(part/cryst) adalimumab-atto 40 mg/0.4 mL 40 mg subcut UD 11/06/24 11/06/24 History subcutaneous syringe (Amjevita(CF)) zoledronic acid 5 mg/100 mL in 1 ea IV YEARLY 11/06/24 11/06/24 History mannitol 5 %-water intravenous piggybck (Reclast) Past Med/Surg History Problem List (Updated 11/29/24 @ 11:04 by Cal Dubon MD) Rheumatoid arthritis involving left knee Encounter for pre-operative examination Hypomagnesemia CAD (coronary artery disease) Dyslipidemia, goal LDL below 70 Status post insertion of drug-eluting stent into left anterior descending (LAD) artery Ischemic cardiomyopathy S/P cervical spinal fusion (Chronic) History of repair of right rotator cuff (Chronic) Status post carpal tunnel release (Chronic) Status post hip replacement (Chronic) "bilat" Status post cholecystectomy (Chronic) Ulnar nerve entrapment (Chronic) "s/p repair" BPH (benign prostatic hyperplasia) (Chronic) Cervical stenosis of spinal canal Sleep apnea (Chronic) "intolerant of CPAP" Rheumatoid arthritis (Chronic) GERD (gastroesophageal reflux disease) (Chronic) Antiphospholipid syndrome (Chronic) Hypertension (Chronic) Depression (Chronic) Hypothyroidism (Chronic) History of DVT of lower extremity (Chronic) "provoked, associated with hip replacement" Haris's disease (Chronic) Medical History Dyslipidemia Lung nodule feels this is a rheumatoid nodule- monitored- had cxr/ CT 10/2024 at [facility] Hx of myocardial infarction (2019) [facility] [place], [place], 2 stents, follows with [facility] (11/03/24- ordered a nuc stress test for 11/10/24 at [facility]) Hx of fracture of ankle left x 2 (most recent 2007) Depression with anxiety Antiphospholipid antibody syndrome - dx in 1999, has not had any further treatment, had dvt in 1999 (provoked)- none since - no current AC BPH (benign prostatic hyperplasia) Ischemic cardiomyopathy Mild- EF initially 40-44%- improved to 55/59% on 09/2023 ECHO Hx of deep venous thrombosis (1999) "provoked, associated with hip replacement"-- lovenox, coumadin post-op, no clots since Cervical stenosis of spine full rom GERD (gastroesophageal reflux disease) well controlled and stable 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"- follows with Rheum [facility]'s office Sleep apnea unable to tolerate cpap 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 ethan queen- pcp [facility] [address] (will see on 11/17/24) - states needs solumedrol prior to having surgery - currently on daily fludrocortisone/hydrocortisone - Hx of adrenal crisis 03/2020 Hypothyroid Hypertension CAD (coronary artery disease) - s/p GEOVANNI overlapping x 2 to mLAD 02/04/2020 Hx of fracture of rib (07/2016) "fell out of a tree and broke 6 ribs on my right side" - inpatient at [facility] [place] in ICU Surgical History History of heart artery stent (2019) [place], [place], 2 stents, follows with [facility] (11/03/24- ordered a nuc stress test for 11/10/24 at [facility]) History of surgery on left wrist "artifical joint" History of esophagogastroduodenoscopy (EGD) Hx of colonoscopy Hx of bilateral hip replacements (1999) Hx of repair of right rotator cuff + collar bone Hx of decompression of ulnar nerve left History of carpal tunnel release of both wrists Hx of cholecystectomy S/P cervical spinal fusion (2020) full ROM- ?C4-C5-C6 Dr. Mota Hx of cardiac catheterization (02/04/20) [facility] [place] [place], 2 stents, follows with [facility] (11/03/24- ordered a nuc stress test for 11/10/24 at [facility]) Family History Sister Diabetes Thyroid disease Graves Son Thyroid disease hypothyroidism Brother Cancer brain CA Father FH: abdominal aortic aneurysm Social History Smoking Status: Former smoker Tobacco Type: Cigarettes Smoking End Date: quit 1989; Second Hand Exposure: No; Do You Dip or Chew Tobacco: No; Tobacco Cessation Education Requested by Patient: No Hx Alcohol Use: Yes Alcohol type: hard liquor Hx Substance Use: No Preferred Language: Amharic Communication Ability: Effective Communication Ability Comment: Deaf right ear Nonprofit Financial Controller Required: No Beliefs That Will Affect Care: None Current Living Situation: Spouse Other Information That Helps Us Care for You: No Feels Safe at Home: Yes Safety Concerns: Feels Safe At This Time Assistive Devices: Cane, Denture - Upper, Denture - Lower and Glasses Assistive Devices Comment: partial plates Review of Systems All systems reviewed & are unremarkable except as noted in HPI & below Physical Exam Constitutional: WD/WN, vitals as above Respiratory: normal respiratory effort; no respiratory distress Cardiovascular: Rate/Rhythm: regular rate and regular rhythm Musculoskeletal: Left knee pain medial and lateral joint line pain moderate swelling moderate knee joint effusion mild varus alignment some crepitation with range of motion no instability and 0 through 135 degrees range of motion. Distal circulation sensorimotor exam intact Skin: no rashes, warm and dry Neurologic: normal touch/pain/proprioception Psychiatric: A+Ox3, euthymic affect Results & Data Diagnostic Findings X-rays left knee demonstrate on the flexion views medial compartment he has subluxation of the femur medially on the tibia and is close to if not [id number] medial compartment.
[~2024-12-03 10:39] MED LIST changes: -ATV/1 PO; -CALC600T9 PO; -DIPH-416 PO; -FEXO1TAB49 PO; -FLUD0.1T10 PO; -FLUO40CA8 PO; -FOLI1TAB8 PO; -HYD10 PO; -LBT/300 PO; -LEFL10TA PO; -LEVO300T2 PO; -MELO-84 PO; -MTHI50 INJ; -MULT-506 PO; -OMEG-112 PO; -ONDA4TAB46 PO; -PANT40TA PO; -PSEU12TA PO; +ROPIVACAINE 0.5% 5 MG/ML 30 ML VIAL ONE; -TERA5CAP PO; -TIZA4CAP PO; -VICODIN PO; -VNTHFA/IN INH
[2024-12-03] MEDS: LR 500ML BOLUS, THEN 15ML/HR IV SCH (11:16)
[2024-12-03] MEDS: LR 60ML/HR IV SCH (11:16)
[2024-12-03] MEDS: METOCLOPRAMIDE HCL 10 MG TABLET PO SCH (11:25)
[2024-12-03] MEDS: dexAMETHasone**PF** 10 MG/ML VIAL IV SCH (11:25)
[2024-12-03] MEDS: GABAPENTIN 300 MG CAP PO SCH (11:26)
[2024-12-03] MEDS: CeleBREX 200 MG CAP PO SCH (11:26)
[2024-12-03] MEDS: FAMOTIDINE 20 MG TAB PO SCH (11:26)
[2024-12-03] MEDS: ACETAMINOPHEN 500 MG TAB PO SCH ×2 (11:27→21:29)
[2024-12-03] MEDS ORDERED: MIDAZOLAM HCL 1 MG/ML 2ML VIAL ONE ×2 (11:39→13:09)
[2024-12-03] MEDS ORDERED: KETOROLAC 30 MG/ML VIAL IV PRN (12:17)
[2024-12-03] MEDS ORDERED: HYDROmorphone INJ 1 MG/ML SYRINGE IV PRN (12:17)
[2024-12-03] MEDS ORDERED: ATROPINE SULFATE 0.1 MG/ML 10ML SYR IV PRN (12:17)
[2024-12-03] MEDS ORDERED: ePHEDrine sulfate 50 MG/ML AMP IV PRN (12:17)
[2024-12-03] MEDS ORDERED: ONDANSETRON INJ 2 MG/ML 2 ML VIAL IV PRN ×2 (12:17→16:08)
--- NOTE | 2024-12-03 12:23 | History & Physical Bridge Note ---
Date of Service December 03, 2024 History & Physical Bridge Note I have examined the patient, reviewed the History & Physical and in the interval since the performance of the History & Physical I have noted the following changes of clinical significance: no changes noted
[2024-12-03] MEDS: TRANEXAMIC ACID 1,000 MG **IV Pre-op IV SCH (12:37)
[2024-12-03] MEDS ORDERED: PROPOFOL IV EMULSION 10 MG/ML 100 ML VIAL IV ONE (13:01)
[2024-12-03] MEDS ORDERED: HYDROCORTISONE SOD SUCCINATE 100 MG/2 ML VIAL ONE (13:01)
[2024-12-03] MEDS: ceFAZolin 2000MG 2,000 MG/15 ML SYR IV SCH ×2 (13:07→21:45)
[2024-12-03] MEDS ORDERED: KETAMINE HCL 10MG/ML SYR ONE (13:10)
[2024-12-03] MEDS: ROPIV 0.5% 246mg, Ketorolac 30mg, EPINEPHrine 0.5mg in NSS INFIL SCH (14:30)
[2024-12-03] MEDS: TRANEXAMIC ACID 1,000 MG **IV Intra-op IV SCH (14:42)
--- NOTE | 2024-12-03 15:09 | Operative Report ---
Post Operative Report Pre & Post Diagnosis Operation Date: 12/03/24 12:45 Pre-Op Diagnosis: Left knee osteoarthritis and rheumatoid arthritis left knee Post-Op Diagnosis: Left knee osteoarthritis and rheumatoid arthritis left knee I identified the patient and participated in the time-out.: Yes Procedure Operation Date: 12/03/24 12:45 Actual Procedures p Left Total Knee Arthroplasty(Left) application dax and Acticoat superficial wound VAC- Cal Dubon MD Surgeon Cal Dubon MD Sales And Marketing Manager Mason BREAUX Estimated Blood Loss 5 Findings Consistent with Post-Op Diagnosis Specimens Bone cuts Drains 2 Hemovac Anesthesia Type MAC Spinal Regional Complications none Disposition Disposition: Recovery Room Indications 69-year-old male with chronic left knee pain failed conservative management including injections and medication. Radiographically he had some progressive osteoarthritis now [id number] on flexion views in the medial compartment with some medial compartment osteophytes and subchondral sclerotic changes. Historically has rheumatoid arthritis but radiographically looks more like osteoarthritis Description of Procedure Patient was taken to the operating room placed supine on the operating table and anesthetized under spinal MAC regional block anesthesia. Exam under anesthesia demonstrated good range of motion little bit hyperextension and no effusion with a varus knee no pseudolaxity and no instability.. A pneumatic tourniquet was placed about the thigh of the left lower extremity. The left lower extremity was prepped and draped in usual sterile fashion. The leg was elevated exsanguinated with an Esmarch bandage and the pneumatic tourniquet was raised to 325 mm mercury. An anterior incision was made across the left knee. The skin was incised longitudinally subcutaneous flaps were elevated and an incision was made through the medial retinaculum extending up into the mid third of the quadriceps tendon and extended down to the medial tibial tubercle. Intra- articular findings demonstrated patellofemoral medial compartment osteoarthritis chronic posterior horn medial meniscus tear and anterior medial osteoarthritis grade 4 on the medial femoral condyle and anterior medial tibia also with grade 3 changes there as well and grade 3 changes in the patellofemoral joint medially. The knee was exposed by excising the infrapatellar fat pad, excising the meniscal remnants and anterior cruciate ligament. Any inflamed synovial tissue was resected. The fat pad over the anterior femur was resected for placement of the component in that area. The lateral synovial bands were release. The femur was exposed. The custom femoral cutting block was pinned in position. The distal femoral cutting block was applied. The distal femoral cut was made with the oscillating saw. Bone quality was very hard and solid bone. The size 9, 4-in-1 cutting block was placed. The anterior and posterior chamfer cuts were made. The knee was extended and a subperiosteal peel lateral release was performed around the patella. The patella width was measured and width was reproduced using freehand cut technique. The 32 millimeter symmetrical patella was used. 3 drill holes are made for the pegs. The tibia was exposed. A custom tibial cutting block was positioned and drill holes were made for the cutting guide. Cutting guide was placed and the proximal cut was made with the oscillating saw. All osteophytes were resected. The lamina linux kernel developer was used to assess ligamentous balance and the ligaments were balanced in extension and flexion. Medial capsular releases off the tibia and minor posterior medial releases were required. The tibia was reexposed and measured for a size E tibial component. This was externally rotated in line with the tibial tubercle and the fixation pins were drilled. The proximal tibia was fashioned with the drill and punch. The size 9 CR femoral trial was inserted. The trial MC inserts were used. The 10 mm insert gave balanced ligaments through full range of motion. The patella tracked centrally. the trials were removed. The orthomix anesthetic cocktail was injected per protocol. The knee was then copiously irrigated with pulsatile lavage saline solution. The final components were cemented with Refobacin bone cement. The final components were Terry persona size 9 standard CR left femoral component with a left knee tibial component and a 10 mm MC tibial polyethylene with a 32 mm symmetrical patella. After the cement cured with the knee in full extension the Betadine soak was used per protocol. The knee joint was copiously irrigated with pulsatile lavage saline solution . 2 drains were brought out laterally and connected to a Hemovac. The quadriceps tendon and medial retinaculum were closed with interrupted #2 FiberWire sutures and additionally a running locking oh strata fix suture from the superior quad split down to the inferior pole the patella and below that level interrupted [id number] #1 Vicryl sutures in the medial retinaculum. The knee was taken through a full range of motion which was 0 through 135 degrees and the repair was secure. The subcutaneous tissues were closed with 2-0 Vicryl sutures and skin was closed with surgical gregory.A dax and Acticoat superficial wound VAC was applied and the patient tolerated the procedure well. Mason BREAUX my physician creative assistant participated as personal injury legal assistant and was an integral part in all aspects of the procedure, he assisted in soft tissue retraction, instrument management ,leg positioning, the closure, application of the wound VAC and will participate in the postoperative care of the patient. I attest to the content of the Intraoperative Record and any orders documented therein. Any exceptions are noted below.
--- NOTE | 2024-12-03 15:48 | XRay Report ---
XR knee LT 1 or 2V routine CLINICAL HISTORY: Surgical Post Op COMPARISON: None FINDINGS: AP and lateral postoperative views of the left knee demonstrate postsurgical changes of a total knee replacement with satisfactory positioning and alignment of the prosthetic components. Post surgical soft tissue changes are noted. There are drains in place. IMPRESSION: Satisfactory postop appearance ACT 112: Negative or not required by law. Electronically signed by: Jennifer Cardoza M.D. 12/03/2024 3:47 PM
[2024-12-03] MEDS ORDERED: HYDROmorphone INJ 0.5 MG/0.5 ML SYR IV PRN (16:08)
[2024-12-03] MEDS ORDERED: methylPREDNISolone 10 mg/mL (For Ped Dose < 7mg) IM PRN (16:08)
[2024-12-03] MEDS ORDERED: diphenhydrAMINE Capsule 25 MG CAP PO PRN (16:08)
[2024-12-03] MEDS ORDERED: TAMSULOSIN HCL 0.4 MG CAP PO PRN (16:08)
[2024-12-03] MEDS ORDERED: KETOROLAC TROMETHAMINE 15 MG/ML VIAL IV PRN (16:08)
[2024-12-03] MEDS ORDERED: NALOXONE HCL 0.4 MG/1 ML VIAL/CARP IV PRN (16:08)
[2024-12-03] MEDS ORDERED: NITROGLYCERIN SL 0.4 MG/TAB TAB SL PRN (16:08)
[2024-12-03] MEDS ORDERED: bisacodyL 10 MG SUPP PR PRN (16:08)
[2024-12-03] MEDS ORDERED: ZOLEDRONIC ACID 5 MG/100 ML VIAL IV SCH (16:08)
[2024-12-03] MEDS ORDERED: ALUMINUM/MAGNESIUM SUSP 30 ML UDC PO PRN (16:08)
[2024-12-03] MEDS ORDERED: MAGNESIUM HYDROXIDE SUSP 30 ML UDC PO PRN (16:08)
[2024-12-03] MEDS ORDERED: METOCLOPRAMIDE HCL INJ 5 MG/ML 2 ML VIAL IV PRN (16:08)
[2024-12-03] MEDS ORDERED: DIPHENOXYLATE/ATROPINE 2.5/0.025MG TAB PO PRN (16:08)
[2024-12-03] MEDS ORDERED: HYDROCODONE/ACETAMOPHEN 5/325MG TAB PO PRN (16:08)
[2024-12-03] MEDS ORDERED: metHOTREXate sodium 50 MG/2 ML MDV VIAL SQ SCH (16:08)
[2024-12-03] MEDS ORDERED: ALBUTEROL HFA 8 GM INHALER INH PRN (16:08)
[2024-12-03] MEDS: ORTHO JOINT ANESTHETIC ONE (16:09)
--- NOTE | 2024-12-03 16:44 | Anesthesiology Progress Note ---
Date of Service December 03, 2024 Anesthesia Post Procedure Vital Signs Vital Signs: Temp Pulse Pulse Resp BP Pulse Ox O2 Del Method 12/03/24 16:14 36.5 C 64 16 152/86 H 96 Room Air 12/03/24 15:55 36.5 C 72 15 150/89 H 98 Room Air 12/03/24 15:45 66 16 161/90 H 96 Room Air 12/03/24 15:35 75 24 160/95 H 99 Room Air 12/03/24 15:25 81 13 133/88 97 Room Air 12/03/24 15:15 82 16 129/91 100 Oxymask 12/03/24 15:09 36.4 C L 88 20 164/94 H 100 Oxymask 12/03/24 10:47 36.6 C 63 17 96 Room Air O2 Flow Rate 12/03/24 16:14 12/03/24 15:55 12/03/24 15:45 12/03/24 15:35 12/03/24 15:25 12/03/24 15:15 2 12/03/24 15:09 4 12/03/24 10:47 Transfer of Care Handoff Completed per policy Notes Mental Status: alert / awake / arousable Patient Amnestic to Procedure: Yes Nausea / Vomiting: adequately controlled Pain: adequately controlled Airway Patency, RR, SpO2: stable & adequate BP & HR: stable & adequate Hydration State: stable & adequate Neuraxial Anesthesia: was administered and sensory block is resolving Anesthetic Complications: no major complications apparent
--- NOTE | 2024-12-03 17:04 | Consultation ---
Date of Consultation December 03, 2024 Assessment & Plan (1) Rheumatoid arthritis involving left knee: (2) CAD (coronary artery disease): (3) Rheumatoid arthritis: (4) History of DVT of lower extremity: (5) Manter's disease: Plan This is a 69 yr old M who has a significant PMH of HTN, THIERRY on Cpap, HLD, adrenal insufficiency, CAD with hx of angioplasty, GERD, osteoporosis, anti phospholipid antibody syn, RA, hx of DVT, depression with anxiety who presents for Elective L total knee arthroplasty in setting of severe RA. #Severe OA 2/2 RA s/p L TKA by Dr. Dubon, POD # 0 EBL 5ml tolerated procedure well pain/wound management per ortho activity/therapy as prescribed by ortho DVT ppx: ASA BID per ortho pre op hgb 13.1 #Manter disease per outpt PCP note 100mg IV cortef pre op and then 25mg IV post op q8 x 3 Then resume home regimen of hydrocortisone #CAD hx of angioplasty to LAD #HTN #HLD continue asa, statin, metoprolol, lisinopril Bp mildly elevated post op, 160/84, monitor closely #RA: continue home meds per ortho DVT ppx: ASA bid per ortho PCP: Dr. Bridges FULL CODE DIspo: per primary Pt was seen and examined in collaboration with Dr. Carbajal, please see addendum I spent a total of 30 minutes coordinating, documenting and providing care for this patient excluding time spent in the performance of separately billed services or time spent by another provider/QHP. Thank you for this consultation. We will follow the patient with you during their hospital stay. You can reach a member of the [facility] Hospitalist Team 26/03 via hospitalist role on tiger text. Supervising Physician Co-Signing Physician Notes Pt was seen and examined by myself, Dena Carbajal MD on the day of service. Care was coordinated with Tess Obregon PA-C. 69yoM seen postop after left knee replacement. Denied acute concerns at the time of exam Follow H/H, pain control Continue steroids per recommendations for pt's Addisons periop, continue to monitor Continue cardiac meds per primary team Otherwise as above. I spent a total [id number] coordinating, documenting, and providing care for this patient excluding time spent in the performance of separately billed services History of Present Illness Requesting Physician: Dr. Dubon Reason for Consultation: Post op medical management Attending Physician: Cal Dubon MD History of Present Illness This is a 69 yr old M who has a significant PMH of HTN, THIERRY on Cpap, HLD, adrenal insufficiency, CAD with hx of angioplasty, GERD, osteoporosis, anti phospholipid antibody syn, RA, hx of DVT, depression with anxiety who presents for Elective L total knee arthroplasty in setting of severe RA. He tolerated procedure well with EBL of 5ml. Hx obtained from patient and external chart review. He underwent pre op eval by Dr. Bridges. Per Dr. Bridges's pre op note it is recommended pt receive 100mg of IV hydrocortisone prior to surgery and 25mg post operatively q8hr x 3 doses and then resume home dose. Prior to surgery he was w/o cardiac complaint. External lab work from 11/06 was reviewed and interpreted by myself and revealed a hgb of 13.1. He underwent a NM pharmacologic stress test pre op which was negative for inducible ischemia. His Pat is at bedside. Pt reports feeling well post op. Denies L knee pain. Denies f/c/s, chest pain, sob, n/v/d. We discussed his post operatively cortef r egimen. He is in agreement. He offers no acute concerns. Allergies Allergy/AdvReac Type Severity Reaction Status Date / Time morphine Allergy Severe ITCHING,HIV Verified 12/03/24 11:03 ES,SOB sulfasalazine AdvReac Intermediate abdominal Verified 12/03/24 11:03 pain, fever Home Medications Medication Instructions Recorded Confirmed Type albuterol sulfate 90 mcg/actuation 2 puff inhalation QID PRN 02/04/20 12/03/24 History aerosol inhaler Shortness Of Breath Or Wheezing aspirin 81 mg tablet,delayed 81 mg PO DAILY 02/04/20 12/03/24 History release calcium 600 mg (as carbonate)-vit 1 tab PO QAM 02/04/20 12/03/24 History D3 20 mcg (800 unit) chewable tablet (Caltrate plus D) diphenoxylate-atropine 2.5 1 tab PO BID PRN Diarrhea 02/04/20 12/03/24 History mg-0.025 mg tablet (Lomotil) fludrocortisone 0.1 mg tablet 0.1 mg PO QAM 02/04/20 12/03/24 History fluoxetine 40 mg capsule 40 mg PO QAM 02/04/20 12/03/24 History folic acid 1 mg tablet 1 mg PO DAILY 02/04/20 12/03/24 History hydrocodone 5 mg-acetaminophen 325 1 tab PO BID PRN Pain 02/04/20 12/03/24 History mg tablet hydrocortisone 10 mg tablet 5 - 20 mg PO BID HIGH STRESS 02/04/20 12/03/24 History (Cortef) methotrexate sodium 25 mg/mL 17.5 mg subcut WK 02/04/20 12/03/24 History injection solution nitroglycerin 0.4 mg sublingual 0.4 mg sublingual DIRECTED PRN 02/04/20 12/03/24 History tablet Chest Pain terazosin 5 mg capsule 5 mg PO HS 02/04/20 12/03/24 History fluticasone propionate 50 2 spray intranasal HS 03/22/20 12/03/24 History mcg/actuation nasal spray,suspension (Flonase Allergy Relief) methylprednisolone sod suc(PF) 125 125 mg IM UD PRN ADRENAL 03/22/20 12/03/24 History mg/2 mL solution for injection INSUFFICENCY (Solu-Medrol (PF)) metoprolol succinate 25 mg 25 mg PO HS 03/22/20 12/03/24 History tablet,extended release 24 hr (Toprol XL) pantoprazole 40 mg tablet,delayed 40 mg PO QAM 03/22/20 12/03/24 History release (Protonix) atorvastatin 40 mg tablet 40 mg PO QAM 02/17/23 12/03/24 History diphenhydramine HCl 25 mg capsule 50 mg PO HS PRN Itching 02/17/23 12/03/24 History (Benadryl) levothyroxine 125 mcg tablet 125 mcg PO 6XWK 02/17/23 12/03/24 History lisinopril 10 mg tablet 20 mg PO QAM 02/17/23 12/03/24 History multivitamin 1 tab PO DAILY 02/17/23 12/03/24 History potassium chloride 20 mEq 20 meq PO QAM 02/17/23 12/03/24 History tablet,extended release(part/cryst) adalimumab-atto 40 mg/0.4 mL 40 mg subcut UD 11/06/24 12/03/24 History subcutaneous syringe (Amjevita(CF)) zoledronic acid 5 mg/100 mL in 1 ea IV YEARLY 11/06/24 12/03/24 History mannitol 5 %-water intravenous piggybck (Reclast) acetaminophen 500 mg tablet 1,000 mg (2 x 500 mg) PO Q8H #90 12/03/24 Rx (Tylenol Extra Strength) tabs aspirin 81 mg tablet,delayed 81 mg PO BID #60 tabs 12/03/24 Rx release cefadroxil 500 mg capsule 500 mg PO Q12H #28 caps 12/03/24 Rx celecoxib 200 mg capsule (Celebrex) 200 mg PO Q12H #60 caps 12/03/24 Rx oxycodone 5 mg tablet 5 mg PO Q4H PRN pain #20 tabs 12/03/24 Rx Patient History Medical History Dyslipidemia Lung nodule feels this is a rheumatoid nodule- monitored- had cxr/ CT 10/2024 at [facility] Hx of myocardial infarction (2019) [facility], [place], 2 stents, follows with [facility] (11/03/24- ordered a nuc stress test for 11/10/24 at [facility]) Hx of fracture of ankle left x 2 (most recent 2007) Depression with anxiety Antiphospholipid antibody syndrome - dx in 1999, has not had any further treatment, had dvt in 1999 (provoked)- none since - no current AC BPH (benign prostatic hyperplasia) Ischemic cardiomyopathy Mild- EF initially 40-44%- improved to 55/59% on 09/2023 ECHO Hx of deep venous thrombosis (1999) "provoked, associated with hip replacement"-- lovenox, coumadin post-op, no clots since Cervical stenosis of spine full rom GERD (gastroesophageal reflux disease) well controlled and stable 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"- follows with Rheum [facility]man's office Sleep apnea unable to tolerate cpap 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 silver bridges- pcp [facility] ([place]) 65 forward (will see on 11/17/24) - states needs solumedrol prior to having surgery - currently on daily fludrocortisone/hydrocortisone - Hx of adrenal crisis 03/2020 Hypothyroid Hypertension CAD (coronary artery disease) - s/p GEOVANNI overlapping x 2 to mLAD 02/04/2020 Hx of fracture of rib (07/2016) "fell out of a tree and broke 6 ribs on my right side" - inpatient at [facility] in ICU Surgical History History of heart artery stent (2019) [place], [place], 2 stents, follows with [facility] (11/03/24- ordered a nuc stress test for 11/10/24 at [facility]) History of surgery on left wrist "artifical joint" History of esophagogastroduodenoscopy (EGD) Hx of colonoscopy Hx of bilateral hip replacements (1999) Hx of repair of right rotator cuff + collar bone Hx of decompression of ulnar nerve left History of carpal tunnel release of both wrists Hx of cholecystectomy S/P cervical spinal fusion (2020) full ROM- ?C4-C5-C6 Dr. Mota Hx of cardiac catheterization (02/04/20) [facility], [place], 2 stents, follows with [facility] (11/03/24- ordered a nuc stress test for 11/10/24 at [facility]) Family History Sister Diabetes Thyroid disease Graves Son Thyroid disease hypothyroidism Brother Cancer brain CA Father FH: abdominal aortic aneurysm Social History Smoking Status: Former smoker Tobacco Type: Cigarettes Smoking End Date: quit 1989; Second Hand Exposure: No; Do You Dip or Chew Tobacco: No; Tobacco Cessation Education Requested by Patient: No Hx Alcohol Use: Yes Alcohol type: hard liquor Hx Substance Use: No Preferred Language: Israeli Communication Ability: Effective Communication Ability Comment: Deaf right ear 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 Lung: Clear to Auscultation bilaterally, no wheezes/rales/rhonchi Heart: Regular rate, regular rhythm, no murmurs, rubs, or gallops Ext: L dressing cdi Results & Data Vital Signs (Past 12 Hours) Vital Signs Temp Pulse Pulse Resp BP Pulse Ox O2 Del Method 12/03/24 16:47 36.7 C 67 16 160/84 H 96 Room Air 12/03/24 16:14 36.5 C 64 16 152/86 H 96 Room Air 12/03/24 15:55 36.5 C 72 15 150/89 H 98 Room Air 12/03/24 15:45 66 16 161/90 H 96 Room Air 12/03/24 15:35 75 24 160/95 H 99 Room Air 12/03/24 15:25 81 13 133/88 97 Room Air 12/03/24 15:15 82 16 129/91 100 Oxymask 12/03/24 15:09 36.4 C L 88 20 164/94 H 100 Oxymask 12/03/24 10:47 36.6 C 63 17 96 Room Air O2 Flow Rate 12/03/24 16:47 12/03/24 16:14 12/03/24 15:55 12/03/24 15:45 12/03/24 15:35 12/03/24 15:25 12/03/24 15:15 2 12/03/24 15:09 4 12/03/24 10:47 Laboratory Results I have independently reviewed and interpreted patient's admitting labs including CBC, bmp, TSH, LFTS including external labs Diagnostic Findings Knee X-Ray 12/03/24 15:22 XR knee LT 1 or 2V routine CLINICAL HISTORY: Surgical Post Op COMPARISON: None FINDINGS: AP and lateral postoperative views of the left knee demonstrate postsurgical changes of a total knee replacement with satisfactory positioning and alignment of the prosthetic components. Postsurgical soft tissue changes are noted. There are drains in place. IMPRESSION: Satisfactory postop appearance ACT 112: Negative or not required by law. Electronically signed by: Jennifer Cardoza M.D. 12/03/2024 3:47 PM Medications Administered Current Inpatient Medications Acetaminophen (Acetaminophen 500 Mg Tab) 1,000 mg PO Q8H [facility] Stop: 01/02/25 21:59 Hydrocodone Bitart/Acetaminophen (Hydrocodone/Acetamophen 5/325mg Tab) 1 tab PO BID PRN PRN Reason: Pain Stop: 12/17/24 16:07 Al Hydrox/Mg Hydrox/Simethicone (Aluminum/Magnesium Susp 30 Ml Udc) 15 ml PO Q4H PRN PRN Reason: Heartburn Stop: 01/02/25 16:07 Albuterol (Albuterol Hfa 8 Gm Inhaler) 2 puffs INH QID PRN PRN Reason: Shortness Of Breath Or Wheezin Stop: 01/02/25 16:07 Aspirin (Aspirin 81 Mg Ectab) 81 mg PO BID [facility] Stop: 01/02/25 20:59 Atorvastatin Calcium (Atorvastatin 40 Mg Tab) 40 mg PO QAM [facility] Stop: 01/03/25 08:59 Bisacodyl (Bisacodyl 10 Mg Supp) 10 mg DC DAILY PRN PRN Reason: Constipation Stop: 01/02/25 16:07 Calcium/Vitamin D (Calcium 600mg + Vit D 400 Iu Tab) 1 tab PO QAM [facility] Stop: 01/03/25 08:59 Diphenhydramine HCl (Diphenhydramine Capsule 25 Mg Cap) 50 mg PO HS PRN PRN Reason: Itching Stop: 01/02/25 16:07 Diphenoxylate HCl/Atropine (Diphenoxylate/Atropine 2.5/0.025mg Tab) 1 tab PO BID PRN PRN Reason: Diarrhea Stop: 01/02/25 16:07 Docusate Sodium (Docusate Sodium 100 Mg Cap) 100 mg PO BID [facility] Stop: 01/02/25 20:59 Fludrocortisone Acetate (Fludrocortisone Acetate 0.1 Mg Tab) 0.1 mg PO QAM [facility] Stop: 01/03/25 08:59 Fluoxetine HCl (Fluoxetine Hcl 20 Mg Cap) 40 mg PO QAM [facility] Stop: 01/03/25 08:59 Fluticasone Propionate (Fluticasone Propionate Na Spr 16 Gm Btl) 2 sprays NA HS [facility] Stop: 01/02/25 20:59 Folic Acid (Folic Acid 1 Mg Tab) 1 mg PO DAILY MORE Stop: 01/03/25 08:59 Hydrocortisone (Hydrocortisone 10 Mg Tab) 5 - 20 mg PO BID [facility] Stop: 01/02/25 20:59 Hydromorphone HCl (Hydromorphone Inj 0.5 Mg/0.5 Ml Syr) 0.5 mg IV Q4H PRN PRN Reason: Pain or Pre PT Stop: 12/17/24 16:07 Cefazolin Sodium (Ancef 2000mg) 2,000 mg in 15 mls @ 3.75 mls/min IV Q8H [facility]; Protocol Stop: 12/04/24 05:33 Tranexamic Acid (Tranexamic Acid / 0.7% Nacl) 1,000 mg in 100 mls @ 600 mls/hr IV Q6H [facility] Stop: 12/03/24 21:39 Hydrocortisone Sodium (Succinate 25 mg/ Syringe) 0.5 mls @ 4 mls/min IV Q8H [facility] Stop: 12/04/24 14:01 Ketorolac Tromethamine (Ketorolac Tromethamine 15 Mg/Ml Vial) 15 mg IV Q6H PRN PRN Reason: Breakthrough Pain Stop: 12/04/24 16:31 Levothyroxine Sodium (Levothyroxine Sodium 125 Mcg Tablet) 125 mcg PO [id number] [facility] Stop: 01/03/25 06:29 Lisinopril (Lisinopril 20 Mg Tab) 20 mg PO QAM [facility] Stop: 01/03/25 08:59 Magnesium Hydroxide (Magnesium Hydroxide Susp 30 Ml Udc) 30 ml PO Q6H PRN PRN Reason: Constipation Stop: 01/02/25 16:07 Methotrexate (Methotrexate Sodium 50 Mg/2 Ml Mdv Vial) 17.5 mg SQ WK [facility]; Protocol Stop: 01/02/25 16:07 Methylprednisolone (Methylprednisolone 10 Mg/Ml (For Ped Dose < 7mg)) 125 mg IM UD PRN PRN Reason: ADRENAL INSUFFICENCY Stop: 01/02/25 16:07 Metoclopramide HCl (Metoclopramide Hcl Inj 5 Mg/Ml 2 Ml Vial) 10 mg IV Q6H PRN PRN Reason: Nausea And Vomiting Stop: 01/02/25 16:07 Metoprolol Succinate (Metoprolol Succ 25mg Ext Rel Tab) 25 mg PO HS [facility] Stop: 01/02/25 20:59 Multivitamins (Multivitamin Tab) 1 tab PO DAILY MORE Stop: 01/03/25 08:59 Naloxone HCl (Naloxone Hcl 0.4 Mg/1 Ml Vial/Carp) 0.1 mg IV Q5M PRN PRN Reason: Oversedation/Resp Depression Stop: 01/02/25 16:07 Nitroglycerin (Nitroglycerin Sl 0.4 Mg/Tab Tab) 0.4 mg SL UD PRN PRN Reason: Chest Pain Stop: 01/02/25 16:07 Ondansetron HCl (Ondansetron Inj 2 Mg/Ml 2 Ml Vial) 4 mg IV Q6H PRN PRN Reason: Nausea And Vomiting Stop: 01/02/25 16:07 Oxycodone HCl (Oxycodone Hcl Ir 5 Mg Tab (Immediate Release)) 5 - 10 mg PO Q4H PRN PRN Reason: Pain or Pre PT Stop: 12/17/24 16:07 Pantoprazole Sodium (Pantoprazole 40 Mg Tab) 40 mg PO QAM MORE Stop: 01/03/25 08:59 Potassium Chloride (Potassium Chloride Crtab 20 Meq Tabcr) 20 meq PO QAM MORE Stop: 01/03/25 08:59 Sennosides (Senna 8.6 Mg Tab) 17.2 mg PO HS MORE Stop: 01/02/25 20:59 Tamsulosin HCl (Tamsulosin Hcl 0.4 Mg Cap) 0.4 mg PO QAM PRN PRN Reason: UNABLE to void Stop: 01/02/25 16:07 Terazosin HCl (Terazosin Hcl 5 Mg Cap) 5 mg PO HS MORE Stop: 01/02/25 20:59 Zoledronic Acid (Zoledronic Acid 5 Mg/100 Ml Vial) 5 mg IV YEARLY MORE Stop: 01/02/25 16:07 ECG Additional Comments: I have independently reviewed and interpreted patient's admitting EKG which revealed: SB HR 57bpm, qtc 452ms (1) Rheumatoid arthritis involving left knee Rheumatoid factor presence: unspecified presence Qualified Code(s): M06.9 - Rheumatoid arthritis, unspecified
[2024-12-03] MEDS: TRANEXAMIC ACID / 0.7% NACL 1,000 MG/100 ML BAG IV SCH (21:26)
[2024-12-03] MEDS: FLUTICASONE PROPIONATE NA SPR 16 GM BTL SCH (21:29)
[2024-12-03] MEDS: SENNA 8.6 MG TAB PO SCH (21:29)
[2024-12-03] MEDS: DOCUSATE SODIUM 100 MG CAP PO SCH (21:29)
[2024-12-03] MEDS: TERAZOSIN HCL 5 MG CAP PO SCH (21:30)
[2024-12-03] MEDS: ASPIRIN 81 MG ECTAB PO SCH (21:30)
[2024-12-03] MEDS: METOPROLOL SUCC 25MG EXT REL TAB PO SCH (21:31)
[2024-12-03] MEDS: HYDROCORTISONE SOD 25 MG in SYRINGE 0 ML IV SCH (22:30)
[2024-12-04 04:11] VITALS: RESP 16
[2024-12-04] MEDS: LEVOTHYROXINE SODIUM 125 MCG TABLET PO SCH (06:08)
[2024-12-04 07:11] LABS: Hematocrit (blood only) 32.1 % (42.0-52.0); Hemoglobin 11.2 g/dl (14.0-18.0); Mean Corpuscular Hemoglobin 32.8 pg (25.0-34.0); Mean Corpuscular Hgb Conc 34.9 g/dL (32.0-36.0); Mean Corpuscular Volume 94.1 fL (80.0-100.0); Mean Platelet Volume 9.9 fL (9.4-12.4); Platelet Count 209 K/uL (130-400); RDW Coefficient of Variation 13.4 % (11.5-14.5); RDW Standard Deviation 45.9 fL (36.4-46.3); Red Blood Count 3.41 M/uL (4.70-6.10); White Blood Count 15.44 K/ul (4.8-10.8)
[2024-12-04 07:26] LABS: BUN Creatinine Ratio 20.2 (10-20); Calcium 8.2 mg/dl (8.6-10.3); Creatinine Clr Calc Pharmacy 89.5 ml/min; Potassium 3.7 mmol/L (3.5-5.1)
--- NOTE | 2024-12-04 08:18 | Orthopedic Progress Note ---
Date of Service December 04, 2024 Assessment & Plan (1) Rheumatoid arthritis involving left knee: Plan: Postop day 1 left knee replacement. Intra-articular findings suggested condition more related to osteoarthritis than rheumatoid arthritis with little evidence of any rheumatoid synovitis. 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 Will cover with oral antibiotics on discharge. Drainage is at the level that Hemovac can be discontinued today prior to discharge. Would like medicine to weigh in on his hypertension prior to discharge. Patient feels it is related to steroids. Advanced left knee rheumatoid arthritis failed conservative management including maximal medical management by rheumatology and injections. Proceed with left knee replacement. May need electrocautery synovectomy. Admission and Anticipated Discharge Date Admission Date: December 03, 2024 Subjective Doing well no pain no chest pain shortness of breath. Patient has hypertension but asymptomatic Review of Systems Review of Systems: Unremarkable Physical Exam Musculoskeletal: Independent straight leg raise 90 degree bend benign incision no drainage circulation sensorimotor exam intact. Results & Data Vital Signs (Past 12 Hours) Vital Signs Temp Pulse Resp BP Pulse Ox O2 Del Method 12/04/24 07:20 36.5 C 67 16 187/81 H 96 Room Air 12/04/24 02:47 36.5 C 64 16 167/93 H 97 Room Air 12/03/24 23:02 36.7 C 81 18 143/92 H 95 Room Air Diagnostic Findings Well aligned left knee replacement (1) Rheumatoid arthritis involving left knee Rheumatoid factor presence: unspecified presence Qualified Code(s): M06.9 - Rheumatoid arthritis, unspecified
[2024-12-04] MEDS: MULTIVITAMIN TAB PO SCH (08:40)
[2024-12-04] MEDS: PANTOprazole 40 MG TAB PO SCH (08:40)
[2024-12-04] MEDS: CALCIUM 600MG + VIT D 400 IU TAB PO SCH (08:41)
[2024-12-04] MEDS: FOLIC ACID 1 MG TAB PO SCH (08:42)
[2024-12-04] MEDS: FLUDROCORTISONE ACETATE 0.1 MG TAB PO SCH (08:43)
[2024-12-04] MEDS: FLUoxetine HCL 20 MG CAP PO SCH (08:43)
[2024-12-04] MEDS: ATORVASTATIN 40 MG TAB PO SCH (08:43)
[2024-12-04] MEDS: lisinopril 20 MG TAB PO SCH (08:43)
[2024-12-04] MEDS: POTASSIUM CHLORIDE CRTAB 20 MEQ TABCR PO SCH (08:46)
[2024-12-04] MEDS: oxyCODONE HCL IR 5 MG TAB (IMMEDIATE RELEASE) PO PRN (09:53)
[2024-12-04 10:58] VITALS: BP 158/88; PULSE 71; TEMP 97.9; O2SAT 95
--- NOTE | 2024-12-04 13:13 | Hospitalist Progress Note ---
Date of Service December 04, 2024 Assessment & Plan (1) Jay Em's disease: (2) Rheumatoid arthritis involving left knee: (3) CAD (coronary artery disease): (4) Rheumatoid arthritis: (5) History of DVT of lower extremity: Plan Patient from medical standpoint doing well postsurgery. Complete IV steroids as recommended in his preoperative plan Able to be discharged home when discharged per his attending. Patient should resume his usual home medications after discharge. Thank you for this consultation Admission and Anticipated Discharge Date Admission Date: December 03, 2024 Subjective Patient doing well postsurgery. Eager to get home. Physical Exam Physical Exam: Constitutional: Alert HEENT: Mucous membranes moist. Lungs: Clear to auscultation, decreased, no wheezes rales or rhonchi CV: S1-S2, regular Abdomen: Soft, nontender, nondistended Extremities: Surgical dressing left knee clean and dry. Neuro: No focal deficits Psych: Cooperative, normal mood Results & Data Results & Data Vital Signs (Past 12 Hours) Vital Signs Temp Pulse Resp BP Pulse Ox O2 Del Method 12/04/24 10:56 36.6 C 71 16 158/88 H 95 Room Air 12/04/24 07:20 36.5 C 67 16 187/81 H 96 Room Air 12/04/24 02:47 36.5 C 64 16 167/93 H 97 Room Air Diagnostic Findings Reviewed imaging, laboratory and diagnostic studies. Pertinent findings as below. WBCs 15.4, increased due to reactive and steroids Electrolytes within normal range Creatinine 0.94 (2) Rheumatoid arthritis involving left knee Rheumatoid factor presence: unspecified presence Qualified Code(s): M06.9 - Rheumatoid arthritis, unspecified
--- OUTSIDE RECORDS SUMMARY | 2024-12-04 19:26 | External Medical Summary | Summary of Care ---
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 factor (HCC)*; Senile osteoporosis; Generalized osteoarthritis Allergies Active Allergy Reactions Criticality Noted Date Comments Morphine Hives,Itching High 12/07/2000 Other Reaction(s): ITCHING,HIVES,SOB Sulfasalazine High 02/28/2018 Abdominal pain, fever Other Reaction(s): abdominal pain, fever documented as of this encounter (statuses as of 11/25/2024) Medications MULTIVITAMIN TABS OR 1 tablet by mouth daily 0 05/03/20 Active CALTRATE 600+D 600-400 MG-UNIT PO TABS one tab daily Active NEEDLES & SYRINGES MISCIndications:A martin's disease (HCC) 5 ml syringe and 27 Gauge needle 3 Each 3 05/14/20 12 Active folic acid 1 MG TabletIndications :Arthritis, rheumatoid (HCC) Take 1 Tab by mouth daily. 90 Tab 3 02/04/20 19 Active diphenhydrAMINE HCl 25 MG Oral Capsule Take 1 Capsule by mouth at bedtime as needed for Itching. Active methylPREDNISolon e Sodium Succ 125 MG Injection Solution Reconstituted (SOLU-Medrol)Uyen cations:Adrenal insufficiency ([facility]) Sive 125 mg IM as needed for adrenal insufficency stress dose 4 mL 1 01/26/20 22 Active Easy Touch FlipLock [place] 25G X 1" (Needle (Disp))Indication s:Adrenal insufficiency (HCC) To use with solu medrol 30 Each 5 02/09/20 22 Active Syringe 2-3 ML 3 MLIndications:Adr enal insufficiency ([facility]) Use with solumedrol 30 Each 5 02/09/20 22 Active Ventolin HFA 108 (90 Base) MCG/ACT Inhalation Aerosol SolutionIndicatio ns:Cough INHALE TWO PUFFS BY MOUTH 4 TIMES DAILY 54 g 1 4 1:08 PM EDT 03/08/20 23 Active Aspirin 81 MG Oral Tablet Delayed ReleaseIndication s: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 DO NOT EXCEED A TOTAL OF 3 DOSES IN 15 MINUTES 25 Tablet 11 05/19/20 24 Active Additional Information Patient not taking.Reported on 11/25/2024 Pantoprazole Sodium 40 MG Oral Tablet Delayed Release (Protonix)Indicat ions:Gastroesopha geal reflux disease without esophagitis TAKE ONE TABLET BY MOUTH EVERY DAY 100 Tablet 1 5 8:58 AM EST 06/07/20 24 025 Active Lisinopril 20 MG Oral Tablet (Prinivil)Indicat ions:HTN, goal below 140/90 Take 1 Tablet by mouth in the morning. 100 Tablet 3 5 12:30 PM EDT 08/25/20 24 Active Toilet Safety FrameIndications: Blunt trauma of rib, initial encounter,Rheumat oid arthritis of multiple sites without rheumatoid factor (HCC) Use over toilet as frame to assist with getting up. 2 Each 10/09/19 25 Active Fludrocortisone Acetate 0.1 MG Oral Tablet (Florinef)Indicat ions:Mineralocort icoid deficiency (HCC) Take 1 Tablet by mouth in the morning. APPOINTMENT NEEDED FOR FUTURE REFILLS.. 90 Tablet 3 5 8:50 AM EST 10/13/19 25 Active Hydrocortisone 10 MG Oral Tablet (Cortef)Indicatio ns:Mineralocortic oid deficiency (HCC) TAKE TWO TABLETS BY MOUTH IN THE MORNING TAKE ONE TABLET IN THE EVENING AND TAKE ONE TABLET NEEDED FOR STRESS 400 Tablet 3 5 8:50 AM EST 10/13/19 25 Active Methotrexate Sodium 50 MG/2ML Injection SolutionIndicatio ns:Arthritis, rheumatoid (HCC) Inject 0.7ml (=17.5 mg) under the skin once a week. 12 mL 5 9:38 AM EST 10/22/19 25 Active HYDROcodone-Aceta minophen 5-325 MG Oral TabletIndications :Rheumatoid arthritis involving multiple sites with positive rheumatoid factor (HCC) Take 1 Tablet by mouth in the morning and 1 Tablet before bedtime. 60 Tablet 10/30/19 25 Active Zoledronic Acid 5 MG/100ML Intravenous Solution (Reclast) Administer 5 mg intravenously once. Active Levothyroxine Sodium 125 MCG Oral Tablet (Levoxyl)Indicati ons:Acquired hypothyroidism TAKE 1 TABLET BY MOUTH DAILY EXCEPT FOR SUNDAY AT LEAST 30 MIN. PRIOR TO BREAKFAST OR OTHER MEDS- 1 EVERY DAY FOR 6 DAYS IN A ROW. 90 Tablet 3 5 8:33 AM EDT 11/13/19 25 Active Diphenoxylate-Atr opine 2.5-0.025 MG Oral Tablet (Lomotil)Indicati ons:Irritable bowel syndrome with diarrhea TAKE 1 TABLET BY MOUTH 4 TIMES DAILY NEEDED FOR DIARRHEA 120 Tablet 11/25/19 25 Active Amjevita 40 MG/0.4ML Subcutaneous Solution Auto-injector (Adalimumab-atto) Indications:Psori asis Inject 0.4 mL ( 1 pen) under the skin every 14 days. 0.8 mL 5 09/02/20 24 025 Discontin ued(Patie nt preferenc e/discont inuation) documented as of this encounter (statuses as of 11/25/2024) Active Problems Problem Noted Date Diagnosed Date Uncomplicated asthma 10/08/2024 Senile osteoporosis 06/15/2022 Multiple lipomas 02/07/2022 Coronary artery disease invo lving holy cross coronary artery of holy cross heart without angina pectoris 02/09/2020 Pure hypercholesterolemia 02/09/2020 Presence of drug coated stent in LAD coronary ar ibis 02/06/2020 Overview (02/06/2020): 02/04/2020 SAIRA (generalized anxiety disorder) 09/09/2019 Major depressive disorder, single episode, moder ate 09/06/2018 Encounter for long-term (current) use of medicat ions 11/19/2017 Controlled substance agreement signed 06/13/2017 THIERRY on CPAP 12/14/2016 Overview (01/26/2017): CPAP 12 cwp [facility] 08/31/2016 Gastroesophageal reflux disease without esophagi tis 06/08/2014 Adrenal insufficiency 10/02/2011 HTN, goal below 140/90 10/18/2010 Displacement of cervical int ervertebral disc without myelopathy 08/05/2010 Anti-phospholipid antibody syndrome 11/20/2005 Carpal tunnel syndrome 01/02/2003 Other optic neuritis History of DVT (deep vein thrombosis) Acquired hypothyroidism Mineralocorticoid deficiency documented as of this encounter (statuses as of 11/25/2024) Resolved Problems Problem Noted Date Diagnosed Date Resolved Date Psoriasis 10/08/2024 10/08/2024 Prediabetes 11/26/2022 09/13/2023 History of 2019 novel mohr virus disease (COVID-19) 06/14/2022 10/13/2022 Migraine 09/15/2020 10/13/2022 Anxiety 07/27/2015 09/09/2019 Migraine 11/06/2013 09/15/2020 Hypogonadism male 03/26/2012 04/23/2018 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 04/23/2018 Arthritis, rheumatoid 01/11/20112015 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 06/05/2007 01/11/2011 Overview (06/04/2017): ICD-10 update of inactive term ADVANCE DIRECTIVE INFORMATION 09/25/2005 07/07/2024 Overview (09/25/2005): Yes, Patient instructed to provide copy of advance directive for provider to review and to be scanned into Electronic Medical Record FALL ON LEVEL-TRIPPING 01/02/200307/05 Bacterial pneumonia 12/02/2002 07/05/20 10 Insomnia 11/14/2002 07/05/2010 Overview (06/04/2017): ICD-10 update of inactive term CORTICOADRENAL INSUFFIC 10/04 Depression 09/06/2018 Myalgia and myositis 018 documented as of this encounter (statuses as of 11/25/2024) Immunizations Name Administration Dates Next Due COVID-19 mRNA, LNP-s, No Pre serve, 2-Dose Series (Koalify) 04/08/2022,05/03/2021,11/20/2020,10/30 COVID-19, MRNA-LNP, 24-25, P F, 50 MCG/0.5ML, IM, 12 YRS & ABOVE (Moderna - Spikevax) 05/23/2024 COVID-19, MRNA-LNP, PF, 50 M CG/0.5 mL, 12 YRS AND ABOVE, IM (MODERNA-Spikevax) 06/21/2023 Covid-19, Mrna, Lnp-s, Pf, B ivalent, 30 Mcg, IM, 12 yrs and above (Koalify) 07/25/2022 PPD 08/30/2011 Pneumococcal Conjugate Vacc, 13 Valent (Prevnar) 03/13/2019 Pneumococcal Conjugate Vacci ne, 20-valent ([id number]) 08/16/2023 Pneumococcal Polysaccharide PPV23 (Pneumovax) 02/20/2018,06/03/2009 RSV Vac., Recomb, Adjuvant, PF,0.5 Ml (Arexvy) 06/21/2023 Seasonal Influenza Vac., MDV , IM, 0.5 mL (Fluzone) 05/15/2017,05/21/2015,05/15/2014,05/21,08/01/2012,06/15/2011,06/29/2010 ,05/17/2009,07/18/2007 Seasonal Influenza Virus Vac cine, Unspecified Formulation 05/25/2023 Seasonal Influenza, PF, 6 M & above, IM , (FluLaval or Fluzone) 05/28/2020,05/05/2018 Seasonal Influenza, Quadriva lent Hd (Fluzone Hd) 06/15/2022,06/14/2021 Seasonal Influenza, Quadriva lent Hd, 65+ Yrs 05/23/2024 Seasonal Influenza, Quadriva lent, No Preserve, IM 05/31/2018,06/12/2016 Seasonal Influenza, Recombin ant, RIV4, PF, (Flublock) 06/09/2019 TD, Preservative Free 09/06/2018 TDAP, Age 7 and older, IM (Adacel) 05/04/2008 Zoster Vaccine Recombinant (Shingrix) 07/01/2021 ,04/13/2021 documented as of this encounter Social History Tobacco Use Types Packs/Day Years Used Date Smoking Tobacco: Former Cigarettes 2 30 0 09/03/1965 - 09/03/1995 Passive Smoke Exposure: Past Smokeless Tobacco: Never Tobacco Cessation:Counseling Given: Not Answered Alcohol Use Standard Drinks/Week Comments Yes 0 (1 standard drink = 0.6 oz pur e alcohol) rarely PHQ-2 Answer Date Recorded PHQ Adult Total Score 0 10/08/2024 Hunger Vital Sign Answer Date Recorded Within the past 12 months, y ou worried that your food would run out before you got the money to buy more. Never true 11/18/19 25 Within the past 12 months, t he food you bought just didn't last and you didn't have money to get more. Never true 11/17/2024 Childcare Answer Date Recorded Do you feel overwhelmed with taking care of a child, family member or friend? No 11/17/2024 Does your family need help f inding childcare? (Household - for ages 0-17 years) Not on file 11/17/2024 Clothing Answer Date Recorded Have you been unable to get clothing when it was really needed? No 11/17/2024 Is your family able to get c lothes or diapers when needed? (Household - for ages 0-17 years) Not on file 11/17/2024 Personal Safety Answer Date Recorded Do you feel unsafe or have concerns for your saf ety? No 11/17/2024 Do you have concerns for you r family's safety? (Household - for ages 0-17 years) Not on file 11/17/2024 Utilities Answer Date Recorded Do you have trouble paying y our heating, water, or electric bill? No 11/17/2024 Is your family able to pay t he heat, water, or electric bill? (Household - for ages 0-17 years) Not on file 11/17/2024 Does your family have access to good internet? (Household - for ages 0-17 years) Not on file 11/17/2024 Employment Status Answer Date Recorded Are you unemployed or without regular income? No 11/17/2024 Does the household have a re gular source of income? (Household - for ages 0-17 years) Not on file 11/17/2024 Social Connections Answer Date Recorded How often do you feel lonely or isolated from th ose around you? Never 11/17/2024 Financial Resource Strain Answer Date R ecorded Do you have any trouble payi ng for your medications, or do you think you might in the future? No 11/17/2024 Does your family have troubl e paying for medicine? (Household - for ages 0-17 years) Not on file 11/17/2024 Transportation Needs Answer Date Record ed Do you have trouble getting a ride to medical visits or work? (Adult - for ages 18 years and over) Not on file 11/17/2024 Does your family have a hard time getting a ride to doctors visits? (Household - for ages 0-17 years) Not on file 11/17/2024 Has lack of transportation k ept you from medical appointments, meetings, work, or from getting things needed for daily living? Check all that apply. No 11/17/2024 Do you (or your family) have trouble finding or paying for a ride (transportation)? (Household - for ages 0-17 years) Not on file 11/17/2024 Housing Stability Answer Date Recorded Do you currently live in a s helter or have no steady place to sleep at night? No 11/17/2024 Do you think you are at risk of becoming homeless? (Adult - for ages 18 years and over) Not on file 11/17/2024 Does your family worry about paying for your home or becoming homeless? (Household - for ages 0-17 years) Not on file 0 11/17/2024 Are you homeless or worried that you might be in the future? No 11/17/2024 Are you (or your family) liz eless or worried that you might be in the future? (Household - for ages 0-17 years) Not on file Food Insecurity Answer Date Recorded Do you need food for this week? No 09/14/2023 Are you able to get enough f ood for your family? (Household - for ages 0-17 years) Not on file 09/14/2023 Does your family need food t his week? (Household - for ages 0-17 years) Not on file 09/14/2023 Do you always have enough fo od for your family? (Household - for ages 0-17 years) Not on file 09/14/2023 Food Insecurity Answer Date Recorded Within the past 12 months, y ou worried that your food would run out before you got the money to buy more. Never true 11/18/19 25 Within the past 12 months, t he food you bought just didn't last and you didn't have money to get more. Never true 11/17/2024 Do you need food for this week? No 11/17/2024 Sex and Gender Information Value Date Recorded Sex Assigned at Male 03/13/2019 7:37 AM EDT Legal Sex Male 5:18 AM EST Gender Identity Male 03/13/2019 7:37 AM EDT Sexual Orientation Straight 03/13/2019 7: 37 AM EDT Occupation Industry Job Start Date Job End Date disbled Not on file Not on file Not on file documented as of this encounter Last Filed Vital Signs Vital Sign Reading Time Taken Comments Blood Pressure - - Pulse - - Temperature 36.5 °C (97.7 °F) 11/25/2024 8:29 AM ED T Respiratory Rate - - Oxygen Saturation - - Inhaled Oxygen Concentration - - Weight 107 kg (236 lb) 11/25/2024 8:29 AM EDT Height - - Body Mass Index 36.42 11/17/2024 8:38 AM EDT documented in this encounter Patient Instructions * Patient Instructions* Ling Mata CRNP - 11/25/2024 8:44 AM EDT Etanercept Injection Brand Name(s): Enbrel® (etanercept), Erelzi® (etanercept-szzs), Eticovo® (etanercep-ykro) IMPORTANT WARNING: Using etanercept injection products may decrease your ability to fight infection and increase the risk that you will get a serious infection, including severe viral, bacterial, or fungal infections that spread throughout the body. These infections may need to be treated in a hospital and may cause . Tell your doctor if you often get any type of infection or if you think you may have any typeof infection now. This includes minor infections (such as open cuts or sores), infections that comeand go (such as cold sores) and chronic infections that do not go away. Also tell your doctor if you have or have ever had diabetes, human immunodeficiency virus (HIV), acquired immunodeficiency syndrome (AIDS), or any other condition that affects your immune system. You should also tell your doctor if you live or have ever lived in areas such as the [place] and [facility] where severe fungal infections are more common. Ask your doctor if you do not know if these infections are common in your area. Also tell your doctor if you are taking medications that decrease the activity of the immune system. Your doctor will monitor you for signs of infection during and shortly after your treatment. If youhave any of the following symptoms before you begin your treatment or if you experience any of the following symptoms during or shortly after your treatment, call your doctor immediately: weakness; sweating; difficulty breathing; sore throat; cough; coughing up bloody mucus; fever; weight loss; extreme tiredness; diarrhea; stomach pain; flu-like symptoms; warm, red, or painful skin; or other signs of infection. You may be infected with tuberculosis (TB, a type of lung infection) or hepatitis B (a type of liver disease) but do not have any symptoms of the disease. In this case, etanercept injection products may increase the risk that your infection will become more serious and you will develop symptoms. Your doctor will perform a skin test to see if you have an inactive TB infection and may order blood tests to see if you have an inactive hepatitis B infection. If necessary, your doctor will give you medicine to treat this infection before you begin using etanercept injection. Tell your doctor if youhave or have ever had TB, if you have lived in a country where TB is common, or if you have been jaden und someone who has TB. If you have any of the following symptoms of TB, or if you develop any of these symptoms during your treatment, call your doctor immediately: cough, weight loss, loss of muscle tone, or fever. Also call your doctor immediately if you have any of these symptoms of hepatitis Bor if you develop any of these symptoms during or after your treatment: excessive tiredness, yellowing of the skin or eyes, loss of appetite, nausea or vomiting, muscle aches, dark urine, aida-colored bowel movements, fever, chills, stomach pain, or rash. Some children and teenagers who received etanercept injection products and similar medications developed severe or life-threatening cancers including lymphoma (cancer that begins in the cells that fight infection). If your child develops any of these symptoms during his treatment, call his doctor im mediately: unexplained weight loss; swollen glands in the neck, underarms, or groin; or easy bruising or bleeding. Talk to your child's doctor about the risks of giving etanercept injection products to your child. Your doctor or pharmacist will give you the refuse collector's patient information sheet (Medication Guide) when you begin treatment with etanercept injection products and each time you refill your prescription. Read the information carefully and ask your doctor or pharmacist if you have any questions.You can also visit the Food and Drug Administration (FDA) website (https://www.fda.gov/Drugs/DrugSafety/orr840928.htm) or the refuse collector's website to obtain the Medication Guide. Talk to your doctor about the risks of using etanercept injection. WHY is this medicine prescribed? Etanercept injection products are used alone or with other medications to treat rheumatoid arthritis (a condition in which the body attacks its own joints, causing pain, swelling, and loss of function) in adults. Etanercept injection products are also used to treat polyarticular juvenile idiopathicarthritis (PJIA; a type of childhood arthritis that affects five or more joints during the first six months of the condition, causing pain, swelling, and loss of function) in children 2 years of age or older. Etanercept injection products are also used to treat psoriatic arthritis (a condition thatcauses joint pain and swelling and scales on the skin) in adults and children 2 years of age or older Etanercept injection products are also used to treat ankylosing spondylitis (condition in which the body attacks the joints of the spine and other areas causing pain and joint damage) in adults. Etanercept injection products are also used to treat chronic plaque psoriasis (a skin disease in whichred, scaly patches form on some areas of the body) in adults and children 4 years of age and older whose psoriasis is too severe to be treated by topical medications alone. Etanercept is in a class of medications called tumor-necrosis factor (TNF) inhibitors. It works by blocking the action of TNF,a substance in the body that causes inflammation HOW should this medicine be used? Etanercept injection products come as a solution (liquid) in single-dose, prefilled syringes, dosing pens, cartridges, automatic injection devices, and vials. Etanercept injection products also come as a powder in a multi-dose vial (contains enough medication for more than one dose) to be mixed with a provided liquid. Etanercept is injected subcutaneously (under the skin). It is usually injected once a week. When etanercept injection products are used to treat chronic plaque psoriasis, it may be injected twice a week during the first 3 months of treatment and then once a week after the first 3 months. Follow the directions on your prescription label carefully, and ask your doctor or pharmaci st to explain any part you do not understand. Use etanercept injection products exactly as directed. Do not use more or less of it or use it more often than prescribed by your doctor. You will receive your first dose of etanercept injection products in a doctor's office. After that,you can inject the medication yourself at home or have a friend or relative perform the injections.Ask your doctor or pharmacist to show you or the person who will be performing the injections how to inject etanercept injection products. Carefully read the written instructions for use that come with etanercept injection products before you inject the medication. Be sure to ask your doctor or pharmacist if you have any questions about how to inject the medication. Multi-dose vials of etanercept injection products should be placed in the refrigerator as soon as possible, but no later than 4 hours after you mix it. You may store the multi-dose vial of etanerceptinjection product for up to 14 days after you mix it if there is enough medication remaining for a complete dose. However, you should not combine the contents of two or more vials of etanercept injection products to make a complete dose. You also should not mix any other medications with etanerceptinjection products. If your medication comes in a single-dose prefilled syringe, dosing pen, cartridge, automatic injection device, or vial, use each syringe, dosing pen, cartridge, vial, or device only once and inject all the solution in the syringe, vial or device. Even if there is still some solution left in the syringe, vial, or device, do not use it again. Dispose of used needles, syringes, and devices in a puncture-resistant container. Talk to your doctor or pharmacist about how to dispose of the puncture-resistant container. If you are using an etanercept injection product that has been refrigerated, place it on a flat surface and allow it warm to room temperature for 15-30 minutes before you are ready to inject the medication. Do not try to warm the medication by heating it in a microwave, placing it in hot water, or through any other method. Do not shake a syringe, dosing pen, cartridge, automatic injection device, or vial that contains etanercept. Be careful not to drop the device onto a hard surface because this may damage the dosing pen, cartridge, device, syringe, or needle. Always look at etanercept solution before injecting it. Check that the expiration date has not passed. Check with the written instructions for use to find out what your etanercept injection product solution should look like. Do not use a syringe, dosing pen, cartridge, autoinjector, or vial if it is cracked or broken, if it is , or if the liquid does not look like it is described in the written instructions for use. The best place to inject etanercept injection is the front of your middle thighs. You can also inject the medication in your lower stomach below your navel, except the area 2 inches (5 centimeters) around your navel. If someone else is giving you the injection, that person can also inject the medication into your upper arms. Choose a different site for each injection. Do not inject into an area where the skin is tender, bruised, red, hard, or where there are scars or stretch nunn. If you have psoriasis, do not inject into skin that is red, thick, raised, or scaly. Etanercept injection may help control your condition but will not cure it. Continue to use etanercept injection even if you feel well. Do not stop using etanercept without talking to your doctor. Are there OTHER USES for this medicine? This medication may be prescribed for other uses; ask your doctor or pharmacist for more information. What SPECIAL PRECAUTIONS should I follow? Before using etanercept injection products, tell your doctor and pharmacist if you are allergic to etanercept, any other medications, rubber, latex, or any of the other ingredients in etanercept injection products. Ask your pharmacist or checkthe Medication Guide for a list of the ingredients. tell your doctor and pharmacist what prescription and nonprescription medications, vitamins, nutritional supplements, and herbal products you are taking or plan to take. Be sure to mention if you aretaking medications for diabetes. Your doctor may need to change the doses of your medications or mon itor you carefully for side effects. tell your doctor if you have or have ever had seizures; a disease that affects your nervous system,such as multiple sclerosis (MS; loss of coordination, weakness, and numbness due to nerve damage), transverse myelitis (inflammation of the spinal cord that may cause abnormal sensations, loss of sensation, or loss of ability to move the lower body), Guillain-Barré syndrome (weakness, tingling, and possible paralysis due to sudden nerve damage), or optic neuritis (inflammation of the nerve that sends messages from the eye to the brain); bleeding problems; liver disease, or heart failure. tell your doctor if you are , plan to become , or are breast- feeding. If you become while using etanercept injection products, call your doctor. If you use etanercept injection injection products during your , be sure to talk to your baby's doctor about this after your baby is born. Your baby may need to receive certain vaccinations later than usual. if you are having surgery, including dental surgery, tell the doctor or dentist that you are using etanercept injection products. do not have any vaccinations during your treatment with etanercept injection products without talking to your doctor. If your child will be treated with etanercept injection products, talk to his or her doctor about vaccinations that should be given before the start of treatment. If possible, your child should be given all vaccinations needed for children of his or her age before beginning treatment. if you are exposed to chickenpox while using etanercept injection products, call your doctor immediately. What SPECIAL DIETARY instructions should I follow? Unless your doctor tells you otherwise, continue your normal diet. What should I do IF I FORGET to take a dose? Inject the missed dose as soon as you remember it. If it is almost time for the next dose, skip themissed dose and continue your usual dosing schedule. Do not inject a double dose to make up for a missed one. What SIDE EFFECTS can this medicine cause? Etanercept injection products may cause side effects. Tell your doctor if any of these symptoms aresevere or do not go away: redness, itching, pain, swelling, bleeding, or bruising at the site of injection Some side effects can be serious. If you experience any of the following side effects or those mentioned in the IMPORTANT WARNING SECTION, call your doctor immediately or get emergency medical help: seizures easy bruising or bleeding pale skin pain in the upper right part of the stomach rash; hives; itching; swelling of the eyes, face, lips, tongue, or throat; or difficulty breathing or swallowing shortness of breath swelling of the feet, ankles, or lower legs rash on the face and arms that worsens in the sun numbness or tingling vision changes or problems weakness in the arms or legs dizziness red, scaly patches or pus-filled bumps on the skin Adults who receive etanercept injection products maybe at greater risk of developing lymphoma, leukemia (cancer that begins in the white blood cells), skin cancer, and other types of cancer than adults who do not receive this medication. Talk to your doctor about the risks of receiving etanercept in jection products. Etanercept injection products may cause other side effects. Call your doctor if you have any unusual problems while using this medication. If you experience a serious side effect, you or your doctor may send a report to the Food and Drug Administration's (FDA) MedWatch Adverse Event Reporting program online (http://www.fda.gov/Safety/MedWatch) or by phone ( ). What should I know about STORAGE and DISPOSAL of this medication? Keep this medication in the container it came in, tightly closed, and out of reach of children. Store etanercept injection products in the refrigerator but do not freeze. If needed, etanercept injection products may be stored at room temperature. Talk to your doctor or pharmacist to find out how long your etanercept injection product may be stored at room temperature. Keep etanercept injection products in their original cartons to protect them from light. If you have mixed a vial of etanercept powder with the provided liquid, you may store the solution in the refrigerator for up to 14 days. Unneeded medications should be disposed of in special ways to ensure that pets, children, and otherpeople cannot consume them. However, you should not flush this medication down the toilet. Instead,the best way to dispose of your medication is through a medicine take-back program. Talk to your pharmacist or contact your local garbage/recycling department to learn about take-back programs in your community. See the FDA's Safe Disposal of Medicines website (http://goo.gl/c4Rm4p) for more information if you do not have access to a take- back program. It is important to keep all medication out of sight and reach of children as many containers (such as weekly pill minders and those for eye drops, creams, patches, and inhalers) are not child-resistant and young children can open them easily. To protect young children from poisoning, always lock safety caps and immediately place the medication in a safe location - one that is up and away and out of their sight and reach. http://www.upandaway.org What should I do in case of OVERDOSE? In case of overdose, call the poison control helpline at . Information is also available online at https://www.poisonhelp.org/help. If the victim has collapsed, had a seizure, has trouble breathing, or can't be awakened, immediately call emergency services at 269. What OTHER INFORMATION should I know? Keep all appointments with your doctor and the laboratory. Your doctor may order certain lab tests to check your body's response to etanercept injection products. Before having any laboratory test, tell your doctor and the laboratory personnel that you are usingetanercept injection products. Do not let anyone else use your medication. Ask your pharmacist any questions you have about refilling your prescription. It is important for you to keep a written list of all of the prescription and nonprescription (dazg-pww-[id number]) medicines you are taking, as well as any products such as vitamins, minerals, or otherdietary supplements. You should bring this list with you each time you visit a doctor or if you areadmitted to a hospital. It is also important information to carry with you in case of emergencies. This report on medications is for your information only, and is not considered individual patient advice. Because of the changing nature of drug information, please consult your physician or pharmacist about specific clinical use. The [place] [employer] represents that the information provided hereunder was formulated with a reasonable standard of care, and in conformity with professional standards in the field. The [place] [employer] makes no representations or warranties, express or implied, including, but not limited to, any implied warranty of merchantability and/or fitness for a particular purpose, with respect to such information and specifically disclaims all such warranties. Users are advised that decisions regarding drug therapy are complex medical decisions requiring the independent, informed decision of an appropriate health health and social care teacher, and the information is provided for informational purposes only. The entire monograph for a drug should be reviewed for a thorough understanding of the drug's actions, uses and side effects. The [place] [employer] does not endorse or recommend the use of any drug.The information is not a substitute for medical care. [facility]® Patient Medication Information™. © Copyright, 2023. The [employer]®, [facility], [address], [place], [place]. All Rights Reserved. Duplication for commercial use must be authorized by [facility]. documented in this encounter Progress Notes * Ling Mata CRNP - 11/25/2024 8:33 AM EDT Images from the original note were not included. Assessment and Plan Rheumatoid arthritis of multiple sites without rheumatoid factor (HCC) Senile osteoporosis Generalized osteoarthritis Mr. Eason has been off of Humira since August due to cost. Patient continues to have ongoing joint pains. We will start authorization for Enbrel to see if this medication is affordable. We will continue current dose of methotrexate and folic acid. Most recent labs reviewed from November show no indication of medication toxicity. Advised patient to get labs updated 1 month after starting Enbrel then continue every 3 months. Patient has a knee replacement on 11/27/2023. Feels comfortable holdinghis methotrexate this week. Advised patient he can restart next week as long as is no signs and symptoms of infection. We will discuss next dose of Reclast at our upcoming appointment in March as the patient reports he has a lot going on with the knee replacement and was starting a new biologic. I recommend continuation of a healthy diet with calcium rich foods as well as calcium and vitamin D supplement. Patient encouraged to participate in weight-bearing exercise (i.e., walking). Discussed fall avoidance measures and recommend fall prevention. Although falls are never planned, I discussed with the patient the goal of therapy to slow down / stop the process of osteoporosis from progressing. Patient voiced understanding of the discussion. Discussed the above in detail with the patient. All questions were answered. Patient advised to hold any immunosuppressant medication if they are sick or on antibiotics. Labs ordered for monitoring for medication toxicity. Patient advised to contact the clinic with questions. Plan 1. Labs: CBC/CMP in 1 month then every 3 months 2. Medications: Continue methotrexate and folic acid. We will start authorization for Enbrel 3. Follow up 4 months 4. Recommend dose of Reclast this summer 5. Contact clinic with any questions, concerns, worsening symptoms 6. Continues following with Orthopedics 7. Discussed the above in detail with the patient. All questions answered. CC Dr. Bridges Rheumatology Synopsis: [facility] RA SYNOPSIS Date of RA Diagnosis: [birth year] (06/17/2024 8:00 AM) Current Treatment: MTX (11/25/2024 9:00 AM) Previous Treatment: INF; ADA; SSZ; LEF (11/25/2024 9:00 AM) 2009 Classification Criteria: Y (06/17/2024 8:00 AM) Seropositive or seronegative: Seronegative (06/17/2024 8:00 AM) Disease activity: Uncontrolled Patient History History of Present Illness Intermittent numbness of hands HPI:69 year old male presented to rheumatology clinic for Rheum Follow Up (Follow up - RA) Last OV reviewed from 06/17/2024. He continues on methotrexate 17.5 mg once a week with folic acid 1 mg daily. Denies missed doses or adverse effects. He notes that he stopped Humira due to cost and Amjaveita was too costly as well in Aug. Is willing to start auth for different biologic. Reports that he is getting a left knee replacement at [facility] this Sun. Continues taking Tylenol as needed, Voltaren gel, as well as his Vicodin as needed with benefit. 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 Had do doses of Reclast thus far. Last dose December,. We will consider 1 more dose of Reclast this summer. Denies interval falls or fractures. Continues taking calcium and Vit D. Reports he fell on ice over the winter without fracture. ROS: Review of Systems was asked and the following other significant symptoms are present: Joint pain, intermittent numbness of hands Rheumatology History Subjective Patient's past history, medications, and allergies were reviewed. Objective Physical Exam Temp 36.5 °C (97.7 °F) (Infrared ) | Wt 107 kg (236 lb) | BMI 36.42 kg/m² | BSA 2.26 m² Constitutional: no acute distress HEENT: normal: normocephalic, atraumatic; no masses, tenderness, or adenopathy CV: normal rate and rhythm, no murmur, gallops or rub Chest: normal respiratory effort, lungs clear to auscultation and percussion Musculoskeletal: Tenderness of right wrist with synovitis, bilateral 2nd through 4th MCPs and PIPs without synovitis. Crepitus to left knee. Muscle strength 5/5 in upper and lower extremities. Realtime Reporter strength 5/5 in bilateral hands. Normal range of motion in upper and lower extremity Extremities: no clubbing, cyanosis, or edema, otherwise grossly normal, warm, and dry Lymph Nodes: no adenopathy, no cervical adenopathy noted Neuro: alert, oriented to person, place, and time, normal mental status exam, gait normal, sensory normal MSK/Joint exam (Homunculus) MSK Exam findings: Homunculus exam Studies: Labs and Imaging studies reviewed with pertinent findings noted below: Latest Reference Range & Units 11/06/24 08:48 SODIUM 135 - 146 mmol/L 144 POTASSIUM 3.5 - 5.1 mmol/L 4.1 CHLORIDE 98 - 107 mmol/L 106 CO2 22 - 32 mmol/L 26 BUN 6 - 20 mg/dL 16 CREATININE 0.6 - 1.2 mg/dL 1.0 EGFR >=60 mL/min 87 ANION GAP 7 - 15 mmol/L 12 GLUCOSE 70 - 120 mg/dL 108 CALCIUM 8.4 - 10.2 mg/dL 9.5 Protein 6.0 - 8.3 g/dL 7.3 Latest Reference Range & Units 11/06/24 08:48 CBC Rpt ! WBC 4.00 - 10.80 K/uL 8.10 RBC 4.50 - 5.25 M/uL 3.90 HGB 14.0 - 16.8 g/dL 13.1 (L) HCT 40.0 - 48.4 % 39.0 (L) MCV 82.0 - 99.5 fL 100.0 MCH 27.0 - 34.0 pg 33.6 MCHC 32.0 - 36.0 g/dL 33.6 RDW 11.5 - 15.5 % 14.0 PLT 140 - 400 K/uL 217 MPV 6.6 - 11.1 fL 9.0 CBC WITH WBC DIFFERENTIAL Rpt ! Absolute Neutrophils 1.80 - 7.70 K/uL 5.25 Absolute Lymphocytes 1.00 - 4.80 K/ul 1.86 Absolute Monocytes 0.00 - 1.10 K/uL 0.74 Absolute Eosinophils 0.00 - 0.70 K/uL 0.21 Absolute Basophils 0.00 - 0.20 K/uL 0.04 Latest Reference Range & Units 11/06/24 08:48 Albumin 3.8 - 5.0 g/dL 4.7 AST 10 - 50 U/L 28 ALT 10 - 50 U/L 32 Alkaline Phosphatase 35 - 130 U/L 82 Bilirubin, Total <=1.2 mg/dL 0.7 Latest Reference Range & Units 12/12/23 09:02 25-Hydroxy Vitamin D >19 ng/mL 37 Disease Treatment Response CDAI Scoring Patient Global: 50 / 100 Provider Global: 50 / 100 Tender (HERRING-28): 13 / 28 Swollen (HERRING-28): 0 / 28 CDAI: 23 CDAI (Clinical Disease Activity Index) © [facility] Outcomes measures: Serial CDAI: Synopsis SmartLink 11/25/2024 08:30 12/14/2023 08:30 CDAI CDAI 23 8 - Serial CDAI: - Yes - Remission: - No - Moderate disease activity Currently on csDMARD: Yes Currently on Biologic DMARD: No Vaccination status: COVID: Vaccine and/or Health maintenance status Incomplete Influenza:Vaccine complete for this season Pneumococcal:Vaccine Series complete Zoster:Vaccine Series Complete Last Hepatitis and TB testing: Hepatitis B: Tested, result reviewed Hepatitis C: Tested, result reviewed PPD or TB-Gold: Tested, result reviewed Lab Results Component Value Date HBSAG NEGATIVE 02/10/2010 HCVAB NEGATIVE 02/10/2010 TB GOLD AG NIL Date/Time Value Ref Range Status 07/05/2018 09:55 AM 0.00 IU/mL Final Comment: (NOTE) The Nil tube value is used to determine if the patient has a preexisting immune response which could cause a false-positive reading on the test. In order for a test to be valid, the Nil tube must have a value of <=8.0 IU/mL. The Mitogen control tube is used to assure the patient has a healthy immune status and also serves as a control for correct blood handling and incubation. It is used to detect false-negative readings. The mitogen tube must have a gamma interferon value >= 0.5 IU/mL higher than the value of the Nil tube. The TB Antigen tube is coated with the M tuberculosis specific antigens. For a test to be considered positive the TB antigen tube value minus the Nil tube value must be >=0.35 IU/mL. Data on the performance of the test in children younger than 5 years of age are limited, and the CDC advises that caution is warranted when using the assay in children aged <5 years (MMWR 2009; 59 (RR-05):1-25). For additional information, please refer to: http://education.indidebt/faq/QFT (This link is being provided for informational/ educational purposes only). TB GOLD MITOGEN NIL Date/Time Value Ref Range Status 07/05/2018 09:55 AM 6.56 IU/mL Final PPD INDURATION Date/Time Value Ref Range Status 09/01/2011 12:00 AM 0 mm Wrap-Up Follow Up: Return in about 4 months (around 03/27/2025) for Clinic Visit. | For: Clinic Visit Time: I spent a total of 30-39 minutes (exact time 35 mins) on the date of service in preparation, delivery, and documentation of the care provided to Leonel Eason excluding any time spent in the performance of separately billed services. JAZMIN Lizama Rheumatology Department The patient was discussed with me. I agree with the findings and plan as documented by Ling WU in this note. Keith Pruett MD Rheumatology Department documented in this encounter Nursing Notes * Dasia Gonzalez LPN - 11/25/2024 8:27 AM EDT Chief Complaint Patient presents with Rheum Follow Up Follow up - RA Pt getting a total left knee replacement next week 12/03/24 documented in this encounter Plan of Treatment Upcoming Encounters Date Type Department Care Team (Late st Contact Info) Description 12/22/2024 10:00 AM EDT Office Visit Family Practice [address] [facility], [place] [address] [place] [address] [facility] [address] [facility] [id number] 03/25/2025 10:00 AM EDT Office Visit Rheumatology [facility] [address] [place] [id number] Ling Mata CRNP [address] [facility], [place] [address] 04/13/2025 9:00 AM EDT Office Visit Orthopaedics [facility] [address] [place] [id number] Keith Pearson, [address] [place] [address] 05/18/2025 8:15 AM EDT Cardiac Studies Cardiac Studies, [facility] [address] [place] [id number] 11/16/2025 8:30 AM EDT Office Visit Cardiology, [facility] [address] [place] [phone] Chayo Ace CRNP [address] [place] [address] Scheduled Procedures Name Priority Associated Diagnoses Date/Ti me COLONOSCOPY FLEXIBLE PROXIMAL DIAGNOSTIC Recall History of colon polyps Health Maintenance Due Date Last Done Comments Cologuard 2000 Sigmoidoscopy 2000 Fecal Occult Blood Test 09/07/2000 09/07/1999 Adult Wellness Visit 2021 Depression Monitoring 10/08/2025 10/08/2024 GFR 11/06/2025 11/06/2024, 07/04, 03/26/2024, Additional history exists TSH 11/06/2025 11/06/2024, 08/04, 06/21/2023, Additional history exists Albumin/Creatinine Ratio 08/16/2026 08/16/2023 DXA Scan 08/18/2026 08/18/2024, 08/03, 08/15/2022, Additional history exists Colonoscopy 12/05/2026 12/05/2021, 0 12/2021, 05/31/2011, Additional history exists Colorectal Cancer Screening 12/05/2026 Diabetes Screening 11/07/2027 11/06/2024, 1 10/26/2023, 07/17/2024, Additional history exists DTap/Tdap Vaccines (3 - Td or Tdap) 09/06/2028 09/06/2018, 05/04/2008, 09/26/2002, Additional history exists Zoster Vaccines Completed 07/01/2021, 04/13/2021 RETIRED - COLONOSCOPY-EVERY 5 YRS AGES 18-100 Discontinued 12/05/2021, 12/05/2021, 05/31/2011, Additional history exists AAA Screening Completed 01/28/2022, 060 11/2019, 05/09/2016, Additional history exists Pneumococcal Vaccine: 50+ Years Completed 08/16/2023, 03/13/2019, 02/20/2018, Additional history exists VITAMIN D LEVEL ONCE IN A LIFETIME-USE SMARTSET# [id number] Completed 12/12/2023, 08/18/2022, 05/24/2016, Additional history exists COVID-19 Vaccine Discontinued 05/23/2024, , 07/25/2022, Additional history exists Influenza Vaccine (FLU shot) Completed 05/23/2024, 05/25/2023, 06/15/2022, Additional history exists HPV (Gardasil) Vaccine Aged Out No lo nger eligible based on patient's age to complete this topic Hepatitis B Vaccine Aged Out No longe r eligible based on patient's age to complete this topic MENINGOCOCCAL (MENACTRA/MENVEO) Aged Out No longer eligible based on patient's age to complete this topic Meningitis B Vaccine (Bexsero/Trumemba) Aged Out No longer eligible based on patient's age to complete this topic documented as of this encounter Medical Devices Not on filedocumented as of this encounter Visit Diagnoses Diagnosis Rheumatoid arthritis of multiple sites without rheumatoid factor (HCC)- Primary Rheumatoid arthritis Senile osteoporosis Generalized osteoarthritis Generalized osteoarthrosis, unspecified site documented in this encounter Advance Directives * Full Code (Latest Code Status on File) Date Activated Date Inactivated Comments 02/07/2022 8:35 AM 02/07/2022 2:44 PM This order ref lects the patients wishes and were consensually agreed upon. Care Teams Dairy Feed Sales Consultant Relationship Specialty Start Date End Date Ethan Bridges DO [address] [place] [address] PCP - General 07/05/10 documented as of this encounter
--- OUTSIDE RECORDS SUMMARY | 2024-12-04 19:26 | External Medical Summary | Summary of Care ---
Author Name Unknown Organization [facility] Address [address] [place] [address] Phone [phone] Care Team Providers Care Engine Cleaner Name Role Phone Ethan Bridges DO Primary Care Provider [phone] Reason for Visit * Reason Onset Date Comments Med Request 12/03/2024 Enbrel Rx for am gen Encounter Details Date Type Department Care Team (Late st Contact Info) Description 12/03/2024 Telephone Rheumatology [facility] [address] [place] [address] Ling Mata CRNP [address] [place] [address] Med Request (Enbrel Rx for amgen) Allergies Active Allergy Reactions Criticality Noted Date Comments Morphine Hives,Itching High 12/07/2000 Other Reaction(s): ITCHING,HIVES,SOB Sulfasalazine High 02/28/2018 Abdominal pain, fever Other Reaction(s): abdominal pain, fever documented as of this encounter (statuses as of 12/03/2024) Medications MULTIVITAMIN TABS OR 1 tablet by mouth daily 0 05/03/20 00 Active CALTRATE 600+D 600-400 MG-UNIT PO TABS one tab daily Active NEEDLES & SYRINGES MISCIndications:Ad dison's disease ([facility]) 5 ml syringe and 27 Gauge needle 3 Each 3 05/14/20 12 Active folic acid 1 MG TabletIndications: Arthritis, rheumatoid (HCC) Take 1 Tab by mouth daily. 90 Tab 3 02/04/20 19 Active diphenhydrAMINE HCl 25 MG Oral Capsule Take 1 Capsule by mouth at bedtime as needed for Itching. Active methylPREDNISolone Sodium Succ 125 MG Injection Solution Reconstituted (SOLU-Medrol)Indic ations:Adrenal insufficiency (HCC) Sive 125 mg IM as needed for adrenal insufficency stress dose 4 mL 1 01/26/20 22 Active Easy Touch FlipLock [place] 25G X 1" (Needle (Disp))Indications :Adrenal insufficiency (HCC) To use with solu medrol 30 Each 5 02/09/20 22 Active Syringe 2-3 ML 3 MLIndications:Adre nal insufficiency (HCC) Use with solumedrol 30 Each 5 02/09/20 22 Active Ventolin HFA 108 (90 Base) MCG/ACT Inhalation Aerosol SolutionIndication s:Cough INHALE TWO PUFFS BY MOUTH 4 TIMES DAILY 54 g 1 4 1:08 PM EDT 03/08/20 23 Active Aspirin 81 MG Oral Tablet Delayed ReleaseIndications :Coronary artery disease involving [place] coronary artery of [place] heart without angina pectoris Take 1 Tablet by mouth in the morning. 09/14/19 24 Active Fluticasone Propionate 50 MCG/ACT Nasal Suspension (Flonase)Indicatio ns:Seasonal allergic rhinitis due to pollen Use 2 spray(s) in each nostril once daily 48 g 3 10/02/19 24 Active BD TB Syringe 27G X 1/2" 1 ML (Tuberculin Syringe)Indication s:Rheumatoid arthritis of multiple sites without rheumatoid factor (HCC) USE ONCE WEEKLY WITH METHOTREXATE 12 Each 3 11/14/19 24 Active Terazosin HCl 5 MG Oral Capsule (Hytrin)Indication s:HTN, goal below 140/90,Coronary artery disease involving [place] coronary artery of [place] heart without angina pectoris TAKE 1 CAPSULE BY MOUTH EVERY MORNING 90 Capsule 3 5 3:20 PM EDT 02/11/20 24 025 Active Atorvastatin Calcium 40 MG Oral Tablet (Lipitor)Indicatio ns:Pure hypercholesterolem ia,Coronary artery disease involving [place] coronary artery of [place] heart without angina pectoris,Presence of drug coated stent in LAD coronary artery TAKE ONE TABLET BY MOUTH EVERY day 100 Tablet 3 5 12:14 PM EST 03/03/20 24 025 Active Potassium Chloride Barbara ER 20 MEQ Oral Tablet Extended ReleaseIndications :Low serum potassium Take 1 Tablet by mouth in the morning. 90 Tablet 3 5 1:46 PM EST 04/07/20 24 Active Metoprolol Succinate ER 25 MG Oral Tablet Extended Release 24 Hour (toPROL XL)Indications:HTN , goal below 140/90,Coronary artery disease involving [place] coronary artery of [place] heart without angina pectoris,Presence of drug coated stent in LAD coronary artery,Ischemic cardiomyopathy TAKE ONE TABLET BY MOUTH EVERY DAY 90 Tablet 3 5 7:06 AM EST 04/07/20 24 025 Active FLUoxetine HCl 40 MG Oral Capsule (PROzac) TAKE ONE CAPSULE BY MOUTH EVERY MORNING 90 Capsule 3 5 2:44 PM EST 04/20/20 24 025 Active Baclofen 10 MG Oral Tablet (Lioresal)Indicati ons:Spasm of muscle Take 1 Tablet by mouth in the morning and 1 Tablet before bedtime. 200 Tablet 1 5 12:14 PM EST 05/13/20 24 Active Nitroglycerin 0.4 MG Sublingual Tablet Sublingual (Nitrostat)Indicat ions:Coronary artery disease involving [place] coronary artery of [place] heart without angina pectoris DISSOLVE ONE TABLET UNDER THE TONGUE EVERY 5 MINUTES NEEDED FOR CHEST PAIN. DO NOT EXCEED A TOTAL OF 3 DOSES IN 15 MINUTES 25 Tablet 11 05/19/20 24 Active Additional Information Patient not taking.Reported on 11/25/2024 Pantoprazole Sodium 40 MG Oral Tablet Delayed Release (Protonix)Indicati ons:Gastroesophage al reflux disease without esophagitis TAKE ONE TABLET BY MOUTH EVERY DAY 100 Tablet 1 5 8:58 AM EST 06/07/20 24 025 Active Lisinopril 20 MG Oral Tablet (Prinivil)Indicati ons:HTN, goal below 140/90 Take 1 Tablet by mouth in the morning. 100 Tablet 3 5 12:30 PM EDT 08/25/20 24 Active Toilet Safety FrameIndications:B patrick trauma of rib, initial encounter,Rheumato id arthritis of multiple sites without rheumatoid factor (HCC) Use over toilet as frame to assist with getting up. 2 Each 10/09/19 25 Active Fludrocortisone Acetate 0.1 MG Oral Tablet (Florinef)Indicati ons:Mineralocortic oid deficiency (HCC) Take 1 Tablet by mouth in the morning. APPOINTMENT NEEDED FOR FUTURE REFILLS.. 90 Tablet 3 5 8:50 AM EST 10/13/19 25 Active Hydrocortisone 10 MG Oral Tablet (Cortef)Indication s:Mineralocorticoi d deficiency (HCC) TAKE TWO TABLETS BY MOUTH IN THE MORNING TAKE ONE TABLET IN THE EVENING AND TAKE ONE TABLET NEEDED FOR STRESS 400 Tablet 3 5 8:50 AM EST 10/13/19 25 Active Methotrexate Sodium 50 MG/2ML Injection SolutionIndication s:Arthritis, rheumatoid (HCC) Inject 0.7ml (=17.5 mg) under the skin once a week. 12 mL 5 9:38 AM EST 10/22/19 25 Active Zoledronic Acid 5 MG/100ML Intravenous Solution (Reclast) Administer 5 mg intravenously once. Active Levothyroxine Sodium 125 MCG Oral Tablet (Levoxyl)Indicatio ns:Acquired hypothyroidism TAKE 1 TABLET BY MOUTH DAILY EXCEPT FOR SUNDAY AT LEAST 30 MIN. PRIOR TO BREAKFAST OR OTHER MEDS- 1 EVERY DAY FOR 6 DAYS IN A ROW. 90 Tablet 3 5 8:33 AM EDT 11/13/19 25 Active Diphenoxylate-Atro pine 2.5-0.025 MG Oral Tablet (Lomotil)Indicatio ns:Irritable bowel syndrome with diarrhea TAKE 1 TABLET BY MOUTH 4 TIMES DAILY NEEDED FOR DIARRHEA 120 Tablet 11/25/19 25 Active HYDROcodone-Acetam inophen 5-325 MG Oral TabletIndications: Rheumatoid arthritis involving multiple sites with positive rheumatoid factor (HCC) Take 1 Tablet by mouth in the morning and 1 Tablet before bedtime. 60 Tablet 11/28/19 25 Active documented as of this encounter (statuses as of 12/03/2024) Active Problems Problem Noted Date Diagnosed Date Uncomplicated asthma 10/08/2024 Senile osteoporosis 06/15/2022 Multiple lipomas 02/07/2022 Coronary artery disease invo lving catawba coronary artery of [place] heart without angina pectoris 02/09/2020 Pure hypercholesterolemia 02/09/2020 Presence of drug coated stent in LAD coronary ar ibis 02/06/2020 Overview (02/06/2020): 02/04/2020 SAIRA (generalized anxiety disorder) 09/09/2019 Major depressive disorder, single episode, moder ate 09/06/2018 Encounter for long-term (current) use of medicat ions 11/19/2017 Controlled substance agreement signed 06/13/2017 THIERRY on CPAP 12/14/2016 Overview (01/26/2017): CPAP 12 cwp AHP Rheumatoid arthritis of [facility] without rheumatoid factor 08/31/2016 Gastroesophageal reflux disease without esophagi tis 06/08/2014 Adrenal insufficiency 10/02/2011 HTN, goal below 140/90 10/18/2010 Displacement of cervical int ervertebral disc without myelopathy 08/05/2010 Anti-phospholipid antibody syndrome 11/20/2005 Carpal tunnel syndrome 01/02/2003 Other optic neuritis History of DVT (deep vein thrombosis) Acquired hypothyroidism Mineralocorticoid deficiency documented as of this encounter (statuses as of 12/03/2024) Resolved Problems Problem Noted Date Diagnosed Date Resolved Date Psoriasis 10/08/2024 10/08/2024 Prediabetes 11/26/2022 09/13/2023 History of 2019 novel mohr virus disease (COVID-19) 06/14/2022 10/13/2022 Migraine 09/15/2020 10/13/2022 Anxiety 07/27/2015 09/09/2019 Migraine 11/06/2013 09/15/2020 Hypogonadism male 03/26/2012 04/23/2018 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 Arthritis, rheumatoid 01/11/20112015 Polyarthropathy [...] as of this encounter (statuses as of 12/03/2024) Immunizations Name Administration Dates Next Due COVID-19 mRNA, LNP-s, No Pre serve, 2-Dose Series ([employer]) 04/08/2022,05/03/2021,11/20/2020,10/30 COVID-19, MRNA-LNP, 24-25, P F, 50 MCG/0.5ML, IM, 12 YRS & ABOVE (Moderna - Spikevax) 05/23/2024 COVID-19, MRNA-LNP, PF, 50 M CG/0.5 mL, 12 YRS AND ABOVE, IM (MODERNA-Spikevax) 06/21/2023 Covid-19, Mrna, Lnp-s, Pf, B ivalent, 30 Mcg, IM, 12 yrs and above ([employer]) 07/25/2022 PPD 08/30/2011 Pneumococcal Conjugate Vacc, 13 Valent (Prevnar) 03/13/2019 Pneumococcal Conjugate Vacci ne, 20-valent ([id number]) 08/16/2023 Pneumococcal Polysaccharide PPV23 (Pneumovax) 02/20/2018,06/03/2009 RSV [...] Passive Smoke Exposure: Past Smokeless Tobacco: Never Alcohol Use Standard Drinks/Week Comments Yes 0 [...] on file documented as of this encounter Miscellaneous Notes * Telephone Encounter - Dasia Gonzalez LPN - 12/03/2024 9:19 AM EDT Faxed as requested * Telephone Encounter - Ling Mata CRNP - 12/03/2024 8:00 AM EDT Please fax prescription form to documented in this encounter Plan of Treatment Upcoming Encounters Date Type Department Care Team (Late st Contact Info) Description 12/22/2024 10:00 AM EDT Office Visit Family Practice [address], [place] [address] [place] [address] Ethan Bridges, DO [address] [facility], [place] [address] 03/25/2025 10:00 AM EDT Office Visit Rheumatology [facility] [address] [place] [phone] Ling Mata CRNP [address] [place] [address], [place] [address] 04/13/2025 9:00 AM EDT Office Visit Orthopaedics [facility] [address] [place] [phone] Keith Pearson, DO [address] [place] [phone] 05/18/2025 8:15 AM EDT Cardiac Studies Cardiac Studies, [facility] [address] [place] [phone] 11/16/2025 8:30 AM EDT Office Visit Cardiology, [facility] [address] [place] [phone] Chayo Ace CRNP [address] [place] [address] Scheduled Procedures Name Priority Associated Diagnoses Date/Ti [...] 08/15/2022, Additional history exists Colonoscopy 12/05/2026 12/05/2021, 12/2021, 05/31/2011, Additional history exists Colorectal Cancer Screening 12/05/2026 Diabetes Screening 11/07/2027 11/06/2024, 1 10/26/2023, 07/17/2024, Additional history exists DTap/Tdap Vaccines (3 - Td or Tdap) 09/06/2028 09/06/2018, 05/04/2008, 09/26/2002, Additional history exists Zoster Vaccines Completed 07/01/2021, 04/13/2021 RETIRED - COLONOSCOPY-EVERY 5 YRS AGES 18-100 Discontinued 12/05/2021, 12/05/2021, 05/31/2011, Additional history exists AAA Screening Completed 01/28/2022, 11/2019, 05/09/2016, Additional history exists Pneumococcal Vaccine: 50+ Years Completed 08/16/2023, 03/13/2019, 02/20/2018, Additional history exists VITAMIN D LEVEL ONCE IN A LIFETIME-USE SMARTSET# 83921 Completed 12/12/2023, 08/18/2022, 05/24/2016, Additional history exists [...] without rheumatoid factor (HCC)- Primary Rheumatoid arthritis documented in this encounter Advance Directives * Full Code (Latest Code Status on File) Date Activated Date Inactivated Comments 02/07/2022 8:35 AM 02/07/2022 2:44 PM This order ref lects the patients wishes and were consensually agreed upon. Care Teams Engine Cleaner Relationship Specialty Start Date End Date Ethan Bridges DO [address] [place] [address] PCP - General 07/05/10 documented as of this encounter
--- OUTSIDE RECORDS SUMMARY | 2024-12-04 19:26 | External Medical Summary | Summary of Care ---
Author Name Unknown Organization [facility] Address [address] [place] [address] Phone [phone] Care Team Providers Care Sr. Payroll Manager Name Role Phone Ethan Bridges DO Primary Care Provider [phone] Reason for Visit * Reason Comments Rheum Follow Up Follow up - RA Encounter Details Date Type Department Care Team (Latest Contact Info) Description 11/25/2024 8:30 AM EDT Office Visit Rheumatology [facility] [address] [place] [phone] Ling Mata CRNP [facility] [place] [address] Rheumatoid arthritis of multiple sites without rheumatoid factor (HCC)*; Senile osteoporosis; Generalized osteoarthritis Allergies Active Allergy Reactions Criticality Noted Date Comments Morphine Hives,Itching High 12/07/2000 Other Reaction(s): ITCHING,HIVES,SOB Sulfasalazine High 02/28/2018 Abdominal pain, fever Other Reaction(s): abdominal pain, fever documented as of this encounter (statuses as of 12/01/2024) Medications MULTIVITAMIN TABS OR 1 tablet by [...] MG Injection Solution Reconstituted (SOLU-Medrol)Uyen cations:Adrenal insufficiency ([facility]) Sive 125 mg IM as needed for adrenal insufficency stress dose 4 mL 1 01/26/20 22 Active Easy Touch FlipLock [place] 25G X 1" (Needle (Disp))Indication s:Adrenal insufficiency (HCC) To use with solu medrol 30 Each 5 02/09/20 22 Active Syringe 2-3 ML 3 MLIndications:Adr enal insufficiency ([facility]) Use with solumedrol 30 Each 5 02/09/20 22 Active Ventolin HFA 108 (90 Base) MCG/ACT Inhalation Aerosol SolutionIndicatio ns:Cough INHALE TWO PUFFS BY MOUTH 4 TIMES DAILY 54 g 1 4 1:08 PM EDT 03/08/20 23 Active Aspirin 81 MG Oral Tablet Delayed ReleaseIndication s:Coronary artery disease involving [place] coronary artery of [place] heart without angina pectoris Take 1 Tablet [...] ns:HTN, goal below 140/90,Coronary artery disease involving [place] coronary artery of [place] heart without angina pectoris TAKE 1 CAPSULE BY MOUTH EVERY MORNING 90 Capsule 3 5 3:20 PM EDT 02/11/20 24 025 Active Atorvastatin Calcium 40 MG Oral Tablet (Lipitor)Indicati ons:Pure hypercholesterole tammy,Coronary artery disease involving [place] coronary artery of [place] heart without angina pectoris,Presence of drug coated [...] N, goal below 140/90,Coronary artery disease involving [place] coronary artery of [place] heart without angina pectoris,Presence of drug coated [...] Tablet Sublingual (Nitrostat)Indica tions:Coronary artery disease involving [place] coronary artery of [place] heart without angina pectoris DISSOLVE ONE TABLET [...] 14 days. 0.8 mL 5 09/02/20 24 11/25/ 025 Discontin ued(Patie nt preferenc e/discont inuation) HYDROcodone-Aceta minophen 5-325 MG Oral TabletIndications :Rheumatoid arthritis involving multiple sites with positive rheumatoid factor (HCC) Take 1 Tablet by mouth in the morning and 1 Tablet before bedtime. 60 Tablet 10/30/19 25 025 Discontin ued(Refil l) documented as of this encounter (statuses as of 12/01/2024) Active Problems Problem Noted Date Diagnosed Date Uncomplicated asthma 10/08/2024 Senile osteoporosis 06/15/2022 Multiple lipomas 02/07/2022 Coronary artery disease invo lving [place] coronary artery of [place] heart without angina pectoris 02/09/2020 Pure hypercholesterolemia 02/09/2020 Presence of drug coated stent in LAD coronary ar ibis 02/06/2020 Overview (02/06/2020): 02/04/2020 SAIRA (generalized anxiety disorder) 09/09/2019 Major depressive disorder, single episode, moder ate 09/06/2018 Encounter for long-term (current) use of medicat ions 11/19/2017 Controlled substance agreement signed 06/13/2017 THIERRY on CPAP 12/14/2016 Overview (01/26/2017): CPAP 12 cwp AHP Rheumatoid arthritis of [facility] iple sites without rheumatoid factor 08/31/2016 Gastroesophageal reflux disease without esophagi tis 06/08/2014 Adrenal insufficiency 10/02/2011 HTN, goal below 140/90 10/18/2010 Displacement of cervical int ervertebral disc without myelopathy 08/05/2010 Anti-phospholipid antibody syndrome 11/20/2005 Carpal tunnel syndrome 01/02/2003 Other optic neuritis History of DVT (deep vein thrombosis) Acquired hypothyroidism Mineralocorticoid deficiency documented as of this encounter (statuses as of 12/01/2024) Resolved Problems Problem Noted Date Diagnosed Date Resolved Date Psoriasis 10/08/2024 10/08/2024 Prediabetes 11/26/2022 09/13/2023 History of 2019 novel mohr virus disease (COVID-19) 06/14/2022 10/13/2022 Migraine 09/15/2020 10/13/2022 Anxiety 07/27/2015 09/09/2019 Migraine 11/06/2013 09/15/2020 Hypogonadism male 03/26/2012 04/23/2018 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 Arthritis, rheumatoid 01/11/20112015 Polyarthropathy [...] as of this encounter (statuses as of 12/01/2024) Immunizations Name Administration Dates Next Due COVID-19 mRNA, LNP-s, No Pre serve, 2-Dose Series ([employer]) 04/08/2022,05/03/2021,11/20/2020,10/30 COVID-19, MRNA-LNP, 24-25, P F, 50 MCG/0.5ML, IM, 12 YRS & ABOVE (Moderna - Spikevax) 05/23/2024 COVID-19, MRNA-LNP, PF, 50 M CG/0.5 mL, 12 YRS AND ABOVE, IM (MODERNA-Spikevax) 06/21/2023 Covid-19, Mrna, Lnp-s, Pf, B ivalent, 30 Mcg, IM, 12 yrs and above ([employer]) 07/25/2022 PPD 08/30/2011 Pneumococcal Conjugate Vacc, 13 Valent (Prevnar) 03/13/2019 Pneumococcal Conjugate Vacci ne, 20-valent ([id number]) 08/16/2023 Pneumococcal Polysaccharide PPV23 (Pneumovax) 02/20/2018,06/03/2009 RSV [...] ever lived in areas such as the [place] and [facility] where severe fungal infections are more common. [...] doctor or pharmacist will give you the vice president of instruction's patient information sheet (Medication Guide) when you begin treatment with etanercept injection products and each time you refill your prescription. Read the information carefully and ask your doctor or pharmacist if you have any questions.You can also visit the Food and Drug Administration (FDA) website (https://www.fda.gov/Drugs/DrugSafety/fsr274301.htm) or the vice president of instruction's website to obtain the Medication Guide. Talk [...] be awakened, immediately call emergency services at [phone]. What OTHER INFORMATION should I know? Keep [...] of all of the prescription and nonprescription ([id number]) medicines you are taking, as well as [...] or pharmacist about specific clinical use. The [employer] represents that the information provided hereunder was formulated with a reasonable standard of care, and in conformity with professional standards in the field. The [employer] makes no representations or warranties, express or implied, including, but not limited to, any implied warranty of merchantability and/or fitness for a particular purpose, with respect to such information and specifically disclaims all such warranties. Users are advised that decisions regarding drug therapy are complex medical decisions requiring the independent, informed decision of an appropriate health career development counselor, and the information is provided for informational purposes only. The entire monograph for a drug should be reviewed for a thorough understanding of the drug's actions, uses and side effects. The [employer] does not endorse or recommend the use of any drug.The information is not a substitute for medical care. [facility]® Patient Medication Information™. © Copyright, 2023. The [employer]®, [facility], [address], [place], [place]. All Rights Reserved. Duplication for commercial use must be authorized by [facility]. documented in this encounter Progress Notes * [...] questions answered. CC Dr. Bridges Rheumatology Synopsis: RPICC RA SYNOPSIS Date of RA Diagnosis: 09/08/96 (06/17/2024 8:00 AM) Current Treatment: MTX (11/25/2024 9:00 AM) Previous Treatment: INF; ADA; SSZ; LEF (11/25/2024 9:00 AM) 2010 Classification Criteria: Y (06/17/2024 8:00 AM) Seropositive [...] is getting a left knee replacement at [facility] this Sun. Continues taking Tylenol as needed, Voltaren gel, as well as his Vicodin as needed with benefit. 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 Had do doses of Reclast thus [...] strength 5/5 in upper and lower extremities. Obstetric Assistant strength 5/5 in bilateral hands. Normal range [...] 23 CDAI (Clinical Disease Activity Index) © [facility] Outcomes measures: Serial CDAI: Synopsis SmartLink 11/25/2024 [...] (RR-05):1-25). For additional information, please refer to: http://education.[employer]ad (Circle[employer])/faq/QFT (This link is being provided for informational/ [...] EDT Office Visit Family Practice [address], [place] [address] [place] [address] Ethan Bridges, [address] [place] [address] 03/25/2025 10:00 AM EDT Office Visit Rheumatology [facility] [address] [place] [phone] Ling Mata CRNP [facility] [place] [address] 04/13/2025 9:00 AM EDT Office Visit Orthopaedics [facility] [address] [place] [phone] Keith Pearson, DO [address] [place] [address] 05/18/2025 8:15 AM EDT Cardiac Studies Cardiac Studies, [facility] [address] [place] [phone] 11/16/2025 8:30 AM EDT Office Visit Cardiology, [facility] [address] [place] [phone] Chayo Ace CRNP [address] [place] [address] Scheduled Procedures Name Priority Associated Diagnoses Date/Ti [...] D LEVEL ONCE IN A LIFETIME-USE SMARTSET# [id number] Completed 12/12/2023, 08/18/2022, 05/24/2016, Additional history exists [...] and were consensually agreed upon. Care Teams Sr. Payroll Manager Relationship Specialty Start Date End Date Ethan Bridges DO [address] [place] [address] PCP - General 07/05/10 documented as of this encounter
--- OUTSIDE RECORDS SUMMARY | 2024-12-04 19:26 | External Medical Summary | Summary of Care ---
Author Name Unknown Organization [facility] Address [address] [place] [address] Phone [phone] Care Team Providers Care Bundling Machine Operator Name Role Phone Aaliyah Bridges DO Primary Care Provider [phone] Reason for Visit * Reason Onset Date Comments Medication Refill 11/26/2024 Encounter Details Date Type Department Care Team (Late st Contact Info) Description 11/26/2024 Refill Family Practice [address] [place] [address] [place] [address] Aaliyah Bridges DO [address] [place] [address] Rheumatoid arthritis involving multiple sites with positive rheumatoid factor (HCC) Allergies Active Allergy Reactions Criticality Noted Date Comments Morphine Hives,Itching High 12/07/2000 Other Reaction(s): ITCHING,HIVES,SOB Sulfasalazine High 02/28/2018 Abdominal pain, fever Other Reaction(s): abdominal pain, fever documented as of this encounter (statuses as of 11/27/2024) Medications MULTIVITAMIN TABS OR 1 tablet by mouth daily 0 05/03/20 00 Active CALTRATE 600+D 600-400 MG-UNIT PO TABS one tab daily Active NEEDLES & SYRINGES MISCIndications:A ddison's disease (HCC) 5 ml syringe and 27 [...] MG Injection Solution Reconstituted (SOLU-Medrol)Uyen cations:Adrenal insufficiency (HCC) Sive 125 mg IM as needed for adrenal insufficency stress dose 4 mL 1 01/26/20 22 Active Easy Touch FlipLock Warren 25G X 1" (Needle (Disp))Indication s:Adrenal insufficiency (HCC) To use with solu medrol 30 Each 5 02/09/20 22 Active Syringe 2-3 ML 3 MLIndications:Adr enal insufficiency (HCC) Use with solumedrol 30 Each 5 02/09/20 22 Active Ventolin HFA 108 (90 Base) MCG/ACT Inhalation Aerosol SolutionIndicatio ns:Cough INHALE TWO PUFFS BY MOUTH 4 TIMES DAILY 54 g 1 4 1:08 PM EDT 03/08/20 23 Active Aspirin 81 MG Oral Tablet Delayed ReleaseIndication s: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 Take 1 Tablet [...] ns:HTN, goal below 140/90,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 TAKE 1 CAPSULE BY MOUTH EVERY MORNING 90 Capsule 3 5 3:20 PM EDT 02/11/20 24 025 Active Atorvastatin Calcium 40 MG Oral Tablet (Lipitor)Indicati ons:Pure hypercholesterole tammy,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,Presence of drug coated [...] N, goal below 140/90,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 60 Tablet 11/28/19 25 Active HYDROcodone-Aceta minophen 5-325 MG Oral TabletIndications :Rheumatoid arthritis involving multiple sites with positive rheumatoid factor (HCC) Take 1 Tablet by mouth in the morning and 1 Tablet before bedtime. 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 02/09/2020 Pure hypercholesterolemia 02/09/2020 Presence of drug coated stent in LAD coronary ar ibis 02/06/2020 Overview (02/06/2020): 02/04/2020 SAIRA (generalized anxiety disorder) 09/09/2019 Major depressive disorder, single episode, moder ate 09/06/2018 Encounter for long-term (current) use of medicat ions 11/19/2017 Controlled substance agreement signed 06/13/2017 THIERRY on CPAP 12/14/2016 Overview (01/26/2017): CPAP 12 cwp AHP Rheumatoid arthritis of mult iple sites without rheumatoid factor 08/31/2016 Gastroesophageal reflux disease without esophagi tis 06/08/2014 Adrenal insufficiency 10/02/2011 HTN, goal below 140/90 10/18/2010 Displacement of cervical int ervertebral disc without myelopathy 08/05/2010 Anti-phospholipid antibody syndrome 11/20/2005 Carpal tunnel syndrome 01/02/2003 Other optic neuritis History of DVT (deep vein thrombosis) Acquired hypothyroidism Mineralocorticoid deficiency documented as of this encounter (statuses as of 11/27/2024) Resolved Problems Problem Noted Date Diagnosed Date [...] as of this encounter (statuses as of 11/27/2024) Immunizations Name Administration Dates Next Due COVID-19 mRNA, LNP-s, No Pre serve, 2-Dose Series (Hyglos) 04/08/2022,05/03/2021,11/20/2020,10/30 COVID-19, MRNA-LNP, 24-25, P F, 50 MCG/0.5ML, IM, 12 YRS & ABOVE (Moderna - Spikevax) 05/23/2024 COVID-19, MRNA-LNP, PF, 50 M CG/0.5 mL, 12 YRS AND ABOVE, IM (MODERNA-Spikevax) 06/21/2023 Covid-19, Mrna, Lnp-s, Pf, B ivalent, 30 Mcg, IM, 12 yrs and above (Hyglos) 07/25/2022 PPD 08/30/2011 Pneumococcal Conjugate Vacc, 13 Valent (Prevnar) 03/13/2019 Pneumococcal Conjugate Vacci ne, 20-valent ([id number]) 08/16/2023 Pneumococcal Polysaccharide PPV23 (Pneumovax) 02/20/2018,06/03/2009 RSV [...] 11/17/2024 Does the household have a re lar source of income? (Household - for ages [...] encounter Miscellaneous Notes * Telephone Encounter - Aaliyah Bridges DO - 11/27/2024 1:28 PM EDTSigned Prescriptions: Disp Refills HYDROcodone-Acetaminophen 5-325 MG Oral Ta*60 Tab*0 Sig: Take 1 Tablet by mouth in the morning and 1 Tablet before bedtime.Authorizing Provider: AALIYAH BRIDGES----- * Telephone Encounter - Aaliyah Bridges DO - 11/27/2024 1:27 PM EDT I have reviewed the patient’s controlled substance dispensing history in the Prescription Drug Monitoring Program in compliance with the [facility] regulations before prescribing a controlled substance. Last Tox Screen Results: Results for orders placed or performed in visit on 08/25/24 PAIN MANAGEMENT DRUG PANEL, URINE W/ INTERPRETATION Result Value Pain Management Interpretation Based on the medication information provided: The presence of hydrocodone and dihydrocodeine is CONSISTENT with hydrocodone use. Amphetamines Screen, U Negative Benzodiazepines Screen, U Negative Cannabinoids Screen, U Negative Cocaine Metabolite Screen, U Negative Fentanyl Screen, U Negative Hydrocodone Screen, U Refer to confirmation results (A) Methadone Metabolite Screen, U Negative Morphine/Codeine Screen, U Refer to confirmation results (A) Oxycodone Screen, U Refer to confirmation results (A) Specimen Validity Interpretation Normal Creatinine, U 244 Narrative Cutoff Concentrations: Drug Level Amphetamines 500 ng/mL Benzodiazepines 100 ng/mL Cannabinoids 50 ng/mL Cocaine Metabolite 150 ng/mL Fentanyl 1 ng/mL Hydrocodone / Hydromorphone 300 ng/mL Methadone Metabolite 100 ng/mL Morphine / Codeine 300 ng/mL Oxycodone / Oxymorphone 100 ng/mL Screening results are presumptive and can only be used for medical purposes. Confirmatory testing is available upon request. Results for orders placed or performed in visit on 09/06/18 OPIOIDS/BENZO COMPLIANCE MONITORING TEST Result Value URINE DRUG SCREEN RESULT Amphetamine Screen, U REFER TO CONFIRMATION RESULT (A) Barbiturates Screen, U NEGATIVE Benzodiazepines Screen, U REFER TO CONFIRMATION RESULT (A) Cannabinoids Screen, U NEGATIVE Cocaine Metabolite Screen, U NEGATIVE Methadone Metabolite Screen, U REFER TO CONFIRMATION RESULT (A) Morphine/Codeine Screen, U REFER TO CONFIRMATION RESULT (A) Oxycodone Screen, U REFER TO CONFIRMATION RESULT (A) COMMENT THE ABOVE SCREENING RESULTS ARE PRESUMPTIVE AND CAN ONLY BE USED FOR MEDICAL PURPOSES. CONFIRMATORY TESTING IS AVAILABLE UPON REQUEST. Cutoff Concentration URINE VALID INTERP NORMAL CREATININE JUAN C 303 NITRITE JUAN C 94 pH JUAN C 5.2 *Note: Due to a large number of results and/or encounters for the requested time period, some results have not been displayed. A complete set of results can be found in Results Review. Medication is due 11/27/2024 * Telephone Encounter - Lisa Ricci [facility] - 11/26/2024 1:31 PM EDTPending Prescriptions: Disp Refills HYDROcodone-Acetaminophen 5-325 MG Oral Ta*60 Tab*0 Sig: Take 1Tablet by mouth in the morning and 1 Tablet before bedtime. documented in this encounter Plan of Treatment Upcoming Encounters Date Type Department Care Team (Late st Contact Info) Description 12/22/2024 10:00 AM EDT Office Visit Family Practice [address] [place] [address] [address] [place] [address] Aaliyah Bridges DO [address] [place] [address] 03/25/2025 10:00 AM EDT Office Visit Rheumatology [facility] [address] [place] [phone] Ling Mata CRNP [address] [facility] [place] [address] 04/13/2025 9:00 AM EDT Office Visit Orthopaedics [facility] [address] [place] [phone] Keith Pearson DO [address] [place] [phone] 05/18/2025 8:15 AM EDT Cardiac Studies Cardiac Studies, [facility] [address] [place] [phone] 11/16/2025 8:30 AM EDT Office Visit Cardiology, [facility] [address] [place] [phone] Chayo Ace CRNP [address] [place] [address] Scheduled Procedures Name Priority Associated Diagnoses Date/Ti [...] 08/15/2022, Additional history exists Colonoscopy 12/05/2026 12/05/2021, 0412/2021, 05/31/2011, Additional history exists Colorectal Cancer Screening [...] D LEVEL ONCE IN A LIFETIME-USE SMARTSET# [id number] Completed 12/12/2023, 08/18/2022, 05/24/2016, Additional history exists [...] this encounter Visit Diagnoses Diagnosis Rheumatoid arthritis involving multiple sites with positive rheumatoid factor (HCC) documented in this encounter Advance Directives * Full Code (Latest Code Status on File) Date Activated Date Inactivated Comments 02/07/2022 8:35 AM 02/07/2022 2:44 PM This order ref lects the patients wishes and were consensually agreed upon. Care Teams Bundling Machine Operator Relationship Specialty Start Date End Date Aaliyah Bridges DO [address] [place] [address] PCP - General 07/05/10 documented as of this encounter
--- OUTSIDE RECORDS SUMMARY | 2024-12-04 19:27 | External Medical Summary | Summary of Care ---
Author Name Unknown Organization [facility] Address [address] [place] [address] Phone [phone] Care Team Providers Care Advertising Writer Name Role Phone Ethan Bridges DO Primary Care Provider [phone] Reason for Visit * Reason Comments Follow Up Encounter Details Date Type Department Care Team (Latest Contact Info) Description 11/17/2024 8:40 AM EDT Office Visit Family Practice [address] [facility] [place] [address] [place] [address] Ethan Bridges [address] [place] [address] Preoperative general physical examination*; Rheumatoid arthritis of multiple sites without rheumatoid factor (HCC); Adrenal insufficiency (HCC); Coronary artery disease involving [place] coronary artery of [place] heart without angina pectoris; Displacement of cervical intervertebral disc without myelopathy; SAIRA (generalized anxiety disorder); Gastroesophageal reflux disease without esophagitis; History of DVT (deep vein thrombosis); HTN, goal below 140/90; Major depressive disorder, single episode, moderate (HCC); THIERRY on CPAP; Presence of drug coated stent in LAD coronary artery; Pure hypercholesterolemia; Senile osteoporosis; Mild persistent asthma without complication; Acquired hypothyroidism Allergies Active Allergy Reactions Criticality Noted Date Comments Morphine Hives,Itching High 12/07/2000 Other Reaction(s): ITCHING,HIVES,SOB Sulfasalazine High 02/28/2018 Abdominal pain, fever Other Reaction(s): abdominal pain, fever documented as of this encounter (statuses as of 11/17/2024) Medications MULTIVITAMIN TABS OR 1 tablet by mouth daily 0 05/03/20 00 Active CALTRATE 600+D 600-400 MG-UNIT PO TABS one tab daily Active NEEDLES & SYRINGES MISCIndications:Ad dison's disease (HCC) 5 ml syringe and 27 [...] 1 01/26/20 22 Active Easy Touch FlipLock [place] 25G X 1" (Needle (Disp))Indications :Adrenal insufficiency [...] Tablet Delayed ReleaseIndications :Coronary artery disease involving [place] coronary artery of [place] heart without angina pectoris Take 1 Tablet [...] s:HTN, goal below 140/90,Coronary artery disease involving [place] coronary artery of [place] heart without angina pectoris TAKE 1 CAPSULE BY MOUTH EVERY MORNING 90 Capsule 3 5 3:20 PM EDT 02/11/20 24 025 Active Atorvastatin Calcium 40 MG Oral Tablet (Lipitor)Indicatio ns:Pure hypercholesterolem ia,Coronary artery disease involving [place] coronary artery of [place] heart without angina pectoris,Presence of drug coated [...] , goal below 140/90,Coronary artery disease involving [place] coronary artery of [place] heart without angina pectoris,Presence of drug coated [...] Tablet Sublingual (Nitrostat)Indicat ions:Coronary artery disease involving [place] coronary artery of [place] heart without angina pectoris DISSOLVE ONE TABLET UNDER THE TONGUE EVERY 5 MINUTES NEEDED FOR CHEST PAIN. DO NOT EXCEED A TOTAL OF 3 DOSES IN 15 MINUTES 25 Tablet 11 05/19/20 24 Active Additional Information Patient not taking.Reported on 11/03/2024 Pantoprazole Sodium 40 MG Oral Tablet Delayed Release (Protonix)Indicati ons:Gastroesophage al reflux disease without esophagitis TAKE ONE TABLET BY MOUTH EVERY DAY 100 Tablet 1 5 8:58 AM EST 06/07/20 24 025 Active Lisinopril 20 MG Oral Tablet (Prinivil)Indicati ons:HTN, goal below 140/90 Take 1 Tablet by mouth in the morning. 100 Tablet 3 4 7:27 AM EST 08/25/20 24 Active Amjevita 40 MG/0.4ML Subcutaneous Solution Auto-injector (Adalimumab-atto)I ndications:Psorias is Inject 0.4 mL ( 1 pen) under the skin every 14 days. 0.8 mL 5 09/02/20 24 Active Additional Information Patient not taking.Reported on 11/17/2024 Diphenoxylate-Atro pine 2.5-0.025 MG Oral Tablet (Lomotil)Indicatio ns:Irritable bowel syndrome with diarrhea Take 1 Tablet by mouth 4 times a day as needed for Diarrhea. 120 Tablet 10/01/19 25 Active Toilet Safety FrameIndications:B patrick trauma of rib, initial encounter,Rheumato id arthritis of multiple sites without rheumatoid factor (HCC) Use over toilet as frame to assist with getting up. 2 Each 10/09/19 25 Active Additional Information Patient not taking.Reported on 11/03/2024 Fludrocortisone Acetate 0.1 MG Oral Tablet (Florinef)Indicati [...] 5 9:38 AM EST 10/22/19 25 Active HYDROcodone-Acetam inophen 5-325 MG Oral [...] 5 8:33 AM EDT 11/13/19 25 Active Hospital, Clinic, or Other Facility Administered Medication Ordered Dose Route Frequency Start Date End Date Status Albuterol Sulfate (Proventil) (2.5 MG/3ML) 0.083% inhalation solution 2.5 mgIndications:Whee zing 2.5 mg NEBULIZER ONCE PRN 12/17/2023 11/17/2024 Discontinued documented as of this encounter (statuses as of 11/17/2024) Active Problems Problem Noted Date Diagnosed Date Uncomplicated asthma 10/08/2024 Senile osteoporosis 06/15/2022 Multiple lipomas 02/07/2022 Coronary artery disease invo lving [place] coronary artery of [place] heart without angina pectoris 02/09/2020 Pure hypercholesterolemia 02/09/2020 Presence of drug coated stent in LAD coronary ar ibis 02/06/2020 Overview (02/06/2020): 02/04/2020 SAIRA (generalized anxiety disorder) 09/09/2019 Major depressive disorder, single episode, moder ate 09/06/2018 Encounter for long-term (current) use of medicat ions 11/19/2017 Controlled substance agreement signed 06/13/2017 THIERRY on CPAP 12/14/2016 Overview (01/26/2017): CPAP 12 cwp AHP Rheumatoid arthritis of [facility] sites without rheumatoid factor 08/31/2016 Gastroesophageal reflux disease without esophagi tis 06/08/2014 Adrenal insufficiency 10/02/2011 HTN, goal below 140/90 10/18/2010 Displacement of cervical int ervertebral disc without myelopathy 08/05/2010 Anti-phospholipid antibody syndrome 11/20/2005 Carpal tunnel syndrome 01/02/2003 Other optic neuritis History of DVT (deep vein thrombosis) Acquired hypothyroidism Mineralocorticoid deficiency documented as of this encounter (statuses as of 11/17/2024) Resolved Problems Problem Noted Date Diagnosed Date Resolved Date Psoriasis 10/08/2024 10/08/2024 Prediabetes 11/26/2022 09/13/2023 History of 2019 novel mohr virus disease (COVID-19) 06/14/2022 10/13/2022 Migraine 09/15/2020 10/13/2022 Anxiety 07/27/2015 09/09/2019 Migraine 11/06/2013 09/15/2020 Hypogonadism male 03/26/2012 04/23/2018 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 Arthritis, rheumatoid 01/11/20112015 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 06/05/2007 01/11/2011 Overview (06/04/2017): ICD-10 update of inactive term ADVANCE DIRECTIVE INFORMATION 09/25/2005 07/07/2024 Overview (09/25/2005): Yes, Patient instructed to provide copy of advance directive for provider to review and to be scanned into Electronic Medical Record FALL ON LEVEL-TRIPPING 01/02/200307/05 Bacterial pneumonia 12/02/2002 07/05/2011/14/2002 07/05/2010 Overview (06/04/2017): ICD-10 update of inactive term CORTICOADRENAL INSUFFIC 10/04 Depression 09/06/2018 Myalgia and myositis 018 documented as of this encounter (statuses as of 11/17/2024) Immunizations Name Administration Dates Next Due COVID-19 mRNA, LNP-s, No Pre serve, 2-Dose Series (AIT) 04/08/2022,05/03/2021,11/20/2020,10/30 COVID-19, MRNA-LNP, 24-25, P F, 50 MCG/0.5ML, IM, 12 YRS & ABOVE (Moderna - Spikevax) 05/23/2024 COVID-19, MRNA-LNP, PF, 50 M CG/0.5 mL, 12 YRS AND ABOVE, IM (MODERNA-Spikevax) 06/21/2023 Covid-19, Mrna, Lnp-s, Pf, B ivalent, 30 Mcg, IM, 12 yrs and above (Pfizer) 07/25/2022 PPD 08/30/2011 Pneumococcal Conjugate Vacc, 13 Valent (Prevnar) 03/13/2019 Pneumococcal Conjugate Vacci ne, 20-valent ([id number]) 08/16/2023 Pneumococcal Polysaccharide PPV23 (Pneumovax) 02/20/2018,06/03/2009 RSV [...] Past Smokeless Tobacco: Never Tobacco Cessation:Counseling Given: Yes Alcohol Use Standard Drinks/Week Comments Yes 0 [...] Sign Reading Time Taken Comments Blood Pressure 142/88 11/17/2024 8:38 AM EDT Pulse 66 11/17/2024 8:38 AM EDT Temperature 35.7 °C (96.3 °F) 11/17/2024 8:38 AM ED T Respiratory Rate 14 11/17/2024 8:38 AM EDT Oxygen Saturation - - Inhaled Oxygen Concentration - - Weight 107.9 kg (237 lb 14.4 oz) 11/17/2024 8:38 AM EDT Height 171.5 cm (5' 7.5") 11/17/2024 8:38 AM EDT Body Mass Index 36.71 11/17/2024 8:38 AM EDT documented in this encounter Progress Notes * Ethan Bridges, - 11/17/2024 9:09 AM EDT Images from the original note were not included. SUBJECTIVE: Leonel Eason is a 69 year old male. Chief Complaint Patient presents with Follow Up HPI: Patient is a 69 year old male with a history of Rheumatoid Arthritis, Adrenal Insufficiency, Hypothyroidism, HTN, Sleep Apnea, CPAP Intolerance, Depression, Anxiety, bilateral hip replacement, bilateral Knee Osteoarthritis, CAD, LAD stent, and Osteoporosis that is seen for evaluation prior to left knee replacement surgery. The patient does not have chest pain or shortness of breath. Activity is limited by knee pain. Appetite is good and weight is stable. Patient Active Problem List Diagnosis Carpal tunnel syndrome Other optic neuritis History of DVT (deep vein thrombosis) Acquired hypothyroidism Anti-phospholipid antibody syndrome (HCC) Mineralocorticoid deficiency (HCC) Displacement of cervical intervertebral disc without myelopathy HTN, goal below 140/90 Adrenal insufficiency (HCC) Gastroesophageal reflux disease without esophagitis Rheumatoid arthritis of multiple sites without rheumatoid factor (HCC) THIERRY on CPAP Controlled substance agreement signed Encounter for long-term (current) use of medications Major depressive disorder, single episode, moderate (HCC) SAIRA (generalized anxiety disorder) Presence of drug coated stent in LAD coronary artery Coronary artery disease involving [place] coronary artery of [place] heart without angina pectoris Pure hypercholesterolemia Multiple lipomas Senile osteoporosis Uncomplicated asthma Current Outpatient Medications Medication Sig Dispense Refill MULTIVITAMIN TABS OR 1 tablet by mouth daily 0 CALTRATE 600+D 600-400 MG-UNIT PO TABS one tab daily folic acid 1 MG Tablet Take 1 Tab by mouth daily. 90 Tab 3 diphenhydrAMINE HCl 25 MG Oral Capsule Take 1 Capsule by mouth at bedtime as needed for Itching. Ventolin HFA 108 (90 Base) MCG/ACT Inhalation Aerosol Solution INHALE TWO PUFFS BY MOUTH 4 TIMES DAILY 54 g 1 Aspirin 81 MG Oral Tablet Delayed Release Take 1 Tablet by mouth in the morning. Fluticasone Propionate 50 MCG/ACT Nasal Suspension (Flonase) Use 2 spray(s) in each nostril once daily 48 g 3 Terazosin HCl 5 MG Oral Capsule (Hytrin) TAKE 1 CAPSULE BY MOUTH EVERY MORNING 90 Capsule 3 Atorvastatin Calcium 40 MG Oral Tablet (Lipitor) TAKE ONE TABLET BY MOUTH EVERY day 100 Tablet 3 Potassium Chloride Barbara ER 20 MEQ Oral Tablet Extended Release Take 1 Tablet by mouth in the morning. 90 Tablet 3 Metoprolol Succinate ER 25 MG Oral Tablet Extended Release 24 Hour (toPROL XL) TAKE ONE TABLET BY MOUTH EVERY DAY 90 Tablet 3 FLUoxetine HCl 40 MG Oral Capsule (PROzac) TAKE ONE CAPSULE BY MOUTH EVERY MORNING 90 Capsule 3 Baclofen 10 MG Oral Tablet (Lioresal) Take 1 Tablet by mouth in the morning and 1 Tablet before bedtime. 200 Tablet 1 Pantoprazole Sodium 40 MG Oral Tablet Delayed Release (Protonix) TAKE ONE TABLET BY MOUTH EVERY IMA304 Tablet 1 Lisinopril 20 MG Oral Tablet (Prinivil) Take 1 Tablet by mouth in the morning. 100 Tablet 3 Diphenoxylate-Atropine 2.5-0.025 MG Oral Tablet (Lomotil) Take 1 Tablet by mouth 4 times a day as needed for Diarrhea. 120 Tablet 0 Fludrocortisone Acetate 0.1 MG Oral Tablet (Florinef) Take 1 Tablet by mouth in the morning. APPOINTMENT NEEDED FOR FUTURE REFILLS.. 90 Tablet 3 Hydrocortisone 10 MG Oral Tablet (Cortef) TAKE TWO TABLETS BY MOUTH IN THE MORNING TAKE ONE TABLET IN THE EVENING AND TAKE ONE TABLET NEEDED FOR STRESS 400 Tablet 3 Methotrexate Sodium 50 MG/2ML Injection Solution Inject 0.7ml (=17.5 mg) under the skin once a week. 12 mL 0 HYDROcodone-Acetaminophen 5-325 MG Oral Tablet Take 1 Tablet by mouth in the morning and 1 Tablet before bedtime. 60 Tablet 0 Levothyroxine Sodium 125 MCG Oral Tablet (Levoxyl) TAKE 1 TABLET BY MOUTH DAILY EXCEPT FOR SUNDAY AT LEAST 30 MIN. PRIOR TO BREAKFAST OR OTHER MEDS- 1 EVERY DAY FOR 6 DAYS IN A ROW. 90 Tablet 3 NEEDLES & SYRINGES MISC 5 ml syringe and 27 Gauge needle 3 Each 3 methylPREDNISolone Sodium Succ 125 MG Injection Solution Reconstituted (SOLU- Medrol) Sive 125 mg IMas needed for adrenal insufficency stress dose 4 mL 1 Easy Touch FlipLock [place] 25G X 1" (Needle (Disp)) To use with solu medrol 30 Each 5 Syringe 2-3 ML 3 ML Use with solumedrol 30 Each 5 BD TB Syringe 27G X 1/2" 1 ML (Tuberculin Syringe) USE ONCE WEEKLY WITH METHOTREXATE 12 Each 3 Nitroglycerin 0.4 MG Sublingual Tablet Sublingual (Nitrostat) DISSOLVE ONE TABLET UNDER THE TONGUE EVERY 5 MINUTES NEEDED FOR CHEST PAIN. DO NOT EXCEED A TOTAL OF 3 DOSES IN 15 MINUTES (Patient not taking: Reported on 11/03/2024) 25 Tablet 11 Amjevita 40 MG/0.4ML Subcutaneous Solution Auto-injector (Adalimumab-atto) Inject 0.4 mL ( 1 pen) under the skin every 14 days. (Patient not taking: Reported on 11/17/2024) 0.8 mL 5 Toilet Safety Frame Use over toilet as frame to assist with getting up. (Patient not taking: Reported on 11/03/2024) 2 Each 0 Zoledronic Acid 5 MG/100ML Intravenous Solution (Reclast) Administer 5 mg intravenously once. No current facility-administered medications for this visit. The patient's medication list was reviewed and updated as needed. 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) 11/20/2005 Depression Displacement of cervical intervertebral disc without myelopathy 08/05/2010 Hypothyroidism Lyme disease Chronic Mineralocorticoid deficiency (HCC) THIERRY on CPAP 12/14/2016 Other optic neuritis Phlebitis and thrombophlebitis of other deep vessels of lower extremities history of after hip replacement Polyarthritis Presence of drug coated stent in LAD coronary artery 02/06/2020 02/04/2020 Past Surgical History: Procedure Laterality Date ABD WALL SUBQ TUMOR REMOVAL, UNDER 3 CM N/A 02/07/2022 EXCISION ABD WALL SUBQ TUMOR, UNDER 3 CM performed by Wally Hayes MD at [facility] CARPAL TUNNEL SURGERY 1996 right and left COLONOSCOPY W/ BIOPSY (RECTUM) 05/30/2011 diverticulosis, no evidence of colitis, bxs done COLONOSCOPY, DIAGNOSTIC (RECTUM) 12/05/2021 benign adenomatous polyp, repeat 5 yrs / COLONOSCOPY FLEXIBLE PROXIMAL DIAGNOSTIC performed by Patel Pearce MD at [facility] EGD, FLEXIBLE, DIAGNOSTIC 07/02/2015 benign polyp/ESOPHAGOGASTRODUODENOSCOPY (EGD), FLEXIBLE, TRANSORAL, DIAGNOSTIC performed by Katie Galeana MD at [facility]COPY [facility] LAPAROSCOPY; CHOLECYSTECTOMY 02/08/2016 laparoscopic cholecystectomy [facility] Dr. Tam 02/08/16 MISCELLANEOUS ORDER ([facility] ONLY) Left 2008 ulnar nerve fixation MISCELLANEOUS ORDER ([facility] ONLY) 2010 right ganglion cyst removed from wrist MISCELLANEOUS ORDER ([facility] ONLY) Right rotator cuff repair NECK/CHEST SUBQ TUMOR REMOVAL, UNDER 3 CM N/A 02/07/2022 EXCISION TUMOR SOFT TISSUE NECK performed by Wally Hayes MD at OR [facility] OTHER 1999 L and R hip replacements OTHER 2004 spinal fusion Cervical spine PATIENT HAS A CORONARY ARTERY STENT N/A 02/04/2020 LAD drug eluting stent Family History Problem Relation Name Age of Onset No Known Problems Mother at 85 Other (Other) Father aortic aneurysm at 85 Diabetes Sister Other (thyroid disease) Sister Arthritis Sister Brain cancer Brother Thyroid Disorder Son hypothyroid Cancer Other niece breast, /breast, /breast, alive Social History Tobacco Use Smoking status: Former Current packs/day: 0.00 Average packs/day: 2.0 packs/day for 30.0 years (60.0 ttl pk-yrs) Types: Cigarettes Start date: 09/03/1965 Quit date: 09/03/1995 Years since quittin.2 Passive exposure: Past Smokeless tobacco: Never Vaping Use Vaping status: Never Used Substance Use Topics Alcohol use: Yes Comment: rarely Drug use: No Review of patient's allergies indicates: Allergen Reactions Morphine Hives and Itching Other Reaction(s): ITCHING,HIVES,SOB Sulfasalazine Abdominal pain, fever Other Reaction(s): abdominal pain, fever Review of Systems Constitutional: Negative for appetite change, fatigue and unexpected weight change. HENT: Negative for congestion, sore throat and trouble swallowing. Respiratory: Negative for cough, shortness of breath and wheezing. Cardiovascular: Negative for chest pain, palpitations and leg swelling. Gastrointestinal: Negative for abdominal pain, blood in stool, constipation, diarrhea, nausea and vomiting. Musculoskeletal: Positive for arthralgias. Bilateral knee pain Bilateral hand and bilateral foot pain Neurological: Negative for dizziness, syncope and headaches. Psychiatric/Behavioral: Negative for confusion, decreased concentration and sleep disturbance. The patient is not nervous/anxious. OBJECTIVE: BP 142/88 | Pulse 66 | Temp 96.3 °F (35.7 °C) | Resp 14 | Ht 5' 7.5" (1.715 m) | Wt 237 lb 14.4 oz (107.9 kg) | BMI 36.71 kg/m² | BSA 2.27 m² Physical Exam Vitals and nursing note reviewed. Constitutional: General: He is not in acute distress. Appearance: Normal appearance. He is not toxic-appearing. HENT: Head: Normocephalic and atraumatic. Cardiovascular: Rate and Rhythm: Normal rate and regular rhythm. Heart sounds: Normal heart sounds. No murmur heard. No gallop. Pulmonary: Effort: Pulmonary effort is normal. Breath sounds: Normal breath sounds. No wheezing, rhonchi or rales. Abdominal: General: Bowel sounds are normal. There is no distension. Palpations: Abdomen is soft. Tenderness: There is no abdominal tenderness. Musculoskeletal: Right lower leg: No edema. Left lower leg: No edema. Neurological: Mental Status: He is alert and oriented to person, place, and time. Mental status is at baseline. Motor: No weakness. Gait: Gait normal. Psychiatric: Mood and Affect: Mood normal. Behavior: Behavior normal. Thought Content: Thought content normal. Component Latest Ref Rng 08/25/2024 11/06/2024 BUN 6 - 20 mg/dL 16 CREATININE 0.6 - 1.2 mg/dL 1.0 EGFR >=60 mL/min 87 SODIUM 135 - 146 mmol/L 144 POTASSIUM 3.5 - 5.1 mmol/L 4.1 CHLORIDE 98 - 107 mmol/L 106 CO2 22 - 32 mmol/L 26 ANION GAP 7 - 15 mmol/L 12 GLUCOSE 70 - 120 mg/dL 108 Albumin 3.8 - 5.0 g/dL 4.7 AST 10 - 50 U/L 28 Alkaline Phosphatase 35 - 130 U/L 82 Bilirubin, Total <=1.2 mg/dL 0.7 CALCIUM 8.4 - 10.2 mg/dL 9.5 Protein 6.0 - 8.3 g/dL 7.3 ALT 10 - 50 U/L 32 WBC 4.00 - 10.80 K/uL 8.10 Neutrophils % 40.0 - 75.0 % 64.8 Lymphocytes % 18.0 - 42.0 % 23.0 Monocytes % 1.0 - 11.0 % 9.1 Eosinophils % 0.0 - 6.0 % 2.6 Basophils % 0.0 - 2.0 % 0.5 Absolute Neutrophils 1.80 - 7.70 K/uL 5.25 Absolute Lymphocytes 1.00 - 4.80 K/ul 1.86 Absolute Monocytes 0.00 - 1.10 K/uL 0.74 Absolute Eosinophils 0.00 - 0.70 K/uL 0.21 Absolute Basophils 0.00 - 0.20 K/uL 0.04 WBC 4.00 - 10.80 K/uL 8.10 RBC 4.50 - 5.25 M/uL 3.90 HGB 14.0 - 16.8 g/dL 13.1 (L) HCT 40.0 - 48.4 % 39.0 (L) MCV 82.0 - 99.5 fL 100.0 MCH 27.0 - 34.0 pg 33.6 MCHC 32.0 - 36.0 g/dL 33.6 RDW 11.5 - 15.5 % 14.0 PLT 140 - 400 K/uL 217 MPV 6.6 - 11.1 fL 9.0 Hemoglobin A1C 4.0 - 5.6 % 5.6 Estimated Average Glucose <126 mg/dL 114 TSH 0.27 - 4.20 uIU/mL 2.30 Labs done at [facility] on 11/12/2024 PT and PTT were normal UA: Within acceptable range ECG 11/03/2024: Sinus bradycardia, otherwise normal ECG NM Stress 11/10/2024: No scar or inducible ischemia present. Normal myocardial theckening and wall motion. LVEF 60% CT CHEST WO CONTRAST Result Date: 10/01/2024 IMPRESSION Stable pulmonary nodules, unchanged since 08/20/2012, consistent with benign etiology. Mild prominence of the ascending aorta, 40 mm. Marked bilateral adrenal atrophy. Please correlate clinically. XR KNEE 3 VIEWS Result Date: 06/17/2024 IMPRESSION Moderate left greater than right medial femorotibial compartment predominant knee arthrosis. One or 2 small joint bodies likely present at the posterior aspect of left knee. Slight right lateral patellar tilt. Surgical Risk Scoring Revised Cardiac Risk Index (RCRI) High-risk type of surgery? 0=No History of ischemic heart disease? 1=Yes History of congestive heart failure? 0=No History of cerebrovascular disease? 0=No Pre-operative treatment with insulin? 0=No Preoperative serum creatinine >2.0 mg/dL? 0=No Revised cardiac index score One Risk Factor- 1.0% (95% CI: 0.5-1.4) PLAN AND ASSESSMENT: Preoperative general physical examination (Primary) Patient is moderate risk for knee replacement surgery. Recommend 100 mg hydrocortisone IV prior to surgery and 25 mg post operative every 8 hours for 3 doses, then return to Hydrocortisone home oral dose thereafter. Hold Amjetiva two weeks prior to surgery per Rheumatology. Continue Metoprolol uninturrupted in the perioperative period. Rheumatoid arthritis of multiple sites without rheumatoid factor (HCC) Continue Amjetiva, Methotrexate , and Folic Acid per Rheumatology Adrenal insufficiency (HCC) Continue Hydrocortisone, and Fludrocortisone Coronary artery disease involving [place] coronary artery of [place] heart without angina pectoris Continue ASA, Metoprolol ER, Lisinopril and Imdur Displacement of cervical intervertebral disc without myelopathy SAIRA (generalized anxiety disorder) Continue Fluoxetine Gastroesophageal reflux disease without esophagitis Continue Pantoprazole History of DVT (deep vein thrombosis) HTN, goal below 140/90 Major depressive disorder, single episode, moderate (HCC) Continue Fluoxetine THIERRY on CPAP Presence of drug coated stent in LAD coronary artery Pure hypercholesterolemia Continue Atorvastatin Senile osteoporosis Continue Reclast, calcium, and Vitamin D Mild persistent asthma without complication Continue Albuterol as needed Acquired hypothyroidism Continue Levothyroxine I spent a total of 40-54 minutes (exact time 43 mins) on the date of service in preparation, delivery, and documentation of the care provided to Leonel Eason excluding any time spent in the performance of separately billed services or time spent by another provider/QHP. Follow Up: Return in about 5 weeks (around 12/22/2024), or if symptoms worsen or fail to improve. Ethan Bridges DO 9:10 AM 11/17/2024 documented in this encounter Nursing Notes * Shilpa Santos LPN - 11/17/2024 8:38 AM EDT Pre op Dr Dubon--left knee surgical date 12/03 documented in this encounter Plan of Treatment Upcoming Encounters Date Type Department Care Team (Late st Contact Info) Description 11/25/2024 8:30 AM EDT Office Visit Rheumatology [facility] [address] [place] [id number] Ling Mata CRNP [facility] [place] [address] 12/22/2024 10:00 AM EDT Office Visit Family Practice [address] [place] [address] [address] [facility], [place] [phone] Ethan Bridges DO [address] [facility] [address] 04/13/2025 9:00 AM EDT Office Visit Orthopaedics [facility] [address] [place] [phone] Keith Pearson, [address] [place] [phone] 05/18/2025 8:15 AM EDT [facility] Studies [facility] [address] [address] 11/16/2025 8:30 AM EDT Office Visit Cardiology, [facility] [address] [facility] [place] [address] Chayo Ace CRNP [address] [place] [address] Scheduled Procedures Name Priority Associated Diagnoses Date/Ti [...] D LEVEL ONCE IN A LIFETIME-USE SMARTSET# [id number] Completed 12/12/2023, 08/18/2022, 05/24/2016, Additional history exists [...] as of this encounter Visit Diagnoses Diagnosis Preoperative general physical examination- Primary Other specified pre-operative examination Rheumatoid arthritis of multiple sites without rheumatoid factor (HCC) Rheumatoid arthritis Adrenal insufficiency (HCC) Glucocorticoid deficiency Coronary artery disease involving [place] coronary artery of [place] heart without angina pectoris Displacement of cervical intervertebral disc without myelopathy SAIRA (generalized anxiety disorder) Generalized anxiety disorder Gastroesophageal reflux disease without esophagitis Esophageal reflux History of DVT (deep vein thrombosis) Personal history of venous thrombosis and embolism HTN, goal below 140/90 Unspecified essential hypertension Major depressive disorder, single episode, moderate (HCC) Major depressive disorder, single episode, moderate THIERRY on CPAP Obstructive sleep apnea (adult) (pediatric) Presence of drug coated stent in LAD coronary artery Postsurgical percutaneous transluminal coronary angioplasty status Pure hypercholesterolemia Senile osteoporosis Mild persistent asthma without complication Unspecified asthma Acquired hypothyroidism Unspecified hypothyroidism documented in this encounter Advance Directives * Full Code (Latest Code Status on File) Date Activated Date Inactivated Comments 02/07/2022 8:35 AM 02/07/2022 2:44 PM This order ref lects the patients wishes and were consensually agreed upon. Care Teams Advertising Writer Relationship Specialty Start Date End Date Ethan Bridges DO [address] [place] [place] [address] PCP - General 07/05/10 documented as of this encounter
--- OUTSIDE RECORDS SUMMARY | 2024-12-04 19:27 | External Medical Summary | Summary of Care ---
Author Name Unknown Organization [facility] Address [address] [place] [address] Phone [phone] Care Team Providers Care [address] Justice Name Role Phone Aaliyah Bridges DO Primary Care Provider [phone] Reason for Visit * Reason Comments eRx-Medication Refill Encounter Details Date Type Department Care Team (Late st Contact Info) Description 11/22/2024 Refill Family Practice [address], [place] [address] [place] [address] Aaliyah Bridges DO [address] [place] [address] Irritable bowel syndrome with diarrhea Allergies Active Allergy Reactions Criticality Noted Date Comments Morphine Hives,Itching High 12/07/2000 Other Reaction(s): ITCHING,HIVES,SOB Sulfasalazine High 02/28/2018 Abdominal pain, fever Other Reaction(s): abdominal pain, fever documented as of this encounter (statuses as of 11/24/2024) Medications MULTIVITAMIN TABS OR 1 tablet by mouth daily 0 000 Active CALTRATE 600+D 600-400 MG-UNIT PO TABS one tab daily Active NEEDLES & SYRINGES MISCIndications:A ddison's disease (HCC) 5 ml syringe and 27 Gauge needle 3 Each 3 012 Active folic acid 1 MG TabletIndications :Arthritis, rheumatoid (HCC) Take 1 Tab by mouth daily. 90 Tab 3 019 Active diphenhydrAMINE HCl 25 MG Oral Capsule Take 1 Capsule by mouth at bedtime as needed for Itching. Active methylPREDNISolon e Sodium Succ 125 MG Injection Solution Reconstituted (SOLU-Medrol)Uyen cations:Adrenal insufficiency (HCC) Sive 125 mg IM as needed for adrenal insufficency stress dose 4 mL 1 022 Active Easy Touch FlipLock Banner 25G X 1" (Needle (Disp))Indication s:Adrenal insufficiency (HCC) To use with solu medrol 30 Each 5 022 Active Syringe 2-3 ML 3 MLIndications:Adr enal insufficiency (HCC) Use with solumedrol 30 Each 5 022 Active Ventolin HFA 108 (90 Base) MCG/ACT Inhalation Aerosol SolutionIndicatio ns:Cough INHALE TWO PUFFS BY MOUTH 4 TIMES DAILY 54 g 1 01/19/20 24 1:08 PM EDT 023 Active Aspirin 81 MG Oral Tablet Delayed ReleaseIndication s:Coronary artery disease involving [place] coronary artery of [place] heart without angina pectoris Take 1 Tablet by mouth in the morning. 024 Active Fluticasone Propionate 50 MCG/ACT Nasal Suspension (Flonase)Indicati ons:Seasonal allergic rhinitis due to pollen Use 2 spray(s) in each nostril once daily 48 g 3 024 Active BD TB Syringe 27G X 1/2" 1 ML (Tuberculin Syringe)Indicatio ns:Rheumatoid arthritis of multiple sites without rheumatoid factor (HCC) USE ONCE WEEKLY WITH METHOTREXATE 12 Each 3 024 Active Terazosin HCl 5 MG Oral Capsule (Hytrin)Indicatio ns:HTN, goal below 140/90,Coronary artery disease involving [place] coronary artery of [place] heart without angina pectoris TAKE 1 CAPSULE BY MOUTH EVERY MORNING 90 Capsule 3 11/12/19 25 3:20 PM EDT 024 2024 Active Atorvastatin Calcium 40 MG Oral Tablet (Lipitor)Indicati ons:Pure hypercholesterole tammy,Coronary artery disease involving [place] coronary artery of [place] heart without angina pectoris,Presence of drug coated stent in LAD coronary artery TAKE ONE TABLET BY MOUTH EVERY day 100 Tablet 3 09/06/19 25 12:14 PM EST 024 2024 Active Potassium Chloride Barbara ER 20 MEQ Oral Tablet Extended ReleaseIndication s:Low serum potassium Take 1 Tablet by mouth in the morning. 90 Tablet 3 10/11/19 25 1:46 PM EST Active Metoprolol Succinate ER 25 MG Oral Tablet Extended Release 24 Hour (toPROL XL)Indications:HT N, goal below 140/90,Coronary artery disease involving [place] coronary artery of [place] heart without angina pectoris,Presence of drug coated stent in LAD coronary artery,Ischemic cardiomyopathy TAKE ONE TABLET BY MOUTH EVERY DAY 90 Tablet 3 09/24/19 25 7:06 AM EST 024 2024 Active FLUoxetine HCl 40 MG Oral Capsule (PROzac) TAKE ONE CAPSULE BY MOUTH EVERY MORNING 90 Capsule 3 10/18/19 25 2:44 PM EST 024 2024 Active Baclofen 10 MG Oral Tablet (Lioresal)Indicat ions:Spasm of muscle Take 1 Tablet by mouth in the morning and 1 Tablet before bedtime. 200 Tablet 1 09/06/19 25 12:14 PM EST 024 Active Nitroglycerin 0.4 MG Sublingual Tablet Sublingual (Nitrostat)Indica tions:Coronary artery disease involving [place] coronary artery of [place] heart without angina pectoris DISSOLVE ONE TABLET UNDER THE TONGUE EVERY 5 MINUTES NEEDED FOR CHEST PAIN. DO NOT EXCEED A TOTAL OF 3 DOSES IN 15 MINUTES 25 Tablet 11 024 Active Additional Information Patient not taking.Reported on 11/03/2024 Pantoprazole Sodium 40 MG Oral Tablet Delayed Release (Protonix)Indicat ions:Gastroesopha geal reflux disease without esophagitis TAKE ONE TABLET BY MOUTH EVERY DAY 100 Tablet 1 09/16/19 25 8:58 AM EST 024 2024 Active Lisinopril 20 MG Oral Tablet (Prinivil)Indicat ions:HTN, goal below 140/90 Take 1 Tablet by mouth in the morning. 100 Tablet 3 11/21/19 25 12:30 PM EDT 024 Active Amjevita 40 MG/0.4ML Subcutaneous Solution Auto-injector (Adalimumab-atto) Indications:Psori asis Inject 0.4 mL ( 1 pen) under the skin every 14 days. 0.8 mL 5 024 Active Additional Information Patient not taking.Reported on 11/17/2024 Toilet Safety FrameIndications: Blunt trauma of rib, initial encounter,Rheumat oid arthritis of multiple sites without rheumatoid factor (HCC) Use over toilet as frame to assist with getting up. 2 Each 025 Active Additional Information Patient not taking.Reported on 11/03/2024 Fludrocortisone Acetate 0.1 MG Oral Tablet (Florinef)Indicat ions:Mineralocort icoid deficiency (HCC) Take 1 Tablet by mouth in the morning. APPOINTMENT NEEDED FOR FUTURE REFILLS.. 90 Tablet 3 10/15/19 25 8:50 AM EST 025 Active Hydrocortisone 10 MG Oral Tablet (Cortef)Indicatio ns:Mineralocortic oid deficiency (HCC) TAKE TWO TABLETS BY MOUTH IN THE MORNING TAKE ONE TABLET IN THE EVENING AND TAKE ONE TABLET NEEDED FOR STRESS 400 Tablet 3 10/15/19 25 8:50 AM EST 025 Active Methotrexate Sodium 50 MG/2ML Injection SolutionIndicatio ns:Arthritis, rheumatoid (HCC) Inject 0.7ml (=17.5 mg) under the skin once a week. 12 mL 10/23/19 25 9:38 AM EST 025 Active HYDROcodone-Aceta minophen 5-325 MG Oral TabletIndications :Rheumatoid arthritis involving multiple sites with positive rheumatoid factor (HCC) Take 1 Tablet by mouth in the morning and 1 Tablet before bedtime. 60 Tablet 025 Active Zoledronic Acid 5 MG/100ML Intravenous Solution (Reclast) Administer 5 mg intravenously once. Active Levothyroxine Sodium 125 MCG Oral Tablet (Levoxyl)Indicati ons:Acquired hypothyroidism TAKE 1 TABLET BY MOUTH DAILY EXCEPT FOR SUNDAY AT LEAST 30 MIN. PRIOR TO BREAKFAST OR OTHER MEDS- 1 EVERY DAY FOR 6 DAYS IN A ROW. 90 Tablet 3 11/15/19 25 8:33 AM EDT 025 Active Diphenoxylate-Atr opine 2.5-0.025 MG Oral Tablet (Lomotil)Indicati ons:Irritable bowel syndrome with diarrhea TAKE 1 TABLET BY MOUTH 4 TIMES DAILY NEEDED FOR DIARRHEA 120 Tablet 025 Active Diphenoxylate-Atr opine 2.5-0.025 MG Oral Tablet (Lomotil)Indicati ons:Irritable bowel syndrome with diarrhea Take 1 Tablet by mouth 4 times a day as needed for Diarrhea. 120 Tablet 025 2024 Discontinued documented as of this encounter (statuses as of 11/24/2024) Active Problems Problem Noted Date Diagnosed Date Uncomplicated asthma 10/08/2024 Senile osteoporosis 06/15/2022 Multiple lipomas 02/07/2022 Coronary artery disease invo lving [place] coronary artery of [place] heart without angina pectoris 02/09/2020 Pure hypercholesterolemia 02/09/2020 Presence of drug coated stent in LAD coronary ar ibis 02/06/2020 Overview (02/06/2020): 02/04/2020 SAIRA (generalized anxiety disorder) 09/09/2019 Major depressive disorder, single episode, moder ate 09/06/2018 Encounter for long-term (current) use of medicat ions 11/19/2017 Controlled substance agreement signed 06/13/2017 THIERRY on CPAP 12/14/2016 Overview (01/26/2017): CPAP 12 cwp AHP Rheumatoid arthritis of [facility] without rheumatoid factor 08/31/2016 Gastroesophageal reflux disease without esophagi tis 06/08/2014 Adrenal insufficiency 10/02/2011 HTN, goal below 140/90 10/18/2010 Displacement of cervical int ervertebral disc without myelopathy 08/05/2010 Anti-phospholipid antibody syndrome 11/20/2005 Carpal tunnel syndrome 01/02/2003 Other optic neuritis History of DVT (deep vein thrombosis) Acquired hypothyroidism Mineralocorticoid deficiency documented as of this encounter (statuses as of 11/24/2024) Resolved Problems Problem Noted Date Diagnosed Date [...] LEVEL-TRIPPING 01/02/200307/05 Bacterial pneumonia 12/02/2002 07/05/20 10 11/14/2002 07/05/2010 Overview (06/04/2017): ICD-10 update of inactive term CORTICOADRENAL INSUFFIC 10/04 Depression 09/06/2018 Myalgia and myositis 018 documented as of this encounter (statuses as of 11/24/2024) Immunizations Name Administration Dates Next Due COVID-19 mRNA, LNP-s, No Pre serve, 2-Dose Series (Reonomy) 04/08/2022,05/03/2021,11/20/2020,10/30 COVID-19, MRNA-LNP, 24-25, P F, 50 MCG/0.5ML, IM, 12 YRS & ABOVE (Moderna - Spikevax) 05/23/2024 COVID-19, MRNA-LNP, PF, 50 M CG/0.5 mL, 12 YRS AND ABOVE, IM (MODERNA-Spikevax) 06/21/2023 Covid-19, Mrna, Lnp-s, Pf, B ivalent, 30 Mcg, IM, 12 yrs and above (Reonomy) 07/25/2022 PPD 08/30/2011 Pneumococcal Conjugate Vacc, 13 Valent (Prevnar) 03/13/2019 Pneumococcal Conjugate Vacci ne, 20-valent ([id number]) 08/16/2023 Pneumococcal Polysaccharide PPV23 (Pneumovax) 02/20/2018,06/03/2009 RSV [...] No 11/17/2024 Does the household have a [facility] source of income? (Household - for ages [...] Telephone Encounter - Aaliyah Bridges DO - 11/24/2024 12:43 PM EDTSigned Prescriptions: Disp Refills Diphenoxylate-Atropine 2.5-0.025 MG Oral T*120 Ta*0 Sig: TAKE 1 TABLET BY MOUTH 4 TIMES DAILY NEEDED FOR DIARRHEAAuthorizing Provider: AALIYAH BRIDGES * Telephone Encounter - Aaliyah Bridges DO - 11/24/2024 12:42 PM EDT I have reviewed the patient’s controlled substance dispensing history in the Prescription Drug Monitoring Program in compliance with the [facility] regulations before prescribing a controlled substance. Last [...] results can be found in Results Review. * Telephone Encounter - Key Garcia [facility] - 11/24/2024 6:27 AM EDT Pending Prescriptions: Disp Refills Diphenoxylate-Atropine 2.5-0.025 MG Oral T*120 Ta*0 Sig: TAKE 1 TABLET BY MOUTH 4 TIMES DAILY NEEDED FOR DIARRHEA * Telephone Encounter - Key Garcia [facility] - 11/24/2024 6:26 AM EDT I have reviewed the patient’s controlled substance dispensing history in the Prescription Drug Monitoring Program in compliance with the [facility] regulations before prescribing a controlled substance. PDMP checked on 11/24/2024. Pending Prescriptions: Disp Refills Diphenoxylate-Atropine 2.5-0.025 MG Oral *120 Ta*0 Sig: TAKE 1 TABLET BY MOUTH 4 TIMES DAILY NEEDED FOR DIARRHEA Last Visit: 11/17/2024 (in office), Visit date not found (telemedicine) Next Visit: 12/22/2024 Date medication was last filled: 10/01/24 Date medication is due for refill: 10/30/24 [facility] [id number] [place] [id number] [place] Is this request for a controlled substance? Yes and Urine Drug Screen was completed Toxicology results: Results for orders placed or performed in [...] results can be found in Results Review. Please approve if appropriate. Thank you, Key Garcia, PharmD Clinical Pharmacist [facility] ([facility]) [phone] 11/24/2024, 6:26 AM documented in this encounter Plan of Treatment Upcoming Encounters Date Type Department Care Team (Late st Contact Info) Description 11/25/2024 8:30 AM EDT Office Visit Rheumatology [facility] [address] [place] [phone] Ling Mata CRNP [address] [facility] [place] [address] 12/22/2024 10:00 AM EDT Office Visit Family Practice [address] [facility] [place] [address] [place] [address] Aaliyah Bridges, DO [address] [place] [address] 04/13/2025 9:00 AM EDT Office Visit Orthopaedics [facility] [address] [place] [phone] Keith Pearson, [address] [place] [phone] 05/18/2025 8:15 AM EDT Cardiac Studies Cardiac Studies, [facility] [address] [place] [phone] 11/16/2025 8:30 AM EDT Office Visit Cardiology, [facility] [address] [place] [phone] Chayo Ace CRNP [address] [place] [address] Scheduled Procedures Name Priority Associated Diagnoses Date/Ti [...] D LEVEL ONCE IN A LIFETIME-USE SMARTSET# [id number] Completed 12/12/2023, 08/18/2022, 05/24/2016, Additional history exists [...] as of this encounter Visit Diagnoses Diagnosis Irritable bowel syndrome with diarrhea Irritable bowel syndrome documented in this encounter Advance Directives * Full Code (Latest Code Status on File) Date Activated Date Inactivated Comments 02/07/2022 8:35 AM 02/07/2022 2:44 PM This order ref lects the patients wishes and were consensually agreed upon. Care Teams [address] Justice Relationship Specialty Start Date End Date Aaliyah Bridges DO [address] [place] [address] PCP - General 07/05/10 documented as of this encounter
--- OUTSIDE RECORDS SUMMARY | 2024-12-04 19:27 | External Medical Summary | Summary of Care ---
Author Name Unknown Organization [facility] Address [address] [place] [address] Phone [phone] Care Team Providers Care Bread Packer Name Role Phone Aaliyah Bridges DO Primary Care Provider Reason for Visit * Reason Comments Medication Refill Encounter Details Date Type Department Care Team (Late st Contact Info) Description 11/10/2024 Refill Family Practice [address], [place] [address] [place] [address] Aaliyah Bridges [address] [place] [address] Acquired hypothyroidism Allergies Active Allergy Reactions Criticality Noted Date Comments Morphine Hives,Itching High 12/07/2000 Other Reaction(s): ITCHING,HIVES,SOB Sulfasalazine High 02/28/2018 Abdominal pain, fever Other Reaction(s): abdominal pain, fever documented as of this encounter (statuses as of 11/12/2024) Medications MULTIVITAMIN TABS OR 1 tablet by [...] 1 01/26/20 22 Active Easy Touch FlipLock [place] 25G X 1" (Needle (Disp))Indication s:Adrenal insufficiency [...] Tablet Delayed ReleaseIndication s:Coronary artery disease involving [place] coronary artery of [place] heart without angina pectoris Take 1 Tablet [...] ns:HTN, goal below 140/90,Coronary artery disease involving [place] coronary artery of [place] heart without angina pectoris TAKE 1 CAPSULE BY MOUTH EVERY MORNING 90 Capsule 3 5 3:20 PM EDT 02/11/20 24 025 Active Atorvastatin Calcium 40 MG Oral Tablet (Lipitor)Indicati ons:Pure hypercholesterole tammy,Coronary artery disease involving [place] coronary artery of [place] heart without angina pectoris,Presence of drug coated [...] N, goal below 140/90,Coronary artery disease involving [place] coronary artery of [place] heart without angina pectoris,Presence of drug coated [...] Tablet Sublingual (Nitrostat)Indica tions:Coronary artery disease involving [place] coronary artery of [place] heart without angina pectoris DISSOLVE ONE TABLET [...] Additional Information Patient not taking.Reported on 11/03/2024 Diphenoxylate-Atr opine 2.5-0.025 MG Oral Tablet (Lomotil)Indicati ons:Irritable bowel syndrome with diarrhea Take 1 Tablet by mouth 4 times a day as needed for Diarrhea. 120 Tablet 10/01/19 25 Active Toilet Safety FrameIndications: Blunt trauma of [...] DAYS IN A ROW. 90 Tablet 3 11/13/19 25 Active Levothyroxine Sodium 125 MCG Oral Tablet (Levoxyl)Indicati ons:Acquired hypothyroidism TAKE 1 TABLET BY MOUTH DAILY EXCEPT FOR SUNDAY AT LEAST 30 MIN. PRIOR TO BREAKFAST OR OTHER MEDS- 1 EVERY DAY FOR 6 DAYS IN A ROW. APPOINTMENT NEEDED FOR FUTURE REFILLS. 90 Tablet 4 7:55 AM EST 08/18/20 24 025 Discontin ued(Refil l) Hospital, Clinic, or Other Facility Administered Medication Ordered Dose Route Frequency Start Date End Date Status Albuterol Sulfate (Proventil) (2.5 MG/3ML) 0.083% inhalation solution 2.5 mgIndications:Wheezing 2.5 mg NEBULIZER ONCE PRN 12/17/2023 12/16/2024 Ac tive documented as of this encounter (statuses as of 11/12/2024) Active Problems Problem Noted Date Diagnosed Date Uncomplicated asthma 10/08/2024 Senile osteoporosis 06/15/2022 Multiple lipomas 02/07/2022 Coronary artery disease invo lving [place] coronary artery of [place] heart without angina pectoris 02/09/2020 Pure hypercholesterolemia 02/09/2020 Presence of drug coated stent in LAD coronary ar ibis 02/06/2020 Overview (02/06/2020): 02/04/2020 SAIRA (generalized anxiety disorder) 09/09/2019 Major depressive disorder, single episode, moder ate 09/06/2018 Encounter for long-term (current) use of medicat ions 11/19/2017 Controlled substance agreement signed 06/13/2017 THIERRY on CPAP 12/14/2016 Overview (01/26/2017): CPAP 12 cwp AHP 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 08/31/2016 Gastroesophageal reflux disease without esophagi tis 06/08/2014 Adrenal insufficiency 10/02/2011 HTN, goal below 140/90 10/18/2010 Displacement of cervical int ervertebral disc without myelopathy 08/05/2010 Anti-phospholipid antibody syndrome 11/20/2005 Carpal tunnel syndrome 01/02/2003 Other optic neuritis History of DVT (deep vein thrombosis) Acquired hypothyroidism Mineralocorticoid deficiency documented as of this encounter (statuses as of 11/12/2024) Resolved Problems Problem Noted Date Diagnosed Date Resolved Date Psoriasis 10/08/2024 10/08/2024 Prediabetes 11/26/2022 09/13/2023 History of 2019 novel mohr virus disease (COVID-19) 06/14/2022 10/13/2022 Migraine 09/15/2020 10/13/2022 Anxiety 07/27/2015 09/09/2019 Migraine 11/06/2013 09/15/2020 Hypogonadism male 03/26/2012 04/23/2018 [place]'s disease 03/26/2012 04/23/2018 Arthritis, rheumatoid 01/11/20112015 Polyarthropathy [...] as of this encounter (statuses as of 11/12/2024) Immunizations Name Administration Dates Next Due COVID-19 mRNA, LNP-s, No Pre serve, 2-Dose Series ([facility]) 04/08/2022,05/03/2021,11/20/2020,10/30 COVID-19, MRNA-LNP, 24-25, P F, 50 MCG/0.5ML, IM, 12 YRS & ABOVE (Moderna - Spikevax) 05/23/2024 COVID-19, MRNA-LNP, PF, 50 M CG/0.5 mL, 12 YRS AND ABOVE, IM (MODERNA-Spikevax) 06/21/2023 Covid-19, Mrna, Lnp-s, Pf, B ivalent, 30 Mcg, IM, 12 yrs and above (Pfizer) 07/25/2022 PPD 08/30/2011 Pneumococcal Conjugate Vacc, 13 Valent (Prevnar) 03/13/2019 Pneumococcal Conjugate Vacci ne, 20-valent ([id number]) 08/16/2023 Pneumococcal Polysaccharide PPV23 (Pneumovax) 02/20/2018,06/03/2009 RSV [...] the money to buy more. Never true 09/14/19 24 Within the past 12 months, t he food you bought just didn't last and you didn't have money to get more. Never true 09/14/2023 Childcare Answer Date Recorded Do you feel overwhelmed with taking care of a child, family member or friend? No 09/14/2023 Does your family need help f inding childcare? (Household - for ages 0-17 years) Not on file 09/14/2023 Clothing Answer Date Recorded Have you been unable to get clothing when it was really needed? No 09/14/2023 Is your family able to get c lothes or diapers when needed? (Household - for ages 0-17 years) Not on file 09/14/2023 Personal Safety Answer Date Recorded Do you feel unsafe or have concerns for your saf ety? No 09/14/2023 Do you have concerns for you r family's safety? (Household - for ages 0-17 years) Not on file 09/14/2023 Utilities Answer Date Recorded Do you have trouble paying y our heating, water, or electric bill? No 09/14/2023 Is your family able to pay t he heat, water, or electric bill? (Household - for ages 0-17 years) Not on file 09/14/2023 Does your family have access to good internet? (Household - for ages 0-17 years) Not on file 09/14/2023 Employment Status Answer Date Recorded Are you unemployed or without regular income? No 09/14/2023 Does the household have a re gular source of income? (Household - for ages 0-17 years) Not on file 09/14/2023 Social Connections Answer Date Recorded How often do you feel lonely or isolated from th ose around you? Never 09/14/2023 Financial Resource Strain Answer Date R ecorded Do you have any trouble payi ng for your medications, or do you think you might in the future? No 09/14/2023 Does your family have troubl e paying for medicine? (Household - for ages 0-17 years) Not on file 09/14/2023 Transportation Needs Answer Date Record ed READ ONLY Do you have troubl e getting a ride to medical visits or work? Never True 09/14/2023 Does your family have a hard time getting a ride to doctors visits? (Household - for ages 0-17 years) Not on file 09/14/2023 Has lack of transportation k ept you from medical appointments, meetings, work, or from getting things needed for daily living? Check all that apply. (Adult - for ages 18 years and over) Not on file 09/14/2023 Do you (or your family) have trouble finding or paying for a ride (transportation)? (Household - for ages 0-17 years) Not on file 09/14/2023 Housing Stability Answer Date Recorded Do you currently live in a s helter or have no steady place to sleep at night? No 09/14/2023 READ ONLY Do you think you a re at risk of becoming homeless? No 09/14/2023 Does your family worry about paying for your home or becoming homeless? (Household - for ages 0-17 years) Not on file 0 09/14/2023 Are you homeless or worried that you might be in the future? (Adult - for ages 18 years and over) Not on file Are you (or your family) liz eless [...] ages 0-17 years) Not on file 09/14/2023 Sex and Gender Information Value Date Recorded [...] encounter Miscellaneous Notes * Telephone Encounter - Alvaro Anna, [facility] - 11/12/2024 2:51 PM EDTSigned Prescriptions: Disp Refills Levothyroxine Sodium 125 MCG Oral Tablet (*90 Tab*3 Sig: TAKE 1 TABLET BY MOUTH DAILY EXCEPT FOR SUNDAY AT LEAST 30 MIN. PRIOR TO BREAKFAST OR OTHER MEDS- 1 EVERY DAY FOR 6 DAYS IN A ROW. Authorizing Provider: AALIYAH BRIDGES User: ALVARO ANNA * Telephone Encounter - Rae Adrian RP - 11/12/2024 2:40 PM EDTPending Prescriptions: Disp Refills Levothyroxine Sodium 125 MCG Oral Tablet (*90 Tab*0 Sig: TAKE 1 TABLET BY MOUTH DAILY EXCEPT FOR SUNDAY AT LEAST 30 MIN. PRIOR TO BREAKFAST OR OTHER MEDS- 1 EVERY DAY FOR 6 DAYS IN A ROW. APPOINTMENT NEEDED FOR FUTURE REFILLS. * Telephone Encounter - Rae Adrian RPh - 11/12/2024 2:40 PM EDT Patient not seen by endocrinology since 07/2022. Last prescribed by PCP. Will forward refill request. Thank you, Rae Adrian, PharmD Clinical Pharmacist [facility] [phone] 11/12/2024, 2:40 PM documented in this encounter Plan of Treatment Upcoming Encounters Date Type Department Care Team (Late st Contact Info) Description 11/17/2024 8:40 AM EDT Office Visit Family [facility] [address], [address] [place] [address] Aaliyah Bridges, DO [address] [place] [address] 11/25/2024 8:30 AM EDT Office Visit Rheumatology [facility] [address] [place] [phone] Ling Mata CRNP [address] [place] [address] 12/22/2024 10:00 AM EDT Office Visit Family Practice [address] [place] [address] [address] [place] [phone] Aaliyah Bridges, DO [address] [place] [address] 04/13/2025 9:00 AM EDT Office Visit Orthopaedics [facility] [address] [place] [phone] Keith Pearson, DO [address] [place] [address] 05/18/2025 8:15 AM EDT Cardiac Studies Cardiac Studies, [facility] [address] [facility] [place] [address] 11/16/2025 8:30 AM EDT Office Visit Cardiology, [facility] [address] [facility] [place] [address] Chayo Ace CRNP [address] [place] [address] Scheduled Procedures Name Priority Associated Diagnoses Date/Ti me COLONOSCOPY FLEXIBLE PROXIMAL DIAGNOSTIC Recall History of colon polyps Health Maintenance Due Date Last Done Comments Cologuard 2000 Sigmoidoscopy 2000 Fecal Occult Blood Test 09/07/2000 09/07/1999 Adult Wellness Visit 2021 COVID-19 Vaccine ( season) 2024 05/23/2024, 06/21/2023, 07/25/2022, Additional history exists Depression Monitoring 10/08/2025 10/08/2024 GFR 11/06/2025 11/06/2024, [...] D LEVEL ONCE IN A LIFETIME-USE SMARTSET# [id number] Completed 12/12/2023, 08/18/2022, 05/24/2016, Additional history exists Influenza Vaccine (FLU shot) [...] as of this encounter Visit Diagnoses Diagnosis Acquired hypothyroidism Unspecified hypothyroidism documented in this encounter Advance Directives * Full Code (Latest Code Status on File) Date Activated Date Inactivated Comments 02/07/2022 8:35 AM 02/07/2022 2:44 PM This order ref lects the patients wishes and were consensually agreed upon. Care Teams Bread Packer Relationship Specialty Start Date End Date Aaliyah Bridges DO [address] [place] [address] PCP - General 07/05/10 documented as of this encounter
--- OUTSIDE RECORDS SUMMARY | 2024-12-04 19:27 | External Medical Summary | Summary of Care ---
Author Name Unknown Organization [facility] Address [address] [place] [address] Phone [phone] Care Team Providers Care Bobbin Fixer Name Role Phone Ethan Bridges DO Primary Care Provider [phone] Reason for Visit * Reason Onset Date Comments Medication Refill 11/22/2024 Encounter Details Date Type Department Care Team (Late st Contact Info) Description 11/22/2024 Refill Family Practice [address], [place] [address] [place] [address] Ethan Bridges DO [address] [place] [address] Irritable bowel syndrome with diarrhea Allergies Active [...] 1 01/26/20 22 Active Easy Touch FlipLock [place] 25G X 1" (Needle (Disp))Indications :Adrenal insufficiency [...] Tablet Delayed ReleaseIndications :Coronary artery disease involving [place] coronary artery of [place] heart without angina pectoris Take 1 Tablet [...] s:HTN, goal below 140/90,Coronary artery disease involving [place] coronary artery of [place] heart without angina pectoris TAKE 1 CAPSULE BY MOUTH EVERY MORNING 90 Capsule 3 5 3:20 PM EDT 02/11/20 24 025 Active Atorvastatin Calcium 40 MG Oral Tablet (Lipitor)Indicatio ns:Pure hypercholesterolem ia,Coronary artery disease involving [place] coronary artery of [place] heart without angina pectoris,Presence of drug coated [...] , goal below 140/90,Coronary artery disease involving [place] coronary artery of [place] heart without angina pectoris,Presence of drug coated [...] Tablet Sublingual (Nitrostat)Indicat ions:Coronary artery disease involving [place] coronary artery of [place] heart without angina pectoris DISSOLVE ONE TABLET [...] FOR DIARRHEA 120 Tablet 11/25/19 25 Active documented as of this encounter (statuses as of 11/25/2024) Active Problems Problem Noted Date Diagnosed Date Uncomplicated asthma 10/08/2024 Senile osteoporosis 06/15/2022 Multiple lipomas 02/07/2022 Coronary artery disease invo lving [place] coronary artery of [place] heart without angina pectoris 02/09/2020 Pure hypercholesterolemia 02/09/2020 Presence of drug coated stent in LAD coronary ar ibis 02/06/2020 Overview (02/06/2020): 02/04/2020 SAIRA (generalized anxiety disorder) 09/09/2019 Major depressive disorder, single episode, moder ate 09/06/2018 Encounter for long-term (current) use of medicat ions 11/19/2017 Controlled substance agreement signed 06/13/2017 THIERRY on CPAP 12/14/2016 Overview (01/26/2017): CPAP 12 cwp AHP Rheumatoid arthritis of [facility] without rheumatoid factor 08/31/2016 Gastroesophageal [...] mRNA, LNP-s, No Pre serve, 2-Dose Series (boo-box) 04/08/2022,05/03/2021,11/20/2020,10/30 COVID-19, MRNA-LNP, 24-25, P F, 50 MCG/0.5ML, IM, 12 YRS & ABOVE (Moderna - Spikevax) 05/23/2024 COVID-19, MRNA-LNP, PF, 50 M CG/0.5 mL, 12 YRS AND ABOVE, IM (MODERNA-Spikevax) 06/21/2023 Covid-19, Mrna, Lnp-s, Pf, B ivalent, 30 Mcg, IM, 12 yrs and above (boo-box) 07/25/2022 PPD 08/30/2011 Pneumococcal Conjugate Vacc, 13 Valent (Prevnar) 03/13/2019 Pneumococcal Conjugate Vacci ne, 20-valent ([id number]) 08/16/2023 Pneumococcal Polysaccharide PPV23 (Pneumovax) 02/20/2018,06/03/2009 RSV [...] encounter Miscellaneous Notes * Telephone Encounter - Ethan Bridges DO - 11/25/2024 10:08 AM EDT Refill done yesterday * Telephone Encounter - Cristal Monte, [facility] - 11/25/2024 8:47 AM EDTPending Prescriptions: Disp Refills Diphenoxylate-Atropine 2.5-0.025 MG Oral T*120 Ta*1 Sig: Take 1 Tablet by mouth 4 times a day as needed for Diarrhea. * Telephone Encounter - Cristal Monte [facility] - 11/25/2024 8:46 AM EDT I have reviewed the patient’s controlled substance dispensing history in the Prescription Drug Monitoring Program in compliance with the [facility] regulations before prescribing a controlled substance. PDMP checked on 11/25/2024. Pending Prescriptions: Disp Refills Diphenoxylate-Atropine 2.5-0.025 MG Oral *120 Ta*0 Sig: Take 1 Tablet by mouth 4 times a day as needed for Diarrhea. Last Visit: 11/17/2024 (in office), Visit date not found (telemedicine) Next Visit: 12/22/2024 Date medication was last filled: 10/01/24 Date medication is due for refill: 11/01/24 [facility] [id number] Is this request for a controlled substance? [...] orders placed or performed in visit on 01/04/19 OPIOIDS/BENZO COMPLIANCE MONITORING TEST Result Value URINE [...] in Results Review. Please approve if appropriate. Thanks, Cristal Dickson, Pharm D, BCACP Clinical Pharmacist [address] [place] [address] - [facility] 11/25/2024, 8:47 AM Ph. [phone] documented in this encounter Plan of Treatment Upcoming Encounters Date Type Department Care Team (Late st Contact Info) Description 12/22/2024 10:00 AM EDT Office Visit Family Practice [address] [place] [address] [address] [place] [address] Ethan Bridges, [address] [place] [address] 03/25/2025 10:00 AM EDT Office Visit Rheumatology [facility] [address] [place] [phone] Ling Mata CRNP [address] [place] [address] 04/13/2025 9:00 AM EDT Office Visit Orthopaedics [facility] [address] [place] [phone] Keith Pearson, [address] [place] [phone] 05/18/2025 8:15 AM EDT Cardiac Studies Cardiac Studies, [facility] [address] [place] [phone] 11/16/2025 8:30 AM EDT Office Visit Cardiology, [facility] [address] [place] [phone] Chayo Ace CRNP [address] [place] [address] Scheduled Procedures Name Priority Associated Diagnoses Date/Ti [...] 08/15/2022, Additional history exists Colonoscopy 12/05/2026 12/05/2021, 04/12/2021, 05/31/2011, Additional history exists Colorectal Cancer Screening [...] D LEVEL ONCE IN A LIFETIME-USE SMARTSET# [id number] Completed 12/12/2023, 08/18/2022, 05/24/2016, Additional history exists [...] and were consensually agreed upon. Care Teams Bobbin Fixer Relationship Specialty Start Date End Date Ethan Bridges DO [address] [place] [place] [address] PCP - General 07/05/10 documented as of this encounter
[2024-12-05] MEDS ORDERED: HYDROCORTISONE 10 MG TAB PO SCH ×2 (09:00→14:00)
--- NOTE | 2024-12-10 13:08 | Discharge Summary ---
Date of Service December 10, 2024 Admission HPI Per Admitting Provider 69-year-old male with chronic left knee pain has rheumatoid arthritis has had injections without the nonprogressive radiographs on x-rays presents for knee replacement Patient denies headaches, sweats, fevers, chills, double vision, blurred vision, cough, sore throat, dysphagia, chest pain (recently but has had in past), sob at rest (but does if runs), wheezing, n/v/d/c, numbness, tingling, fatigue, urinary symptoms, mood disorders. ROS positive for Kory thyroiditis previous heart attack previous blood clot arthritis multiple joints acid reflux. Principal Diagnosis left knee osteoarthritis Discharge Data Allergies Allergy/AdvReac Type Severity Reaction Status Date / Time morphine Allergy Severe ITCHING,HIV Verified 12/03/24 11:03 ES,SOB sulfasalazine AdvReac Intermediate abdominal Verified 12/03/24 11:03 pain, fever Consultations 12/03/24 16:08 Consult Hospitalist Routine Procedures Performed Operation Date: 12/03/24 12:45 Actual Procedures p Left Total Knee Arthroplasty(Left) - Cal Dubon MD Ordered Studies 12/03/24 05:00 US - OR guided needle placemen Routine Hospital Course (1) Rheumatoid arthritis involving left knee: Postop day 1 left knee replacement. Intra-articular findings suggested condition more related to osteoarthritis than rheumatoid arthritis with little evidence of any rheumatoid synovitis. 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 Will cover with oral antibiotics on discharge. Drainage is at the level that Hemovac can be discontinued today prior to discharge. Would like medicine to weigh in on his hypertension prior to discharge. Patient feels it is related to steroids. Advanced left knee rheumatoid arthritis failed conservative management including maximal medical management by rheumatology and injections. Proceed with left knee replacement. May need electrocautery synovectomy. Total Time Total Time Spent Total Time Spent (In Minutes): 20 Discharge Plan Discharge Items Patient Disposition: Home - Self-Care Reason For Visit: Left Knee Osteoarthritis Discharge Diagnosis: Left knee osteoarthritis Activity: Per Instructions section Non-emergency contact: Primary Care Provider and Surgeon Call non-emergency contact if: your pain is not controlled, your pain is worsening and your temperature is above 101 Follow-up/Referrals: Ehtan Bridges DO [Primary Care Provider] - Diet: Regular Addtl Attending Provider Instructions: ACTIVITY RECOMMENDATIONS: SELF CARE INSTRUCTIONS AFTER TOTAL KNEE REPLACEMENT A. You may need to continue a physical therapy program after discharge from the hospital. There are several options available to you. Your doctor will assist you in selecting the best one for you. 1. An out-patient facility 3 times a week for therapy. 2. Home therapy for 1 to 2 weeks with outpatient therapy to follow. 3. Continue working on all exercises taught by physical therapy three times a day for 20 minutes on non-therapy days. Your goals should be to increase the bending of your knee to 90 degrees and beyond and to fully straighten your knee. Ice and elevate knee after exercise. B. Weight as tolerated with a walker or as instructed by your physician. C. It is okay to shower if minimal to no drainage from incision. No Baths. Do not soak wound. D. Make walking a part of your daily routine. Be up as much as comfortable with rest periods throughout the day. Rest with leg elevation is very important. Use the ice wrap frequently for the first 3-4 weeks. E. There are no restrictions on activities. You may ride in a car, shop, participate in biblical studies professor and all social activities. F. Wear the long elastic stockings (CHULA hose) 20 hours a day for one month after surgery. They can be removed several times a day for laundering and when showering. G. You may return to previous diet. H. BULMARO dressing: You have a BULMARO dressing on your surgical wound. It will remain in place for 7 days from surgery. You will be provided with a booklet with the do's and don'ts with the dressing in place. After 7 days, the dressing may be removed. If there is drainage from the surgical incision, you may cover the wound with dry dressings SPECIAL CARE INSTRUCTIONS: VERY IMPORTANT TO READ AND REVIEW A. Take Coumadin, Xarelto, Aspirin or Lovenox (blood thinning medications) as directed by your doctor. If on Coumadin, have a pro-time (blood test) drawn according to your doctor's instructions. This will tell the doctor how well the Coumadin is thinning your blood. B. There are a few signs you need to watch for after you are home. Call [facility] if you notice any of the followin. Increased severe knee pain. Some pain is expected especially when you exercise. 2. Increased swelling in your leg or knee; pain or swelling of the calf muscle in either lower leg. 3. Any redness or fluid drainage from the incision. 4. Shortness of breath or chest pain. 5. A Temperature of 101 degrees F or greater. C. Please call [facility] at if you have any concerns or questions about your operation or recovery. The doctor or his nurse will return your call promptly. D. You must take antibiotics before dental work, bladder, bowel or other surgery. Your doctor will provide you with a permanent care to carry describing this precaution. FOLLOW UP VISIT: If appointment is not already scheduled: Please call [facility] to make a follow-up appointment for 2 weeks after your surgery at . Pending Studies at Discharge: No Stand-Alone Forms: [facility], Smoking Cessation Medications and DC Order Prescriptions: New celecoxib [Celebrex] 200 mg capsule 200 mg PO Q12H Qty: 60 0RF aspirin 81 mg tablet,delayed release (DR/EC) 81 mg PO BID Qty: 60 0RF cefadroxil 500 mg capsule 500 mg PO Q12H Qty: 28 0RF oxycodone 5 mg tablet 5 mg PO Q4H PRN (Reason: pain) Qty: 20 0RF acetaminophen [Tylenol Extra Strength] 500 mg tablet 1,000 mg PO Q8H Qty: 90 0RF Continued fluoxetine 40 mg Capsule 40 mg PO QAM diphenoxylate-atropine [Lomotil] 2.5-0.025 mg Tablet 1 tab PO BID PRN (Reason: Diarrhea) folic acid 1 mg Tablet 1 mg PO DAILY hydrocortisone [Cortef] 10 mg Tablet 5 - 20 mg PO BID Rx Instructions: 20 mg qam, 5 mg in the afternoon albuterol sulfate 90 mcg/actuation Hfa Aerosol Inhaler 2 puff INHALATION QID PRN (Reason: Shortness Of Breath Or Wheezing) fludrocortisone 0.1 mg Tablet 0.1 mg PO QAM Rx Instructions: takes at 1PM Caltrate 600 plus D 600 mg (1,500 mg)-800 unit Tablet,Chewable 1 tab PO QAM terazosin 5 mg capsule 5 mg PO HS methotrexate sodium 25 mg/mL solution 17.5 mg subcut WK Rx Instructions: [place] nitroglycerin 0.4 mg tablet, sublingual 0.4 mg sublingual DIRECTED PRN (Reason: Chest Pain) Rx Instructions: 1 tab Q5 minutes prn CP, may take up to 3 doses pantoprazole [Protonix] 40 mg tablet,delayed release (DR/EC) 40 mg PO QAM metoprolol succinate [Toprol XL] 25 mg tablet extended release 24 hr 25 mg PO HS fluticasone propionate [Flonase Allergy Relief] 50 mcg/actuation Serafina,Suspension 2 spray INTRANASAL HS Solu-Medrol (PF) 125 mg/2 mL recon soln 125 mg IM UD PRN (Reason: ADRENAL INSUFFICENCY) Rx Instructions: stress dose multivitamin Tablet 1 tab PO DAILY potassium chloride 20 mEq Tablet,Er Particles/Crystals 20 meq PO QAM diphenhydramine HCl [Benadryl] 25 mg Capsule 50 mg PO HS PRN (Reason: Itching) levothyroxine 125 mcg Tablet 125 mcg PO 6XWK Rx Instructions: TAKES EVERY DAY EXCEPT SUNDAYS. lisinopril 10 mg Tablet 20 mg PO QAM atorvastatin 40 mg tablet 40 mg PO QAM zoledronic [id number] [Reclast] 5 mg/100 mL Piggyback 1 ea IV YEARLY Held aspirin 81 mg Tablet,Delayed Release (Dr/Ec) 81 mg PO DAILY Hold Instructions: Resume on 01/02/25. Amjevita(CF) 40 mg/0.4 mL Syringe 40 mg SUBCUT UD Hold Instructions: Resume on 12/19/24. Rx Instructions: administer as 2 x 40 mg doses per day for 2 days Discontinued hydrocodone-acetaminophen 5-325 mg Tablet 1 tab PO BID PRN (Reason: Pain) Discharge Orders: Discharge Order (Routine); Ordered 12/04/24 Ordered By: Cal Correa/Other Patient Handouts: Knee Replace Home Recovery Admission Data Admit Date/Time: 12/03/24 15:22 Attending Provider: aCl Dubon Admit Provider: Cal Dubon Primary Care Provider: Ethan Bridges Other Providers: Dena Carbajal; [facility], [facility] Other Interventions: Discharge Summary Assessment (RN) Last Done: 12/04/24 12:15
== END 2024-12-04 13:16 | disposition home or self-care (01) ==
LOC: 3W 10:39 → ASU 10:39
DX: I25.10 Atherosclerotic heart disease of native coronary artery without angina pectoris; Z87.891 Personal history of nicotine dependence; Z79.890 Hormone replacement therapy; E27.1 Primary adrenocortical insufficiency; Z88.2 Allergy status to sulfonamides; Z95.5 Presence of coronary angioplasty implant and graft; Z88.5 Allergy status to narcotic agent; M17.12 Unilateral primary osteoarthritis, left knee; Z79.82 Long term (current) use of aspirin; I10 Essential (primary) hypertension; J44.9 Chronic obstructive pulmonary disease, unspecified; Z79.899 Other long term (current) drug therapy; Z86.718 Personal history of other venous thrombosis and embolism